=== PATIENT | female | born 1955 ===

== ENCOUNTER 2022-11-04 17:55 | Inpatient (IN) | payer MEDICARE, SELFPAY ==
[2022-11-04] VITALS (34 sets, daily range): BP systolic 86–181; BP diastolic 50–103; PULSE 105–181; RESP 14–33; TEMP 35.3–38.4; O2SAT 92–100; BMI 26.1
--- NOTE | 2022-11-04 18:00 | DI.CT.S_ITS ---
PROCEDURE: CT HEAD/BRAIN WO CON INDICATIONS: altered mental status TECHNIQUE: Noncontrast 4.5 mm thick angled axial sections acquired from the foramen magnum to the vertex, with coronal and sagittal reformats. For radiation dose reduction, the following was used: automated exposure control, adjustment of mA and/or kV according to patient size. COMPARISON: None. FINDINGS: Image quality: Excellent. CSF spaces: Basal cisterns are patent. No extra-axial fluid collections. Ventricles are normal in size and shape. Brain: No midline shift. No intracranial masses or hemorrhage. Baker-white matter interface is normal. Skull and face: Calvarium and visualized facial bones are intact, without suspicious lesions. Sinuses: Visualized sinuses and mastoids are clear. IMPRESSION: No acute finding. Dictated by: Gonzalo Zuleta M.D. on 11/04/2022 at 19:01 Approved by: Gonzalo Zuleta M.D. on 11/04/2022 at 19:02
--- NOTE | 2022-11-04 18:00 | DI.RAD.S_ITS ---
PROCEDURE: XR CHEST 1V INDICATIONS: Evaluate for pneumonia TECHNIQUE: One view of the chest was acquired. COMPARISON: None. FINDINGS: Surgical changes and devices: None. Lungs and pleura: Lungs are clear. No pleural effusions or pneumothorax. Mediastinum: Mediastinal contours appear normal. Heart size is normal. Bones and chest wall: No suspicious bony lesions. Overlying soft tissues appear unremarkable. IMPRESSION: No acute cardiopulmonary process demonstrated radiographically. Dictated by: Gonzalo Zuleta M.D. on 11/04/2022 at 19:07 Approved by: Gonzalo Zuleta M.D. on 11/04/2022 at 19:12
[2022-11-04] MEDS: SODIUM CHLORIDE 0.9% 1,000 ML 999 ML IV (18:05)
[2022-11-04] MEDS: SODIUM CHLORIDE 0.9% 1,000 ML 1000 ML IV (18:15)
[2022-11-04 18:27] LABS: Hematocrit 43.6 % (36-46); Hemoglobin 12.8 g/dL (12.0-16.0); Mean Corpuscular HGB Conc 29.5 % (30-36); Mean Corpuscular Volume 98.3 fL (80-100); Platelet Count 463 X10^3/uL (150-400); Red Blood Cell Count 4.43 X10^6/uL (4.0-5.2); Red Cell Distribution Width 14.5 % (11.6-14.8); White Blood Cell Count 26.7 X10^3/uL (4.5-11.0)
[2022-11-04 18:28] LABS: Prothrombin Time 11.5 SECONDS (10.1-12.7)
[2022-11-04 18:30] LABS: Add Manual Diff / Slide Review YES
[2022-11-04 18:31] LABS: PTT Partial Thromboplastin Tim 31 SECONDS (26-36)
[2022-11-04 18:40] LABS: Lactate (Lactic Acid) 1.8 mmol/L (0.7-2.1)
[2022-11-04 18:41] LABS: Acetaminophen < 10 ug/mL (10-30); Alanine Aminotransferase 17 IU/L (<35); Albumin 4.1 g/dL (3.5-5.0); Albumin Globulin Ratio 1.2 (1.0-2.8); Alkaline Phosphatase 381 U/L (38-126); Aspartate Aminotransferase 17 IU/L (14-36); BUN Creatinine Ratio 21.7 (6-22); Bilirubin Total 0.5 mg/dL (0.2-1.3); Blood Urea Nitrogen 79 mg/dL (7-17); Carbon Dioxide 11 mmol/L (22-32); Chloride 85 mmol/L (98-107); Estimated Glomerular Filt Rate 13 mL/min (>60); Ethanol (ETOH) < 10 mg/dL; Globulin 3.3 g/dL (1.7-4.1); Lipase 185 U/L (23-300); Magnesium 3.3 mg/dL (1.6-2.3); Sodium 124 mmol/L (137-145); Total Protein 7.4 g/dL (6.3-8.2)
[2022-11-04 18:42] LABS: Creatine Kinase 53 U/L (30-135); Phosphorous 7.4 mg/dL (2.8-4.1); Salicylate < 1.0 mg/dL (<20)
[2022-11-04 18:44] LABS: Appearance Urine UA CLEAR; Bilirubin Urine UA NEGATIVE (NEGATIVE); Color Urine UA LT. YELLOW; Glucose Urine UA 3+ g/dL (Negative); Ketones Urine UA 1+ (NEGATIVE); Leukocyte Esterase Urine UA NEGATIVE (NEGATIVE); Nitrite Urine UA NEGATIVE (Negative); Occult Blood Urine UA TRACE-INTACT (Negative); Protein Urine UA 2+ (Negative); Urobilinogen Urine UA 0.2 E.U./dL (0.2)
[2022-11-04 18:48] LABS: pH Urine UA 5.5 (4.5-8.0)
[2022-11-04 18:49] LABS: HEMOLYSIS 24 (0-50)
[2022-11-04 18:49] LABS: PCO2 VBG 30.9 mmHg (45-50); PO2 VBG 38 mmHg (35-45); pH VBG 7.14 (7.33-7.43)
[2022-11-04 18:51] LABS: HCO3 VBG 11 mmol/L (24-28); Oxygen Saturation VBG 58 % (70-75); Total CO2 VBG 11 mmol/L (24-29)
[2022-11-04 18:52] LABS: Fractionated Inspired Oxygen 21
[2022-11-04 18:53] LABS: NT-proBNP (BNP-Adult 18+) 1580 pg/mL (<125); Troponin I 0.042 ng/mL (0.01-0.034)
[2022-11-04 18:57] LABS: Ammonia (NH3) < 9 umol/L (9-30)
[2022-11-04 18:58] LABS: Procalcitonin 1.15 ng/mL (<0.5)
--- NOTE | 2022-11-04 19:00 | ED_ITS ---
HPI - General Adult General Chief complaint: Diabetic Problem Stated complaint: DKA Time Seen by Provider: 11/04/22 17:58 Source: EMS and other (Boyfriend) Mode of arrival: EMS Limitations: altered mental status History of Present Illness HPI narrative: Patient is a 67-year-old female who arrived by EMS. They were called by the patient's boyfriend. He initially was not present at bedside to provide information but did eventually arrived and provided much of the HPI. Patient is unable to provide any information. Patient's boyfriend states that he lives out of the local area. He states that he normally calls the patient every morning. He thinks that the last time that he called her yesterday morning but could have been the day prior to that. He states he tried to call her this morning and she did not answer the phone. He decided to make his way to the local area. Upon arriving here he found the patient lying on the floor her house. He could not arouse her. He contacted EMS. Upon arrival EMS also found the patient obtunded. Her no signs of trauma except for some bruising on her right hip. She was not following commands. Blood sugar was elevated. Was maintaining airway. IVs were started. Patient transported to the emergency department for evaluation. Patient's boyfriend states she does have a history of heart failure. He states she is diabetic but not sure if she is on insulin. We are unsure of how long the patient has been on the floor. Related Data Home Medications Medication Instructions Recorded Confirmed acetaminophen 325 mg tablet 650 mg PO Q6HP PRN #0 tabs 07/15/16 diphenhydramine HCl 25 mg tablet 25 mg PO Q6HP PRN #0 tabs 07/15/16 (Benadryl Allergy) Previous Rx's Medication Instructions Recorded carvedilol 25 mg tablet (Coreg) 25 mg PO BID #60 tabs 07/17/16 furosemide 40 mg tablet 40 mg PO QDAY #30 tabs 07/17/16 lisinopril 10 mg tablet 10 mg PO QDAY #30 tabs 07/17/16 metformin 500 mg tablet 500 mg PO BIDCC #60 tabs 07/17/16 (Glucophage) Allergies Allergy/AdvReac Type Severity Reaction Status Date / Time No Allergy Information Allergy Verified 11/04/22 20:00 Available Review of Systems Review of Systems Narrative: Unable to obtain secondary to patient's presenting condition Patient History Medical History Congestive heart failure Diabetes Hypertension Social History lives independently: Yes Exam Initial Vital Signs Initial Vital Signs: Vital Signs Temperature 95.7 F L 11/04/22 17:55 Pulse Rate 112 H 11/04/22 17:55 Respiratory Rate 25 H 11/04/22 17:55 Blood Pressure 144/99 H 11/04/22 17:55 Pulse Oximetry 99 11/04/22 17:55 Oxygen Delivery Method 11/04/22 17:55 Const General: acute distress, in distress, No combative, ill appearing and lethargic [place] Head: normal to inspection and normocephalic Mouth: moist mucous membranes Eyes General: Yes appearance normal, both eyes and all related structures Pupils: PERRL Chest Chest: No crepitus and No tenderness Resp Effort & Inspection: not labored, no respiratory distress and tachypneic Auscultation: clear to auscultation bilaterally, no rhonchi and no wheezes Cardio Rate: tachycardic Rhythm: regular rhythm GI Inspection: normal to inspection and non-distended Palpation: soft and No firm External Female Exam: normal external appearance Skin Other: Superficial bruising to right hip. Appears to be some bruising to her right knee and the top of the toes of her right foot. Unsure this is new. Neuro Other: Presenting GCS of 11. Patient was making sounds but not necessarily to any que stions that were asked of her. Extrem Other: Pelvis is stable. No gross deformities of her extremities. Psych Appearance: disheveled Procedures Central Line Placement Right IJ: Time Out Performed: Yes Patient Placed on Monitor/Pulse Ox: Yes MD Prep: mask, gown and gloves Central Line Prep: Chlorhexidine scrub Local Anesthetic: lidocaine 1% Amount of anesthesia used (mL): 5 Ultrasound Used for Placement: Yes Central Line Lumen Inserted: triple Post Procedure: good blood return, all ports aspirated, flushed, capped and sterile dressing applied Post Procedure X-Ray: tip of catheter in good position and no pneumothorax seen Patient Tolerated Procedure: Well and No complications Complications: none Scores GCS [place] coma scale eye opening: Spontaneous [place] coma scale verbal response: Sounds [place] coma scale motor response: Localising [place] coma scale total score: 11 Course Orders Ordered: ED Orders 11/04/22 21:01 VBG [Venous Blood Gas] Stat 11/04/22 22:15 BMP [Basic Metabolic Panel] Stat 11/05/22 00:00 BMP [Basic Metabolic Panel] Stat 11/05/22 01:08 XR chest 1V Stat 11/05/22 01:30 BMP [Basic Metabolic Panel] Stat 11/05/22 01:31 VBG [Venous Blood Gas] Stat 11/05/22 04:00 BMP [Basic Metabolic Panel] Stat 11/05/22 05:30 Complete Blood Count AUTO DIFF DAILY Ketones (Beta-Hydroxybutyrate) DAILY 11/05/22 05:40 Basic Metabolic Panel Q4H Hemoglobin A1C% w Est Avg Glu Stat Lactate (Lactic Acid) Stat 11/05/22 09:30 Basic Metabolic Panel Q4H 11/05/22 13:30 Basic Metabolic Panel Q4H 11/05/22 17:30 Basic Metabolic Panel Q4H 11/05/22 21:30 Basic Metabolic Panel Q4H 11/06/22 05:30 Complete Blood Count AUTO DIFF DAILY Ketones (Beta-Hydroxybutyrate) DAILY 11/07/22 05:30 Complete Blood Count AUTO DIFF DAILY Acetaminophen (Acetaminophen 650 Mg Supp) 650 mg MA Q4HR PRN PRN Reason: Fever/Mild Pain (1-3) Dextrose (Dextrose 50 % In Water 25 Gm/50 Ml Syringe) 25 gm IV PRN PRN PRN Reason: Hypoglycemia INSULIN DRIP PREMIX (Myxredlin Drip Premix) 100 unit in 100 mls @ 6 mls/hr IV TITRATE RYLEE; Protocol Last Titration: 11/05/22 01:00 Dose: 1 mls/hr, 1 mls/hr Documented By: JENNIFER Co-signed By: FLORINA Titration: 11/04/22 23:00 Dose: 2.5 mls/hr, 2.5 mls/hr Documented By: JENNIFER Co-signed By: LAURA Titration: 11/04/22 21:15 Dose: 5 mls/hr, 5 mls/hr Documented By: JENNIFER Co-signed By: FLORINA Admin: 11/04/22 19:36 Dose: 10 mls/hr, 10 mls/hr Documented By: ORAL Co-signed By: JENNIFER Ceftriaxone Sodium 2,000 mg/ (Sodium Chloride) 100 mls @ 200 mls/hr IV Q12HR RYLEE Ampicillin Sodium 2,000 mg/ (Sodium Chloride) 100 mls @ 200 mls/hr IV Q4HR RYLEE Last Titration: 11/05/22 04:02 Dose: Infused Lactated Ringer's (Lactated Ringers) 1,000 mls @ 250 mls/hr IV CONT RYLEE Last Admin: 11/05/22 02:20 Dose: 250 mls/hr Documented By: JENNIFER Vancomycin HCl (Vancomycin) 1,000 mg in 200 mls @ 167 mls/hr IV Q48H RYLEE Calcium Gluconate 4.65 meq/ (Sodium Chloride) 60 mls @ 180 mls/hr IV NOW ONE Stop: 11/05/22 05:49 Naloxone HCl (Naloxone 0.4 Mg/Ml Vial) 0.2 mg IV Q2MIN PRN PRN Reason: Opiate Reversal Discontinued Medications Sodium Chloride (Normal Saline 0.9%) 1,000 mls @ 125 mls/hr IV CONT RYLEE Last Infusion: 11/05/22 01:17 Dose: 0 mls/hr Documented By: Infusion: 11/05/22 00:16 Dose: 0 mls/hr Documented By: Admin: 11/04/22 19:18 Dose: 250 mls/hr Documented By: ORAL Ceftriaxone Sodium 1,000 mg/ (Sodium Chloride) 100 mls @ 200 mls/hr IV NOW ONE Stop: 11/04/22 18:09 Last Infusion: 11/04/22 19:59 Dose: 0 mls/hr Documented By: Admin: 11/04/22 19:27 Dose: 200 mls/hr Documented By: ORAL Sodium Chloride (Normal Saline 0.9%) 1,000 mls @ 500 mls/hr IV BOLUS ONE Stop: 11/04/22 20:07 Last Infusion: 11/04/22 19:19 Dose: 0 mls/hr Documented By: Admin: 11/04/22 18:05 Dose: 999 mls/hr Documented By: ORAL Vancomycin HCl (Vancomycin) 1,000 mg in 200 mls @ 200 mls/hr IV NOW ONE Stop: 11/04/22 20:01 Last Infusion: 11/04/22 20:51 Dose: 0 mls/hr Documented By: Admin: 11/04/22 19:38 Dose: 200 mls/hr Documented By: ORAL Sodium Chloride (Normal Saline 0.9%) 1,000 mls @ 1,000 mls/hr IV BOLUS ONE Stop: 11/04/22 20:19 Last Infusion: 11/04/22 19:28 Dose: 0 mls/hr Documented By: Admin: 11/04/22 18:15 Dose: 1,000 mls/hr Documented By: ORAL Levetiracetam 1,000 mg/ Sodium (Chloride) 110 mls @ 440 mls/hr IV NOW ONE Stop: 11/04/22 19:36 Last Infusion: 11/04/22 20:51 Dose: 0 mls/hr Documented By: Admin: 11/04/22 19:44 Dose: 440 mls/hr Documented By: ORAL Ceftriaxone Sodium 1,000 mg/ (Sodium Chloride) 100 mls @ 200 mls/hr IV NOW ONE Stop: 11/04/22 21:50 Last Infusion: 11/04/22 23:00 Dose: 0 mls/hr Documented By: Admin: 11/04/22 22:20 Dose: 200 mls/hr Documented By: JENNIFER Ampicillin Sodium 2,000 mg/ (Sodium Chloride) 100 mls @ 200 mls/hr IV NOW ONE Stop: 11/04/22 21:51 Last Infusion: 11/04/22 23:36 Dose: 0 mls/hr Documented By: Admin: 11/04/22 23:01 Dose: 200 mls/hr Documented By: JENNIFER Acyclovir 710 mg/ Dextrose 250 mls @ 250 mls/hr IV NOW ONE Stop: 11/04/22 21:54 Last Infusion: 11/05/22 01:14 Dose: 0 mls/hr Documented By: Admin: 11/04/22 23:34 Dose: 250 mls/hr Documented By: JENNIFER Acetaminophen (Ofirmev) 1,000 mg in 100 mls @ 400 mls/hr IV NOW ONE Stop: 11/05/22 00:08 Last Infusion: 11/05/22 01:14 Dose: 0 mls/hr Documented By: Admin: 11/05/22 00:24 Dose: 400 mls/hr Documented By: JENNIFER Acyclovir 710 mg/ Dextrose 250 mls @ 250 mls/hr IV Q8H [facility] Lactated Ringer's (Lactated Ringers) 1,000 mls @ 1,000 mls/hr IV BOLUS ONE Stop: 11/05/22 02:29 Last Infusion: 11/05/22 02:00 Dose: 0 mls/hr Documented By: Admin: 11/05/22 01:00 Dose: 1,000 mls/hr Documented By: JENNIFER Lorazepam (Lorazepam 2 Mg/Ml Inj) 2 mg IV NOW ONE Stop: 11/04/22 19:24 Last Admin: 11/04/22 19:25 Dose: 2 mg Documented By: ORAL Lorazepam (Lorazepam 0.5 Mg Tablet) 1 mg PO NOW ONE Stop: 11/04/22 20:10 Last Admin: 11/04/22 21:29 Dose: Not Given Documented By: JENNIFER Metoprolol Tartrate (Metoprolol Tartrate 5 Mg/5 Ml Inj) 5 mg IV NOW ONE Stop: 11/05/22 05:34 Sucralfate (Sucralfate 1 Gm Tablet) 1 gm PO NOW ONE Stop: 11/04/22 20:10 Last Admin: 11/04/22 21:29 Dose: Not Given Documented By: JENNIFER Vancomycin HCl (Vancomycin Per Pharmacy) 1 request MISC NOW ONE Stop: 11/05/22 01:26 Vital Signs Vital signs: Vital Signs - 8 hr 11/04/22 21:50 11/04/22 21:50 11/04/22 22:00 Temperature 100.2 F H Pulse Rate 123 H Respiratory Rate 19 Blood Pressure 133/61 122/64 Pulse Oximetry 99 11/04/22 22:00 11/04/22 22:11 11/04/22 22:11 Temperature 100.4 F H 100.4 F H Pulse Rate 121 H 119 H Respiratory Rate 17 18 Blood Pressure 122/65 Pulse Oximetry 98 98 11/04/22 22:20 11/04/22 22:20 11/04/22 22:30 Temperature 100.6 F H Pulse Rate 119 H Respiratory Rate 18 Blood Pressure 121/58 L 128/65 Pulse Oximetry 98 11/04/22 22:30 11/04/22 22:40 11/04/22 22:40 Temperature 100.8 F H 100.8 F H Pulse Rate 115 H 117 H Respiratory Rate 16 14 Blood Pressure 126/64 Pulse Oximetry 97 97 11/04/22 22:50 11/04/22 22:50 11/04/22 23:00 Temperature 100.8 F H Pulse Rate 118 H Respiratory Rate 17 Blood Pressure 114/64 109/57 L Pulse Oximetry 97 11/04/22 23:00 11/04/22 23:10 11/04/22 23:10 Temperature 100.8 F H 100.9 F H Pulse Rate 119 H 118 H Respiratory Rate 19 19 Blood Pressure 97/52 L Pulse Oximetry 98 97 11/04/22 23:20 11/04/22 23:20 11/04/22 23:30 Temperature 100.9 F H Pulse Rate 118 H Respiratory Rate 20 Blood Pressure 115/65 108/56 L Pulse Oximetry 97 11/04/22 23:30 11/04/22 23:40 11/04/22 23:40 Temperature 101.1 F H 101.1 F H Pulse Rate 118 H 119 H Respiratory Rate 20 19 Blood Pressure 108/56 L Pulse Oximetry 98 98 11/04/22 23:50 11/04/22 23:50 11/05/22 00:50 Temperature 101.1 F H Pulse Rate 120 H Respiratory Rate 21 Blood Pressure 86/50 L 96/53 L Pulse Oximetry 99 11/05/22 00:55 11/05/22 00:55 11/05/22 01:00 Temperature 100.8 F H Pulse Rate 122 H Respiratory Rate 18 Blood Pressure 95/52 L 135/96 H Pulse Oximetry 97 11/05/22 01:00 11/05/22 01:05 11/05/22 01:05 Temperature 100.6 F H 100.4 F H Pulse Rate 123 H 125 H Respiratory Rate 23 22 Blood Pressure 141/101 H Pulse Oximetry 98 97 11/05/22 01:10 11/05/22 01:10 11/05/22 01:15 Temperature 100.4 F H 100.4 F H Pulse Rate 124 H 121 H Respiratory Rate 24 20 Blood Pressure 120/82 Pulse Oximetry 99 98 11/05/22 01:15 11/05/22 01:20 11/05/22 01:20 Temperature 100.2 F H Pulse Rate 118 H Respiratory Rate 20 Blood Pressure 98/57 L 109/58 L Pulse Oximetry 99 11/05/22 01:25 11/05/22 01:25 11/05/22 01:30 Temperature 100.2 F H Pulse Rate 114 H Respiratory Rate 20 Blood Pressure 97/53 L 110/55 L Pulse Oximetry 97 11/05/22 01:30 11/05/22 01:35 11/05/22 01:35 Temperature 100.2 F H 100.0 F H Pulse Rate 116 H 117 H Respiratory Rate 20 21 Blood Pressure 133/61 Pulse Oximetry 99 97 11/05/22 01:40 11/05/22 01:40 11/05/22 01:45 Temperature 99.9 F H 99.9 F H Pulse Rate 115 H 112 H Respiratory Rate 18 18 Blood Pressure 130/60 Pulse Oximetry 98 99 11/05/22 01:45 11/05/22 01:50 11/05/22 01:50 Temperature 99.7 F H Pulse Rate 110 H Respiratory Rate 17 Blood Pressure 124/59 L 118/57 L Pulse Oximetry 98 11/05/22 01:55 11/05/22 01:55 11/05/22 02:00 Temperature 99.7 F H Pulse Rate 111 H Respiratory Rate 17 Blood Pressure 97/52 L 97/53 L Pulse Oximetry 98 11/05/22 02:00 11/05/22 02:05 11/05/22 02:05 Temperature 99.7 F H 99.7 F H Pulse Rate 109 H 110 H Respiratory Rate 16 17 Blood Pressure 92/55 L Pulse Oximetry 96 96 11/05/22 02:10 11/05/22 02:10 11/05/22 02:15 Temperature 99.7 F H 99.7 F H Pulse Rate 110 H 109 H Respiratory Rate 18 18 Blood Pressure 88/54 L Pulse Oximetry 96 95 11/05/22 02:15 11/05/22 02:20 11/05/22 02:20 Temperature 99.7 F H Pulse Rate 109 H Respiratory Rate 19 Blood Pressure 79/49 L 85/51 L Pulse Oximetry 94 11/05/22 02:30 11/05/22 02:30 11/05/22 02:40 Temperature 99.7 F H Pulse Rate 109 H Respiratory Rate 19 Blood Pressure 86/52 L 93/52 L Pulse Oximetry 93 11/05/22 02:40 11/05/22 02:50 11/05/22 02:50 Temperature 99.5 F 99.5 F Pulse Rate 110 H 114 H Respiratory Rate 18 21 Blood Pressure 129/93 H Pulse Oximetry 97 96 11/05/22 03:00 11/05/22 03:01 11/05/22 03:01 Temperature 99.5 F 99.3 F Pulse Rate 113 H 114 H Respiratory Rate 30 H 21 Blood Pressure 141/87 H Pulse Oximetry 97 97 11/05/22 03:10 11/05/22 03:10 11/05/22 03:21 Temperature 99.3 F 99.3 F Pulse Rate 117 H 113 H Respiratory Rate 34 H Blood Pressure 141/80 H Pulse Oximetry 97 98 11/05/22 03:21 11/05/22 03:30 11/05/22 03:30 Temperature 99.3 F Pulse Rate 109 H Respiratory Rate 28 H Blood Pressure 143/67 H 118/68 Pulse Oximetry 96 11/05/22 03:40 11/05/22 03:40 11/05/22 03:50 Temperature 99.3 F 99.3 F Pulse Rate 109 H 107 H Respiratory Rate 20 21 Blood Pressure 110/62 Pulse Oximetry 95 95 11/05/22 03:50 11/05/22 04:00 11/05/22 04:00 Temperature 99.3 F Pulse Rate 109 H Respiratory Rate 32 H Blood Pressure 117/56 L 84/56 L Pulse Oximetry 89 L 11/05/22 04:10 11/05/22 04:10 11/05/22 04:20 Temperature 99.1 F Pulse Rate 109 H Respiratory Rate 34 H Blood Pressure 84/50 L 86/52 L Pulse Oximetry 95 11/05/22 04:20 11/05/22 04:30 11/05/22 04:30 Temperature 99.1 F 99.0 F Pulse Rate 109 H 109 H Respiratory Rate 33 H 35 H Blood Pressure 89/53 L Pulse Oximetry 92 93 11/05/22 04:40 11/05/22 04:40 11/05/22 04:50 Temperature 99.0 F 98.8 F Pulse Rate 106 H 105 H Respiratory Rate 15 21 Blood Pressure 93/53 L Pulse Oximetry 95 96 11/05/22 04:50 11/05/22 05:00 11/05/22 05:00 Temperature 98.8 F Pulse Rate 104 H Respiratory Rate 21 Blood Pressure 108/57 L 106/57 L Pulse Oximetry 94 11/05/22 05:10 11/05/22 05:10 01/21/23 05:20 Temperature 98.8 F 98.8 F Pulse Rate 104 H 106 H Respiratory Rate 26 H 34 H Blood Pressure 101/59 L Pulse Oximetry 93 92 11/05/22 05:20 11/05/22 05:30 11/05/22 05:30 Temperature 98.8 F Pulse Rate 104 H Respiratory Rate 29 H Blood Pressure 106/57 L 110/57 L Pulse Oximetry 92 Medical Decision Making Differential Diagnosis Differential Diagnosis: Sepsis, seizures, DKA, trauma, intoxication, hemorrhage, and others Condition is:: Improved Chronic Condition is having:: Severe exacerbation Condition is at treatment goal?: No Discussed with:: Shoe Cutter: Dr. Archer, air intercept controller supervisor: Dr. Ibrahim, hospitalist: HAILE Jolley Medical Records Medical records reviewed: Yes I reviewed the patient's medical records. Lab Data Lab results reviewed: Yes I reviewed the patient's lab results. Result diagrams: 11/04/22 18:08 11/05/22 04:00 Labs: Lab Results 11/04/22 11/04/22 11/04/22 Range/Units 17:55 18:08 18:08 WBC 26.7 H (4.5-11.0) X10^3/uL RBC 4.43 (4.0-5.2) X10^6/uL Hgb 12.8 (12.0-16.0) g/dL Hct 43.6 (36-46) % MCV 98.3 (80-100) fL MCH 29.0 (26-34) PG MCHC 29.5 L (30-36) % RDW 14.5 (11.6-14.8) % Plt Count 463 H (150-400) X10^3/uL Neut % (Auto) Not Reportable Lymph % (Auto) Not Reportable [place] % (Auto) Not Reportable Eos % (Auto) Not Reportable Baso % (Auto) Not Reportable Lymph # (Auto) Not Reportable [place] # (Auto) Not Reportable Baso # (Auto) Not Reportable Total Counted 100 Seg Neutrophils % 89.0 H (38-70) % Band Neutrophils % 7.0 (3-7) % Lymphocytes % (Manual) 2.0 L (25-45) % Monocytes % (Manual) 2.0 (2-11) % Neutrophils # (Manual) 06738 H (4184-9277) /uL Platelet Estimate Increased on smear RBC Morphology Normal morphology PT (10.1-12.7) SECONDS INR (0.9-1.3) APTT (26-36) SECONDS VBG pH 7.14 L* (7.33-7.43) VBG pCO2 30.9 L (45-50) mmHg VBG pO2 38 (35-45) mmHg VBG HCO3 11 L (24-28) mmol/L VBG Total CO2 11 L (24-29) mmol/L VBG O2 Saturation 58 L (70-75) % VBG Base Excess -18.0 L (0-4) mmol/L FiO2 21 Sodium 124 L (137-145) mmol/L Potassium 6.4 H* (3.4-5.1) mmol/L Chloride 85 L (98-107) mmol/L Carbon Dioxide 11 L (22-32) mmol/L BUN 79 H (7-17) mg/dL Creatinine 3.64 H (0.52-1.04) mg/dL Estimated GFR 13 L (>60) mL/min BUN/Creatinine Ratio 21.7 (6-22) Glucose 1467 H* (80-110) mg/dL Lactate (0.7-2.1) mmol/L Calcium 10.0 (8.4-10.2) mg/dL Phosphorus (2.8-4.1) mg/dL Magnesium 3.3 H (1.6-2.3) mg/dL Total Bilirubin 0.5 (0.2-1.3) mg/dL AST 17 (14-36) IU/L ALT 17 (<35) IU/L Alkaline Phosphatase 381 H (38-126) U/L Ammonia (9-30) umol/L Total Creatine Kinase (30-135) U/L CK-MB (CK-2) CK-MB (CK-2) Rel Index Troponin I (0.01-0.034) ng/mL NT-Pro-B Natriuret Pep (<125) pg/mL Total Protein 7.4 (6.3-8.2) g/dL Albumin 4.1 (3.5-5.0) g/dL Globulin 3.3 (1.7-4.1) g/dL Albumin/Globulin Ratio 1.2 (1.0-2.8) Lipase 185 (23-300) U/L Procalcitonin (<0.5) ng/mL TSH (0.47-4.68) uIU/mL Prolactin (3.0-18.6) ng/mL Urine Color Urine Appearance Urine pH (4.5-8.0) Ur Specific [place] (1.000-1.035) Urine Protein (Negative) Urine Glucose (UA) (Negative) g/dL Urine Ketones (NEGATIVE) Urine Occult Blood (Negative) Urine Nitrate (Negative) Urine Bilirubin (NEGATIVE) Urine Urobilinogen (0.2) E.U./dL Ur Leukocyte Esterase (NEGATIVE) Urine RBC (0-5/HPF) Urine WBC (0-5/HPF) Ur Squamous Epith Cells (0-5/HPF) Urine Bacteria (None) Ur Random Sodium (30-90) mmol/L Urine Creatinine mg/dL Salicylates (<20) mg/dL U Opiates 300ng/mL cut (Negative) Ur Oxycodone Screen (Negative) Urine Methadone Screen (Negative) Acetaminophen < 10 (10-30) ug/mL Ur Barbiturates Screen (Negative) U Tricyclic Antidepress (Negative) Ur Phencyclidine Scrn (Negative) Ur Amphetamines Screen (Negative) U Methamphetamines Scrn (Negative) Ur MDMA Scrn (Ecstasy) (Negative) U Benzodiazepines Scrn (Negative) Urine Cocaine Screen (Negative) U Marijuana (THC) Screen (Negative) Ethyl Alcohol < 10 ( - 10) mg/dL Ketones 7.09 H (<0.27) mmol/L SARS-CoV-2 (PCR) (Negative) Influenza A (RT-PCR) (NEGATIVE) Influenza B (RT-PCR) (NEGATIVE) RSV (PCR) (Negative) 11/04/22 11/04/22 11/04/22 Range/Units 18:08 18:08 18:08 WBC (4.5-11.0) X10^3/uL RBC (4.0-5.2) X10^6/uL Hgb (12.0-16.0) g/dL Hct (36-46) % MCV (80-100) fL MCH (26-34) PG MCHC (30-36) % RDW (11.6-14.8) % Plt Count (150-400) X10^3/uL Neut % (Auto) Lymph % (Auto) [place] % (Auto) Eos % (Auto) Baso % (Auto) Lymph # (Auto) [place] # (Auto) Baso # (Auto) Total Counted Seg Neutrophils % (38-70) % Band Neutrophils % (3-7) % Lymphocytes % (Manual) (25-45) % Monocytes % (Manual) (2-11) % Neutrophils # (Manual) ([id number]) /uL Platelet Estimate RBC Morphology PT 11.5 (10.1-12.7) SECONDS INR 1.0 (0.9-1.3) APTT 31 (26-36) SECONDS VBG pH (7.33-7.43) VBG pCO2 (45-50) mmHg VBG pO2 (35-45) mmHg VBG HCO3 (24-28) mmol/L VBG Total CO2 (24-29) mmol/L VBG O2 Saturation (70-75) % VBG Base Excess (0-4) mmol/L FiO2 Sodium (137-145) mmol/L Potassium (3.4-5.1) mmol/L Chloride (98-107) mmol/L Carbon Dioxide (22-32) mmol/L BUN (7-17) mg/dL Creatinine (0.52-1.04) mg/dL Estimated GFR (>60) mL/min BUN/Creatinine Ratio (6-22) Glucose (80-110) mg/dL Lactate 1.8 (0.7-2.1) mmol/L Calcium (8.4-10.2) mg/dL Phosphorus 7.4 H (2.8-4.1) mg/dL Magnesium (1.6-2.3) mg/dL Total Bilirubin (0.2-1.3) mg/dL AST (14-36) IU/L ALT (<35) IU/L Alkaline Phosphatase (38-126) U/L Ammonia (9-30) umol/L Total Creatine Kinase 53 (30-135) U/L CK-MB (CK-2) TNP CK-MB (CK-2) Rel Index TNP Troponin I 0.042 H (0.01-0.034) ng/mL NT-Pro-B Natriuret Pep 1580 H (<125) pg/mL Total Protein (6.3-8.2) g/dL Albumin (3.5-5.0) g/dL Globulin (1.7-4.1) g/dL Albumin/Globulin Ratio (1.0-2.8) Lipase (23-300) U/L Procalcitonin 1.15 H (<0.5) ng/mL TSH (0.47-4.68) uIU/mL Prolactin 27.0 H (3.0-18.6) ng/mL Urine Color Urine Appearance Urine pH (4.5-8.0) Ur Specific [place] (1.000-1.035) Urine Protein (Negative) Urine Glucose (UA) (Negative) g/dL Urine Ketones (NEGATIVE) Urine Occult Blood (Negative) Urine Nitrate (Negative) Urine Bilirubin (NEGATIVE) Urine Urobilinogen (0.2) E.U./dL Ur Leukocyte Esterase (NEGATIVE) Urine RBC (0-5/HPF) Urine WBC (0-5/HPF) Ur Squamous Epith Cells (0-5/HPF) Urine Bacteria (None) Ur Random Sodium (30-90) mmol/L Urine Creatinine mg/dL Salicylates < 1.0 (<20) mg/dL U Opiates 300ng/mL cut (Negative) Ur Oxycodone Screen (Negative) Urine Methadone Screen (Negative) Acetaminophen (10-30) ug/mL Ur Barbiturates Screen (Negative) U Tricyclic Antidepress (Negative) Ur Phencyclidine Scrn (Negative) Ur Amphetamines Screen (Negative) U Methamphetamines Scrn (Negative) Ur MDMA Scrn (Ecstasy) (Negative) U Benzodiazepines Scrn (Negative) Urine Cocaine Screen (Negative) U Marijuana (THC) Screen (Negative) Ethyl Alcohol ( - 10) mg/dL Ketones (<0.27) mmol/L SARS-CoV-2 (PCR) (Negative) Influenza A (RT-PCR) (NEGATIVE) Influenza B (RT-PCR) (NEGATIVE) RSV (PCR) (Negative) 11/04/22 11/04/22 11/04/22 Range/Units 18:08 18:18 18:18 WBC (4.5-11.0) X10^3/uL RBC (4.0-5.2) X10^6/uL Hgb (12.0-16.0) g/dL Hct (36-46) % MCV (80-100) fL MCH (26-34) PG MCHC (30-36) % RDW (11.6-14.8) % Plt Count (150-400) X10^3/uL Neut % (Auto) Lymph % (Auto) [place] % (Auto) Eos % (Auto) Baso % (Auto) Lymph # (Auto) [place] # (Auto) Baso # (Auto) Total Counted Seg Neutrophils % (38-70) % Band Neutrophils % (3-7) % Lymphocytes % (Manual) (25-45) % Monocytes % (Manual) (2-11) % Neutrophils # (Manual) ([id number]) /uL Platelet Estimate RBC Morphology PT (10.1-12.7) SECONDS INR (0.9-1.3) APTT (26-36) SECONDS VBG pH (7.33-7.43) VBG pCO2 (45-50) mmHg VBG pO2 (35-45) mmHg VBG HCO3 (24-28) mmol/L VBG Total CO2 (24-29) mmol/L VBG O2 Saturation (70-75) % VBG Base Excess (0-4) mmol/L FiO2 Sodium (137-145) mmol/L Potassium (3.4-5.1) mmol/L Chloride (98-107) mmol/L Carbon Dioxide (22-32) mmol/L BUN (7-17) mg/dL Creatinine (0.52-1.04) mg/dL Estimated GFR (>60) mL/min BUN/Creatinine Ratio (6-22) Glucose (80-110) mg/dL Lactate (0.7-2.1) mmol/L Calcium (8.4-10.2) mg/dL Phosphorus (2.8-4.1) mg/dL Magnesium (1.6-2.3) mg/dL Total Bilirubin (0.2-1.3) mg/dL AST (14-36) IU/L ALT (<35) IU/L Alkaline Phosphatase (38-126) U/L Ammonia (9-30) umol/L Total Creatine Kinase (30-135) U/L CK-MB (CK-2) CK-MB (CK-2) Rel Index Troponin I (0.01-0.034) ng/mL NT-Pro-B Natriuret Pep (<125) pg/mL Total Protein (6.3-8.2) g/dL Albumin (3.5-5.0) g/dL Globulin (1.7-4.1) g/dL Albumin/Globulin Ratio (1.0-2.8) Lipase (23-300) U/L Procalcitonin (<0.5) ng/mL TSH 2.52 (0.47-4.68) uIU/mL Prolactin (3.0-18.6) ng/mL Urine Color Lt. yellow Urine Appearance Clear Urine pH 5.5 (4.5-8.0) Ur Specific [place] 1.010 (1.000-1.035) Urine Protein 2+ H (Negative) Urine Glucose (UA) 3+ H (Negative) g/dL Urine Ketones 1+ H (NEGATIVE) Urine Occult Blood Trace-intact (Negative) Urine Nitrate Negative (Negative) Urine Bilirubin Negative (NEGATIVE) Urine Urobilinogen 0.2 (0.2) E.U./dL Ur Leukocyte Esterase Negative (NEGATIVE) Urine RBC None seen (0-5/HPF) Urine WBC None seen (0-5/HPF) Ur Squamous Epith Cells 0-1 /hpf (0-5/HPF) Urine Bacteria None seen (None) Ur Random Sodium (30-90) mmol/L Urine Creatinine mg/dL Salicylates (<20) mg/dL U Opiates 300ng/mL cut Negative (Negative) Ur Oxycodone Screen Negative (Negative) Urine Methadone Screen Negative (Negative) Acetaminophen (10-30) ug/mL Ur Barbiturates Screen Negative (Negative) U Tricyclic Antidepress Negative (Negative) Ur Phencyclidine Scrn Negative (Negative) Ur Amphetamines Screen Negative (Negative) U Methamphetamines Scrn Negative (Negative) Ur MDMA Scrn (Ecstasy) Negative (Negative) U Benzodiazepines Scrn Negative (Negative) Urine Cocaine Screen Negative (Negative) U Marijuana (THC) Screen Negative (Negative) Ethyl Alcohol ( - 10) mg/dL Ketones (<0.27) mmol/L SARS-CoV-2 (PCR) (Negative) Influenza A (RT-PCR) (NEGATIVE) Influenza B (RT-PCR) (NEGATIVE) RSV (PCR) (Negative) 11/04/22 11/04/22 11/04/22 Range/Units 18:18 18:35 18:45 WBC (4.5-11.0) X10^3/uL RBC (4.0-5.2) X10^6/uL Hgb (12.0-16.0) g/dL Hct (36-46) % MCV (80-100) fL MCH (26-34) PG MCHC (30-36) % RDW (11.6-14.8) % Plt Count (150-400) X10^3/uL Neut % (Auto) Lymph % (Auto) [place] % (Auto) Eos % (Auto) Baso % (Auto) Lymph # (Auto) [place] # (Auto) Baso # (Auto) Total Counted Seg Neutrophils % (38-70) % Band Neutrophils % (3-7) % Lymphocytes % (Manual) (25-45) % Monocytes % (Manual) (2-11) % Neutrophils # (Manual) (9703-4649) /uL Platelet Estimate RBC Morphology PT (10.1-12.7) SECONDS INR (0.9-1.3) APTT (26-36) SECONDS VBG pH (7.33-7.43) VBG pCO2 (45-50) mmHg VBG pO2 (35-45) mmHg VBG HCO3 (24-28) mmol/L VBG Total CO2 (24-29) mmol/L VBG O2 Saturation (70-75) % VBG Base Excess (0-4) mmol/L FiO2 Sodium (137-145) mmol/L Potassium (3.4-5.1) mmol/L Chloride (98-107) mmol/L Carbon Dioxide (22-32) mmol/L BUN (7-17) mg/dL Creatinine (0.52-1.04) mg/dL Estimated GFR (>60) mL/min BUN/Creatinine Ratio (6-22) Glucose (80-110) mg/dL Lactate (0.7-2.1) mmol/L Calcium (8.4-10.2) mg/dL Phosphorus (2.8-4.1) mg/dL Magnesium (1.6-2.3) mg/dL Total Bilirubin (0.2-1.3) mg/dL AST (14-36) IU/L ALT (<35) IU/L Alkaline Phosphatase (38-126) U/L Ammonia < 9 L (9-30) umol/L Total Creatine Kinase (30-135) U/L CK-MB (CK-2) CK-MB (CK-2) Rel Index Troponin I (0.01-0.034) ng/mL NT-Pro-B Natriuret Pep (<125) pg/mL Total Protein (6.3-8.2) g/dL Albumin (3.5-5.0) g/dL Globulin (1.7-4.1) g/dL Albumin/Globulin Ratio (1.0-2.8) Lipase (23-300) U/L Procalcitonin (<0.5) ng/mL TSH (0.47-4.68) uIU/mL Prolactin (3.0-18.6) ng/mL Urine Color Urine Appearance Urine pH (4.5-8.0) Ur Specific [place] (1.000-1.035) Urine Protein (Negative) Urine Glucose (UA) (Negative) g/dL Urine Ketones (NEGATIVE) Urine Occult Blood (Negative) Urine Nitrate (Negative) Urine Bilirubin (NEGATIVE) Urine Urobilinogen (0.2) E.U./dL Ur Leukocyte Esterase (NEGATIVE) Urine RBC (0-5/HPF) Urine WBC (0-5/HPF) Ur Squamous Epith Cells (0-5/HPF) Urine Bacteria (None) Ur Random Sodium 12 L (30-90) mmol/L Urine Creatinine 20.0 mg/dL Salicylates (<20) mg/dL U Opiates 300ng/mL cut (Negative) Ur Oxycodone Screen (Negative) Urine Methadone Screen (Negative) Acetaminophen (10-30) ug/mL Ur Barbiturates Screen (Negative) U Tricyclic Antidepress (Negative) Ur Phencyclidine Scrn (Negative) Ur Amphetamines Screen (Negative) U Methamphetamines Scrn (Negative) Ur MDMA Scrn (Ecstasy) (Negative) U Benzodiazepines Scrn (Negative) Urine Cocaine Screen (Negative) U Marijuana (THC) Screen (Negative) Ethyl Alcohol ( - 10) mg/dL Ketones (<0.27) mmol/L SARS-CoV-2 (PCR) Negative (Negative) Influenza A (RT-PCR) Flu a negative (NEGATIVE) Influenza B (RT-PCR) Flu b negative (NEGATIVE) RSV (PCR) Negative (Negative) 11/04/22 11/04/22 11/04/22 Range/Units 20:39 21:01 22:15 WBC (4.5-11.0) X10^3/uL RBC (4.0-5.2) X10^6/uL Hgb (12.0-16.0) g/dL Hct (36-46) % MCV (80-100) fL MCH (26-34) PG MCHC (30-36) % RDW (11.6-14.8) % Plt Count (150-400) X10^3/uL Neut % (Auto) Lymph % (Auto) [place] % (Auto) Eos % (Auto) Baso % (Auto) Lymph # (Auto) [place] # (Auto) Baso # (Auto) Total Counted Seg Neutrophils % (38-70) % Band Neutrophils % (3-7) % Lymphocytes % (Manual) (25-45) % Monocytes % (Manual) (2-11) % Neutrophils # (Manual) (9278-2796) /uL Platelet Estimate RBC Morphology PT (10.1-12.7) SECONDS INR (0.9-1.3) APTT (26-36) SECONDS VBG pH 7.16 L* (7.33-7.43) VBG pCO2 26.4 L (45-50) mmHg VBG pO2 30 L (35-45) mmHg VBG HCO3 9 L (24-28) mmol/L VBG Total CO2 10 L (24-29) mmol/L VBG O2 Saturation 44 L (70-75) % VBG Base Excess -19.0 L (0-4) mmol/L FiO2 21 Sodium 133 L 134 L (137-145) mmol/L Potassium 5.2 H D 4.9 (3.4-5.1) mmol/L Chloride 101 103 (98-107) mmol/L Carbon Dioxide 8 L* 10 L (22-32) mmol/L BUN 71 H 70 H (7-17) mg/dL Creatinine 3.19 H 3.10 H (0.52-1.04) mg/dL Estimated GFR 15 L 16 L (>60) mL/min BUN/Creatinine Ratio 22.3 H 22.6 H (6-22) Glucose 1179 H* 946 H* (80-110) mg/dL Lactate (0.7-2.1) mmol/L Calcium 8.3 L 8.3 L (8.4-10.2) mg/dL Phosphorus (2.8-4.1) mg/dL Magnesium (1.6-2.3) mg/dL Total Bilirubin (0.2-1.3) mg/dL AST (14-36) IU/L ALT (<35) IU/L Alkaline Phosphatase (38-126) U/L Ammonia (9-30) umol/L Total Creatine Kinase (30-135) U/L CK-MB (CK-2) CK-MB (CK-2) Rel Index Troponin I (0.01-0.034) ng/mL NT-Pro-B Natriuret Pep (<125) pg/mL Total Protein (6.3-8.2) g/dL Albumin (3.5-5.0) g/dL Globulin (1.7-4.1) g/dL Albumin/Globulin Ratio (1.0-2.8) Lipase (23-300) U/L Procalcitonin (<0.5) ng/mL TSH (0.47-4.68) uIU/mL Prolactin (3.0-18.6) ng/mL Urine Color Urine Appearance Urine pH (4.5-8.0) Ur Specific [place] (1.000-1.035) Urine Protein (Negative) Urine Glucose (UA) (Negative) g/dL Urine Ketones (NEGATIVE) Urine Occult Blood (Negative) Urine Nitrate (Negative) Urine Bilirubin (NEGATIVE) Urine Urobilinogen (0.2) E.U./dL Ur Leukocyte Esterase (NEGATIVE) Urine RBC (0-5/HPF) Urine WBC (0-5/HPF) Ur Squamous Epith Cells (0-5/HPF) Urine Bacteria (None) Ur Random Sodium (30-90) mmol/L Urine Creatinine mg/dL Salicylates (<20) mg/dL U Opiates 300ng/mL cut (Negative) Ur Oxycodone Screen (Negative) Urine Methadone Screen (Negative) Acetaminophen (10-30) ug/mL Ur Barbiturates Screen (Negative) U Tricyclic Antidepress (Negative) Ur Phencyclidine Scrn (Negative) Ur Amphetamines Screen (Negative) U Methamphetamines Scrn (Negative) Ur MDMA Scrn (Ecstasy) (Negative) U Benzodiazepines Scrn (Negative) Urine Cocaine Screen (Negative) U Marijuana (THC) Screen (Negative) Ethyl Alcohol ( - 10) mg/dL Ketones (<0.27) mmol/L SARS-CoV-2 (PCR) (Negative) Influenza A (RT-PCR) (NEGATIVE) Influenza B (RT-PCR) (NEGATIVE) RSV (PCR) (Negative) 11/05/22 11/05/22 11/05/22 Range/Units 00:00 01:30 01:31 WBC (4.5-11.0) X10^3/uL RBC (4.0-5.2) X10^6/uL Hgb (12.0-16.0) g/dL Hct (36-46) % MCV (80-100) fL MCH (26-34) PG MCHC (30-36) % RDW (11.6-14.8) % Plt Count (150-400) X10^3/uL Neut % (Auto) Lymph % (Auto) [place] % (Auto) Eos % (Auto) Baso % (Auto) Lymph # (Auto) [place] # (Auto) Baso # (Auto) Total Counted Seg Neutrophils % (38-70) % Band Neutrophils % (3-7) % Lymphocytes % (Manual) (25-45) % Monocytes % (Manual) (2-11) % Neutrophils # (Manual) (0877-1370) /uL Platelet Estimate RBC Morphology PT (10.1-12.7) SECONDS INR (0.9-1.3) APTT (26-36) SECONDS VBG pH 7.29 L (7.33-7.43) VBG pCO2 29.2 L (45-50) mmHg VBG pO2 39 (35-45) mmHg VBG HCO3 14 L (24-28) mmol/L VBG Total CO2 15 L (24-29) mmol/L VBG O2 Saturation 69 L (70-75) % VBG Base Excess -12.0 L (0-4) mmol/L FiO2 21 Sodium 135 L 134 L (137-145) mmol/L Potassium 4.8 4.7 (3.4-5.1) mmol/L Chloride 107 107 (98-107) mmol/L Carbon Dioxide 12 L 15 L (22-32) mmol/L BUN 69 H 68 H (7-17) mg/dL Creatinine 2.96 H 2.89 H (0.52-1.04) mg/dL Estimated GFR 17 L 17 L (>60) mL/min BUN/Creatinine Ratio 23.3 H 23.5 H (6-22) Glucose 792 H* 694 H* (80-110) mg/dL Lactate (0.7-2.1) mmol/L Calcium 8.1 L 8.0 L (8.4-10.2) mg/dL Phosphorus (2.8-4.1) mg/dL Magnesium (1.6-2.3) mg/dL Total Bilirubin (0.2-1.3) mg/dL AST (14-36) IU/L ALT (<35) IU/L Alkaline Phosphatase (38-126) U/L Ammonia (9-30) umol/L Total Creatine Kinase (30-135) U/L CK-MB (CK-2) CK-MB (CK-2) Rel Index Troponin I (0.01-0.034) ng/mL NT-Pro-B Natriuret Pep (<125) pg/mL Total Protein (6.3-8.2) g/dL Albumin (3.5-5.0) g/dL Globulin (1.7-4.1) g/dL Albumin/Globulin Ratio (1.0-2.8) Lipase (23-300) U/L Procalcitonin (<0.5) ng/mL TSH (0.47-4.68) uIU/mL Prolactin (3.0-18.6) ng/mL Urine Color Urine Appearance Urine pH (4.5-8.0) Ur Specific [place] (1.000-1.035) Urine Protein (Negative) Urine Glucose (UA) (Negative) g/dL Urine Ketones (NEGATIVE) Urine Occult Blood (Negative) Urine Nitrate (Negative) Urine Bilirubin (NEGATIVE) Urine Urobilinogen (0.2) E.U./dL Ur Leukocyte Esterase (NEGATIVE) Urine RBC (0-5/HPF) Urine WBC (0-5/HPF) Ur Squamous Epith Cells (0-5/HPF) Urine Bacteria (None) Ur Random Sodium (30-90) mmol/L Urine Creatinine mg/dL Salicylates (<20) mg/dL U Opiates 300ng/mL cut (Negative) Ur Oxycodone Screen (Negative) Urine Methadone Screen (Negative) Acetaminophen (10-30) ug/mL Ur Barbiturates Screen (Negative) U Tricyclic Antidepress (Negative) Ur Phencyclidine Scrn (Negative) Ur Amphetamines Screen (Negative) U Methamphetamines Scrn (Negative) Ur MDMA Scrn (Ecstasy) (Negative) U Benzodiazepines Scrn (Negative) Urine Cocaine Screen (Negative) U Marijuana (THC) Screen (Negative) Ethyl Alcohol ( - 10) mg/dL Ketones (<0.27) mmol/L SARS-CoV-2 (PCR) (Negative) Influenza A (RT-PCR) (NEGATIVE) Influenza B (RT-PCR) (NEGATIVE) RSV (PCR) (Negative) 11/05/22 Range/Units 04:00 WBC (4.5-11.0) X10^3/uL RBC (4.0-5.2) X10^6/uL Hgb (12.0-16.0) g/dL Hct (36-46) % MCV (80-100) fL MCH (26-34) PG MCHC (30-36) % RDW (11.6-14.8) % Plt Count (150-400) X10^3/uL Neut % (Auto) Lymph % (Auto) [place] % (Auto) Eos % (Auto) Baso % (Auto) Lymph # (Auto) [place] # (Auto) Baso # (Auto) Total Counted Seg Neutrophils % (38-70) % Band Neutrophils % (3-7) % Lymphocytes % (Manual) (25-45) % Monocytes % (Manual) (2-11) % Neutrophils # (Manual) (4041-3591) /uL Platelet Estimate RBC Morphology PT (10.1-12.7) SECONDS INR (0.9-1.3) APTT (26-36) SECONDS VBG pH (7.33-7.43) VBG pCO2 (45-50) mmHg VBG pO2 (35-45) mmHg VBG HCO3 (24-28) mmol/L VBG Total CO2 (24-29) mmol/L VBG O2 Saturation (70-75) % VBG Base Excess (0-4) mmol/L FiO2 Sodium 136 L (137-145) mmol/L Potassium 4.5 (3.4-5.1) mmol/L Chloride 107 (98-107) mmol/L Carbon Dioxide 16 L (22-32) mmol/L BUN 66 H (7-17) mg/dL Creatinine 2.82 H (0.52-1.04) mg/dL Estimated GFR 18 L (>60) mL/min BUN/Creatinine Ratio 23.4 H (6-22) Glucose 613 H* (80-110) mg/dL Lactate (0.7-2.1) mmol/L Calcium 8.2 L (8.4-10.2) mg/dL Phosphorus (2.8-4.1) mg/dL Magnesium (1.6-2.3) mg/dL Total Bilirubin (0.2-1.3) mg/dL AST (14-36) IU/L ALT (<35) IU/L Alkaline Phosphatase (38-126) U/L Ammonia (9-30) umol/L Total Creatine Kinase (30-135) U/L CK-MB (CK-2) CK-MB (CK-2) Rel Index Troponin I (0.01-0.034) ng/mL NT-Pro-B Natriuret Pep (<125) pg/mL Total Protein (6.3-8.2) g/dL Albumin (3.5-5.0) g/dL Globulin (1.7-4.1) g/dL Albumin/Globulin Ratio (1.0-2.8) Lipase (23-300) U/L Procalcitonin (<0.5) ng/mL TSH (0.47-4.68) uIU/mL Prolactin (3.0-18.6) ng/mL Urine Color Urine Appearance Urine pH (4.5-8.0) Ur Specific [place] (1.000-1.035) Urine Protein (Negative) Urine Glucose (UA) (Negative) g/dL Urine Ketones (NEGATIVE) Urine Occult Blood (Negative) Urine Nitrate (Negative) Urine Bilirubin (NEGATIVE) Urine Urobilinogen (0.2) E.U./dL Ur Leukocyte Esterase (NEGATIVE) Urine RBC (0-5/HPF) Urine WBC (0-5/HPF) Ur Squamous Epith Cells (0-5/HPF) Urine Bacteria (None) Ur Random Sodium (30-90) mmol/L Urine Creatinine mg/dL Salicylates (<20) mg/dL U Opiates 300ng/mL cut (Negative) Ur Oxycodone Screen (Negative) Urine Methadone Screen (Negative) Acetaminophen (10-30) ug/mL Ur Barbiturates Screen (Negative) U Tricyclic Antidepress (Negative) Ur Phencyclidine Scrn (Negative) Ur Amphetamines Screen (Negative) U Methamphetamines Scrn (Negative) Ur MDMA Scrn (Ecstasy) (Negative) U Benzodiazepines Scrn (Negative) Urine Cocaine Screen (Negative) U Marijuana (THC) Screen (Negative) Ethyl Alcohol ( - 10) mg/dL Ketones (<0.27) mmol/L SARS-CoV-2 (PCR) (Negative) Influenza A (RT-PCR) (NEGATIVE) Influenza B (RT-PCR) (NEGATIVE) RSV (PCR) (Negative) Point of Care Testing Glucose POC 500 Point of care testing: Point of Care Testing Glucose POC [address] - cervical spine: Radiologist's Impression: [address] [address] [address] Scan Report Signed Patient: Ailyn Kent MR#: [id number] : 1955 Acct:[id number] Age/Sex: 67 / F Date of Service: 11/04/22 Loc: ED Accession Number: [id number] ?? Procedure: CT cervical spine wo con Ordering Provider: Jagdish Kumari D.O. PROCEDURE:? CT CERVICAL SPINE WO CON ? INDICATIONS:? fall and AMS ? TECHNIQUE:? Noncontrast 3 mm thick sections acquired from the skull base to the T4 level.? Sagittal and coronal reformats were then constructed.? For radiation dose reduction, the following was used:? automated exposure control, adjustment of mA and/or kV according to patient size.? ? COMPARISON:? None. ? FINDINGS:? Image quality:? Evaluation is limited by motion artifact.? ? Bones:? No definite fracture or subluxation.? There is minimal anterolisthesis at C2-C3 and mild anterolisthesis at C3-C4.? Visualized superior ribs demonstrate mildly displaced fractures of the visualized right 5th and 6th ribs posterolaterally, likely acute in the 6th rib and subacute in the 5th rib.? ? Soft tissues:? Prevertebral soft tissues are normal in thickness.? No paravertebral hematomas.? No apical pneumothoraces.? There is a small chest wall hematoma associated with the right posterolateral 6th rib fracture. ? ? IMPRESSION:? ? 1. No definite acute cervical spine fracture or subluxation. ? 2. Fractures of the right 5th and 6th ribs including a likely acute fracture of the 6th rib associated with a small chest wall hematoma. ? ? ? Dictated by: Vu Chew M.D. on 11/04/2022 at 21:17 ? ? Approved by: Vu Chew M.D. on 11/04/2022 at 21:21 Chest x-ray: Attestation: I personally reviewed and interpreted this imaging study as follows: My Impression: No acute pathology Radiologist's Impression: No acute pathology CT scan - head: Attestation: I personally reviewed and interpreted this imaging study as follows: My Impression: No intracranial hemorrhage, no masses Radiologist's Impression: No acute pathology Extremity x-ray #1: Radiologist's Impression: [address] [address] XRay Report Signed Patient: Ailyn Kent MR#: [id number] : 1955 Acct:[id number] Age/Sex: 67 / F Date of Service: 11/04/22 Loc: ED Accession Number: [id number] ?? Procedure: XR hip w pel if done RT 2V Ordering Provider: Jagdish Kumari D.O. PROCEDURE:? XR HIP W PEL IF DONE RT 2V ? INDICATIONS:? Bruising after fall ? TECHNIQUE:? AP pelvis with lateral view of the right hip. ? COMPARISON:? None. ? FINDINGS:? ? Bones:? No fractures or dislocations.? Pelvic ring appears intact.? No suspicious bony lesions.? ? Soft tissues:? There is a Haines catheter present.? The visualized bowel gas pattern is normal.? No suspicious soft tissue calcifications.? ? ? IMPRESSION:? ? 1.? No fracture or dislocation. ? ? ? Dictated by: Vu Cehw M.D. on 11/05/2022 at 1:54 ? ? Approved by: Vu Chew M.D. on 11/05/2022 at 1:55?? Post IJ chest x-ray: Attestation: I personally reviewed and interpreted this imaging study as follows: My Impression: No pneumothorax, IJ and correct position Radiologist's Impression: [address] [place] [address] XRay Report Signed Patient: Ailyn Kent MR#: [id number] : 1955 Acct:[id number] Age/Sex: 67 / F Date of Service: 11/05/22 Loc: ED Accession Number: [id number] ?? Procedure: XR chest 1V Ordering Provider: Jagdish Kumari D.O. PROCEDURE:? XR CHEST 1V ? INDICATIONS:? R IJ placement ? TECHNIQUE:? One view of the chest was acquired.? ? COMPARISON:? [facility], CHEST 1 VIEW, 07/15/2016, 14:46. ? FINDINGS:? ? Surgical changes and devices:? None.? ? Lungs and pleura:? Lungs are clear.? No pleural effusions or pneumothorax.? ? Mediastinum:? Mediastinal contours appear similar to the prior study with tortuosity of the thoracic aorta redemonstrated.? Heart size is normal.? ? Bones and chest wall:? There are bilateral nonacute appearing rib fractures.? Overlying soft tissues appear unremarkable.? ? IMPRESSION:? ? 1. No evidence of pneumothorax. ? 2. Bilateral nonacute rib fractures. ? 3.? No definite acute cardiopulmonary disease.? ? Dictated by: Vu Chew M.D. on 11/05/2022 at 1:55 ? ? Approved by: Vu Chew M.D. on 11/05/2022 at 1:58 ECG Data Attestation: I personally reviewed and interpreted this ECG as follows: Interpretation: Sinus tachycardia Ventricular rate 114 Normal axis Normal QRS Normal QTC Nonspecific ST T wave changes MDM Narrative Medical decision making narrative: History was provided by EMS and the patient's boyfriend who was at bedside. Patient was unable to provide any HPI or review of systems. Upon arrival GCS was 11. Was maintaining her airway. No overt trauma noted except for some bruising over her right hip. Patient was hyperglycemic. IV was started. Labs obtained. Cultures obtained. Radiologic studies obtained. Patient is in DKA with a pH of 7.1 and ketones and a blood glucose of 1467. Anion gap of 28. Hyperkalemic without signs of hyperkalemia on her EKG. Insulin was started. Fluids administered. Antibiotics administered. Head CT and cervical spine CT are unremarkable. Some delay in obtaining the pelvis CT secondary to patient having an episode of hypoxia while lying on the CT table when lying flat. This resolved with sitting the patient up. Eventually the hip x-ray was obtained and there does not appear to be any fractures. No specific source of infection found. Unable to obtain a lumbar puncture secondary to patient not tolerating any positioning for this. I did not feel that intubating the patient in order to obtain a lumbar puncture would be appropriate. I did initially discuss the case with Dr. Archer who is on-call for tele ICU who agreed with our treatment plan. Patient did have some episodes upon arriving that was somewhat concerned about seizures. She definitely had other reasons up she potentially had this shaking like movement. She was hypothermic and obviously in DKA and other metabolic derangements. Despite that she was given some Ativan and Keppra. After these initial events which again I am not 100% sure that these were seizures the patient has had no further seizure-like activity. I once again discussed the case with who was now on-call for tele ICU. We discussed disposition of the patient. He stated that his concern was whether not the patient did have seizure-like activity because we would not be able to obtain potential needed studies here at this facility namely a EEG. The plan was for her to stay in the emergency department overnight to see if her neurologic status improved or if she had any other seizure-like activity. He understood our inability to obtain a lumbar puncture he recommended giving patient antibiotics for treatment of meningitis stating that these could be removed later if needed. Patient's blood sugar continue to improve. Initially the correction was too fast and so her insulin dose was decreased. Her potassium decreased as well. PH improving. Anion gap closing. She did have a fever and was given IV Tylenol. Right IJ was placed for more definitive access. Patient continues to produce urine. Her mental status has steadily improved. She is not making spontaneous purposeful movements. Is not having conversations but is now saying words. One final conversation with Dr. Ibrahim where we went over her improving clinical picture. The decision was made to admit to the facility here. I also discussed the case with HAILE Rashid the [facility] provider. We will admit for further evaluation and treatment. Critical Care Time Critical Care Time Critical Care Time: Yes Total Critical Care Time: 60 Attestation: The high probability of a clinically significant, sudden or life threatening deterioration of the []neurologic, cardiovascular respiratory, endocrine, system(s) required my full and direct attention, intervention and personal management. The aggregate critical care time was [60] minutes. This time is in addition to time spent performing reported procedures but includes the following: [x] Data Review and interpretation [x] Patient assessment and monitoring of vital signs [x] Documentation [x] Medication orders and management Discharge Plan Departure Patient Disposition: Admitted As Inpatient Clinical Impression: DKA (diabetic ketoacidosis), Altered mental status, Hyperkalemia, Acute kidney injury, Fracture of rib Admit Date/Time: 11/05/22 05:31 Admit Provider: Hailey Rashid
--- NOTE | 2022-11-04 19:00 | DI.RAD.S_ITS ---
PROCEDURE: XR HIP W PEL IF DONE RT 2V INDICATIONS: Bruising after fall TECHNIQUE: AP pelvis with lateral view of the right hip. COMPARISON: None. FINDINGS: Bones: No fractures or dislocations. Pelvic ring appears intact. No suspicious bony lesions. Soft tissues: There is a Haines catheter present. The visualized bowel gas pattern is normal. No suspicious soft tissue calcifications. IMPRESSION: 1. No fracture or dislocation. Dictated by: Vu Chew M.D. on 11/05/2022 at 1:54 Approved by: Vu Chew M.D. on 11/05/2022 at 1:55
--- NOTE | 2022-11-04 19:00 | DI.CT.S_ITS ---
PROCEDURE: CT CERVICAL SPINE WO CON INDICATIONS: fall and AMS TECHNIQUE: Noncontrast 3 mm thick sections acquired from the skull base to the T4 level. Sagittal and coronal reformats were then constructed. For radiation dose reduction, the following was used: automated exposure control, adjustment of mA and/or kV according to patient size. COMPARISON: None. FINDINGS: Image quality: Evaluation is limited by motion artifact. Bones: No definite fracture or subluxation. There is minimal anterolisthesis at C2-C3 and mild anterolisthesis at C3-C4. Visualized superior ribs demonstrate mildly displaced fractures of the visualized right 5th and 6th ribs posterolaterally, likely acute in the 6th rib and subacute in the 5th rib. Soft tissues: Prevertebral soft tissues are normal in thickness. No paravertebral hematomas. No apical pneumothoraces. There is a small chest wall hematoma associated with the right posterolateral 6th rib fracture. IMPRESSION: 1. No definite acute cervical spine fracture or subluxation. 2. Fractures of the right 5th and 6th ribs including a likely acute fracture of the 6th rib associated with a small chest wall hematoma. Dictated by: Vu Chew M.D. on 11/04/2022 at 21:17 Approved by: Vu Chew M.D. on 11/04/2022 at 21:21
[2022-11-04 19:01] LABS: UR Morphine/Opiate cutoff 300 Negative (Negative); Ur Creatinine Normal (Normal); Ur Specific Gravity Normal (Normal); Urine Amphetamines Negative (Negative); Urine Barbiturates Negative (Negative); Urine Benzodiazepines Negative (Negative); Urine Cocaine Negative (Negative); Urine MDMA Negative (Negative); Urine Methadone Negative (Negative); Urine Methamphetamines Negative (Negative); Urine Oxycodone Negative (Negative); Urine Phencyclidine Negative (Negative); Urine Tetrahydrocannabinol Negative (Negative); Urine Tricyclic Antidepressant Negative (Negative); Urine pH Normal (Normal)
[2022-11-04 19:02] LABS: Glucose 1467 mg/dL (80-110); Potassium 6.4 mmol/L (3.4-5.1)
--- NOTE | 2022-11-04 19:04 | PC.NURSE ---
1830 mac placed, pt will turn head to voice and squeeze but doesnt follow clear commands. pt did withdraw/localize to pain for iv placement and mac placement. mac placed with 550 cloudy urine, red excoriated perinium and buttocks with thick white discharge, bruise red area nonblanchable to right hip, mottle bruise right thigh, bruise bilat toes. pt found down by boyfriend, unsure downtime, she was baseline last night per boyfriend.
[2022-11-04 19:07] LABS: Bacteria Urine None Seen; RBC Urine None Seen (0-5/HPF); Squamous Epithelial Cell Urine 0-1 /HPF (0-5/HPF); WBC Urine None Seen (0-5/HPF)
[2022-11-04 19:11] LABS: Ketones (Beta-Hydroxybutyrate) 7.09 mmol/L (<0.27)
[2022-11-04 19:14] LABS: Neutrophils Absolute Manual 25632 /uL (3000-5900); Platelet Estimate Increased on smear; RBC Morphology Normal Morphology; Total Cells Counted 100
[2022-11-04 19:17] LABS: Thyroid Stimulating Hormone 2.52 uIU/mL (0.47-4.68)
[2022-11-04] MEDS: SODIUM CHLORIDE 0.9% 1,000 ML 250 ML IV (19:18)
[2022-11-04] MEDS: LORazepam 2 MG/ML INJ IV (19:25)
[2022-11-04] MEDS: cefTRIAXone 1,000 MG in SODIUM CHLORIDE 0.9% 100 ML 200 MG IV ×2 (19:27→22:20)
[2022-11-04 19:28] LABS: Influenza A - CEPHEID Flu A NEGATIVE (NEGATIVE); Influenza B - CEPHEID Flu B NEGATIVE (NEGATIVE); Respiratory Syncytial Virus Negative (Negative)
[2022-11-04] MEDS: INSULIN DRIP PREMIX 100 UNIT/100 ML PLAST..BAG 10 UNIT IV (19:36)
[2022-11-04] MEDS: VANCOMYCIN 1,000 MG/200 ML PIGGYBACK 200 MG IV (19:38)
[2022-11-04] MEDS: levETIRAcetam 1,000 MG in SODIUM CHLORIDE 0.9% 100 ML 440 MG IV (19:44)
--- NOTE | 2022-11-04 19:51 | PM.EICU.INT ---
Teleintensivist Intervention Date/Time Was camera activated?: No Issue(s) Addressed Issue(s): Abnormal labs and Sepsis Other:: called be ED physician to assist with disposition for possible need for HD 58 year old female found down at home appears to have severe sepsis unclear source hypothermia AMS acute renal failure DKA suggested to continue IVF resuscitation, start insulin drip with bolus broad spec abx to cover for possible meningitis/encephalitis suggest to consider LP repeat labs if no improvement in acidosis and no urine output would suggest transfer for likely need for HD Intervention(s) Plan discussed with: Physician/provider Name(s): Dr. Kumari
--- NOTE | 2022-11-04 19:58 | PC.NURSE ---
[facility] TURNED OFF, PT TEMP NOW [address]ORE, [place] ON FROM 1805 TO NOW AT 1954
[2022-11-04 20:01] LABS: COVID-19 CEPHEID 4-PLEX PCR Negative (Negative)
[2022-11-04 21:02] LABS: BUN Creatinine Ratio 22.3 (6-22); Blood Urea Nitrogen 71 mg/dL (7-17); Calcium 8.3 mg/dL (8.4-10.2); Carbon Dioxide 8 mmol/L (22-32); Chloride 101 mmol/L (98-107); Estimated Glomerular Filt Rate 15 mL/min (>60); Potassium 5.2 mmol/L (3.4-5.1); Sodium 133 mmol/L (137-145)
[2022-11-04 21:08] LABS: Sodium Urine Random 12 mmol/L (30-90)
[2022-11-04 21:10] LABS: HEMOLYSIS 28 (0-50)
[2022-11-04 21:13] LABS: Glucose 1179 mg/dL (80-110)
[2022-11-04 21:22] LABS: HCO3 VBG 9 mmol/L (24-28); Oxygen Saturation VBG 44 % (70-75); PCO2 VBG 26.4 mmHg (45-50); PO2 VBG 30 mmHg (35-45); Total CO2 VBG 10 mmol/L (24-29); pH VBG 7.16 (7.33-7.43)
[2022-11-04 21:23] LABS: Fractionated Inspired Oxygen 21
--- NOTE | 2022-11-04 22:01 | PM.EVENT ---
Event Note Event Note (Rapid Response, Code, or fall): Called by Dr. Kumari to help triage patient. Patient is a 58 year old female with history of DM who was found down at home and found to be in DKA w/ severe sepsis and LARRY. Per discussion with Dr. Kumari, patient was resuscitated with fluids and is making ~400 mL UOP. Started on insulin gtt and BS is coming down slowly. Patient noted to have seizure like activity in ER and was given ativan IV. Prolactin level is elevated which may be related to sepsis, LARRY, or possible seizure. Difficult to obtain LP given encephalopathy and worsening hypoxemia when laying flat. Given unclear source of infection, would recommend empiric meningitis coverage. Given concern for seizure requiring ativan push, would recommend transferring to tertiary care for neurology consultation and EEG.
[2022-11-04 22:37] LABS: BUN Creatinine Ratio 22.6 (6-22); Blood Urea Nitrogen 70 mg/dL (7-17); Calcium 8.3 mg/dL (8.4-10.2); Carbon Dioxide 10 mmol/L (22-32); Chloride 103 mmol/L (98-107); Estimated Glomerular Filt Rate 16 mL/min (>60); HEMOLYSIS 16 (0-50); Potassium 4.9 mmol/L (3.4-5.1); Sodium 134 mmol/L (137-145)
[2022-11-04 22:46] LABS: Glucose 946 mg/dL (80-110)
[2022-11-04] MEDS: AMPICILLIN 2,000 MG in SODIUM CHLORIDE 0.9% 100 ML 200 MG IV (23:01)
[2022-11-04] MEDS: WATER IV (23:34)
[2022-11-04] MEDS: DEXTROSE 5% IV (23:34)
[2022-11-04] MEDS: ACYCLOVIR IV (23:34)
[2022-11-05] VITALS (94 sets, daily range): BP systolic 79–215; BP diastolic 49–110; PULSE 76–177; RESP 13–36; TEMP 35.6–38.2; O2SAT 74–100; BMI 25.1
[2022-11-05 00:24] LABS: BUN Creatinine Ratio 23.3 (6-22); Blood Urea Nitrogen 69 mg/dL (7-17); Calcium 8.1 mg/dL (8.4-10.2); Carbon Dioxide 12 mmol/L (22-32); Chloride 107 mmol/L (98-107); Estimated Glomerular Filt Rate 17 mL/min (>60); HEMOLYSIS < 15 (0-50); Potassium 4.8 mmol/L (3.4-5.1); Sodium 135 mmol/L (137-145)
[2022-11-05] MEDS: ACETAMINOPHEN IV 1,000 MG/100 ML VIAL 400 MG IV (00:24)
[2022-11-05 00:33] LABS: Glucose 792 mg/dL (80-110)
[2022-11-05] MEDS: LACTATED RINGERS 1,000 ML 1000 ML IV (01:00)
--- NOTE | 2022-11-05 01:08 | DI.RAD.S_ITS ---
PROCEDURE: XR CHEST 1V INDICATIONS: R IJ placement TECHNIQUE: One view of the chest was acquired. COMPARISON: [facility], , CHEST 1 VIEW, 07/15/2016, 14:46. FINDINGS: Surgical changes and devices: None. Lungs and pleura: Lungs are clear. No pleural effusions or pneumothorax. Mediastinum: Mediastinal contours appear similar to the prior study with tortuosity of the thoracic aorta redemonstrated. Heart size is normal. Bones and chest wall: There are bilateral nonacute appearing rib fractures. Overlying soft tissues appear unremarkable. IMPRESSION: 1. No evidence of pneumothorax. 2. Bilateral nonacute rib fractures. 3. No definite acute cardiopulmonary disease. Dictated by: Vu Chew M.D. on 11/05/2022 at 1:55 Approved by: Vu Chew M.D. on 11/05/2022 at 1:58
[2022-11-05 01:59] LABS: BUN Creatinine Ratio 23.5 (6-22); Blood Urea Nitrogen 68 mg/dL (7-17); Carbon Dioxide 15 mmol/L (22-32); Chloride 107 mmol/L (98-107); Estimated Glomerular Filt Rate 17 mL/min (>60); HEMOLYSIS < 15 (0-50); Potassium 4.7 mmol/L (3.4-5.1); Sodium 134 mmol/L (137-145)
[2022-11-05 02:07] LABS: Glucose 694 mg/dL (80-110)
[2022-11-05 02:14] LABS: PCO2 VBG 29.2 mmHg (45-50); pH VBG 7.29 (7.33-7.43)
[2022-11-05 02:15] LABS: Fractionated Inspired Oxygen 21; HCO3 VBG 14 mmol/L (24-28); Oxygen Saturation VBG 69 % (70-75); PO2 VBG 39 mmHg (35-45); Total CO2 VBG 15 mmol/L (24-29)
[2022-11-05] MEDS: LACTATED RINGERS 1,000 ML 250 ML IV (02:20)
[2022-11-05] MEDS: AMPICILLIN 2,000 MG in SODIUM CHLORIDE 0.9% 100 ML 200 MG IV ×4 (03:22→16:34)
[2022-11-05 04:22] LABS: BUN Creatinine Ratio 23.4 (6-22); Blood Urea Nitrogen 66 mg/dL (7-17); Calcium 8.2 mg/dL (8.4-10.2); Carbon Dioxide 16 mmol/L (22-32); Chloride 107 mmol/L (98-107); Estimated Glomerular Filt Rate 18 mL/min (>60); HEMOLYSIS < 15 (0-50); Potassium 4.5 mmol/L (3.4-5.1); Sodium 136 mmol/L (137-145)
[2022-11-05 04:30] LABS: Glucose 613 mg/dL (80-110)
--- NOTE | 2022-11-05 05:35 | PM.HP.1 ---
History of Present Illness History of Present Illness Chief complaint: DKA Narrative: Ailyn Kent is a 67-year-old female who was brought in by EMS to the ED.? Per the ED provider, they were called by the patient's boyfriend.? He lives in [place] and was not initially present at bedside to provide information but did eventually arrived and provided much of the HPI.? Patient is unable to provide any information.? Patient's boyfriend states that he normally calls the patient every morning.? He thinks that the last time that he called her yesterday morning but could have been the day prior to that.? He states he tried to call her this morning and she did not answer the phone.? He decided to drive up from [place].? Upon arriving here he found the patient lying on the floor her house and unable to arouse her.? He stated he rolled her over, tried to give her rescue breaths and started CPR on her. He contacted EMS and when they arrived, they also found the patient obtunded.? He is unsure of how long she was on the floor. Her no signs of trauma except for some bruising on her right hip.? She was not following commands.? Blood sugar was elevated.? Was maintaining airway.? IVs were started.? Patient transported to the emergency department for evaluation.? Patient's boyfriend states she does have a history of heart failure.? He states she is diabetic but not sure if she is on insulin.? He states she previously went to Dr. [place] and that ?all they cared about was her diabetes but not her heart.? He states that she had been hospitalized here approximately 8 years ago for congestive heart failure and was told that she would had a silent heart attack. He states that she has not been taking her diabetic medications for about 4 years. He also stated for the past couple of years she is been having difficulties consuming meats and would choke them up. He states that she would basically regurgitate her meals and has been loosing weight. States that she has currently been living on a diet of yogurt and he has been buying her ensure for protein source. A decision was made after consultation with [facility] to maintain the patient in the ED the patient was shaking and very altered suspicious for a seizure. She was administered IV Keppra 1000 mg in the ED and the plan was to assess her in the morning or if she developed subsequent seizures that she would be transferred to where there would be neurology services and be able to undergo EEG monitoring. By 0500, patient had not had any seizures and a decision was made to have her admitted to the ICU for continuation of the insulin drip protocol, for continued antibiotic and antiviral IV administration and for further workup. Chest xray and CT indicated a possible chronic fracture of the 5fth rib and an acute fracture and associated chest wall hematoma of the 6th rib. Currently her temperature is 98.8? blood pressure 110/57 heart rate 104 respiratory rate 29 oxygen saturation of 92% on room air she weighs 71.2 kg with a BMI of 26.1. Initially in the ED and she had an elevated white count of 26.7 with a left shift, her platelet counts were 463, her last ABG included a VB Ji pH of 7.29 a VBG pCO2 of 29.2 VBG PO2 of 39 a VBG bicarb of 14. This morning her white count is come down to 17.2 with a left shift and neutrophils of 14,000 sodium is 135 potassium 4.4 chloride 107 bicarb 16 BUN 65 creatinine 2.93 her EGFR is 17 BUN is 22 serum glucose is 567 A1c is pending as well as her albumin and phosphorus. COVID-19 PCR is negative Per the patient's significant other, mother in her 70s of a CVA, father in his mid 70s of Alzheimer's disease. Patient has a younger sibling apparently alive and well. Patient History Medical History Congestive heart failure Diabetes Hypertension Family & Social History Social History: lives independently Yes Tobacco & Substance use: Quit tobacco and alcohol consumption and around the late 1990s Meds Home Medications and Allergies Home Medications Medication Instructions Recorded Confirmed Type acetaminophen 325 mg tablet 650 mg PO Q6HP PRN #0 tabs 07/15/16 History diphenhydramine HCl 25 mg tablet 25 mg PO Q6HP PRN #0 tabs 07/15/16 History (Benadryl Allergy) carvedilol 25 mg tablet (Coreg) 25 mg PO BID #60 tabs 07/17/16 Rx furosemide 40 mg tablet 40 mg PO QDAY #30 tabs 07/17/16 Rx lisinopril 10 mg tablet 10 mg PO QDAY #30 tabs 07/17/16 Rx metformin 500 mg tablet 500 mg PO BIDCC #60 tabs 07/17/16 Rx (Glucophage) Allergies Allergy/AdvReac Type Severity Reaction Status Date / Time No Allergy Information Allergy Verified 11/04/22 20:00 Available Review of Systems Review of Systems ROS: Yes unobtainable due to mental status Exam Vital Signs (past 8 hours): - 11/04/22 21:40 11/04/22 21:40 11/04/22 21:50 Temperature 100.0 F H 100.2 F H Pulse Rate 123 H 123 H Respiratory Rate 17 19 Blood Pressure 149/70 H Pulse Oximetry 98 99 11/04/22 21:50 11/04/22 22:00 11/04/22 22:00 Temperature 100.4 F H Pulse Rate 121 H Respiratory Rate 17 Blood Pressure 133/61 122/64 Pulse Oximetry 98 11/04/22 22:11 11/04/22 22:11 11/04/22 22:20 Temperature 100.4 F H Pulse Rate 119 H Respiratory Rate 18 Blood Pressure 122/65 121/58 L Pulse Oximetry 98 11/04/22 22:20 11/04/22 22:30 11/04/22 22:30 Temperature 100.6 F H 100.8 F H Pulse Rate 119 H 115 H Respiratory Rate 18 16 Blood Pressure 128/65 Pulse Oximetry 98 97 11/04/22 22:40 11/04/22 22:40 11/04/22 22:50 Temperature 100.8 F H 100.8 F H Pulse Rate 117 H 118 H Respiratory Rate 14 17 Blood Pressure 126/64 Pulse Oximetry 97 97 11/04/22 22:50 11/04/22 23:00 11/04/22 23:00 Temperature 100.8 F H Pulse Rate 119 H Respiratory Rate 19 Blood Pressure 114/64 109/57 L Pulse Oximetry 98 11/04/22 23:10 11/04/22 23:10 11/04/22 23:20 Temperature 100.9 F H Pulse Rate 118 H Respiratory Rate 19 Blood Pressure 97/52 L 115/65 Pulse Oximetry 97 11/04/22 23:20 11/04/22 23:30 11/04/22 23:30 Temperature 100.9 F H 101.1 F H Pulse Rate 118 H 118 H Respiratory Rate 20 20 Blood Pressure 108/56 L Pulse Oximetry 97 98 11/04/22 23:40 11/04/22 23:40 11/04/22 23:50 Temperature 101.1 F H 101.1 F H Pulse Rate 119 H 120 H Respiratory Rate 19 21 Blood Pressure 108/56 L Pulse Oximetry 98 99 11/04/22 23:50 11/05/22 00:50 11/05/22 00:55 Temperature 100.8 F H Pulse Rate 122 H Respiratory Rate 18 Blood Pressure 86/50 L 96/53 L Pulse Oximetry 97 11/05/22 00:55 11/05/22 01:00 11/05/22 01:00 Temperature 100.6 F H Pulse Rate 123 H Respiratory Rate 23 Blood Pressure 95/52 L 135/96 H Pulse Oximetry 98 11/05/22 01:05 11/05/22 01:05 11/05/22 01:10 Temperature 100.4 F H 100.4 F H Pulse Rate 125 H 124 H Respiratory Rate 22 24 Blood Pressure 141/101 H Pulse Oximetry 97 99 11/05/22 01:10 11/05/22 01:15 11/05/22 01:15 Temperature 100.4 F H Pulse Rate 121 H Respiratory Rate 20 Blood Pressure 120/82 98/57 L Pulse Oximetry 98 11/05/22 01:20 11/05/22 01:20 11/05/22 01:25 Temperature 100.2 F H 100.2 F H Pulse Rate 118 H 114 H Respiratory Rate 20 20 Blood Pressure 109/58 L Pulse Oximetry 99 97 11/05/22 01:25 11/05/22 01:30 11/05/22 01:30 Temperature 100.2 F H Pulse Rate 116 H Respiratory Rate 20 Blood Pressure 97/53 L 110/55 L Pulse Oximetry 99 11/05/22 01:35 11/05/22 01:35 11/05/22 01:40 Temperature 100.0 F H Pulse Rate 117 H Respiratory Rate 21 Blood Pressure 133/61 130/60 Pulse Oximetry 97 11/05/22 01:40 11/05/22 01:45 11/05/22 01:45 Temperature 99.9 F H 99.9 F H Pulse Rate 115 H 112 H Respiratory Rate 18 18 Blood Pressure 124/59 L Pulse Oximetry 98 99 11/05/22 01:50 11/05/22 01:50 11/05/22 01:55 Temperature 99.7 F H 99.7 F H Pulse Rate 110 H 111 H Respiratory Rate 17 17 Blood Pressure 118/57 L Pulse Oximetry 98 98 11/05/22 01:55 11/05/22 02:00 11/05/22 02:00 Temperature 99.7 F H Pulse Rate 109 H Respiratory Rate 16 Blood Pressure 97/52 L 97/53 L Pulse Oximetry 96 11/05/22 02:05 11/05/22 02:05 11/05/22 02:10 Temperature 99.7 F H 99.7 F H Pulse Rate 110 H 110 H Respiratory Rate 17 18 Blood Pressure 92/55 L Pulse Oximetry 96 96 11/05/22 02:10 11/05/22 02:15 11/05/22 02:15 Temperature 99.7 F H Pulse Rate 109 H Respiratory Rate 18 Blood Pressure 88/54 L 79/49 L Pulse Oximetry 95 11/05/22 02:20 11/05/22 02:20 11/05/22 02:30 Temperature 99.7 F H Pulse Rate 109 H Respiratory Rate 19 Blood Pressure 85/51 L 86/52 L Pulse Oximetry 94 11/05/22 02:30 11/05/22 02:40 11/05/22 02:40 Temperature 99.7 F H 99.5 F Pulse Rate 109 H 110 H Respiratory Rate 19 18 Blood Pressure 93/52 L Pulse Oximetry 93 97 11/05/22 02:50 11/05/22 02:50 11/05/22 03:00 Temperature 99.5 F 99.5 F Pulse Rate 114 H 113 H Respiratory Rate 21 30 H Blood Pressure 129/93 H Pulse Oximetry 96 97 11/05/22 03:01 11/05/22 03:01 11/05/22 03:10 Temperature 99.3 F 99.3 F Pulse Rate 114 H 117 H Respiratory Rate 21 Blood Pressure 141/87 H Pulse Oximetry 97 97 11/05/22 03:10 11/05/22 03:21 11/05/22 03:21 Temperature 99.3 F Pulse Rate 113 H Respiratory Rate 34 H Blood Pressure 141/80 H 143/67 H Pulse Oximetry 98 11/05/22 03:30 11/05/22 03:30 11/05/22 03:40 Temperature 99.3 F 99.3 F Pulse Rate 109 H 109 H Respiratory Rate 28 H 20 Blood Pressure 118/68 Pulse Oximetry 96 95 11/05/22 03:40 11/05/22 03:50 11/05/22 03:50 Temperature 99.3 F Pulse Rate 107 H Respiratory Rate 21 Blood Pressure 110/62 117/56 L Pulse Oximetry 95 11/05/22 04:00 11/05/22 04:00 11/05/22 04:10 Temperature 99.3 F 99.1 F Pulse Rate 109 H 109 H Respiratory Rate 32 H 34 H Blood Pressure 84/56 L Pulse Oximetry 89 L 95 11/05/22 04:10 11/05/22 04:20 11/05/22 04:20 Temperature 99.1 F Pulse Rate 109 H Respiratory Rate 33 H Blood Pressure 84/50 L 86/52 L Pulse Oximetry 92 11/05/22 04:30 11/05/22 04:30 11/05/22 04:40 Temperature 99.0 F Pulse Rate 109 H Respiratory Rate 35 H Blood Pressure 89/53 L 93/53 L Pulse Oximetry 93 11/05/22 04:40 11/05/22 04:50 11/05/22 04:50 Temperature 99.0 F 98.8 F Pulse Rate 106 H 105 H Respiratory Rate 15 21 Blood Pressure 108/57 L Pulse Oximetry 95 96 11/05/22 05:00 11/05/22 05:00 11/05/22 05:10 Temperature 98.8 F 98.8 F Pulse Rate 104 H 104 H Respiratory Rate 21 26 H Blood Pressure 106/57 L Pulse Oximetry 94 93 11/05/22 05:10 11/05/22 05:20 11/05/22 05:20 Temperature 98.8 F Pulse Rate 106 H Respiratory Rate 34 H Blood Pressure 101/59 L 106/57 L Pulse Oximetry 92 11/05/22 05:30 11/05/22 05:30 Temperature 98.8 F Pulse Rate 104 H Respiratory Rate 29 H Blood Pressure 110/57 L Pulse Oximetry 92 Oxygen Delivery Method Room Air Narrative Exam Narrative: Gen: Alert, oriented to self only, overweight 67 y.o. female, arousable, HEENT: normocephalic, atraumatic, conjunctiva clear, sclera non-icteric, oral mucosa pink and moist Neck: supple, full ROM, no JVD, trachea is midline Resp: Lungs CTA, non-labored breathing CV: RRR, no murmur or rubs Abd: soft, non-tender, normoactive BTs Skin: dry, cracked heels with what appears to dried wounds on her heels Neuro: GCS 12. Confused alert and oriented to self only, has either tremor or rigors, but unable to maintain a conversation and in UE restraints Extremities: in upper extremity restraints, moves all 4 extremities, is ambulatory, negative Chato?s sign Psyche: unable to assess Objective Labs Result Diagrams: 11/05/22 05:40 11/05/22 05:40 Labs: Laboratory Results - last 24 hr 11/04/22 11/04/22 11/04/22 17:55 18:08 18:08 WBC 26.7 H RBC 4.43 Hgb 12.8 Hct 43.6 MCV 98.3 MCH 29.0 MCHC 29.5 L RDW 14.5 Plt Count 463 H Neut % (Auto) Not Reportable Lymph % (Auto) Not Reportable [place] % (Auto) Not Reportable Eos % (Auto) Not Reportable Baso % (Auto) Not Reportable Lymph # (Auto) Not Reportable [place] # (Auto) Not Reportable Baso # (Auto) Not Reportable Total Counted 100 Seg Neutrophils % 89.0 H Band Neutrophils % 7.0 Lymphocytes % (Manual) 2.0 L Monocytes % (Manual) 2.0 Neutrophils # (Manual) 09879 H Platelet Estimate Increased on smear RBC Morphology Normal morphology PT INR APTT VBG pH 7.14 L* VBG pCO2 30.9 L VBG pO2 38 VBG HCO3 11 L VBG Total CO2 11 L VBG O2 Saturation 58 L VBG Base Excess -18.0 L FiO2 21 Sodium 124 L Potassium 6.4 H* Chloride 85 L Carbon Dioxide 11 L BUN 79 H Creatinine 3.64 H Estimated GFR 13 L BUN/Creatinine Ratio 21.7 Glucose 1467 H* Lactate Calcium 10.0 Phosphorus Magnesium 3.3 H Total Bilirubin 0.5 AST 17 ALT 17 Alkaline Phosphatase 381 H Ammonia Total Creatine Kinase CK-MB (CK-2) CK-MB (CK-2) Rel Index Troponin I NT-Pro-B Natriuret Pep Total Protein 7.4 Albumin 4.1 Globulin 3.3 Albumin/Globulin Ratio 1.2 Lipase 185 Procalcitonin TSH Prolactin Urine Color Urine Appearance Urine pH Ur Specific [place] Urine Protein Urine Glucose (UA) Urine Ketones Urine Occult Blood Urine Nitrate Urine Bilirubin Urine Urobilinogen Ur Leukocyte Esterase Urine RBC Urine WBC Ur Squamous Epith Cells Urine Bacteria Ur Random Sodium Urine Creatinine Salicylates U Opiates 300ng/mL cut Ur Oxycodone Screen Urine Methadone Screen Acetaminophen < 10 Ur Barbiturates Screen U Tricyclic Antidepress Ur Phencyclidine Scrn Ur Amphetamines Screen U Methamphetamines Scrn Ur MDMA Scrn (Ecstasy) U Benzodiazepines Scrn Urine Cocaine Screen U Marijuana (THC) Screen Ethyl Alcohol < 10 Ketones 7.09 H SARS-CoV-2 (PCR) Influenza A (RT-PCR) Influenza B (RT-PCR) RSV (PCR) 11/04/22 11/04/22 11/04/22 18:08 18:08 18:08 WBC RBC Hgb Hct MCV MCH MCHC RDW Plt Count Neut % (Auto) Lymph % (Auto) [place] % (Auto) Eos % (Auto) Baso % (Auto) Lymph # (Auto) [place] # (Auto) Baso # (Auto) Total Counted Seg Neutrophils % Band Neutrophils % Lymphocytes % (Manual) Monocytes % (Manual) Neutrophils # (Manual) Platelet Estimate RBC Morphology PT 11.5 INR 1.0 APTT 31 VBG pH VBG pCO2 VBG pO2 VBG HCO3 VBG Total CO2 VBG O2 Saturation VBG Base Excess FiO2 Sodium Potassium Chloride Carbon Dioxide BUN Creatinine Estimated GFR BUN/Creatinine Ratio Glucose Lactate 1.8 Calcium Phosphorus 7.4 H Magnesium Total Bilirubin AST ALT Alkaline Phosphatase Ammonia Total Creatine Kinase 53 CK-MB (CK-2) TNP CK-MB (CK-2) Rel Index TNP Troponin I 0.042 H NT-Pro-B Natriuret Pep 1580 H Total Protein Albumin Globulin Albumin/Globulin Ratio Lipase Procalcitonin 1.15 H TSH Prolactin 27.0 H Urine Color Urine Appearance Urine pH Ur Specific [place] Urine Protein Urine Glucose (UA) Urine Ketones Urine Occult Blood Urine Nitrate Urine Bilirubin Urine Urobilinogen Ur Leukocyte Esterase Urine RBC Urine WBC Ur Squamous Epith Cells Urine Bacteria Ur Random Sodium Urine Creatinine Salicylates < 1.0 U Opiates 300ng/mL cut Ur Oxycodone Screen Urine Methadone Screen Acetaminophen Ur Barbiturates Screen U Tricyclic Antidepress Ur Phencyclidine Scrn Ur Amphetamines Screen U Methamphetamines Scrn Ur MDMA Scrn (Ecstasy) U Benzodiazepines Scrn Urine Cocaine Screen U Marijuana (THC) Screen Ethyl Alcohol Ketones SARS-CoV-2 (PCR) Influenza A (RT-PCR) Influenza B (RT-PCR) RSV (PCR) 11/04/22 11/04/22 11/04/22 18:08 18:18 18:18 WBC RBC Hgb Hct MCV MCH MCHC RDW Plt Count Neut % (Auto) Lymph % (Auto) [place] % (Auto) Eos % (Auto) Baso % (Auto) Lymph # (Auto) [place] # (Auto) Baso # (Auto) Total Counted Seg Neutrophils % Band Neutrophils % Lymphocytes % (Manual) Monocytes % (Manual) Neutrophils # (Manual) Platelet Estimate RBC Morphology PT INR APTT VBG pH VBG pCO2 VBG pO2 VBG HCO3 VBG Total CO2 VBG O2 Saturation VBG Base Excess FiO2 Sodium Potassium Chloride Carbon Dioxide BUN Creatinine Estimated GFR BUN/Creatinine Ratio Glucose Lactate Calcium Phosphorus Magnesium Total Bilirubin AST ALT Alkaline Phosphatase Ammonia Total Creatine Kinase CK-MB (CK-2) CK-MB (CK-2) Rel Index Troponin I NT-Pro-B Natriuret Pep Total Protein Albumin Globulin Albumin/Globulin Ratio Lipase Procalcitonin TSH 2.52 Prolactin Urine Color Lt. yellow Urine Appearance Clear Urine pH 5.5 Ur Specific [place] 1.010 Urine Protein 2+ H Urine Glucose (UA) 3+ H Urine Ketones 1+ H Urine Occult Blood Trace-intact Urine Nitrate Negative Urine Bilirubin Negative Urine Urobilinogen 0.2 Ur Leukocyte Esterase Negative Urine RBC None seen Urine WBC None seen Ur Squamous Epith Cells 0-1 /hpf Urine Bacteria None seen Ur Random Sodium Urine Creatinine Salicylates U Opiates 300ng/mL cut Negative Ur Oxycodone Screen Negative Urine Methadone Screen Negative Acetaminophen Ur Barbiturates Screen Negative U Tricyclic Antidepress Negative Ur Phencyclidine Scrn Negative Ur Amphetamines Screen Negative U Methamphetamines Scrn Negative Ur MDMA Scrn (Ecstasy) Negative U Benzodiazepines Scrn Negative Urine Cocaine Screen Negative U Marijuana (THC) Screen Negative Ethyl Alcohol Ketones SARS-CoV-2 (PCR) Influenza A (RT-PCR) Influenza B (RT-PCR) RSV (PCR) 11/04/22 11/04/22 11/04/22 18:18 18:35 18:45 WBC RBC Hgb Hct MCV MCH MCHC RDW Plt Count Neut % (Auto) Lymph % (Auto) [place] % (Auto) Eos % (Auto) Baso % (Auto) Lymph # (Auto) [place] # (Auto) Baso # (Auto) Total Counted Seg Neutrophils % Band Neutrophils % Lymphocytes % (Manual) Monocytes % (Manual) Neutrophils # (Manual) Platelet Estimate RBC Morphology PT INR APTT VBG pH VBG pCO2 VBG pO2 VBG HCO3 VBG Total CO2 VBG O2 Saturation VBG Base Excess FiO2 Sodium Potassium Chloride Carbon Dioxide BUN Creatinine Estimated GFR BUN/Creatinine Ratio Glucose Lactate Calcium Phosphorus Magnesium Total Bilirubin AST ALT Alkaline Phosphatase Ammonia < 9 L Total Creatine Kinase CK-MB (CK-2) CK-MB (CK-2) Rel Index Troponin I NT-Pro-B Natriuret Pep Total Protein Albumin Globulin Albumin/Globulin Ratio Lipase Procalcitonin TSH Prolactin Urine Color Urine Appearance Urine pH Ur Specific [place] Urine Protein Urine Glucose (UA) Urine Ketones Urine Occult Blood Urine Nitrate Urine Bilirubin Urine Urobilinogen Ur Leukocyte Esterase Urine RBC Urine WBC Ur Squamous Epith Cells Urine Bacteria Ur Random Sodium 12 L Urine Creatinine 20.0 Salicylates U Opiates 300ng/mL cut Ur Oxycodone Screen Urine Methadone Screen Acetaminophen Ur Barbiturates Screen U Tricyclic Antidepress Ur Phencyclidine Scrn Ur Amphetamines Screen U Methamphetamines Scrn Ur MDMA Scrn (Ecstasy) U Benzodiazepines Scrn Urine Cocaine Screen U Marijuana (THC) Screen Ethyl Alcohol Ketones SARS-CoV-2 (PCR) Negative Influenza A (RT-PCR) Flu a negative Influenza B (RT-PCR) Flu b negative RSV (PCR) Negative 11/04/22 11/04/22 11/04/22 20:39 21:01 22:15 WBC RBC Hgb Hct MCV MCH MCHC RDW Plt Count Neut % (Auto) Lymph % (Auto) [place] % (Auto) Eos % (Auto) Baso % (Auto) Lymph # (Auto) [place] # (Auto) Baso # (Auto) Total Counted Seg Neutrophils % Band Neutrophils % Lymphocytes % (Manual) Monocytes % (Manual) Neutrophils # (Manual) Platelet Estimate RBC Morphology PT INR APTT VBG pH 7.16 L* VBG pCO2 26.4 L VBG pO2 30 L VBG HCO3 9 L VBG Total CO2 10 L VBG O2 Saturation 44 L VBG Base Excess -19.0 L FiO2 21 Sodium 133 L 134 L Potassium 5.2 H D 4.9 Chloride 101 103 Carbon Dioxide 8 L* 10 L BUN 71 H 70 H Creatinine 3.19 H 3.10 H Estimated GFR 15 L 16 L BUN/Creatinine Ratio 22.3 H 22.6 H Glucose 1179 H* 946 H* Lactate Calcium 8.3 L 8.3 L Phosphorus Magnesium Total Bilirubin AST ALT Alkaline Phosphatase Ammonia Total Creatine Kinase CK-MB (CK-2) CK-MB (CK-2) Rel Index Troponin I NT-Pro-B Natriuret Pep Total Protein Albumin Globulin Albumin/Globulin Ratio Lipase Procalcitonin TSH Prolactin Urine Color Urine Appearance Urine pH Ur Specific [place] Urine Protein Urine Glucose (UA) Urine Ketones Urine Occult Blood Urine Nitrate Urine Bilirubin Urine Urobilinogen Ur Leukocyte Esterase Urine RBC Urine WBC Ur Squamous Epith Cells Urine Bacteria Ur Random Sodium Urine Creatinine Salicylates U Opiates 300ng/mL cut Ur Oxycodone Screen Urine Methadone Screen Acetaminophen Ur Barbiturates Screen U Tricyclic Antidepress Ur Phencyclidine Scrn Ur Amphetamines Screen U Methamphetamines Scrn Ur MDMA Scrn (Ecstasy) U Benzodiazepines Scrn Urine Cocaine Screen U Marijuana (THC) Screen Ethyl Alcohol Ketones SARS-CoV-2 (PCR) Influenza A (RT-PCR) Influenza B (RT-PCR) RSV (PCR) 11/05/22 11/05/22 11/05/22 00:00 01:30 01:31 WBC RBC Hgb Hct MCV MCH MCHC RDW Plt Count Neut % (Auto) Lymph % (Auto) [place] % (Auto) Eos % (Auto) Baso % (Auto) Lymph # (Auto) [place] # (Auto) Baso # (Auto) Total Counted Seg Neutrophils % Band Neutrophils % Lymphocytes % (Manual) Monocytes % (Manual) Neutrophils # (Manual) Platelet Estimate RBC Morphology PT INR APTT VBG pH 7.29 L VBG pCO2 29.2 L VBG pO2 39 VBG HCO3 14 L VBG Total CO2 15 L VBG O2 Saturation 69 L VBG Base Excess -12.0 L FiO2 21 Sodium 135 L 134 L Potassium 4.8 4.7 Chloride 107 107 Carbon Dioxide 12 L 15 L BUN 69 H 68 H Creatinine 2.96 H 2.89 H Estimated GFR 17 L 17 L BUN/Creatinine Ratio 23.3 H 23.5 H Glucose 792 H* 694 H* Lactate Calcium 8.1 L 8.0 L Phosphorus Magnesium Total Bilirubin AST ALT Alkaline Phosphatase Ammonia Total Creatine Kinase CK-MB (CK-2) CK-MB (CK-2) Rel Index Troponin I NT-Pro-B Natriuret Pep Total Protein Albumin Globulin Albumin/Globulin Ratio Lipase Procalcitonin TSH Prolactin Urine Color Urine Appearance Urine pH Ur Specific [place] Urine Protein Urine Glucose (UA) Urine Ketones Urine Occult Blood Urine Nitrate Urine Bilirubin Urine Urobilinogen Ur Leukocyte Esterase Urine RBC Urine WBC Ur Squamous Epith Cells Urine Bacteria Ur Random Sodium Urine Creatinine Salicylates U Opiates 300ng/mL cut Ur Oxycodone Screen Urine Methadone Screen Acetaminophen Ur Barbiturates Screen U Tricyclic Antidepress Ur Phencyclidine Scrn Ur Amphetamines Screen U Methamphetamines Scrn Ur MDMA Scrn (Ecstasy) U Benzodiazepines Scrn Urine Cocaine Screen U Marijuana (THC) Screen Ethyl Alcohol Ketones SARS-CoV-2 (PCR) Influenza A (RT-PCR) Influenza B (RT-PCR) RSV (PCR) 11/05/22 04:00 WBC RBC Hgb Hct MCV MCH MCHC RDW Plt Count Neut % (Auto) Lymph % (Auto) [place] % (Auto) Eos % (Auto) Baso % (Auto) Lymph # (Auto) [place] # (Auto) Baso # (Auto) Total Counted Seg Neutrophils % Band Neutrophils % Lymphocytes % (Manual) Monocytes % (Manual) Neutrophils # (Manual) Platelet Estimate RBC Morphology PT INR APTT VBG pH VBG pCO2 VBG pO2 VBG HCO3 VBG Total CO2 VBG O2 Saturation VBG Base Excess FiO2 Sodium 136 L Potassium 4.5 Chloride 107 Carbon Dioxide 16 L BUN 66 H Creatinine 2.82 H Estimated GFR 18 L BUN/Creatinine Ratio 23.4 H Glucose 613 H* Lactate Calcium 8.2 L Phosphorus Magnesium Total Bilirubin AST ALT Alkaline Phosphatase Ammonia Total Creatine Kinase CK-MB (CK-2) CK-MB (CK-2) Rel Index Troponin I NT-Pro-B Natriuret Pep Total Protein Albumin Globulin Albumin/Globulin Ratio Lipase Procalcitonin TSH Prolactin Urine Color Urine Appearance Urine pH Ur Specific [place] Urine Protein Urine Glucose (UA) Urine Ketones Urine Occult Blood Urine Nitrate Urine Bilirubin Urine Urobilinogen Ur Leukocyte Esterase Urine RBC Urine WBC Ur Squamous Epith Cells Urine Bacteria Ur Random Sodium Urine Creatinine Salicylates U Opiates 300ng/mL cut Ur Oxycodone Screen Urine Methadone Screen Acetaminophen Ur Barbiturates Screen U Tricyclic Antidepress Ur Phencyclidine Scrn Ur Amphetamines Screen U Methamphetamines Scrn Ur MDMA Scrn (Ecstasy) U Benzodiazepines Scrn Urine Cocaine Screen U Marijuana (THC) Screen Ethyl Alcohol Ketones SARS-CoV-2 (PCR) Influenza A (RT-PCR) Influenza B (RT-PCR) RSV (PCR) Assessment & Plan Assessment & Plan narrative: Ailyn Kent is admitted to the ICU for secure DKA and a gap metabolic acidosis, now improving on an an insulin drip. Severe DKA, acute and present on admission, uncontrolled diabetes Initial presenting glucose was 1179, currently 613, pH was 7.14 on admission, now 7.29, anion gap was 24 on presentation to the ED, now is 13 She is on an insulin drip, now at 1 unit/hour A1c is greater than 14 Appears to have taken metformin at one time, but does not appear to have an active prescription at this time Acute kidney failure, present on admission, gradually improving Initial creatinine was 3.19, currently 2.82 and her admission eGFR was 15, now 18 Phosphorus was elevated at 7.4 and calcium low at 8.3 falling to as low as 8.0 She is ordered for IV calcium gluconate to help bind the phosphorus Acute metabolic encephalopathy, present on admission It may be prudent to have patient undergo CT or MRI of the head to rule out a stroke Her S/O reported feeding difficulties, have ordered Swallow evaluation by Speech Therapy when she is more awake Suspected seizure, acute, witnessed in the ED She was administered IV valium and keppra in the ED She is being empirically treated for meningeal signs with IV ampicillin and acyclovir Patient was monitored overnight in the ED in the case she develops seizures and required transfer I have requested to continue to hold her place on [facility]'s waiting list History of heart failure, likely worsened and/or chronic She is ordered for an echo today. Essential hypertension, chronic and uncontrolled Patient was previously written for lisinopril and carvedilol however significant other states that patient has not been taking blood pressure medications for years Other independent historians: Atilio Magana, her significant other Discussion of results, plan of care with independent HCP/other ED provider, [facility] Reviewed outside records: unavailable VTE Prophylaxis: Wells risk score 0 X Enoxaparin 40 mg subQ once daily X Bilateral SCDs Patient is admitted to the inpatient service due to the severity of disease, risks of further disease progression and this stay is expected to exceed 2 midnights. FEN: IV fluids: previously LR at 250 ml/hour, now 0.45 NS at 100 ml/hour , diet: NPO, labs: CBC, C/BMP, liver enzymes, Mag, PT/INR Consultants [facility], Speech Therapy, and Social Work, care and involvement in the patient?s care is appreciated. Dispo: unknown at this time Code status: Full code as discussed with the patient's surrogate and significant other [X] I have utilized all available immediate resources to obtain, update, or review of the patient's current medications VTE Deep Vein Thrombosis/Pulmonary Embolism Present on Admission: No MIPS - Admit I confirm the patient?s Advance Care Plan is present, Code status is documented, Surrogate decision maker is in patient?s record: Yes MIPS - DC The patient has current or prior documentation of left ventricular ejection fraction (LVEF) less than 40%, or moderate or severely depressed left ventricular systolic function.: No COVID-19 COVID-19 status: Negative Result date/Date tested (Pos, Neg/Pending): 11/04/22 Time Spent With Patient Critical Care time: I spent a total of 120 minutes of critical care time on this patient's care today; this time is exclusive of procedural time. Scores G[facility] [place] coma scale eye opening: To sound [place] coma scale verbal response: Confused [place] coma scale motor response: Localising [place] coma scale total score: 12
[2022-11-05 06:01] LABS: Add Manual Diff / Slide Review NO; Basophils Absolute Auto 0 /uL (0-100); Basophils Percent Auto 0.2 % (0-2); Eosinophils Absolute Auto 0 /uL (0-450); Eosinophils Percent Auto 0.1 % (2-4); Hematocrit 27.7 % (36-46); Hemoglobin 9.1 g/dL (12.0-16.0); Lymphocytes Absolute Auto 1700 /uL (1100-4500); Lymphocytes Percent Auto 9.6 % (25-40); Mean Corpuscular HGB Conc 32.9 % (30-36); Mean Corpuscular Volume 88.3 fL (80-100); Monocytes Absolute Auto 1300 /uL (0-900); Monocytes Percent Auto 7.5 % (3-14); Neutrophils Absolute Auto 14200 /uL (1500-7000); Neutrophils Percent Auto 82.6 % (50-75); Platelet Count 277 X10^3/uL (150-400); Red Blood Cell Count 3.14 X10^6/uL (4.0-5.2); Red Cell Distribution Width 13.2 % (11.6-14.8); White Blood Cell Count 17.2 X10^3/uL (4.5-11.0)
[2022-11-05 06:03] LABS: BUN Creatinine Ratio 22.2 (6-22); Blood Urea Nitrogen 65 mg/dL (7-17); Calcium 8.1 mg/dL (8.4-10.2); Carbon Dioxide 16 mmol/L (22-32); Chloride 107 mmol/L (98-107); Estimated Glomerular Filt Rate 17 mL/min (>60); HEMOLYSIS < 15 (0-50); Potassium 4.4 mmol/L (3.4-5.1); Sodium 135 mmol/L (137-145)
[2022-11-05 06:05] LABS: Lactate (Lactic Acid) 1.9 mmol/L (0.7-2.1)
[2022-11-05 06:17] LABS: Glucose 567 mg/dL (80-110)
[2022-11-05 06:30] LABS: Albumin 2.6 g/dL (3.5-5.0)
[2022-11-05] MEDS: METOPROLOL TARTRATE 5 MG/5 ML INJ IV (06:30)
[2022-11-05 06:35] LABS: Ketones (Beta-Hydroxybutyrate) 0.07 mmol/L (<0.27)
[2022-11-05 06:37] LABS: Hemoglobin A1C% w Est Avg Glu > 14.0 % (4.0-6.0)
--- NOTE | 2022-11-05 06:38 | DI.ECHO.S_ITS ---
[facility] +---------+ [facility] +---------+ : : [address] : [place] [place] : : : : [id number] : : : : Phone: [phone]+ Echocardiogram Report + + :Name: PIOTR DOSHI Study Date: 11/05/2022 Height: 65 in : :[facility] ReadingLocation: Weight: 151 lb : : Gender: Female BSA: 1.8 m2 : :: 1955 Age: 67 yrs BP: 144/76 mmHg: :Reason For Study: DKA, HEART FAILURE : :Ordering Physician: Rk JAEGERformed By: Gina Bray : :Referring: KIARA JAEGER : + + Interpretation Summary Normal sinus rhythm. Normal LV size, mild concentric LVH. Normal wall motion and LV systolic function. Ejection fraction 60-65%. Stage I diastolic dysfunction. Mild LA enlargement; otherwise normal chamber sizes. There is mild mitral annular calcification. Otherwise there are no significant valvular abnormalities. Mildly dilated ascending aorta measuring 4.2 cm diameter. Compared to prior study obtained in 2016, cardiomyopathy is no longer present. Procedure: A two-dimensional transthoracic echocardiogram with color flow and Doppler was performed. Comparison is made with the echocardiogram of 07/16/2016. The study quality was technically difficult. Patient scanned in the supine position. The patient was in sinus tachycardia with heart rates between 90-110 bpm during the exam. Left Ventricle: The left ventricle is normal in size. There is mild concentric left ventricular hypertrophy. The ejection fraction is estimated to be 60-65%. The left ventricle is hyperdynamic. Diastolic parameters suggest a relaxation abnormality of the left ventricle, consistent with probable normal filling pressures. Right Ventricle: The right ventricle is normal size. Right ventricular systolic function is mildly reduced. Atria: The left atrium is mildly dilated. Right atrium not well visualized. Mitral Valve: There is mild mitral annular calcification. Aortic Valve: The aortic valve is not well visualized. There is no aortic valve stenosis. No aortic regurgitation is present. Great Vessels: The aortic root is normal size. The ascending aorta is mildly enlarged. The IVC is of normal diameter and collapses greater than 50% with a sniff. This suggests a low right atrial pressure of 3 mm Hg. Pericardium/ Pleura There is no pericardial effusion. There is no pleural effusion. MMode/2D Measurements & Calculations LVIDd: 4.3 cm LVOT diam: 2.2 cm LVIDs: 2.5 cm Ao root diam: 3.8 cm FS: 42.2 % asc Aorta Diam: 4.2 cm IVSd: 1.4 cm LVPWd: 1.2 cm LV cantu. diameter/BSA (cm/m^2): 2.4 LV sys. diameter/BSA (cm/m^2): 1.4 LA A2 area: 22.8 cm2 IVC diam: 1.8 cm LA A4 area: 16.8 cm2 LA length (vol): 5.0 cm LA vol: 64.9 ml LA vol index: 36.9 ml/m2 RVD1 (basal): 3.1 cm RVD2 (mid): 2.2 cm TAPSE: 1.6 cm Doppler Measurements & Calculations Ao V2 max: 181.8 cm/sec LVOT Max Waldo: 118.6 cm/sec Ao V2 mean: 136.6 cm/sec LV V1 max P.6 mmHg Ao max P.2 mmHg LV V1 VTI: 21.9 cm Ao mean P.1 mmHg POLA(I,D): 2.6 cm2 Ao V2 VTI: 31.2 cm POLA(V,D): 2.4 cm2 sev ratio: 0.70 POLA indexed to BSA (cm^2/m^2): 1.5 MV E max waldo: 75.1 cm/sec SV(LVOT): 82.1 ml MV A max waldo: 110.1 cm/sec MV E/A: 0.68 Med Peak E' Waldo: 4.7 cm/sec E/E' med: 15.9 Lat Peak E' Waldo: 6.6 cm/sec E/E' lat: 11.3 E/e' average: 13.6 MV dec time: 0.23 sec Electronically signed by: Cate Wright M.D. on Reading Physician:11/05/2022 02:31 PM
[2022-11-05] MEDS: SODIUM CHLORIDE 0.45% 1,000 ML 100 ML IV (06:45)
--- NOTE | 2022-11-05 06:58 | PC.NURSE ---
0550- Patient arrived from Emergency to room 230. Patient in critical conditon. Confused and pulling at lines and tubes. Significant Other Art at bedside. Soft wrist restraints applied for safety. Insulin gtt infusing per orders. Will monitor closely.
[2022-11-05 07:32] LABS: Glucose 444 mg/dL (80-110)
--- NOTE | 2022-11-05 07:36 | PM.CN.EICU ---
History of Present Illness Consult details IF CAMERA ACTIVATED, patient seen via real-time interactive audiovisual communication: Camera activated Date Patient Seen: 11/05/22 Chief complaint: DKA Reason for consult: DKA and severe sepsis Consent obtained for tele-exchange teller care: Yes Patient Location: ICU Provider location (State): [place] Other participants/roles: Bedside RN and Hailey Rashid APRN Narrative: Patient is a 67 year old female with history of DM who was brought in by her boyfriend after she was found down at home. By report patient's boyfriend last spoke to patient a day prior to admission. He was unable to get in touch with patient and went to check on patient and found patient on the ground. EMS called and brought to the ER. In ER, labs notable for WBC 26.7, glucose 1467, K 6.4, Na 124, BUN 79, Cr 3.64, Co2 11. CTH pending final read. CT neck showed no acute fracture beside R 4/5th rib fractures with chest wall hematoma. CXR showed no dense consolidation. ERP unable to perform LP and patient was started empirically on meningitis rx. She was resuscitated with 4 liters crystalloids and stated on insulin. There was also a concern for seizure like activity which she received keppra and ativan on admission. Recommended transfer to tertiary care for neurology consult and EEG to rule out active seizure. However there was no open bed and patient's encephalopathy was improving slowly with insulin gtt which decision was made to admit patient to ICU for further management. [facility] Medical History Congestive heart failure Diabetes Hypertension Social History lives independently: Yes Current Medications Current Medications Medications: Home Medications acetaminophen 325 mg tablet 650 mg PO Q6HP PRN #0 tabs 07/15/16 [History] diphenhydramine HCl 25 mg tablet (Benadryl Allergy) 25 mg PO Q6HP PRN #0 tabs 07/15/16 [History] carvedilol 25 mg tablet (Coreg) 25 mg PO BID #60 tabs 07/17/16 [Rx] furosemide 40 mg tablet 40 mg PO QDAY #30 tabs 07/17/16 [Rx] lisinopril 10 mg tablet 10 mg PO QDAY #30 tabs 10/02/16 [Rx] metformin 500 mg tablet (Glucophage) 500 mg PO BIDCC #60 tabs 07/17/16 [Rx] Visit Medications (administered) Generic Name Dose Route Start Last Admin Trade Name Freq PRN Reason Stop Dose Admin INSULIN DRIP PREMIX 100 unit in 100 mls @ 6 mls/hr 11/04/22 19:15 11/05/22 01:00 Myxredlin Drip Premix IV 1 mls/hr TITRATE RYLEE 1 mls/hr Titration Protocol Sodium Chloride 1,000 mls @ 100 mls/hr 11/05/22 06:30 11/05/22 06:45 Normal Saline 0.45% IV 100 mls/hr CONT RYLEE Administration Exam Vital Signs (past 8 hours): - 11/04/22 23:40 11/04/22 23:40 11/04/22 23:50 Temperature 101.1 F H 101.1 F H Pulse Rate 119 H 120 H Respiratory Rate 19 21 Blood Pressure 108/56 L Pulse Oximetry 98 99 Oxygen Flow Rate 11/04/22 23:50 11/05/22 00:50 11/05/22 00:55 Temperature 100.8 F H Pulse Rate 122 H Respiratory Rate 18 Blood Pressure 86/50 L 96/53 L Pulse Oximetry 97 Oxygen Flow Rate 11/05/22 00:55 11/05/22 01:00 11/05/22 01:00 Temperature 100.6 F H Pulse Rate 123 H Respiratory Rate 23 Blood Pressure 95/52 L 135/96 H Pulse Oximetry 98 Oxygen Flow Rate 11/05/22 01:05 11/05/22 01:05 11/05/22 01:10 Temperature 100.4 F H 100.4 F H Pulse Rate 125 H 124 H Respiratory Rate 22 24 Blood Pressure 141/101 H Pulse Oximetry 97 99 Oxygen Flow Rate 11/05/22 01:10 11/05/22 01:15 11/05/22 01:15 Temperature 100.4 F H Pulse Rate 121 H Respiratory Rate 20 Blood Pressure 120/82 98/57 L Pulse Oximetry 98 Oxygen Flow Rate 11/05/22 01:20 11/05/22 01:20 11/05/22 01:25 Temperature 100.2 F H 100.2 F H Pulse Rate 118 H 114 H Respiratory Rate 20 20 Blood Pressure 109/58 L Pulse Oximetry 99 97 Oxygen Flow Rate 11/05/22 01:25 11/05/22 01:30 11/05/22 01:30 Temperature 100.2 F H Pulse Rate 116 H Respiratory Rate 20 Blood Pressure 97/53 L 110/55 L Pulse Oximetry 99 Oxygen Flow Rate 11/05/22 01:35 11/05/22 01:35 11/05/22 01:40 Temperature 100.0 F H Pulse Rate 117 H Respiratory Rate 21 Blood Pressure 133/61 130/60 Pulse Oximetry 97 Oxygen Flow Rate 11/05/22 01:40 11/05/22 01:45 11/05/22 01:45 Temperature 99.9 F H 99.9 F H Pulse Rate 115 H 112 H Respiratory Rate 18 18 Blood Pressure 124/59 L Pulse Oximetry 98 99 Oxygen Flow Rate 11/05/22 01:50 11/05/22 01:50 11/05/22 01:55 Temperature 99.7 F H 99.7 F H Pulse Rate 110 H 111 H Respiratory Rate 17 17 Blood Pressure 118/57 L Pulse Oximetry 98 98 Oxygen Flow Rate 11/05/22 01:55 11/05/22 02:00 11/05/22 02:00 Temperature 99.7 F H Pulse Rate 109 H Respiratory Rate 16 Blood Pressure 97/52 L 97/53 L Pulse Oximetry 96 Oxygen Flow Rate 11/05/22 02:05 11/05/22 02:05 11/05/22 02:10 Temperature 99.7 F H 99.7 F H Pulse Rate 110 H 110 H Respiratory Rate 17 18 Blood Pressure 92/55 L Pulse Oximetry 96 96 Oxygen Flow Rate 11/05/22 02:10 11/05/22 02:15 11/05/22 02:15 Temperature 99.7 F H Pulse Rate 109 H Respiratory Rate 18 Blood Pressure 88/54 L 79/49 L Pulse Oximetry 95 Oxygen Flow Rate 11/05/22 02:20 11/05/22 02:20 11/05/22 02:30 Temperature 99.7 F H Pulse Rate 109 H Respiratory Rate 19 Blood Pressure 85/51 L 86/52 L Pulse Oximetry 94 Oxygen Flow Rate 11/05/22 02:30 11/05/22 02:40 11/05/22 02:40 Temperature 99.7 F H 99.5 F Pulse Rate 109 H 110 H Respiratory Rate 19 18 Blood Pressure 93/52 L Pulse Oximetry 93 97 Oxygen Flow Rate 11/05/22 02:50 11/05/22 02:50 11/05/22 03:00 Temperature 99.5 F 99.5 F Pulse Rate 114 H 113 H Respiratory Rate 21 30 H Blood Pressure 129/93 H Pulse Oximetry 96 97 Oxygen Flow Rate 11/05/22 03:01 11/05/22 03:01 11/05/22 03:10 Temperature 99.3 F 99.3 F Pulse Rate 114 H 117 H Respiratory Rate 21 Blood Pressure 141/87 H Pulse Oximetry 97 97 Oxygen Flow Rate 11/05/22 03:10 11/05/22 03:21 11/05/22 03:21 Temperature 99.3 F Pulse Rate 113 H Respiratory Rate 34 H Blood Pressure 141/80 H 143/67 H Pulse Oximetry 98 Oxygen Flow Rate 11/05/22 03:30 11/05/22 03:30 11/05/22 03:40 Temperature 99.3 F 99.3 F Pulse Rate 109 H 109 H Respiratory Rate 28 H 20 Blood Pressure 118/68 Pulse Oximetry 96 95 Oxygen Flow Rate 11/05/22 03:40 11/05/22 03:50 11/05/22 03:50 Temperature 99.3 F Pulse Rate 107 H Respiratory Rate 21 Blood Pressure 110/62 117/56 L Pulse Oximetry 95 Oxygen Flow Rate 11/05/22 04:00 11/05/22 04:00 11/05/22 04:10 Temperature 99.3 F 99.1 F Pulse Rate 109 H 109 H Respiratory Rate 32 H 34 H Blood Pressure 84/56 L Pulse Oximetry 89 L 95 Oxygen Flow Rate 11/05/22 04:10 11/05/22 04:20 11/05/22 04:20 Temperature 99.1 F Pulse Rate 109 H Respiratory Rate 33 H Blood Pressure 84/50 L 86/52 L Pulse Oximetry 92 Oxygen Flow Rate 11/05/22 04:30 11/05/22 04:30 11/05/22 04:40 Temperature 99.0 F Pulse Rate 109 H Respiratory Rate 35 H Blood Pressure 89/53 L 93/53 L Pulse Oximetry 93 Oxygen Flow Rate 11/05/22 04:40 11/05/22 04:50 11/05/22 04:50 Temperature 99.0 F 98.8 F Pulse Rate 106 H 105 H Respiratory Rate 15 21 Blood Pressure 108/57 L Pulse Oximetry 95 96 Oxygen Flow Rate 11/05/22 05:00 11/05/22 05:00 11/05/22 05:10 Temperature 98.8 F 98.8 F Pulse Rate 104 H 104 H Respiratory Rate 21 26 H Blood Pressure 106/57 L Pulse Oximetry 94 93 Oxygen Flow Rate 11/05/22 05:10 11/05/22 05:20 11/05/22 05:20 Temperature 98.8 F Pulse Rate 106 H Respiratory Rate 34 H Blood Pressure 101/59 L 106/57 L Pulse Oximetry 92 Oxygen Flow Rate 11/05/22 05:30 11/05/22 05:30 11/05/22 05:50 Temperature 98.8 F 98.6 F Pulse Rate 104 H 111 H Respiratory Rate 29 H 27 H Blood Pressure 110/57 L 164/80 H Pulse Oximetry 92 98 Oxygen Flow Rate 0 11/05/22 05:40 11/05/22 05:40 11/05/22 06:04 Temperature 98.8 F Pulse Rate 104 H 124 H Respiratory Rate 27 H Blood Pressure 103/58 L Pulse Oximetry 92 Oxygen Flow Rate 11/05/22 06:10 11/05/22 06:10 11/05/22 06:30 Temperature 98.6 F Pulse Rate 111 H Respiratory Rate 28 H Blood Pressure 164/80 H 160/79 H Pulse Oximetry 94 Oxygen Flow Rate 11/05/22 06:30 11/05/22 06:53 11/05/22 06:53 Temperature 98.6 F 98.6 F Pulse Rate 108 H 84 Respiratory Rate 28 H 28 H Blood Pressure 149/84 H Pulse Oximetry 98 95 Oxygen Flow Rate 11/05/22 07:00 11/05/22 07:00 Temperature 98.6 F Pulse Rate 86 Respiratory Rate 20 Blood Pressure 149/81 H Pulse Oximetry 99 Oxygen Flow Rate Oxygen Delivery Method Room Air Oxygen Flow Rate 0 Objective Labs Result Diagrams: 11/05/22 05:40 11/05/22 07:10 Labs: Laboratory Results - last 24 hr 11/04/22 11/04/22 11/04/22 17:55 18:08 18:08 WBC 26.7 H RBC 4.43 Hgb 12.8 Hct 43.6 MCV 98.3 MCH 29.0 MCHC 29.5 L RDW 14.5 Plt Count 463 H Neut % (Auto) Not Reportable Lymph % (Auto) Not Reportable [place] % (Auto) Not Reportable Eos % (Auto) Not Reportable Baso % (Auto) Not Reportable Neut # (Auto) Lymph # (Auto) Not Reportable [place] # (Auto) Not Reportable Eos # (Auto) Baso # (Auto) Not Reportable Total Counted 100 Seg Neutrophils % 89.0 H Band Neutrophils % 7.0 Lymphocytes % (Manual) 2.0 L Monocytes % (Manual) 2.0 Neutrophils # (Manual) 73230 H Platelet Estimate Increased on smear RBC Morphology Normal morphology PT INR APTT VBG pH 7.14 L* VBG pCO2 30.9 L VBG pO2 38 VBG HCO3 11 L VBG Total CO2 11 L VBG O2 Saturation 58 L VBG Base Excess -18.0 L FiO2 21 Sodium 124 L Potassium 6.4 H* Chloride 85 L Carbon Dioxide 11 L BUN 79 H Creatinine 3.64 H Estimated GFR 13 L BUN/Creatinine Ratio 21.7 Glucose 1467 H* Hemoglobin A1c Lactate Calcium 10.0 Phosphorus Magnesium 3.3 H Total Bilirubin 0.5 AST 17 ALT 17 Alkaline Phosphatase 381 H Ammonia Total Creatine Kinase CK-MB (CK-2) CK-MB (CK-2) Rel Index Troponin I NT-Pro-B Natriuret Pep Total Protein 7.4 Albumin 4.1 Globulin 3.3 Albumin/Globulin Ratio 1.2 Lipase 185 Procalcitonin TSH Prolactin Urine Color Urine Appearance Urine pH Ur Specific [place] Urine Protein Urine Glucose (UA) Urine Ketones Urine Occult Blood Urine Nitrate Urine Bilirubin Urine Urobilinogen Ur Leukocyte Esterase Urine RBC Urine WBC Ur Squamous Epith Cells Urine Bacteria Ur Random Sodium Urine Creatinine Salicylates U Opiates 300ng/mL cut Ur Oxycodone Screen Urine Methadone Screen Acetaminophen < 10 Ur Barbiturates Screen U Tricyclic Antidepress Ur Phencyclidine Scrn Ur Amphetamines Screen U Methamphetamines Scrn Ur MDMA Scrn (Ecstasy) U Benzodiazepines Scrn Urine Cocaine Screen U Marijuana (THC) Screen Ethyl Alcohol < 10 Ketones 7.09 H SARS-CoV-2 (PCR) Influenza A (RT-PCR) Influenza B (RT-PCR) RSV (PCR) 11/04/22 11/04/22 11/04/22 18:08 18:08 18:08 WBC RBC Hgb Hct MCV MCH MCHC RDW Plt Count Neut % (Auto) Lymph % (Auto) [place] % (Auto) Eos % (Auto) Baso % (Auto) Neut # (Auto) Lymph # (Auto) [place] # (Auto) Eos # (Auto) Baso # (Auto) Total Counted Seg Neutrophils % Band Neutrophils % Lymphocytes % (Manual) Monocytes % (Manual) Neutrophils # (Manual) Platelet Estimate RBC Morphology PT 11.5 INR 1.0 APTT 31 VBG pH VBG pCO2 VBG pO2 VBG HCO3 VBG Total CO2 VBG O2 Saturation VBG Base Excess FiO2 Sodium Potassium Chloride Carbon Dioxide BUN Creatinine Estimated GFR BUN/Creatinine Ratio Glucose Hemoglobin A1c Lactate 1.8 Calcium Phosphorus 7.4 H Magnesium Total Bilirubin AST ALT Alkaline Phosphatase Ammonia Total Creatine Kinase 53 CK-MB (CK-2) TNP CK-MB (CK-2) Rel Index TNP Troponin I 0.042 H NT-Pro-B Natriuret Pep 1580 H Total Protein Albumin Globulin Albumin/Globulin Ratio Lipase Procalcitonin 1.15 H TSH Prolactin 27.0 H Urine Color Urine Appearance Urine pH Ur Specific [place] Urine Protein Urine Glucose (UA) Urine Ketones Urine Occult Blood Urine Nitrate Urine Bilirubin Urine Urobilinogen Ur Leukocyte Esterase Urine RBC Urine WBC Ur Squamous Epith Cells Urine Bacteria Ur Random Sodium Urine Creatinine Salicylates < 1.0 U Opiates 300ng/mL cut Ur Oxycodone Screen Urine Methadone Screen Acetaminophen Ur Barbiturates Screen U Tricyclic Antidepress Ur Phencyclidine Scrn Ur Amphetamines Screen U Methamphetamines Scrn Ur MDMA Scrn (Ecstasy) U Benzodiazepines Scrn Urine Cocaine Screen U Marijuana (THC) Screen Ethyl Alcohol Ketones SARS-CoV-2 (PCR) Influenza A (RT-PCR) Influenza B (RT-PCR) RSV (PCR) 11/04/22 11/04/22 11/04/22 18:08 18:18 18:18 WBC RBC Hgb Hct MCV MCH MCHC RDW Plt Count Neut % (Auto) Lymph % (Auto) [place] % (Auto) Eos % (Auto) Baso % (Auto) Neut # (Auto) Lymph # (Auto) [place] # (Auto) Eos # (Auto) Baso # (Auto) Total Counted Seg Neutrophils % Band Neutrophils % Lymphocytes % (Manual) Monocytes % (Manual) Neutrophils # (Manual) Platelet Estimate RBC Morphology PT INR APTT VBG pH VBG pCO2 VBG pO2 VBG HCO3 VBG Total CO2 VBG O2 Saturation VBG Base Excess FiO2 Sodium Potassium Chloride Carbon Dioxide BUN Creatinine Estimated GFR BUN/Creatinine Ratio Glucose Hemoglobin A1c Lactate Calcium Phosphorus Magnesium Total Bilirubin AST ALT Alkaline Phosphatase Ammonia Total Creatine Kinase CK-MB (CK-2) CK-MB (CK-2) Rel Index Troponin I NT-Pro-B Natriuret Pep Total Protein Albumin Globulin Albumin/Globulin Ratio Lipase Procalcitonin TSH 2.52 Prolactin Urine Color Lt. yellow Urine Appearance Clear Urine pH 5.5 Ur Specific [place] 1.010 Urine Protein 2+ H Urine Glucose (UA) 3+ H Urine Ketones 1+ H Urine Occult Blood Trace-intact Urine Nitrate Negative Urine Bilirubin Negative Urine Urobilinogen 0.2 Ur Leukocyte Esterase Negative Urine RBC None seen Urine WBC None seen Ur Squamous Epith Cells 0-1 /hpf Urine Bacteria None seen Ur Random Sodium Urine Creatinine Salicylates U Opiates 300ng/mL cut Negative Ur Oxycodone Screen Negative Urine Methadone Screen Negative Acetaminophen Ur Barbiturates Screen Negative U Tricyclic Antidepress Negative Ur Phencyclidine Scrn Negative Ur Amphetamines Screen Negative U Methamphetamines Scrn Negative Ur MDMA Scrn (Ecstasy) Negative U Benzodiazepines Scrn Negative Urine Cocaine Screen Negative U Marijuana (THC) Screen Negative Ethyl Alcohol Ketones SARS-CoV-2 (PCR) Influenza A (RT-PCR) Influenza B (RT-PCR) RSV (PCR) 11/04/22 11/04/22 11/04/22 18:18 18:35 18:45 WBC RBC Hgb Hct MCV MCH MCHC RDW Plt Count Neut % (Auto) Lymph % (Auto) [place] % (Auto) Eos % (Auto) Baso % (Auto) Neut # (Auto) Lymph # (Auto) [place] # (Auto) Eos # (Auto) Baso # (Auto) Total Counted Seg Neutrophils % Band Neutrophils % Lymphocytes % (Manual) Monocytes % (Manual) Neutrophils # (Manual) Platelet Estimate RBC Morphology PT INR APTT VBG pH VBG pCO2 VBG pO2 VBG HCO3 VBG Total CO2 VBG O2 Saturation VBG Base Excess FiO2 Sodium Potassium Chloride Carbon Dioxide BUN Creatinine Estimated GFR BUN/Creatinine Ratio Glucose Hemoglobin A1c Lactate Calcium Phosphorus Magnesium Total Bilirubin AST ALT Alkaline Phosphatase Ammonia < 9 L Total Creatine Kinase CK-MB (CK-2) CK-MB (CK-2) Rel Index Troponin I NT-Pro-B Natriuret Pep Total Protein Albumin Globulin Albumin/Globulin Ratio Lipase Procalcitonin TSH Prolactin Urine Color Urine Appearance Urine pH Ur Specific [place] Urine Protein Urine Glucose (UA) Urine Ketones Urine Occult Blood Urine Nitrate Urine Bilirubin Urine Urobilinogen Ur Leukocyte Esterase Urine RBC Urine WBC Ur Squamous Epith Cells Urine Bacteria Ur Random Sodium 12 L Urine Creatinine 20.0 Salicylates U Opiates 300ng/mL cut Ur Oxycodone Screen Urine Methadone Screen Acetaminophen Ur Barbiturates Screen U Tricyclic Antidepress Ur Phencyclidine Scrn Ur Amphetamines Screen U Methamphetamines Scrn Ur MDMA Scrn (Ecstasy) U Benzodiazepines Scrn Urine Cocaine Screen U Marijuana (THC) Screen Ethyl Alcohol Ketones SARS-CoV-2 (PCR) Negative Influenza A (RT-PCR) Flu a negative Influenza B (RT-PCR) Flu b negative RSV (PCR) Negative 11/04/22 11/04/22 11/04/22 20:39 21:01 22:15 WBC RBC Hgb Hct MCV MCH MCHC RDW Plt Count Neut % (Auto) Lymph % (Auto) [place] % (Auto) Eos % (Auto) Baso % (Auto) Neut # (Auto) Lymph # (Auto) [place] # (Auto) Eos # (Auto) Baso # (Auto) Total Counted Seg Neutrophils % Band Neutrophils % Lymphocytes % (Manual) Monocytes % (Manual) Neutrophils # (Manual) Platelet Estimate RBC Morphology PT INR APTT VBG pH 7.16 L* VBG pCO2 26.4 L VBG pO2 30 L VBG HCO3 9 L VBG Total CO2 10 L VBG O2 Saturation 44 L VBG Base Excess -19.0 L FiO2 21 Sodium 133 L 134 L Potassium 5.2 H D 4.9 Chloride 101 103 Carbon Dioxide 8 L* 10 L BUN 71 H 70 H Creatinine 3.19 H 3.10 H Estimated GFR 15 L 16 L BUN/Creatinine Ratio 22.3 H 22.6 H Glucose 1179 H* 946 H* Hemoglobin A1c Lactate Calcium 8.3 L 8.3 L Phosphorus Magnesium Total Bilirubin AST ALT Alkaline Phosphatase Ammonia Total Creatine Kinase CK-MB (CK-2) CK-MB (CK-2) Rel Index Troponin I NT-Pro-B Natriuret Pep Total Protein Albumin Globulin Albumin/Globulin Ratio Lipase Procalcitonin TSH Prolactin Urine Color Urine Appearance Urine pH Ur Specific [place] Urine Protein Urine Glucose (UA) Urine Ketones Urine Occult Blood Urine Nitrate Urine Bilirubin Urine Urobilinogen Ur Leukocyte Esterase Urine RBC Urine WBC Ur Squamous Epith Cells Urine Bacteria Ur Random Sodium Urine Creatinine Salicylates U Opiates 300ng/mL cut Ur Oxycodone Screen Urine Methadone Screen Acetaminophen Ur Barbiturates Screen U Tricyclic Antidepress Ur Phencyclidine Scrn Ur Amphetamines Screen U Methamphetamines Scrn Ur MDMA Scrn (Ecstasy) U Benzodiazepines Scrn Urine Cocaine Screen U Marijuana (THC) Screen Ethyl Alcohol Ketones SARS-CoV-2 (PCR) Influenza A (RT-PCR) Influenza B (RT-PCR) RSV (PCR) 11/05/22 11/05/22 11/05/22 00:00 01:30 01:31 WBC RBC Hgb Hct MCV MCH MCHC RDW Plt Count Neut % (Auto) Lymph % (Auto) [place] % (Auto) Eos % (Auto) Baso % (Auto) Neut # (Auto) Lymph # (Auto) [place] # (Auto) Eos # (Auto) Baso # (Auto) Total Counted Seg Neutrophils % Band Neutrophils % Lymphocytes % (Manual) Monocytes % (Manual) Neutrophils # (Manual) Platelet Estimate RBC Morphology PT INR APTT VBG pH 7.29 L VBG pCO2 29.2 L VBG pO2 39 VBG HCO3 14 L VBG Total CO2 15 L VBG O2 Saturation 69 L VBG Base Excess -12.0 L FiO2 21 Sodium 135 L 134 L Potassium 4.8 4.7 Chloride 107 107 Carbon Dioxide 12 L 15 L BUN 69 H 68 H Creatinine 2.96 H 2.89 H Estimated GFR 17 L 17 L BUN/Creatinine Ratio 23.3 H 23.5 H Glucose 792 H* 694 H* Hemoglobin A1c Lactate Calcium 8.1 L 8.0 L Phosphorus Magnesium Total Bilirubin AST ALT Alkaline Phosphatase Ammonia Total Creatine Kinase CK-MB (CK-2) CK-MB (CK-2) Rel Index Troponin I NT-Pro-B Natriuret Pep Total Protein Albumin Globulin Albumin/Globulin Ratio Lipase Procalcitonin TSH Prolactin Urine Color Urine Appearance Urine pH Ur Specific [place] Urine Protein Urine Glucose (UA) Urine Ketones Urine Occult Blood Urine Nitrate Urine Bilirubin Urine Urobilinogen Ur Leukocyte Esterase Urine RBC Urine WBC Ur Squamous Epith Cells Urine Bacteria Ur Random Sodium Urine Creatinine Salicylates U Opiates 300ng/mL cut Ur Oxycodone Screen Urine Methadone Screen Acetaminophen Ur Barbiturates Screen U Tricyclic Antidepress Ur Phencyclidine Scrn Ur Amphetamines Screen U Methamphetamines Scrn Ur MDMA Scrn (Ecstasy) U Benzodiazepines Scrn Urine Cocaine Screen U Marijuana (THC) Screen Ethyl Alcohol Ketones SARS-CoV-2 (PCR) Influenza A (RT-PCR) Influenza B (RT-PCR) RSV (PCR) 11/05/22 11/05/22 11/05/22 04:00 05:40 05:40 WBC 17.2 H RBC 3.14 L Hgb 9.1 L Hct 27.7 L MCV 88.3 D MCH 29.0 MCHC 32.9 D RDW 13.2 Plt Count 277 Neut % (Auto) 82.6 H Lymph % (Auto) 9.6 L [place] % (Auto) 7.5 Eos % (Auto) 0.1 L Baso % (Auto) 0.2 Neut # (Auto) 70872 H Lymph # (Auto) 1700 [place] # (Auto) 1300 H Eos # (Auto) 0 Baso # (Auto) 0 Total Counted Seg Neutrophils % Band Neutrophils % Lymphocytes % (Manual) Monocytes % (Manual) Neutrophils # (Manual) Platelet Estimate RBC Morphology PT INR APTT VBG pH VBG pCO2 VBG pO2 VBG HCO3 VBG Total CO2 VBG O2 Saturation VBG Base Excess FiO2 Sodium 136 L Potassium 4.5 Chloride 107 Carbon Dioxide 16 L BUN 66 H Creatinine 2.82 H Estimated GFR 18 L BUN/Creatinine Ratio 23.4 H Glucose 613 H* Hemoglobin A1c > 14.0 H Lactate Calcium 8.2 L Phosphorus Magnesium Total Bilirubin AST ALT Alkaline Phosphatase Ammonia Total Creatine Kinase CK-MB (CK-2) CK-MB (CK-2) Rel Index Troponin I NT-Pro-B Natriuret Pep Total Protein Albumin Globulin Albumin/Globulin Ratio Lipase Procalcitonin TSH Prolactin Urine Color Urine Appearance Urine pH Ur Specific [place] Urine Protein Urine Glucose (UA) Urine Ketones Urine Occult Blood Urine Nitrate Urine Bilirubin Urine Urobilinogen Ur Leukocyte Esterase Urine RBC Urine WBC Ur Squamous Epith Cells Urine Bacteria Ur Random Sodium Urine Creatinine Salicylates U Opiates 300ng/mL cut Ur Oxycodone Screen Urine Methadone Screen Acetaminophen Ur Barbiturates Screen U Tricyclic Antidepress Ur Phencyclidine Scrn Ur Amphetamines Screen U Methamphetamines Scrn Ur MDMA Scrn (Ecstasy) U Benzodiazepines Scrn Urine Cocaine Screen U Marijuana (THC) Screen Ethyl Alcohol Ketones SARS-CoV-2 (PCR) Influenza A (RT-PCR) Influenza B (RT-PCR) RSV (PCR) 11/05/22 11/05/22 11/05/22 05:40 05:40 05:40 WBC RBC Hgb Hct MCV MCH MCHC RDW Plt Count Neut % (Auto) Lymph % (Auto) [place] % (Auto) Eos % (Auto) Baso % (Auto) Neut # (Auto) Lymph # (Auto) [place] # (Auto) Eos # (Auto) Baso # (Auto) Total Counted Seg Neutrophils % Band Neutrophils % Lymphocytes % (Manual) Monocytes % (Manual) Neutrophils # (Manual) Platelet Estimate RBC Morphology PT INR APTT VBG pH VBG pCO2 VBG pO2 VBG HCO3 VBG Total CO2 VBG O2 Saturation VBG Base Excess FiO2 Sodium 135 L Potassium 4.4 Chloride 107 Carbon Dioxide 16 L BUN 65 H Creatinine 2.93 H Estimated GFR 17 L BUN/Creatinine Ratio 22.2 H Glucose 567 H* Hemoglobin A1c Lactate 1.9 Calcium 8.1 L Phosphorus Magnesium Total Bilirubin AST ALT Alkaline Phosphatase Ammonia Total Creatine Kinase CK-MB (CK-2) CK-MB (CK-2) Rel Index Troponin I NT-Pro-B Natriuret Pep Total Protein Albumin Globulin Albumin/Globulin Ratio Lipase Procalcitonin TSH Prolactin Urine Color Urine Appearance Urine pH Ur Specific [place] Urine Protein Urine Glucose (UA) Urine Ketones Urine Occult Blood Urine Nitrate Urine Bilirubin Urine Urobilinogen Ur Leukocyte Esterase Urine RBC Urine WBC Ur Squamous Epith Cells Urine Bacteria Ur Random Sodium Urine Creatinine Salicylates U Opiates 300ng/mL cut Ur Oxycodone Screen Urine Methadone Screen Acetaminophen Ur Barbiturates Screen U Tricyclic Antidepress Ur Phencyclidine Scrn Ur Amphetamines Screen U Methamphetamines Scrn Ur MDMA Scrn (Ecstasy) U Benzodiazepines Scrn Urine Cocaine Screen U Marijuana (THC) Screen Ethyl Alcohol Ketones 0.07 SARS-CoV-2 (PCR) Influenza A (RT-PCR) Influenza B (RT-PCR) RSV (PCR) 11/05/22 11/05/22 05:40 07:10 WBC RBC Hgb Hct MCV MCH MCHC RDW Plt Count Neut % (Auto) Lymph % (Auto) [place] % (Auto) Eos % (Auto) Baso % (Auto) Neut # (Auto) Lymph # (Auto) [place] # (Auto) Eos # (Auto) Baso # (Auto) Total Counted Seg Neutrophils % Band Neutrophils % Lymphocytes % (Manual) Monocytes % (Manual) Neutrophils # (Manual) Platelet Estimate RBC Morphology PT INR APTT VBG pH VBG pCO2 VBG pO2 VBG HCO3 VBG Total CO2 VBG O2 Saturation VBG Base Excess FiO2 Sodium Potassium Chloride Carbon Dioxide BUN Creatinine Estimated GFR BUN/Creatinine Ratio Glucose 444 H D Hemoglobin A1c Lactate Calcium Phosphorus Magnesium Total Bilirubin AST ALT Alkaline Phosphatase Ammonia Total Creatine Kinase CK-MB (CK-2) CK-MB (CK-2) Rel Index Troponin I NT-Pro-B Natriuret Pep Total Protein Albumin 2.6 L Globulin Albumin/Globulin Ratio Lipase Procalcitonin TSH Prolactin Urine Color Urine Appearance Urine pH Ur Specific [place] Urine Protein Urine Glucose (UA) Urine Ketones Urine Occult Blood Urine Nitrate Urine Bilirubin Urine Urobilinogen Ur Leukocyte Esterase Urine RBC Urine WBC Ur Squamous Epith Cells Urine Bacteria Ur Random Sodium Urine Creatinine Salicylates U Opiates 300ng/mL cut Ur Oxycodone Screen Urine Methadone Screen Acetaminophen Ur Barbiturates Screen U Tricyclic Antidepress Ur Phencyclidine Scrn Ur Amphetamines Screen U Methamphetamines Scrn Ur MDMA Scrn (Ecstasy) U Benzodiazepines Scrn Urine Cocaine Screen U Marijuana (THC) Screen Ethyl Alcohol Ketones SARS-CoV-2 (PCR) Influenza A (RT-PCR) Influenza B (RT-PCR) RSV (PCR) Assessment & Plan Assessment & Plan narrative: NEURO: # Acute encephalopathy -- Multifactorial due to sepsis, HHS, and severe metabolic deranagement -- Sepsis and HHS management as below -- Avoid sedatives -- Seek early mobility -- Daily CAM ICU # Concern for seizure -- It is unclear if patient truly had a seziure or not. However she did receive keppra and ativan on admission. -- Will monitor off AED -- On seziure precaution -- If seizure recur then will need to be transfer to tertiary care w/ EEG capability RESP: # Rib fractures -- Possible related to the fall -- Pain control -- Need aggressive pulmonary toilet when encephalopathy improve CVS: # HTN -- REcommend starting latebalol and hydralazine as needed to maintain goal SBP < 160 ID: # Severe sepsis -- Unclear source of infection -- Concern raises for meningitis -- Blood and urine cx sent -- ON vanc/ceftriaxone/ampicillin/acyclovir -- Follow up cx data -- May been LP if encephalopathy fails to improve after metabolic derangement improve : # Acute renal failure -- Secondary to ATN, dehydration, and sepsis -- Cont aggressive IVF resuscitation -- Avoid nephrotoxin agents -- Daily BMP -- Monitor UOP # Metabolic acidosis -- Improving slowly -- Cont crysetalloids and insulin gtt -- Trend BMP every 4 hours ENDO: # DKA/HHS -- Unclear insult. Possible noncompliance given HbA1c > 14 vs sepsis -- Sepsis rx as above -- On insulin gtt -- Cont trending BMP, Mg, and phos every 4 hours -- COnt IVF resuscitation -- Transition to lantus and ISS when BS < 250, AG<12, and Co2 > 17 D/w RN at bedside Time Spent With Patient Critical Care time: I spent a total of 43 minutes of critical care time on this patient's care today; this time is exclusive of procedural time.
[2022-11-05] MEDS: INSULIN DRIP PREMIX 100 UNIT/100 ML PLAST..BAG 10.3 UNIT IV (08:44)
[2022-11-05] MEDS: LACTATED RINGERS 1,000 ML 150 ML IV ×2 (09:04→22:10)
[2022-11-05] MEDS: DEXTROSE 5%-0.45% NS 1,000 ML 102.8 ML IV (10:42)
--- NOTE | 2022-11-05 10:44 | SLP.IPNOTE ---
SQUARE DANCE CALLER consulted with pt's nurse, Lydia, regarding pt status. Pt is still presents with encephalopathy and is currently restrained due to confusion and combative behaviors, and she is unable to follow commands at this time. Pt's nurse indicated that her blood sugar is still unstable and ST agreed to wait to attempt PO trials until Monday. SQUARE DANCE CALLER introduced herself to pt's boyfriend, at bedside, and explained evaluation plan. Will attempt evaluation on Monday if deemed appropriate at that time.
[2022-11-05 11:00] LABS: BUN Creatinine Ratio 21.3 (6-22); Blood Urea Nitrogen 61 mg/dL (7-17); Calcium 8.9 mg/dL (8.4-10.2); Carbon Dioxide 17 mmol/L (22-32); Chloride 113 mmol/L (98-107); Creatine Kinase 42 U/L (30-135); Estimated Glomerular Filt Rate 17 mL/min (>60); Glucose 76 mg/dL (80-110); HEMOLYSIS < 15 (0-50); Potassium 3.4 mmol/L (3.4-5.1); Sodium 142 mmol/L (137-145)
--- NOTE | 2022-11-05 11:00 | CM.DANOTE ---
Initial DCP Assessment Note Pt is a 67 yo female, resident of [place], presents via EMS; EMS called by patient's SO Art after finding the patient down and unresponsive. PMH includes CHF and poorly controlled DM PCP: Formerly Dr Burch, patient has not been to see a provider for years (per SO) Payer: Self Pay - Patient does not have active KIMBERLY and admitting researching active MCR (?) Reviewed chart, introduced self and role to SO Art outside of patient's room. Patient is not A+O at this time and requiring much assist and redirecting from nursing staff Art explains patient lives alone in her late father's house in [place]. Patient has a sister that lives in [place], they are not close. Patient has no children and no other living relatives. Art reports patient has not been to see a doctor since her hospital stay in 2016 (dx w/CHF). Patient has not been compliant with medications or medical follow up. Patient wears depends nightly, sometimes during the day d/t bladder leakage, incontinent of urine not bowel. Art states patient is always constipated Art in the process of moving in with patient, he currently lives and works in [place], and states he will need to look after her closer d/t her medical condition. Plan: DC likely home with SO, close outpatient follow up will be recommended. Insurance benefits TBD Patient likely would benefit from HH RN if she met criteria and had insurance that would cover. CM team will plan to follow closely as medical POC unfolds MICHAEL Mccrary Discharge Planning/Care Management Advanced directive, confirm from FAMILY Start: 11/05/22 08:03 Freq: Q24H Status: Active Protocol: Document 11/05/22 08:03 MS (Rec: 11/05/22 09:44 MS [id number]) Advance Directive, confirm on record Time 09:44 Person contacted Atilio Magana Copy received No CM Discharge Assessment Start: 11/05/22 10:54 Freq: Status: Active Protocol: Document 11/05/22 10:54 TOD (Rec: 11/05/22 11:00 TOD [id number]) Discharge Planning Assessment Assigned Meeting Planner MICHAEL Gonzalez DPOA/Assigned Designee Name KADIE Pichardo Contact Information [phone] Advance Directives? No History Provided By Significant Other,Medical Record Prior Living Arrangements House Comment Patient stayed in her father's home after he - [facility] Household Members none Comment SO Art slowly moving his things into patient's home from his home in [place] Type of transporation used prior to Drives own vehicle admit Independent with ADL's Yes Is patient alert and oriented? Yes Barriers to Discharge No Comment Expect DC home w/ SO upon discharge. According to admitting notes- patient's KIMBERLY is inactive. She may have MCR but this has not been confirmed yet by patient or SO Art Discharge Plan Home Transportation Arrangement SO Referrals Initiated Other Additional Comment Refferals in house that are pending: environmental services director, speech therapy, PT (?) when patient mentally clearer. Admitting and CM team to follow closely re update on insurance coverage Whiteboard Updated in Patient Room with Yes name and ext. # of Meeting Planner Review Status In Process
[2022-11-05] MEDS: cefTRIAXone 2,000 MG in SODIUM CHLORIDE 0.9% 100 ML 200 MG IV ×3 (11:18→23:42)
[2022-11-05] MEDS: POTASSIUM CHLORIDE IN WATER 10 MEQ/100 ML PIGGYBACK 100 MEQ IV ×4 (11:19→14:12)
[2022-11-05] MEDS: DEXTROSE 10 % IN WATER 1,000 ML 68.5 ML IV (12:03)
[2022-11-05] MEDS: HALOPERIDOL 5 MG/ML VIAL 2 MG IV ×2 (13:35→20:47)
--- NOTE | 2022-11-05 14:32 | PC.NURSE ---
Addendum entered by Lydia Head R.N. 11/05/22 17:38: [address] San anion gap is 9.0, he will place new orders for Lantus bridge to turn off insulin gtt Addendum entered by Lydia Head R.N. 11/05/22 15:29: BP 201/[address] San notified new orders placed Original Note: Day shift note: Pt remains agitated, thrashing in bed, pulling at lines and extremely confused. Restraints remain in place for safety, and prevention of dislodging lines. Insulin gtt and fluids infusing as ordered, pt remains frequent blood glucose checks and titration of gtt. Pt had a large incontinent BM, part was mucoid, green stool with a large amount of formed brown stool. Administered haldol as ordered for agitation, was able to give pt a bed bath with linens changed. Pt resting quietly currently, BP 95/54 MAP of 68, HR 105 O2 100% on RA. Bed low and locked, call light within reach, will continue to monitor.
[2022-11-05] MEDS: LABETALOL 20 MG/4 ML SYRINGE 10 MG IV (15:38)
[2022-11-05 17:00] LABS: BUN Creatinine Ratio 21.6 (6-22); Blood Urea Nitrogen 59 mg/dL (7-17); Calcium 8.5 mg/dL (8.4-10.2); Carbon Dioxide 16 mmol/L (22-32); Chloride 115 mmol/L (98-107); Estimated Glomerular Filt Rate 18 mL/min (>60); Glucose 153 mg/dL (80-110); HEMOLYSIS < 15 (0-50); Potassium 3.7 mmol/L (3.4-5.1); Sodium 140 mmol/L (137-145)
[2022-11-05] MEDS: LORazepam 2 MG/ML INJ IV (17:27)
--- NOTE | 2022-11-05 20:18 | PM.ICURNDS ---
- Date Patient Seen: 11/05/22 Time Patient Seen: 20:18 :: This patient was seen via real time interactive two-way audiovisual telecommunication. Note: Plan to transition to lantus 25 units and continue insulin/D10 gtt X 2 hours prior to discontinuation. Patient remains encephalopathic but appears to be improving slowly. Rceived ativan and haldol pushes this afternoon due to agitation and attempting to pull out lines. Cx negative to date. Will continue meningitis rx pending cx data and hospital course. D/w RN at bedside.
[2022-11-05] MEDS: INSULIN GLARGINE 100 UNIT/ML 3ML PEN 25 UNIT SUBCUT (20:21)
[2022-11-05 20:37] LABS: BUN Creatinine Ratio 20.5 (6-22); Blood Urea Nitrogen 56 mg/dL (7-17); Calcium 8.7 mg/dL (8.4-10.2); Carbon Dioxide 15 mmol/L (22-32); Chloride 112 mmol/L (98-107); Estimated Glomerular Filt Rate 18 mL/min (>60); Glucose 145 mg/dL (80-110); HEMOLYSIS < 15 (0-50); Potassium 3.9 mmol/L (3.4-5.1); Sodium 141 mmol/L (137-145)
--- NOTE | 2022-11-05 21:03 | PC.NURSE ---
Addendum entered by Libby Moss R.N. 11/06/22 05:57: 0600- C-diff PCR negative. Will monitor. Addendum entered by Libby Moss R.N. 11/06/22 04:54: 0500- Stool is guiac positive. ASPHALT MIXING MACHINE OPERATOR Rachid notified and C-diff specimen sent to lab. Patient continues to be confused but is more cooperative. Zinc cream applied to tommie/anal area that is very red and painful when cleansed. Will monitor. Addendum entered by Libby Moss R.N. 11/06/22 03:46: 0345- Patient is attempting to communicate more but her words are garbled and nonsensical. Oriented to name only. No distress at this time. Will monitor. Addendum entered by Libby Moss R.N. 11/06/22 00:52: 0050- Patient has had three loose stools. No bleeding noted. [place] area is bright red and painful. Cleansed and patted dry and barrier creamed. Clean brief applied. Art significant other states patient has had several months of frequent urination. Patient has had trouble keeping herself clean. Will monitor. Addendum entered by Libby Moss R.N. 11/06/22 00:36: 0030- Vela from Emergency came up to cut rings from patient hands. Fingers very swollen and rings would not come off. Circulation to hands was compromised. Art significant other aware and approved plan. Rings successfully removed and placed in a container and labeled with patient name. Pt tolerated procedure well. Addendum entered by Libby Moss R.N. 11/05/22 22:20: 2210- Insulin gtt turned off per order. LR restarted at 150cc/hr per order. Next lab draw at midnight. Will monitor closely. Original Note: 2030- discussed with Dr. Clemons plan to start glargine tonight. Medication given per order. Pt is delerious and unable to follow commands. Taking po at this time would be unsafe. Plan to follow BG Q1hr for a few hours to ensure patient does not go hypoglycemic. Soft wrist restraints in place for safety. Patient is having frequent loose stool. [place] area is bright red with abraised areas on both sides of the gluteal cleft. Barrier cream applied.
[2022-11-05 23:55] LABS: BUN Creatinine Ratio 20.3 (6-22); Blood Urea Nitrogen 56 mg/dL (7-17); Calcium 7.9 mg/dL (8.4-10.2); Carbon Dioxide 17 mmol/L (22-32); Chloride 113 mmol/L (98-107); Estimated Glomerular Filt Rate 18 mL/min (>60); Glucose 161 mg/dL (80-110); HEMOLYSIS < 15 (0-50); Potassium 3.4 mmol/L (3.4-5.1); Sodium 140 mmol/L (137-145)
[2022-11-06] VITALS (36 sets, daily range): BP systolic 97–197; BP diastolic 55–113; PULSE 85–190; RESP 13–32; TEMP 35.7–37; O2SAT 88–100
[2022-11-06] MEDS: AMPICILLIN 2,000 MG in SODIUM CHLORIDE 0.9% 100 ML 200 MG IV ×3 (00:26→17:52)
[2022-11-06] MEDS: LACTATED RINGERS 1,000 ML 150 ML IV ×3 (02:46→17:58)
[2022-11-06 04:05] LABS: Add Manual Diff / Slide Review NO; Basophils Absolute Auto 100 /uL (0-100); Basophils Percent Auto 0.6 % (0-2); Eosinophils Absolute Auto 100 /uL (0-450); Eosinophils Percent Auto 0.5 % (2-4); Hematocrit 28.1 % (36-46); Hemoglobin 9.4 g/dL (12.0-16.0); Lymphocytes Absolute Auto 1300 /uL (1100-4500); Lymphocytes Percent Auto 9.6 % (25-40); Mean Corpuscular HGB Conc 33.3 % (30-36); Mean Corpuscular Hemoglobin 29.1 PG (26-34); Mean Corpuscular Volume 87.3 fL (80-100); Monocytes Absolute Auto 600 /uL (0-900); Monocytes Percent Auto 4.6 % (3-14); Neutrophils Absolute Auto 11300 /uL (1500-7000); Neutrophils Percent Auto 84.7 % (50-75); Platelet Count 244 X10^3/uL (150-400); Red Blood Cell Count 3.22 X10^6/uL (4.0-5.2); Red Cell Distribution Width 13.4 % (11.6-14.8); White Blood Cell Count 13.4 X10^3/uL (4.5-11.0)
[2022-11-06 04:16] LABS: BUN Creatinine Ratio 19.4 (6-22); Blood Urea Nitrogen 52 mg/dL (7-17); Calcium 8.3 mg/dL (8.4-10.2); Carbon Dioxide 16 mmol/L (22-32); Chloride 114 mmol/L (98-107); Estimated Glomerular Filt Rate 19 mL/min (>60); Glucose 146 mg/dL (80-110); HEMOLYSIS < 15 (0-50); Potassium 3.4 mmol/L (3.4-5.1); Sodium 140 mmol/L (137-145)
[2022-11-06 04:24] LABS: Ketones (Beta-Hydroxybutyrate) 0.86 mmol/L (<0.27)
[2022-11-06 05:55] LABS: Clostridium Difficile Tox PCR Negative for C. diff (Negative)
[2022-11-06] MEDS: HALOPERIDOL 5 MG/ML VIAL 2 MG IV ×4 (07:00→20:05)
[2022-11-06 09:00] LABS: BUN Creatinine Ratio 18.6 (6-22); Blood Urea Nitrogen 49 mg/dL (7-17); Calcium 8.3 mg/dL (8.4-10.2); Carbon Dioxide 15 mmol/L (22-32); Chloride 116 mmol/L (98-107); Estimated Glomerular Filt Rate 19 mL/min (>60); Glucose 149 mg/dL (80-110); HEMOLYSIS < 15 (0-50); Potassium 3.3 mmol/L (3.4-5.1); Sodium 141 mmol/L (137-145)
--- NOTE | 2022-11-06 09:23 | PM.PN.EICU ---
Subjective Subjective IF CAMERA ACTIVATED, patient seen via real-time interactive audiovisual communication: Camera activated Date Patient Seen: 11/06/22 Consent obtained for tele-patient registration clerk care: Yes Patient Location: ICU Provider location (State): [facility] Other participants/roles: Bedside RN Interval history: Off insulin gtt. BS ~160s. Lantus decrease to 15 units as patient is currently NPO pending SENIOR GIS ANALYST evaluation. Per RN report, patient is having difficulty finding words. No focal deficits noted. Awake and speech is garble. On restraints as patient is attempting to pull out lines. Current Medications Current Medications Medications: Home Medications acetaminophen 325 mg tablet 650 mg PO Q6HP PRN Allergic Symptoms #0 tabs 07/15/16 [History Confirmed 11/05/22] Visit Medications (administered) Generic Name Dose Route Start Last Admin Trade Name Freq PRN Reason Stop Dose Admin Haloperidol 2 mg 11/05/22 13:02 11/06/22 07:00 Haloperidol 5 Mg/Ml Vial IV 2 mg Q2HR PRN Administration Agitation INSULIN DRIP PREMIX 100 unit in 100 mls @ 6 mls/hr 11/04/22 19:15 11/05/22 22:10 Myxredlin Drip Premix IV 0 mls/hr TITRATE RYLEE 0 mls/hr Titration Protocol Ceftriaxone Sodium 2,000 mg/ 100 mls @ 200 mls/hr 11/05/22 11:00 11/06/22 00:27 Sodium Chloride IV Infused Q12HR RYLEE Infusion Sodium Chloride 1,000 mls @ 100 mls/hr 11/05/22 06:30 11/05/22 06:45 Normal Saline 0.45% IV 100 mls/hr CONT RYLEE Administration Ampicillin Sodium 2,000 mg/ 100 mls @ 200 mls/hr 11/05/22 09:00 11/06/22 08:26 Sodium Chloride IV 200 mls/hr Q8H RYLEE Administration Sodium Chloride 1,000 mls @ 150 mls/hr 11/05/22 08:00 11/05/22 09:02 Normal Saline 0.9% IV Not Given CONT RYLEE Lactated Ringer's 1,000 mls @ 150 mls/hr 11/05/22 09:00 11/06/22 02:46 Lactated Ringers IV 150 mls/hr CONT RYLEE Administration Dextrose/Sodium Chloride 1,000 mls @ 102.8 mls/hr 11/05/22 10:30 11/05/22 22:10 Dextrose 5%-0.45% Ns IV 0 mls/hr CONT RYLEE Infusion Dextrose 1,000 mls @ 68.5 mls/hr 11/05/22 11:45 11/05/22 21:20 D10w IV 0 mls/hr CONT RYLEE Infusion Labetalol HCl 10 mg 11/05/22 15:24 11/05/22 15:38 Labetalol 20 Mg/4 Ml Syringe IV 10 mg Q4HR PRN Administration SBP > 170 Protocol Lorazepam 2 mg 11/05/22 17:07 11/05/22 17:27 Lorazepam 2 Mg/Ml Inj IV 2 mg Q4HR PRN Administration Agitation Objective Labs Result Diagrams: 11/06/22 04:00 11/06/22 08:20 Labs: Laboratory Results - last 24 hr 11/05/22 11/05/22 11/05/22 10:44 10:44 16:40 WBC RBC Hgb Hct MCV MCH MCHC RDW Plt Count Neut % (Auto) Lymph % (Auto) [place] % (Auto) Eos % (Auto) Baso % (Auto) Neut # (Auto) Lymph # (Auto) [place] # (Auto) Eos # (Auto) Baso # (Auto) Sodium 142 140 Potassium 3.4 3.7 Chloride 113 H 115 H Carbon Dioxide 17 L 16 L BUN 61 H 59 H Creatinine 2.87 H 2.73 H Estimated GFR 17 L 18 L BUN/Creatinine Ratio 21.3 21.6 Glucose 76 L D 153 H Calcium 8.9 8.5 Total Creatine Kinase 42 Ketones C. difficile Tox (PCR) 11/05/22 11/05/22 11/06/22 20:10 23:41 04:00 WBC 13.4 H RBC 3.22 L Hgb 9.4 L Hct 28.1 L MCV 87.3 MCH 29.1 MCHC 33.3 RDW 13.4 Plt Count 244 Neut % (Auto) 84.7 H Lymph % (Auto) 9.6 L [place] % (Auto) 4.6 Eos % (Auto) 0.5 L Baso % (Auto) 0.6 Neut # (Auto) 23781 H Lymph # (Auto) 1300 [place] # (Auto) 600 Eos # (Auto) 100 Baso # (Auto) 100 Sodium 141 140 Potassium 3.9 3.4 Chloride 112 H 113 H Carbon Dioxide 15 L 17 L BUN 56 H 56 H Creatinine 2.73 H 2.76 H Estimated GFR 18 L 18 L BUN/Creatinine Ratio 20.5 20.3 Glucose 145 H 161 H Calcium 8.7 7.9 L Total Creatine Kinase Ketones C. difficile Tox (PCR) 11/06/22 11/06/22 11/06/22 04:00 04:00 05:00 WBC RBC Hgb Hct MCV MCH MCHC RDW Plt Count Neut % (Auto) Lymph % (Auto) [place] % (Auto) Eos % (Auto) Baso % (Auto) Neut # (Auto) Lymph # (Auto) [place] # (Auto) Eos # (Auto) Baso # (Auto) Sodium 140 Potassium 3.4 Chloride 114 H Carbon Dioxide 16 L BUN 52 H Creatinine 2.68 H Estimated GFR 19 L BUN/Creatinine Ratio 19.4 Glucose 146 H Calcium 8.3 L Total Creatine Kinase Ketones 0.86 H C. difficile Tox (PCR) Negative for c. diff 11/06/22 08:20 WBC RBC Hgb Hct MCV MCH MCHC RDW Plt Count Neut % (Auto) Lymph % (Auto) [place] % (Auto) Eos % (Auto) Baso % (Auto) Neut # (Auto) Lymph # (Auto) [place] # (Auto) Eos # (Auto) Baso # (Auto) Sodium 141 Potassium 3.3 L Chloride 116 H Carbon Dioxide 15 L BUN 49 H Creatinine 2.63 H Estimated GFR 19 L BUN/Creatinine Ratio 18.6 Glucose 149 H Calcium 8.3 L Total Creatine Kinase Ketones C. difficile Tox (PCR) Exam Vital Signs (past 8 hours): - 11/06/22 01:30 11/06/22 01:30 11/06/22 02:00 Temperature 96.8 F L Pulse Rate 85 Respiratory Rate 13 Blood Pressure 105/56 L 146/85 H Pulse Oximetry 94 Oxygen Delivery Method Oxygen Flow Rate 11/06/22 02:00 11/06/22 02:30 11/06/22 02:30 Temperature 96.4 F L 96.3 F L Pulse Rate 92 H 103 H Respiratory Rate 23 23 Blood Pressure 172/105 H Pulse Oximetry 99 100 Oxygen Delivery Method Oxygen Flow Rate 11/06/22 02:31 11/06/22 02:31 11/06/22 03:00 Temperature 96.3 F L 96.4 F L Pulse Rate 101 H 126 H Respiratory Rate 23 30 H Blood Pressure 197/86 H Pulse Oximetry 100 100 Oxygen Delivery Method Oxygen Flow Rate 11/06/22 03:01 11/06/22 03:01 11/06/22 05:00 Temperature 96.4 F L Pulse Rate 133 H Respiratory Rate 17 Blood Pressure 166/86 H Pulse Oximetry 100 Oxygen Delivery Method Nasal Cannula Oxygen Flow Rate 11/06/22 03:30 11/06/22 03:30 11/06/22 04:00 Temperature 97.0 F L Pulse Rate 120 H Respiratory Rate 16 Blood Pressure 149/85 H 144/76 H Pulse Oximetry 99 Oxygen Delivery Method Oxygen Flow Rate 11/06/22 04:00 11/06/22 04:30 11/06/22 05:34 Temperature 97.2 F L 96.8 F L Pulse Rate 95 H 96 H Respiratory Rate 14 32 H Blood Pressure Pulse Oximetry 100 99 100 Oxygen Delivery Method Oxygen Flow Rate 2 11/06/22 05:00 11/06/22 05:00 11/06/22 05:30 Temperature 96.6 F L Pulse Rate 96 H Respiratory Rate 19 Blood Pressure 147/87 H 151/94 H Pulse Oximetry 100 Oxygen Delivery Method Oxygen Flow Rate 11/06/22 05:30 11/06/22 06:00 11/06/22 06:00 Temperature 97.0 F L 97.2 F L Pulse Rate 96 H 99 H Respiratory Rate 22 19 Blood Pressure 134/75 Pulse Oximetry 100 100 Oxygen Delivery Method Oxygen Flow Rate 11/06/22 06:30 11/06/22 06:30 11/06/22 07:00 Temperature 97.2 F L Pulse Rate 96 H Respiratory Rate 25 H Blood Pressure 150/72 H 155/81 H Pulse Oximetry 98 Oxygen Delivery Method Oxygen Flow Rate 11/06/22 07:00 11/06/22 07:30 11/06/22 07:30 Temperature 97.2 F L 97.2 F L Pulse Rate 101 H 138 H Respiratory Rate 25 H 21 Blood Pressure 148/96 H Pulse Oximetry 99 100 Oxygen Delivery Method Oxygen Flow Rate Oxygen Delivery Method Nasal Cannula Oxygen Flow Rate 2 Narrative Exam Narrative: Awake and not following commands Assessment & Plan Assessment & Plan narrative: NEURO: # Acute encephalopathy -- Secondary to toxic metabolic encephalopathy. Other ddx include CVA. -- D/w RN to request radiology for stat CTH read which was completed on 11/04. -- Sepsis rx as below -- DC BZD -- Cont haldol as needed for agitation -- Cont frequent reorientation -- Daily CAM ICU -- May need MRI brain if encephalopathy persist to rule out acute CVA # Concern for seizure -- No further seziure noted -- Monitor off AED -- On seizure precautions RESP: # Rib fractures -- Possible related to the fall -- Pain control -- Need aggressive pulmonary toilet when encephalopathy improve CVS: # HTN -- Goal SBP < 160 -- Labetalol as needed for goal SBP as above ID: # Severe sepsis -- Unclear source of infection -- Concern raises for meningitis -- Cx negative to date -- ON vanc/ceftriaxone/ampicillin/acyclovir -- Follow up cx data -- May been LP if encephalopathy fails to improve after metabolic derangement improve : # Acute renal failure -- Secondary to ATN, dehydration, and sepsis -- On IVF -- Cr improving slowly -- Avoid nephrotoxin agents -- Daily BMP -- Monitor UOP ENDO: # DKA/HHS -- Resolved -- On lantus and ISS -- Accuechk every 6 hours -- Goal BS < 180 D/w bedside RN. Time Spent With Patient Critical Care time: I spent a total of 32 minutes of critical care time on this patient's care today; this time is exclusive of procedural time.
--- NOTE | 2022-11-06 10:08 | P.PN_ITS ---
Subjective Subjective Date Patient Seen: 11/06/22 Interval history: Ailyn Kent is a 67-year-old female who was brought in by EMS to the ED.? Per the ED provider, they were called by the patient's boyfriend.? He lives in [place] and was not initially present at bedside to provide information but did eventually arrived and provided much of the HPI.? Patient is unable to provide any information.? Patient's boyfriend states that he normally calls the patient every morning.? He thinks that the last time that he called her yesterday morning but could have been the day prior to that.? He states he tried to call her this morning and she did not answer the phone.? He decided to drive up from [place].? Upon arriving here he found the patient lying on the floor her house and unable to arouse her.? He stated he rolled her over, tried to give her rescue breaths and started CPR on her. He contacted EMS and when they arrived, they also found the patient obtunded.? He is unsure of how long she was on the floor. Her no signs of trauma except for some bruising on her right hip.? She wa s not following commands.? Blood sugar was elevated.? Was maintaining airway.? IVs were started.? Patient transported to the emergency department for evaluation.? Today the patient is alert and talking. Appreciate the management by tele screen writer. Exam Vital Signs (past 8 hours): - 11/06/22 02:30 11/06/22 02:30 11/06/22 02:31 Temperature 96.3 F L Pulse Rate 103 H Respiratory Rate 23 Blood Pressure 172/105 H 197/86 H Pulse Oximetry 100 Oxygen Delivery Method Oxygen Flow Rate 11/06/22 02:31 11/06/22 03:00 11/06/22 03:01 Temperature 96.3 F L 96.4 F L Pulse Rate 101 H 126 H Respiratory Rate 23 30 H Blood Pressure 166/86 H Pulse Oximetry 100 100 Oxygen Delivery Method Oxygen Flow Rate 11/06/22 03:01 11/06/22 05:00 11/06/22 03:30 Temperature 96.4 F L Pulse Rate 133 H Respiratory Rate 17 Blood Pressure 149/85 H Pulse Oximetry 100 Oxygen Delivery Method Nasal Cannula Oxygen Flow Rate 11/06/22 03:30 11/06/22 04:00 11/06/22 04:00 Temperature 97.0 F L 97.2 F L Pulse Rate 120 H 95 H Respiratory Rate 16 14 Blood Pressure 144/76 H Pulse Oximetry 99 100 Oxygen Delivery Method Oxygen Flow Rate 11/06/22 04:30 11/06/22 05:34 11/06/22 05:00 Temperature 96.8 F L Pulse Rate 96 H Respiratory Rate 32 H Blood Pressure 147/87 H Pulse Oximetry 99 100 Oxygen Delivery Method Oxygen Flow Rate 2 11/06/22 05:00 11/06/22 05:30 11/06/22 05:30 Temperature 96.6 F L 97.0 F L Pulse Rate 96 H 96 H Respiratory Rate 19 22 Blood Pressure 151/94 H Pulse Oximetry 100 100 Oxygen Delivery Method Oxygen Flow Rate 11/06/22 06:00 11/06/22 06:00 11/06/22 06:30 Temperature 97.2 F L Pulse Rate 99 H Respiratory Rate 19 Blood Pressure 134/75 150/72 H Pulse Oximetry 100 Oxygen Delivery Method Oxygen Flow Rate 11/06/22 06:30 11/06/22 07:00 11/06/22 07:00 Temperature 97.2 F L 97.2 F L Pulse Rate 96 H 101 H Respiratory Rate 25 H 25 H Blood Pressure 155/81 H Pulse Oximetry 98 99 Oxygen Delivery Method Oxygen Flow Rate 11/06/22 07:30 11/06/22 07:30 11/06/22 09:00 Temperature 97.2 F L Pulse Rate 138 H Respiratory Rate 21 Blood Pressure 148/96 H Pulse Oximetry 100 Oxygen Delivery Method Nasal Cannula Oxygen Flow Rate Oxygen Delivery Method Nasal Cannula Oxygen Flow Rate 2 Narrative Exam Narrative: Gen: Alert, oriented to self only, female, arousable, often answers appropriately but often has word salad speech. HEENT: normocephalic, atraumatic, conjunctiva clear, sclera non-icteric, oral mucosa pink and moist Neck: supple, full ROM, no JVD, trachea is midline Resp: Lungs CTA, non-labored breathing CV: RRR, no murmur or rubs Abd: soft, non-tender, normoactive BTs Skin: dry, cracked heels with what appears to dried wounds on her heels Neuro: oriented to self only Extremities: in upper extremity restraints, moves all 4 extremities Psyche: unable to assess fully. Intermittent confusion. Objective Labs Result Diagrams: 11/06/22 04:00 11/06/22 08:20 Labs: Laboratory Results - last 24 hr 11/05/22 11/05/22 11/05/22 10:44 10:44 16:40 WBC RBC Hgb Hct MCV MCH MCHC RDW Plt Count Neut % (Auto) Lymph % (Auto) [place] % (Auto) Eos % (Auto) Baso % (Auto) Neut # (Auto) Lymph # (Auto) [place] # (Auto) Eos # (Auto) Baso # (Auto) Sodium 142 140 Potassium 3.4 3.7 Chloride 113 H 115 H Carbon Dioxide 17 L 16 L BUN 61 H 59 H Creatinine 2.87 H 2.73 H Estimated GFR 17 L 18 L BUN/Creatinine Ratio 21.3 21.6 Glucose 76 L D 153 H Calcium 8.9 8.5 Total Creatine Kinase 42 Ketones C. difficile Tox (PCR) 11/05/22 11/05/22 11/06/22 20:10 23:41 04:00 WBC 13.4 H RBC 3.22 L Hgb 9.4 L Hct 28.1 L MCV 87.3 MCH 29.1 MCHC 33.3 RDW 13.4 Plt Count 244 Neut % (Auto) 84.7 H Lymph % (Auto) 9.6 L [place] % (Auto) 4.6 Eos % (Auto) 0.5 L Baso % (Auto) 0.6 Neut # (Auto) 19620 H Lymph # (Auto) 1300 [place] # (Auto) 600 Eos # (Auto) 100 Baso # (Auto) 100 Sodium 141 140 Potassium 3.9 3.4 Chloride 112 H 113 H Carbon Dioxide 15 L 17 L BUN 56 H 56 H Creatinine 2.73 H 2.76 H Estimated GFR 18 L 18 L BUN/Creatinine Ratio 20.5 20.3 Glucose 145 H 161 H Calcium 8.7 7.9 L Total Creatine Kinase Ketones C. difficile Tox (PCR) 11/06/22 11/06/22 11/06/22 04:00 04:00 05:00 WBC RBC Hgb Hct MCV MCH MCHC RDW Plt Count Neut % (Auto) Lymph % (Auto) [place] % (Auto) Eos % (Auto) Baso % (Auto) Neut # (Auto) Lymph # (Auto) [place] # (Auto) Eos # (Auto) Baso # (Auto) Sodium 140 Potassium 3.4 Chloride 114 H Carbon Dioxide 16 L BUN 52 H Creatinine 2.68 H Estimated GFR 19 L BUN/Creatinine Ratio 19.4 Glucose 146 H Calcium 8.3 L Total Creatine Kinase Ketones 0.86 H C. difficile Tox (PCR) Negative for c. diff 11/06/22 08:20 WBC RBC Hgb Hct MCV MCH MCHC RDW Plt Count Neut % (Auto) Lymph % (Auto) [place] % (Auto) Eos % (Auto) Baso % (Auto) Neut # (Auto) Lymph # (Auto) [place] # (Auto) Eos # (Auto) Baso # (Auto) Sodium 141 Potassium 3.3 L Chloride 116 H Carbon Dioxide 15 L BUN 49 H Creatinine 2.63 H Estimated GFR 19 L BUN/Creatinine Ratio 18.6 Glucose 149 H Calcium 8.3 L Total Creatine Kinase Ketones C. difficile Tox (PCR) PFSH Medical History Congestive heart failure Diabetes Hypertension Social History household members: none lives independently: Yes Assessment & Plan Assessment & Plan narrative: 1. Severe DKA, acute and present on admission, uncontrolled diabetes * Initial presenting glucose was 1179, currently 613, pH was 7.14 on admission, now 7.29, anion gap was 24 on presentation to the ED, now is 13 * She is off an insulin drip now * A1c is greater than 14 * Appears to have taken metformin at one time, but does not appear to have an active prescription at this time 2. Acute kidney failure, present on admission, gradually improving * Initial creatinine was 3.19, currently 2.63 and her admission eGFR was 15, now 19. Both creatinine and GFR improved from yesterday. * Phosphorus was elevated at 7.4 and calcium low at 8.3 falling to as low as 8.0 prior. We will follow tomorrow. * She was ordered for IV calcium gluconate to help bind the phosphorus 3. Acute metabolic encephalopathy, present on admission * It may be prudent to have patient undergo CT or MRI of the head to rule out a stroke. CT of the head was done on presentation however it is not been read as of yet. Need to have this read. * Her S/O reported feeding difficulties, there has been an order for Swallow evaluation by Speech Therapy when she is more awake 4. Suspected seizure, acute, witnessed in the ED * She was administered IV valium and keppra in the ED * She is being empirically treated for meningeal signs with IV ampicillin and acyclovir * Patient was monitored overnight in the ED in the case she develops seizures and required transfer * I have requested to continue to hold her place on [facility] waiting list 5. History of heart failure, likely worsened and/or chronic * She is ordered for an echo yesterday. 6. Essential hypertension, chronic and uncontrolled * Patient was previously written for lisinopril and carvedilol however significant other states that patient has not been taking blood pressure medications for years. Currently receiving labetalol as needed however BP is not controlled. We will initiate regular doses of hydralazine. 7. Acute rib fractures noted on CT during initial evaluation. Likely secondary to CPR initiated in the patient's home. CT reads as?fractures of the right 5th and 6th ribs including a likely acute fracture of the 6th rib associated with a small chest wall hematoma. 8. Concern for rhabdomyolysis. Follow CK level in the morning. 9. Concern for infection. Blood cultures and urine cultures negative. Patient remains on antibiotics consisting of ceftriaxone, vancomycin and ampicillin. Continue these. White blood count is decreasing. Follow parameters of white blood count, CRP and procalcitonin. 10. Elevated BNP on presentation with concern for congestive heart failure. Monitor BNP. Echocardiogram shows ejection fraction of 60 65%. DVT prophylaxis. Initiate enoxaparin 40 mg subcu daily. Advance Care Plan is present, Code status is documented, Surrogate decision maker is in patient?s record. COVID swab negative. Time Spent With Patient Critical Care time: I spent a total of [] minutes of critical care time on this patient's care today; this time is exclusive of procedural time.
[2022-11-06] MEDS: INSULIN GLARGINE 100 UNIT/ML 3ML PEN 15 UNIT SUBCUT ×2 (10:44→21:28)
[2022-11-06] MEDS: cefTRIAXone 2,000 MG in SODIUM CHLORIDE 0.9% 100 ML 200 MG IV (11:08)
[2022-11-06] MEDS: ENOXAPARIN 40 MG/0.4 ML SYRINGE SUBCUT (11:09)
[2022-11-06] MEDS: POTASSIUM CHLORIDE IN WATER 10 MEQ/100 ML PIGGYBACK 100 MEQ IV ×4 (11:09→14:39)
[2022-11-06 14:07] LABS: BUN Creatinine Ratio 17.4 (6-22); Blood Urea Nitrogen 45 mg/dL (7-17); Calcium 8.2 mg/dL (8.4-10.2); Carbon Dioxide 15 mmol/L (22-32); Chloride 116 mmol/L (98-107); Estimated Glomerular Filt Rate 19 mL/min (>60); Glucose 155 mg/dL (80-110); HEMOLYSIS < 15 (0-50); Potassium 3.6 mmol/L (3.4-5.1); Sodium 141 mmol/L (137-145)
[2022-11-06 14:57] LABS: Vancomycin Random 8.2 ug/mL (10-40)
[2022-11-06 17:37] LABS: BUN Creatinine Ratio 16.7 (6-22); Blood Urea Nitrogen 43 mg/dL (7-17); Calcium 8.2 mg/dL (8.4-10.2); Carbon Dioxide 15 mmol/L (22-32); Chloride 116 mmol/L (98-107); Estimated Glomerular Filt Rate 20 mL/min (>60); Glucose 164 mg/dL (80-110); HEMOLYSIS < 15 (0-50); Sodium 139 mmol/L (137-145)
[2022-11-06] MEDS: VANCOMYCIN 1,000 MG/200 ML PIGGYBACK 167 MG IV (17:53)
[2022-11-06] MEDS: HYDRALAZINE 20 MG/ML VIAL 10 MG IV (18:35)
--- NOTE | 2022-11-06 18:56 | PC.NURSE ---
Dayshift note Pt remains agitated, thrashing in bed, pulling at lines and extremely confused. Restraints remain in place for safety, and prevention of dislodging lines. Fluids infusing as ordered, Q6 hour blood glucose checks, Pt 2 large incontinent BM, mucoid, green stool. Administered haldol as ordered for agitation, was able to give pt a bed bath with linens changed. Pt resting quietly currently with SO at bedside. Bed low and locked, call light within reach, will continue to monitor.
[2022-11-06 20:28] LABS: BUN Creatinine Ratio 16.7 (6-22); Blood Urea Nitrogen 38 mg/dL (7-17); Calcium 7.2 mg/dL (8.4-10.2); Carbon Dioxide 13 mmol/L (22-32); Chloride 118 mmol/L (98-107); Estimated Glomerular Filt Rate 23 mL/min (>60); Glucose 152 mg/dL (80-110); HEMOLYSIS < 15 (0-50); Potassium 3.4 mmol/L (3.4-5.1); Sodium 142 mmol/L (137-145)
--- NOTE | 2022-11-06 20:56 | PM.ICURNDS ---
- Date Patient Seen: 11/06/22 Time Patient Seen: 20:56 :: This patient was seen via real time interactive two-way audiovisual telecommunication. Note: Patient remains confuse and agitated from time to time. Off ativan X 24 hours. Repeat renal panel showed worsening hyperchloremic NGMA. Switch LR to sodium bicarbonate gtt. Added precedex gtt to seek RASS goal -1 to 0. D/w RN at bedside.
[2022-11-06] MEDS: dexmedeTOMIDine in 0.9 % NaCL 400 MCG/100 ML PLAST..BAG 5.25 MCG IV (21:25)
[2022-11-06] MEDS: SODIUM BICARB 8.4% VIAL 100 MEQ in DEXTROSE 5% WATER 1,000 ML 150 MEQ IV (22:05)
[2022-11-07] VITALS (29 sets, daily range): BP systolic 90–165; BP diastolic 51–90; PULSE 76–117; RESP 13–33; TEMP 36.5–38.4; O2SAT 92–99
[2022-11-07] MEDS: cefTRIAXone 2,000 MG in SODIUM CHLORIDE 0.9% 100 ML 200 MG IV (00:01)
[2022-11-07] MEDS: INSULIN LISPRO 100 UNIT/ML 3ML VIAL SUBCUT ×5 (00:13→21:36)
[2022-11-07] MEDS: AMPICILLIN 2,000 MG in SODIUM CHLORIDE 0.9% 100 ML 200 MG IV ×2 (00:48→09:16)
[2022-11-07 04:08] LABS: Add Manual Diff / Slide Review NO; Basophils Absolute Auto 0 /uL (0-100); Basophils Percent Auto 0.2 % (0-2); Eosinophils Absolute Auto 100 /uL (0-450); Eosinophils Percent Auto 0.6 % (2-4); Hematocrit 24.1 % (36-46); Hemoglobin 8.2 g/dL (12.0-16.0); Lymphocytes Absolute Auto 800 /uL (1100-4500); Lymphocytes Percent Auto 9.2 % (25-40); Mean Corpuscular HGB Conc 33.9 % (30-36); Mean Corpuscular Hemoglobin 29.6 PG (26-34); Mean Corpuscular Volume 87.5 fL (80-100); Monocytes Absolute Auto 400 /uL (0-900); Monocytes Percent Auto 4.6 % (3-14); Neutrophils Absolute Auto 7800 /uL (1500-7000); Neutrophils Percent Auto 85.4 % (50-75); Platelet Count 200 X10^3/uL (150-400); Red Blood Cell Count 2.75 X10^6/uL (4.0-5.2); Red Cell Distribution Width 13.6 % (11.6-14.8); White Blood Cell Count 9.2 X10^3/uL (4.5-11.0)
[2022-11-07 04:20] LABS: Alanine Aminotransferase 13 IU/L (<35); Albumin 2.1 g/dL (3.5-5.0); Albumin Globulin Ratio 0.8 (1.0-2.8); Alkaline Phosphatase 107 U/L (38-126); Aspartate Aminotransferase 12 IU/L (14-36); BUN Creatinine Ratio 16.5 (6-22); Bilirubin Total 0.5 mg/dL (0.2-1.3); Blood Urea Nitrogen 39 mg/dL (7-17); Calcium 7.4 mg/dL (8.4-10.2); Carbon Dioxide 16 mmol/L (22-32); Chloride 112 mmol/L (98-107); Creatine Kinase < 20 U/L (30-135); Estimated Glomerular Filt Rate 22 mL/min (>60); Globulin 2.7 g/dL (1.7-4.1); Glucose 246 mg/dL (80-110); HEMOLYSIS < 15 (0-50); Potassium 3.4 mmol/L (3.4-5.1); Sodium 138 mmol/L (137-145); Total Protein 4.8 g/dL (6.3-8.2)
[2022-11-07 04:21] LABS: Phosphorous 3.6 mg/dL (2.8-4.1)
--- NOTE | 2022-11-07 04:22 | PC.NURSE ---
Spoke with Dr. Ibrahim about behavior and low bicarbonate. Bicarbonate drip started and patient started on precedex drip. Low dose for precedex, 0.3 with patient falling to sleep. Able to wake up and answer questions, but sleeping at present time.
[2022-11-07 04:24] LABS: C-Reactive Protein Quant 7.6 mg/dL (<1.0)
[2022-11-07 04:30] LABS: NT-proBNP (BNP-Adult 18+) 2300 pg/mL (<125)
[2022-11-07 04:37] LABS: Free T3, Triiodothyronine Free 2.93 pg/mL (2.77-5.27); Free T4, Direct Thyroxine 0.88 ng/dL (0.78-2.19)
[2022-11-07 04:39] LABS: Procalcitonin 1.18 ng/mL (<0.5)
[2022-11-07] MEDS: SODIUM BICARB 8.4% VIAL 100 MEQ in DEXTROSE 5% WATER 1,000 ML 150 MEQ IV (04:57)
[2022-11-07] MEDS: ENOXAPARIN 30 MG/0.3 ML SYRINGE SUBCUT (09:19)
[2022-11-07] MEDS: INSULIN GLARGINE 100 UNIT/ML 3ML PEN 15 UNIT SUBCUT (09:22)
--- NOTE | 2022-11-07 09:45 | DI.US.S_ITS ---
PROCEDURE: US RENAL COMPLETE INDICATIONS: LARRY TECHNIQUE: Real-time scanning was performed of the kidneys and bladder, with image documentation. COMPARISON: None. FINDINGS: Kidneys: Kidneys are normal in size. Right kidney measures 11.2 cm long; left kidney measures 11.9 cm long. Right renal cortical thickness is 1.7 cm; left renal cortical thickness is 1.6 cm. Cortical echotexture is diffusely relatively hyperechoic. There is slight prominence of the renal sinus fat bilaterally. There is a nonobstructing 5 mm stone in the left midpole, and two partially exophytic cysts arising from the anterior inferior left renal cortex measuring up to 1.6 and 2.7 cm respectively. No hydronephrosis in either kidney. No suspicious solid mass. Bladder: The urinary bladder is decompressed with a Haines catheter in place. Bladder was unable to be evaluated. Miscellaneous: No free pelvic fluid. IMPRESSION: 1. Normal size kidneys but with diffusely hyperechoic parenchymal echotexture. This indicates chronic medical renal disease. Correlate with GFR trend. 2. No evidence of obstructive uropathy. 3. Nonobstructing 5 mm left midpole stone. Dictated by: Arelis Chaidez M.D. on 11/07/2022 at 9:56 Approved by: Arelis Chaidez M.D. on 11/07/2022 at 10:00
--- NOTE | 2022-11-07 09:48 | P.TELICUPN_ITS ---
Subjective Subjective IF CAMERA ACTIVATED, patient seen via real-time interactive audiovisual communication: Camera activated Consent obtained for tele-openstack developer care: Yes Patient Location: ICU Provider location (State): [place] Other participants/roles: RN, Pharmacy Subjective Interval history: Per RN, patient on Precedex overnight but was stopped this morning. Patient is reportedly confused but conversant, not agitated. Current Medications Current Medications Medications: Home Medications acetaminophen 325 mg tablet 650 mg PO Q6HP PRN Allergic Symptoms #0 tabs 07/15/16 [History Confirmed 11/05/22] Visit Medications (administered) Generic Name Dose Route Start Last Admin Trade Name Freq PRN Reason Stop Dose Admin Enoxaparin Sodium 30 mg 11/07/22 09:00 11/07/22 09:19 Enoxaparin 30 Mg/0.3 Ml Syringe SUBCUT 30 mg DAILY RYLEE Administration Haloperidol 2 mg 11/05/22 13:02 11/06/22 20:05 Haloperidol 5 Mg/Ml Vial IV 2 mg Q2HR PRN Administration Agitation Hydralazine HCl 10 mg 11/06/22 17:00 11/07/22 09:12 Hydralazine 20 Mg/Ml Vial IV Not Given Q8H RYLEE Ceftriaxone Sodium 2,000 mg/ 100 mls @ 200 mls/hr 11/05/22 11:00 11/07/22 00:43 Sodium Chloride IV Infused Q12HR RYLEE Infusion Vancomycin HCl 1,000 mg in 200 mls @ 167 mls/hr 11/06/22 16:00 11/06/22 19:05 Vancomycin IV Infused Q48H RYLEE Infusion Ampicillin Sodium 2,000 mg/ 100 mls @ 200 mls/hr 11/05/22 09:00 11/07/22 09:16 Sodium Chloride IV 200 mls/hr Q8H RYLEE Administration Sodium Chloride 1,000 mls @ 150 mls/hr 11/05/22 08:00 11/05/22 09:02 Normal Saline 0.9% IV Not Given CONT RYLEE Dextrose 1,000 mls @ 68.5 mls/hr 11/05/22 11:45 11/05/22 21:20 D10w IV 0 mls/hr CONT RYLEE Infusion dexmedeTOMIDine in 0.9 % NaCL 400 mcg in 100 mls @ 3.5 mls/hr 11/06/22 21:00 11/07/22 09:20 Precedex IV 0 mcg/kg/hr TITRATE RYLEE 0 mls/hr Titration Protocol 0.2 MCG/KG/HR Sodium Bicarbonate 100 meq/ 1,100 mls @ 150 mls/hr 11/06/22 21:00 11/07/22 04:57 Dextrose IV 150 mls/hr CONT RYLEE Administration Insulin Glargine 15 unit 11/06/22 10:30 11/07/22 09:22 Insulin Glargine 100 Unit/Ml 3ml Pen SUBCUT 15 unit BID RYLEE Administration Insulin Human Lispro 0 unit 11/06/22 12:00 11/07/22 05:46 Insulin Lispro 100 Unit/Ml 3ml Vial SUBCUT 5 unit Q6H RYLEE Administration Protocol Labetalol HCl 10 mg 11/05/22 15:24 11/05/22 15:38 Labetalol 20 Mg/4 Ml Syringe IV 10 mg Q4HR PRN Administration SBP > 170 Protocol Objective Labs Result Diagrams: 11/07/22 03:50 11/07/22 03:50 Labs: Laboratory Results - last 24 hr 11/06/22 11/06/22 11/06/22 13:48 13:48 17:15 WBC RBC Hgb Hct MCV MCH MCHC RDW Plt Count Neut % (Auto) Lymph % (Auto) [place] % (Auto) Eos % (Auto) Baso % (Auto) Neut # (Auto) Lymph # (Auto) [place] # (Auto) Eos # (Auto) Baso # (Auto) Sodium 141 139 Potassium 3.6 4.0 Chloride 116 H 116 H Carbon Dioxide 15 L 15 L BUN 45 H 43 H Creatinine 2.59 H 2.58 H Estimated GFR 19 L 20 L BUN/Creatinine Ratio 17.4 16.7 Glucose 155 H 164 H Calcium 8.2 L 8.2 L Phosphorus Total Bilirubin AST ALT Alkaline Phosphatase Total Creatine Kinase C-Reactive Protein NT-Pro-B Natriuret Pep Total Protein Albumin Globulin Albumin/Globulin Ratio Procalcitonin Free T4 Free T3 Random Vancomycin 8.2 L 11/06/22 11/07/22 11/07/22 20:10 03:50 03:50 WBC 9.2 RBC 2.75 L Hgb 8.2 L Hct 24.1 L MCV 87.5 MCH 29.6 MCHC 33.9 RDW 13.6 Plt Count 200 Neut % (Auto) 85.4 H Lymph % (Auto) 9.2 L [place] % (Auto) 4.6 Eos % (Auto) 0.6 L Baso % (Auto) 0.2 Neut # (Auto) 7800 H Lymph # (Auto) 800 L [place] # (Auto) 400 Eos # (Auto) 100 Baso # (Auto) 0 Sodium 142 138 Potassium 3.4 3.4 Chloride 118 H 112 H Carbon Dioxide 13 L 16 L BUN 38 H 39 H Creatinine 2.27 H 2.37 H Estimated GFR 23 L 22 L BUN/Creatinine Ratio 16.7 16.5 Glucose 152 H 246 H Calcium 7.2 L 7.4 L Phosphorus Total Bilirubin 0.5 AST 12 L ALT 13 Alkaline Phosphatase 107 D Total Creatine Kinase < 20 L C-Reactive Protein NT-Pro-B Natriuret Pep Total Protein 4.8 L Albumin 2.1 L Globulin 2.7 Albumin/Globulin Ratio 0.8 L Procalcitonin Free T4 Free T3 Random Vancomycin 11/07/22 11/07/22 11/07/22 03:50 03:50 03:50 WBC RBC Hgb Hct MCV MCH MCHC RDW Plt Count Neut % (Auto) Lymph % (Auto) [place] % (Auto) Eos % (Auto) Baso % (Auto) Neut # (Auto) Lymph # (Auto) [place] # (Auto) Eos # (Auto) Baso # (Auto) Sodium Potassium Chloride Carbon Dioxide BUN Creatinine Estimated GFR BUN/Creatinine Ratio Glucose Calcium Phosphorus Total Bilirubin AST ALT Alkaline Phosphatase Total Creatine Kinase C-Reactive Protein 7.6 H NT-Pro-B Natriuret Pep 2300 H Total Protein Albumin Globulin Albumin/Globulin Ratio Procalcitonin 1.18 H Free T4 0.88 Free T3 2.93 Random Vancomycin 11/07/22 03:50 WBC RBC Hgb Hct MCV MCH MCHC RDW Plt Count Neut % (Auto) Lymph % (Auto) [place] % (Auto) Eos % (Auto) Baso % (Auto) Neut # (Auto) Lymph # (Auto) [place] # (Auto) Eos # (Auto) Baso # (Auto) Sodium Potassium Chloride Carbon Dioxide BUN Creatinine Estimated GFR BUN/Creatinine Ratio Glucose Calcium Phosphorus 3.6 D Total Bilirubin AST ALT Alkaline Phosphatase Total Creatine Kinase C-Reactive Protein NT-Pro-B Natriuret Pep Total Protein Albumin Globulin Albumin/Globulin Ratio Procalcitonin Free T4 Free T3 Random Vancomycin Exam Vital Signs (past 8 hours): - 11/07/22 02:00 11/07/22 02:00 11/07/22 02:30 Temperature 97.9 F Pulse Rate 82 Respiratory Rate 30 H Blood Pressure 93/57 L 148/73 H Pulse Oximetry 97 11/07/22 02:30 11/07/22 03:00 11/07/22 03:00 Temperature 97.9 F 98.1 F Pulse Rate 92 H 85 Respiratory Rate 14 13 Blood Pressure 135/68 Pulse Oximetry 97 96 11/07/22 03:30 11/07/22 03:30 11/07/22 04:00 Temperature 98.1 F Pulse Rate 80 Respiratory Rate 13 Blood Pressure 105/59 L 93/52 L Pulse Oximetry 97 11/07/22 04:00 11/07/22 04:30 11/07/22 04:30 Temperature 97.9 F 97.7 F Pulse Rate 81 76 Respiratory Rate 14 13 Blood Pressure 91/51 L Pulse Oximetry 95 95 11/07/22 05:00 11/07/22 05:00 11/07/22 05:30 Temperature 97.7 F Pulse Rate 95 H Respiratory Rate 16 Blood Pressure 136/74 147/90 H Pulse Oximetry 99 11/07/22 05:30 11/07/22 06:00 11/07/22 06:00 Temperature Pulse Rate 105 H 102 H Respiratory Rate 29 H 24 Blood Pressure 155/77 H Pulse Oximetry 99 98 Oxygen Delivery Method Room Air Oxygen Flow Rate 0 Narrative Exam Narrative: I did not perform a Tele-Exam of patient. Per RN, patient is awake and alert. Not agitated, answers questions but disoriented. Assessment & Plan Assessment & Plan narrative: NEURO: # Acute encephalopathy - improving but unclear if at baseline -- f/u CT Head read -- obtain collateral from partner. If not at baseline, would recommend MRI brain for CVA eval (especially given history of falls). -- If continued c/f meningitis/encephalitis, would obtain LP otherwise would DC abx -- Avoid sedatives/hypnotics. -- Stop Precedex -- Daily CAM ICU, frequent reorientation # Concern for seizure -- Seizure precautions RESP: # Rib fractures -- Pain control -- Pulmonary toilet CVS: # HTN -- Hydral ongoing GI -- Swallow eval pending, start renal/diabetic diet Heme # Anemia, Acute. No e/o bleeding on exam per RN. Normocytic -- Monitor daily CBC. Transfuse for Hgb <7. -- Consider anemia panel by bedside team ID: # No e/o infection. Blood/Urine Cx Negative/NGTD -- Would DC meningitic antibiotic coverage unless partner notes that patient persistently not at baseline today. -- If fevers/persistent AMS, would LP and restart antibiotics : # Acute renal failure, suspected initially due to ATN/dehydration, but Cr appears to be plateauing -- Renal US -- Once tolerating PO, start Bicitra and hold bicarb drip -- Avoid nephrotoxins. Monitor UOP, Daily BMP ENDO: # DKA/HHS, Resolved -- On lantus and ISS -- Accucheck every 6 hours -- Goal BS < 180 Would DC mac DC CVC, establish PIV x 2 PT ordered. OOB with assist to chair ordered D/w bedside RN. Time Spent With Patient Critical Care time: I spent a total of [] minutes of critical care time on this patient's care today; this time is exclusive of procedural time.
[2022-11-07] MEDS: POTASSIUM CHLORIDE IN WATER 10 MEQ/100 ML PIGGYBACK 100 MEQ IV ×4 (11:00→15:01)
--- NOTE | 2022-11-07 11:38 | ST.IPCSEOM ---
Visit Care Team Role Provider Type Junior Mathis MD Primary Care Provider Physician Specialty: Internal Medicine Address: [address] [place] [address], [address] Email: [email or web address] Avendano MD Other Providers Physician Specialty: Medical Address: Phone: Fax: Email: Marci Barrientos MD Other Providers Physician Specialty: Medical Address: Phone: Fax: Email: Gonzalez Archre MD Other Providers Physician Specialty: Medical Address: [address] [place] [address], [address] Phone: Fax: Email: Nell Tobias MD Other Providers Physician Specialty: Internal Medicine Address: Phone: Fax: Email: Jagdish Bowers MD Other Providers Physician Specialty: Medical Address: Phone: Fax: Email: Traci Monterroso MD Other Providers Physician Specialty: Anesthesiology Address: Phone: Fax: Email: Gerry Rosario MD Other Providers Physician Specialty: Internal Medicine Address: [address] [place] [address], [address] Phone: Fax: Email: @[employer] Mason Reyna MD Other Providers Physician Specialty: Internal Medicine Address: Phone: Fax: Email: Maverick Stephens MD Other Providers Physician Specialty: Medical Address: Phone: Fax: Email: Mckinley Malone MD Other Providers Physician Specialty: Internal Medicine Address: [facility] [place], [address] Phone: Fax: Email: Ramez Diaz MD Other Providers Physician Specialty: Medical Address: [address] [place] [address], [address] Phone: Fax: Email: Patricia Ibrahim MD Other Providers Physician Specialty: Medical Address: Phone: Fax: Email: Malou Cotter Other Providers Physician Specialty: Medical Address: Phone: Fax: Email: Kya Ashley MD Other Providers Physician Specialty: Anesthesiology Address: Phone: Fax: Email: Jagdish Kumari DO Emergency Provider Physician Referring Provider Specialty: Emergency Medicine Address: [address] [place] [address], [address] Email: [email or web address] Admit Provider Physician Attending Provider Specialty: Internal Medicine Address: [address] [place] [address], [address] Email: [email or web address] Diagnoses Type 2 diabetes mellitus with ketoacidosis without coma (11/05/22) Past Medical History (Last Reviewed 11/05/22 @ 06:36 by MIRIAN Chew) Congestive heart failure (Medical) Diabetes (Medical) Hypertension (Medical) Speech-Language Pathology Swallow Evaluation [employer] Clinical Swallow Evaluation Start: 11/07/22 10:59 Freq: Status: Active Protocol: Document 11/07/22 10:59 JACQUELINE (Rec: 11/07/22 11:37 ZS [id number]) Clinical Swallow Evaluation Session Time Visit Start Time 09:50 Visit Stop Time 10:05 Total Visit Minutes 15 Visit Information Visit Number Initial Evaluation Setting Assessment Location Acute Care Visit Type Note Type Initial evaluation Next Note Type Next Note Type Treatment Note Patient Information Identification Type Name History Per H&P: Ailyn Kent is a 67-year-old female who was brought in by EMS to the ED.? Per the ED provider, they were called by the patient's boyfriend.? He lives in [place] and was not initially present at bedside to provide information but did eventually arrived and provided much of the HPI.? Patient is unable to provide any information.? Patient's boyfriend states that he normally calls the patient every morning.? He thinks that the last time that he called her yesterday morning but could have been the day prior to that.? He states he tried to call her this morning and she did not answer the phone.? He decided to drive up from [place].? Upon arriving here he found the patient lying on the floor her house and unable to arouse her.? He stated he rolled her over, tried to give her rescue breaths and started CPR on her. He contacted EMS and when they arrived, they also found the patient obtunded.? He is unsure of how long she was on the floor. Her no signs of trauma except for some bruising on her right hip.? She was not following commands .? Blood sugar was elevated.? Was maintaining airway.? IVs were started.? Patient transported to the emergency department for evaluation.? Patient's boyfriend states she does have a history of heart failure.? He states she is diabetic but not sure if she is on insulin.? He states she previously went to Dr. Houston and that ?all they cared about was her diabetes but not her heart.? He states that she had been hospitalized here approximately 8 years ago for congestive heart failure and was told that she would had a silent heart attack. He states that she has not been taking her diabetic medications for about 4 years. He also stated for the past couple of years she is been having difficulties consuming meats and would choke them up. He states that she would basically regurgitate her meals and has been loosing weight. States that she has currently been living on a diet of yogurt and he has been buying her ensure for protein source. A decision was made after consultation with [facility] to maintain the patient in the ED the patient was shaking and very altered suspicious for a seizure. She was administered IV Keppra 1000 mg in the ED and the plan was to assess her in the morning or if she developed subsequent seizures that she would be transferred to where there would be neurology services and be able to undergo EEG monitoring. By 0500, patient had not had any seizures and a decision was made to have her admitted to the ICU for continuation of the insulin drip protocol, for continued antibiotic and antiviral IV administration and for further workup. Chest xray and CT indicated a possible chronic fracture of the 5fth rib and an acute fracture and associated chest wall hematoma of the 6th rib. Subjective Observations Pt was reclined in bed when [employer]ER arrived. She visually tracked [employer] SAL[employer] TRAINER from door to bedside and offered verbal greeting. Pt was oriented to self and place and agreed to participate in swallow assessment. Pt was repositioned to upright position for PO trials. Reported by Patient Current Diet Nothing by mouth Baseline Feeding Method Needs some assistance Objective Assessment Mental Status Alert,Responsive,Cooperative Oral Integrity Sores/Lesions,Xerostomia/Dry mouth Dentition Missing teeth,Decay Lip Function Mild impairment Observation of Lips at Rest Symmetrical Pucker Reduced range of motion, Reduced strength Lip Retraction Reduced range of motion Alternating Pucker/Lip Retraction Reduced range of motion Tongue Function Mild impairment Observations of Tongue at Rest Within normal limits Tongue Protrusion Within normal limits Tongue Lateralization Within normal limits Jaw Function Within normal limits Observations of Jaw at Rest Within normal limits Jaw Opening Within normal limits Jaw Closing Within normal limits Hard/Soft Palate Function Within normal limits Observations of Hard/Soft Palate Within normal limits Comment Structures were symmetrical at rest and in motion. Limited ROM noted in tongue elevation and depression as well as smile and pucker movements. Slowed tongue movement for tongue lateralization, but ROM was appropriate. Jaw strength and ROM was WNL. Dentition present, though missing several upper teeth and decay noted on several teeth. Additionally, significant dryness noted with peeling skin on tongue and sores/ lesions noted on soft palate. Pt reported her whole mouth feels dry, but did not indicate soreness or discomfort from lesions or dryness. Speech was clear and 100% intelligible. Food and Liquid Trials Position During Assessment Upright (90 degrees),In bed Liquids Trialed Thin Solids Trialed Puree Administration Type Tea spoon,Cup single sip,Straw ,Needs some assistance Oral Impairment Within normal limits Oral Phase Comments Completed PO trials with thin water in straw cup and applesauce via spoon. Pt took very small bites off the edge of the spoon when eating applesauce. She drank multiple gulps of water through straw cup. No anterior loss of bolus noted during tongue hold. No oral residue observed following swallow. Pt reported no difficulty or discomfort with oral intake. She refused dysphagia mechanical textures at this time. Pharyngeal Impairment Within normal limits Pharyngeal Phase Comments No overt signs or symptoms of aspiration observed or reported by pt. Cannot rule out silent aspiration with clinical swallow evaluation. Fatigue/Endurance Endurance WNL Comment Endurance appeared WNL, though limited PO trials were completed. Results The pt presents with swallowing WNL on textures trialed. She refused dysphagia mechanical textures at this time, though NSG reported she was asking for a curly murcia yesterday. Additionally, pt presents with oral weakness and sores/lesions in her mouth that may impact swallow safety with increased difficulty of solid textures. Will continue to assess and advance diet as indicated. Recommend speech therapy for continued assessment and monitoring of swallow safety. Recommend monitoring with possible cognitive assessment as pt continues to demonstrate improvement in cognitive skills. Findings Swallowing Function Within normal limits Severity of Swallow Impairment Within normal limits Contributing Factors to Swallow Reduced alertness or attention Impairment ,Reduced oral strength/ coordination/sensation, Mastication inefficiency Prognosis Fair Based on Cognitive status,Age, Comorbidities,Duration of symptoms/severity Impact on Safety and Functioning Risk for aspiration Recommendations Instrumental Assessment No Swallowing Treatment Yes Recommended Solids Puree Recommended Liquids Thin Safety Precautions/Swallowing Feed only when alert,Reduce Recommendations distractions,Remain upright ( 90 degrees) during all oral intake,Upright position at least 30 minutes after meals, Small bites and sips when eating,Slow rate; swallow between bites Medication Recommendations Crushed in Carrier Discharge Recommendations halfway facility Education Patient/Caregiver Education Described results of evaluation,Patient expressed understanding of evaluation, Patient expressed agreement with goals & treatment plans, Patient expressed understanding of safety precautions,Patient expressed understanding of feeding recommendations,Patient requires further education/ training Goals Long-term Goals The pt will safely tolerate least restrictive diet to meet her nutrition and hydration needs.
--- NOTE | 2022-11-07 12:33 | PT.IIE ---
Current Diagnoses Type 2 diabetes mellitus with ketoacidosis without coma (11/05/22) Medical History (Last Reviewed 11/05/22 @ 06:36 by MIRIAN Chew) Congestive heart failure Diabetes Hypertension Physical Therapy Inpatient Evaluation/Re-Eval M1 PT/OT-IP Prior Functional Status Start: 11/07/22 10:23 Freq: NEEDED Status: Active Protocol: Document 11/07/22 12:33 AW (Rec: 11/07/22 13:12 AW [id number]) Medical Review Prior Functional Status Medical History Reviewed Yes Communication WNL. Pt is able to make her needs known but with some confusion. Mobility and Gait Pt states she uses a FWW at home. She describes herself as housebound. She states she falls regularly. She states she has trouble and needs assist out of a low chair. Activities of Daily Living and IADL's Pt states she needs help with dressing. She tends to sponge off and does not use the shower. She uses disposable briefs. She does not drive. Social History Household Members none Living Arrangements House Number of Floors (Floors) Two Floors Number of Stairs To Enter/Railing? Pt states there is a basement but does not need to access it . She thinks she has 2 BRITTNEY and does not remember if there is a railing. Home Environment Standard Height Toilet,Tub/ Shower Home Equipment Front Wheel Walker,Raised Toilet Seat Without Armrests Additional Social History Comment Pt states she lives with her significant other, Art. Chart notes indicate he currently lives and works in [place] but that he is in the process of moving in with the pt. M2 PT-IP Current Condition Start: 11/07/22 10:23 Freq: NEEDED Status: Active Protocol: Document 11/07/22 12:33 AW (Rec: 11/07/22 13:12 AW [id number]) Physical Therapy Current Condition Current Condition Evaluation Date 11/07/22 Treatment Diagnosis DKA, impaired mobility and gait Onset Date 11/04/22 M3 PT-IP Subjective Start: 11/07/22 10:23 Freq: NEEDED Status: Active Protocol: Document 11/07/22 12:33 AW (Rec: 11/07/22 13:12 AW [id number]) Subjective Physical Therapy Visit Type Type Initial Evaluation Visit Start Time 11:57 Visit Stop Time 12:33 Total Visit Minutes 36 Physical Therapy Visit Comments Patient Comments Pt is willing to participate with PT Patient Goals Pt hopes to return home with her SO's support Therapy Pain Assessment Pain When Pain Assessed During Mobility Pain Present Pain Present Denied Pain M4 PT-IP Mobility and Gait Start: 11/07/22 10:23 Freq: NEEDED Status: Active Protocol: Document 11/07/22 12:33 AW (Rec: 11/07/22 13:12 AW [id number]) PT-Bed Mobility Assessment Supine to Sit Supine to Sit Minimal Assistance,Moderate Assistance,1 Person Assistance ,Head of Bed Elevated,Bedrails Sit to Supine Sit to Supine Minimal Assistance,1 Person Assistance PT-Transfer Assessment Sit to and From Stand Sit to and from Stand Minimal Assistance,Moderate Assistance,1 Person Assistance ,Use of Upper Extremities Equipment Transfer Assistive Device Gait Belt,Front Wheeled Walker Orthotic/Prosthetic Devices or Brace: No Transfers Transfer Destination Bed,Chair Transfer Technique Stand Step Pivot Transfer Ability Level of Assist Minimal Assistance,1 Person Assistance,Use of Upper Extremities Comments Mobility Comments Pt was lying in bed as PT arrived. Pre-mobility, BP was 156/72 HR 111 Spo2 99% on room air. Pt was somewhat confused but able to engage in conversation and follow simple commands. She began to move her legs toward the left side of the bed but used her arms to move RLE initially. Pt stated her RLE is chronically weaker but does not know why. PT provided min A to move her leg and mod A to right her trunk for pt to complete supine to sit. She needed min A for seated balance initially but once positioned EOB was able to maintain upright position with UE support. Min A to stand. Pt used FWW to steady herself and stood 4 minutes to wait for RN to provide pericare. She transferred to the chair min A with FWW. VS were stable. After brief seated rest, pt needed mod A and cues to stand (due to lower chair surface). She walked to the sink and back to the bed with FWW CGA. She sat EOB and returned to supine with min A to elevate her legs. Pt was able to bridge her hips to move toward the center of the bed. Pt was left with call light in reach and RN in room. Gait Assessment Gait Gait Assistance Required: Minimum Assistance,1 Person Assist Distance (Feet) 15 Assistive Devices Assistive Device Gait Belt,Front Wheeled Walker Orthotic/Prosthetic Devices or Brace: No Gait Deviations General Gait Pattern Decreased Stride Length, Decreased Feet Clearance, Flexed Trunk Factors Limiting Gait Function Factors Limiting Gait Function Decreased Activity Tolerance, Decreased Sensation,Decreased Strength,Poor Balance,Poor Safety Awareness Comments Gait Comments Pt walks very slowly with minimal elevation of her feet. She needs direction for proximity to walker frame. Stair Climbing Assessment Comments Stair Climbing Comments Not assessed. PT-Balance Assessment Sitting Balance and Reactions Static Sitting Balance Ability Good Dynamic Sitting Balance Ability Fair Standing Balance and Reactions Static Standing Balance Ability Fair Dynamic Standing Balance Ability Fair Device Used FWW Comments Other Balance Tests/Deviations/Treatment Pt stood on LLE with FWW : support for RN to slip on briefs. She was also able on RLE but for less time. M5 PT-IP Objective Assessments Start: 11/07/22 10:23 Freq: NEEDED Status: Active Protocol: Document 11/07/22 12:33 AW (Rec: 11/07/22 13:12 AW [id number]) Orientation Orientation/Cognition Level of Alertness Alert Orientation Name,Month,Year,Place, Situation Language Function Ability No Deficits Noted Safety Awareness Understands Safety Issues Memory Description Short Term Impaired Comments Pt not oriented to day of week . She had vague memories of yesterday but missed lim details. Gross Range of Motion Lower Extremity ROM Assessment Within Functional Limits Strength Lower Extremity Strength Assessment Bilaterally Impaired Hip R 4-/5; L 4/5 Knee B 4+/5 ext; B 4-/5 flex Ankle R 3+/5 DF; L 4/5 DF Sensation Assessment Sensation Gross Sensation Right LE Impaired,Left LE Impaired Light Touch Impaired Proprioception (Position) Impaired Comments Sensation Comments Dull light touch bilateral feet Muscle Tone Muscle Tone WNL Yes M6 PT-IP Treatment Start: 11/07/22 10:23 Freq: NEEDED Status: Active Protocol: Document 11/07/22 12:33 AW (Rec: 11/07/22 13:12 AW [id number]) Physical Therapy Treatment Education Education Provided Safety M7 PT-IP Assessment and Plan Start: 11/07/22 10:23 Freq: NEEDED Status: Active Protocol: Document 11/07/22 12:33 AW (Rec: 11/07/22 13:12 AW [id number]) PT Summary Assessment and Plan Potential Rehabilitation Potential Good Status of Condition at Evaluation Evolving Summary Impairments Strength,Balance,Sensation, Cognition,Bed Mobility, Transfers,Gait,Activity Tolerance Assessment Summary Ailyn is a 67 yo woman admitted with severe DKA and metabolic encephalopathy. She was found down in her home and geovany in to ED. PLOF: Pt states she was modified independent using FWW for household mobility. She described herself as homebound . She has a partner who may or may not live with her. Her SO may provide assist with ADL's . CLOF: Pt requiring min to mod assist x 1 with bed mobility, transfers, and short distance gait with FWW. She presents with decreased dynamic balance and decreased RLE strength which she states is consistent with her baseline. Depending on the level of assist available at home, she may be safe to discharge home with home health. If she will not have 24/7 assist, SNF rehab would be recommended. Goals Bed Mobility Goal Standby Assistance Transfer Goal Standby Assistance,Front Wheeled Walker Gait Goal Standby Assistance,Front Wheel Walker Gait Distance 100 Other Goals - up/down 2 steps without rail CGA Days to Meet Goals 8 Frequency of Treatment Frequency Of Treatment Once a Day Treatment Plan Physical Therapy Treatment Plan Bed Mobility Training,Transfer Training,Gait Training, Therapeutic Exercise,Balance Retraining,Discharge Planning, Hot or Cold Pack,Neuromuscular Re-ed Other Recommendations and Next Treatment progress gait distance Focus Precautions Other Precautions falls Recommendations To Nursing Amount of Assist Needed 1 Person Assist Discharge Recommendations PT Discharge Recommendations Home with 24/7 Assist Available,Home Health,Home vs SNF Transportation Needs at Discharge Private Vehicle,Wheelchair/ Cabulance
--- NOTE | 2022-11-07 12:47 | DIET.CONS2 ---
Dietary Inpatient Consultation Note Admission Date: 11/05/2022 05:31 RD consulted for elevated A1c >14 and admission BG 1100. Per report from SO, pt has not been compliant to medications for DM x4y. Pt not appropriate for DM ed at this time, will follow closely for readiness to learn and following diet order/advancement. Diet: 11/07/22 Lunch Dysphagia Diet Diet Modifications: diabetic/renal diet Liquid consistency: Normal/Thin Food texture: Dysphagia Pureed Nutrition Percent Meal Consumed 0% 11/07/22 09:08 Percent Meal Consumed 0% 11/06/22 12:00 Electronically Signed by: Violet Hancock 11/07/22 12:47 Clinical Dietitian [address] [address]
[2022-11-07 12:58] LABS: BUN Creatinine Ratio 14.9 (6-22); Blood Urea Nitrogen 36 mg/dL (7-17); Calcium 8.1 mg/dL (8.4-10.2); Carbon Dioxide 19 mmol/L (22-32); Chloride 107 mmol/L (98-107); Estimated Glomerular Filt Rate 21 mL/min (>60); Glucose 317 mg/dL (80-110); HEMOLYSIS < 15 (0-50); Potassium 3.9 mmol/L (3.4-5.1); Sodium 138 mmol/L (137-145)
[2022-11-07 13:13] LABS: Add Manual Diff / Slide Review NO; Basophils Absolute Auto 100 /uL (0-100); Basophils Percent Auto 0.6 % (0-2); Eosinophils Absolute Auto 100 /uL (0-450); Eosinophils Percent Auto 0.7 % (2-4); Hematocrit 30.2 % (36-46); Hemoglobin 10.2 g/dL (12.0-16.0); Lymphocytes Absolute Auto 900 /uL (1100-4500); Lymphocytes Percent Auto 6.7 % (25-40); Mean Corpuscular HGB Conc 33.9 % (30-36); Mean Corpuscular Hemoglobin 29.3 PG (26-34); Mean Corpuscular Volume 86.5 fL (80-100); Monocytes Absolute Auto 600 /uL (0-900); Monocytes Percent Auto 4.2 % (3-14); Neutrophils Absolute Auto 12300 /uL (1500-7000); Neutrophils Percent Auto 87.8 % (50-75); Platelet Count 283 X10^3/uL (150-400); Red Blood Cell Count 3.49 X10^6/uL (4.0-5.2); Red Cell Distribution Width 13.6 % (11.6-14.8)
--- NOTE | 2022-11-07 14:54 | P.PN_ITS ---
Subjective Subjective Date Patient Seen: 11/07/22 Interval history: Patient feels much better. No agitation. Significant other confirms that the patient is at her baseline. No new complaints. Exam Vital Signs (past 8 hours): - 11/07/22 07:00 11/07/22 07:00 11/07/22 07:30 Temperature 98.1 F Pulse Rate 91 H Respiratory Rate 19 Blood Pressure 108/55 L 100/58 L Pulse Oximetry 95 Oxygen Delivery Method 11/07/22 07:30 11/07/22 08:00 11/07/22 08:00 Temperature 98.1 F 98.2 F Pulse Rate 84 92 H Respiratory Rate 15 15 Blood Pressure 135/65 Pulse Oximetry 95 92 Oxygen Delivery Method 11/07/22 08:30 11/07/22 08:30 11/07/22 09:00 Temperature 98.2 F Pulse Rate 85 Respiratory Rate 22 Blood Pressure 99/57 L 98/57 L Pulse Oximetry 95 Oxygen Delivery Method 11/07/22 09:00 11/07/22 09:31 11/07/22 09:31 Temperature 98.2 F 98.2 F Pulse Rate 81 87 Respiratory Rate 30 H 15 Blood Pressure 126/66 Pulse Oximetry 95 99 Oxygen Delivery Method 11/07/22 10:00 11/07/22 10:00 11/07/22 10:30 Temperature 98.2 F Pulse Rate 107 H Respiratory Rate 17 Blood Pressure 160/89 H 142/76 H Pulse Oximetry 98 Oxygen Delivery Method 11/07/22 10:30 11/07/22 11:00 11/07/22 11:00 Temperature 98.4 F 98.6 F Pulse Rate 101 H 104 H Respiratory Rate 17 15 Blood Pressure 158/77 H Pulse Oximetry 98 98 Oxygen Delivery Method 11/07/22 11:30 11/07/22 11:30 11/07/22 12:00 Temperature 98.8 F 99.1 F Pulse Rate 111 H 110 H Respiratory Rate 25 H 29 H Blood Pressure 165/81 H Pulse Oximetry 99 99 Oxygen Delivery Method 11/07/22 12:01 11/07/22 12:01 11/07/22 09:00 Temperature 99.1 F Pulse Rate 113 H Respiratory Rate 33 H Blood Pressure 156/72 H Pulse Oximetry 99 Oxygen Delivery Method Room Air Oxygen Delivery Method Room Air Oxygen Flow Rate 0 Narrative Exam Narrative: Gen: Alert, oriented to self and place,?at baseline per significant other HEENT: normocephalic, atraumatic, conjunctiva clear, sclera non-icteric, oral mucosa pink and moist Neck: supple, full ROM, no JVD, trachea is midline Resp: Lungs CTA, non-labored breathing CV: RRR, no murmur or rubs Abd: soft, non-tender, normoactive BTs Skin: dry, cracked heels with what appears to dried wounds on her heels Neuro:? oriented to self only Extremities: in upper extremity restraints, moves all 4 extremities Psyche: No acute depression or acute mood changes Objective Labs Result Diagrams: 11/07/22 12:53 11/07/22 12:35 Labs: Laboratory Results - last 24 hr 11/06/22 11/06/22 11/06/22 13:48 17:15 20:10 WBC RBC Hgb Hct MCV MCH MCHC RDW Plt Count Neut % (Auto) Lymph % (Auto) Erath % (Auto) Eos % (Auto) Baso % (Auto) Neut # (Auto) Lymph # (Auto) Erath # (Auto) Eos # (Auto) Baso # (Auto) Sodium 139 142 Potassium 4.0 3.4 Chloride 116 H 118 H Carbon Dioxide 15 L 13 L BUN 43 H 38 H Creatinine 2.58 H 2.27 H Estimated GFR 20 L 23 L BUN/Creatinine Ratio 16.7 16.7 Glucose 164 H 152 H Calcium 8.2 L 7.2 L Phosphorus Total Bilirubin AST ALT Alkaline Phosphatase Total Creatine Kinase C-Reactive Protein NT-Pro-B Natriuret Pep Total Protein Albumin Globulin Albumin/Globulin Ratio Procalcitonin Free T4 Free T3 Random Vancomycin 8.2 L 11/07/22 11/07/22 11/07/22 03:50 03:50 03:50 WBC 9.2 RBC 2.75 L Hgb 8.2 L Hct 24.1 L MCV 87.5 MCH 29.6 MCHC 33.9 RDW 13.6 Plt Count 200 Neut % (Auto) 85.4 H Lymph % (Auto) 9.2 L Erath % (Auto) 4.6 Eos % (Auto) 0.6 L Baso % (Auto) 0.2 Neut # (Auto) 7800 H Lymph # (Auto) 800 L Erath # (Auto) 400 Eos # (Auto) 100 Baso # (Auto) 0 Sodium 138 Potassium 3.4 Chloride 112 H Carbon Dioxide 16 L BUN 39 H Creatinine 2.37 H Estimated GFR 22 L BUN/Creatinine Ratio 16.5 Glucose 246 H Calcium 7.4 L Phosphorus Total Bilirubin 0.5 AST 12 L ALT 13 Alkaline Phosphatase 107 D Total Creatine Kinase < 20 L C-Reactive Protein NT-Pro-B Natriuret Pep Total Protein 4.8 L Albumin 2.1 L Globulin 2.7 Albumin/Globulin Ratio 0.8 L Procalcitonin Free T4 0.88 Free T3 2.93 Random Vancomycin 11/07/22 11/07/22 11/07/22 03:50 03:50 03:50 WBC RBC Hgb Hct MCV MCH MCHC RDW Plt Count Neut % (Auto) Lymph % (Auto) Erath % (Auto) Eos % (Auto) Baso % (Auto) Neut # (Auto) Lymph # (Auto) Erath # (Auto) Eos # (Auto) Baso # (Auto) Sodium Potassium Chloride Carbon Dioxide BUN Creatinine Estimated GFR BUN/Creatinine Ratio Glucose Calcium Phosphorus 3.6 D Total Bilirubin AST ALT Alkaline Phosphatase Total Creatine Kinase C-Reactive Protein 7.6 H NT-Pro-B Natriuret Pep 2300 H Total Protein Albumin Globulin Albumin/Globulin Ratio Procalcitonin 1.18 H Free T4 Free T3 Random Vancomycin 11/07/22 11/07/22 12:35 12:53 WBC 14.0 H D RBC 3.49 L Hgb 10.2 L Hct 30.2 L MCV 86.5 MCH 29.3 MCHC 33.9 RDW 13.6 Plt Count 283 Neut % (Auto) 87.8 H Lymph % (Auto) 6.7 L Erath % (Auto) 4.2 Eos % (Auto) 0.7 L Baso % (Auto) 0.6 Neut # (Auto) 30678 H Lymph # (Auto) 900 L Erath # (Auto) 600 Eos # (Auto) 100 Baso # (Auto) 100 Sodium 138 Potassium 3.9 Chloride 107 Carbon Dioxide 19 L BUN 36 H Creatinine 2.41 H Estimated GFR 21 L BUN/Creatinine Ratio 14.9 Glucose 317 H Calcium 8.1 L Phosphorus Total Bilirubin AST ALT Alkaline Phosphatase Total Creatine Kinase C-Reactive Protein NT-Pro-B Natriuret Pep Total Protein Albumin Globulin Albumin/Globulin Ratio Procalcitonin Free T4 Free T3 Random Vancomycin [facility] Medical History Congestive heart failure Diabetes Hypertension Social History household members: none lives independently: Yes Assessment & Plan Assessment & Plan narrative: 1. Severe DKA, acute and present on admission, uncontrolled diabetes * Initial presenting glucose was 1179, currently 613, pH was 7.14 on admission, now 7.29, anion gap was 24 on presentation to the ED * She is off an insulin drip now * A1c was greater than 14 * Appears to have taken metformin at one time, but does not appear to have an active prescription at this time * Continue sliding scale insulin follow. 2. Acute kidney failure, present on admission, gradually improving * Initial creatinine was 3.19, currently 2.63 and her admission eGFR was 15, now 19.? Both creatinine and GFR improved from yesterday. Today creatinine is 2.41 and GFR is 21, continues to improve. * Phosphorus was elevated at 7.4 and calcium low at 8.3 falling to as low as 8.0 prior.? We will follow tomorrow. * She was ordered for IV calcium gluconate to help bind the phosphorus * Continue to monitor calcium and follow renal function. 3. Acute metabolic encephalopathy, present on admission * It may be prudent to have patient undergo CT or MRI of the head to rule out a stroke.? CT of the head was done on presentation however it is not been read as of yet.? Need to have this read. Discussed with radiologist and they will get this read. Patient is at baseline in regards to neuro function and cognition per significant other. * Her S/O reported feeding difficulties, there has been an order for Swallow evaluation by Speech Therapy when she is more awake. Currently able to tolerate oral intake. 4. Suspected seizure, acute, witnessed in the ED * She was administered IV valium and keppra in the ED * She is being empirically treated for meningeal signs with IV ampicillin and acyclovir. Antibiotics/antiviral treatment will be stopped due to patient neurologically being at baseline. 5. History of heart failure, likely worsened and/or chronic * She is ordered for an echo. Echo shows a 60-65% ejection fraction. * BNP has been elevated since presentation, need to follow. 6. Essential hypertension, chronic and uncontrolled * Patient was previously written for lisinopril and carvedilol however significant other states that patient has not been taking blood pressure medic ations for years.? Currently receiving labetalol as needed however BP is not controlled.?Initiated regular doses of hydralazine. This dose will be increased. Hypertension control has improved for need to continue to follow. 7. Acute rib fractures noted on CT during initial evaluation.? Likely secondary to CPR initiated in the patient's home.? CT reads as?fractures of the right 5th and 6th ribs including a likely acute fracture of the 6th rib associated with a small chest wall hematoma. 8. Concern for rhabdomyolysis.? Follow CK level. CK level has been consistently normal.. 9. Concern for infection.? Blood cultures and urine cultures negative.? White blood count is 14.0 today. CRP is 7.6 and procalcitonin is 1.18. Follow parameters of white blood count, CRP and procalcitonin tomorrow.. 10. Elevated BNP on presentation with concern for congestive heart failure.? Monitor BNP, today it has increased to 2300.? Echocardiogram shows ejection fraction of 60-65%. DVT prophylaxis.? Initiate enoxaparin 40 mg subcu daily. Advance Care Plan is present, Code status is documented, Surrogate decision maker is in patient?s record. COVID swab negative. Time Spent With Patient Critical Care time: I spent a total of [] minutes of critical care time on this patient's care today; this time is exclusive of procedural time.
[2022-11-07] MEDS: CITRIC ACID/SODIUM CITRATE 15 ML SOLUTION 30 ML PO (17:33)
[2022-11-07 17:47] LABS: Add Manual Diff / Slide Review NO; Basophils Absolute Auto 0 /uL (0-100); Basophils Percent Auto 0.3 % (0-2); Eosinophils Absolute Auto 100 /uL (0-450); Eosinophils Percent Auto 0.6 % (2-4); Hematocrit 28.9 % (36-46); Hemoglobin 9.7 g/dL (12.0-16.0); Lymphocytes Absolute Auto 1100 /uL (1100-4500); Lymphocytes Percent Auto 8.3 % (25-40); Mean Corpuscular HGB Conc 33.5 % (30-36); Mean Corpuscular Hemoglobin 29.3 PG (26-34); Mean Corpuscular Volume 87.4 fL (80-100); Monocytes Absolute Auto 600 /uL (0-900); Monocytes Percent Auto 4.6 % (3-14); Neutrophils Absolute Auto 11800 /uL (1500-7000); Neutrophils Percent Auto 86.2 % (50-75); Platelet Count 258 X10^3/uL (150-400); Red Cell Distribution Width 13.4 % (11.6-14.8); White Blood Cell Count 13.7 X10^3/uL (4.5-11.0)
[2022-11-07 17:52] LABS: BUN Creatinine Ratio 14.6 (6-22); Blood Urea Nitrogen 37 mg/dL (7-17); Calcium 7.9 mg/dL (8.4-10.2); Carbon Dioxide 21 mmol/L (22-32); Chloride 107 mmol/L (98-107); Estimated Glomerular Filt Rate 20 mL/min (>60); Glucose 334 mg/dL (80-110); HEMOLYSIS < 15 (0-50); Sodium 137 mmol/L (137-145)
[2022-11-07] MEDS: INSULIN GLARGINE 100 UNIT/ML 3ML PEN 20 UNIT SUBCUT (21:36)
[2022-11-07] MEDS: ACETAMINOPHEN 325 MG TABLET 650 MG PO (21:39)
[2022-11-08 04:00] VITALS: BP 144/83; PULSE 88; RESP 20; TEMP 37.1; O2SAT 98
[2022-11-08 05:01] LABS: Add Manual Diff / Slide Review NO; Basophils Absolute Auto 0 /uL (0-100); Basophils Percent Auto 0.5 % (0-2); Eosinophils Absolute Auto 100 /uL (0-450); Hematocrit 27.1 % (36-46); Hemoglobin 9.1 g/dL (12.0-16.0); Lymphocytes Absolute Auto 1200 /uL (1100-4500); Lymphocytes Percent Auto 12.3 % (25-40); Mean Corpuscular HGB Conc 33.4 % (30-36); Mean Corpuscular Hemoglobin 29.4 PG (26-34); Mean Corpuscular Volume 87.9 fL (80-100); Monocytes Absolute Auto 600 /uL (0-900); Monocytes Percent Auto 5.9 % (3-14); Neutrophils Absolute Auto 8100 /uL (1500-7000); Neutrophils Percent Auto 80.3 % (50-75); Platelet Count 232 X10^3/uL (150-400); Red Blood Cell Count 3.08 X10^6/uL (4.0-5.2); Red Cell Distribution Width 13.5 % (11.6-14.8); White Blood Cell Count 10.1 X10^3/uL (4.5-11.0)
[2022-11-08 05:09] LABS: Alanine Aminotransferase 15 IU/L (<35); Albumin 2.5 g/dL (3.5-5.0); Albumin Globulin Ratio 0.8 (1.0-2.8); Alkaline Phosphatase 136 U/L (38-126); Aspartate Aminotransferase 13 IU/L (14-36); Bilirubin Total 0.5 mg/dL (0.2-1.3); Blood Urea Nitrogen 34 mg/dL (7-17); Calcium 7.9 mg/dL (8.4-10.2); Carbon Dioxide 23 mmol/L (22-32); Chloride 110 mmol/L (98-107); Estimated Glomerular Filt Rate 19 mL/min (>60); Glucose 120 mg/dL (80-110); HEMOLYSIS < 15 (0-50); Potassium 3.5 mmol/L (3.4-5.1); Sodium 141 mmol/L (137-145); Total Protein 5.5 g/dL (6.3-8.2)
[2022-11-08 05:16] LABS: NT-proBNP (BNP-Adult 18+) 2820 pg/mL (<125)
[2022-11-08 05:22] LABS: C-Reactive Protein Quant 11.8 mg/dL (<1.0)
[2022-11-08 05:23] LABS: Procalcitonin 0.75 ng/mL (<0.5)
--- NOTE | 2022-11-08 06:04 | PC.NURSE ---
Patient sleeping off and on. mentation appropriate at present time. Patient reminded of diabetic diet and watching how much sugar she eats and drink. Providing water for patient instead of juice.
[2022-11-08 08:24] VITALS: BP 158/92; PULSE 90; RESP 18; TEMP 36.9; O2SAT 97
[2022-11-08] MEDS: CITRIC ACID/SODIUM CITRATE 15 ML SOLUTION 30 ML PO (09:04)
[2022-11-08] MEDS: INSULIN GLARGINE 100 UNIT/ML 3ML PEN 15 UNIT SUBCUT (09:04)
[2022-11-08] MEDS: ENOXAPARIN 30 MG/0.3 ML SYRINGE SUBCUT (09:17)
[2022-11-08] MEDS: AMLODIPINE 5 MG TABLET PO (09:45)
--- NOTE | 2022-11-08 10:31 | ST.IPSLE ---
Visit Care Team Role Provider Type Junior Mathis MD Primary Care Provider Physician Specialty: Internal Medicine Address: [address] [place] [address], [address] Email: [email or web address] Brady Avendano MD Other Providers Physician Specialty: Medical Address: Phone: Fax: Email: Marci Barrientos MD Other Providers Physician Specialty: Medical Address: Phone: Fax: Email: Gonzalez Archer MD Other Providers Physician Specialty: Medical Address: [address] [place] [address], [address] Phone: Fax: Email: Nell Tobias MD Other Providers Physician Specialty: Internal Medicine Address: Phone: Fax: Email: Jagdish Bowers MD Other Providers Physician Specialty: Medical Address: Phone: Fax: Email: Traci Monterroso MD Other Providers Physician Specialty: Anesthesiology Address: Phone: Fax: Email: Gerry Rosario MD Other Providers Physician Specialty: Internal Medicine Address: [address] [place] [address], [address] Phone: Fax: Email: @[employer] Mason Reyna MD Other Providers Physician Specialty: Internal Medicine Address: Phone: Fax: Email: Maverick Stephens MD Other Providers Physician Specialty: Medical Address: Phone: Fax: Email: Mckinley Malone MD Other Providers Physician Specialty: Internal Medicine Address: [facility] [place], [address] Phone: Fax: Email: Ramez Diaz MD Other Providers Physician Specialty: Medical Address: [address] [place] [address], [address] Phone: Fax: Email: Patricia Ibrahim MD Other Providers Physician Specialty: Medical Address: Phone: Fax: Email: Malou Cotter Other Providers Physician Specialty: Medical Address: Phone: Fax: Email: Kya Ashley MD Other Providers Physician Specialty: Anesthesiology Address: Phone: Fax: Email: Jagdish Kumari DO Emergency Provider Physician Referring Provider Specialty: Emergency Medicine Address: [address] [place] [address], [address] Email: [email or web address] [email or web address] Admit Provider Physician Attending Provider Specialty: Internal Medicine Address: [address] [place] [address], [address] Email: [email or web address] Current Diagnoses Type 2 diabetes mellitus with ketoacidosis without coma (11/05/22) Past Medical History (Last Reviewed 11/05/22 @ 06:36 by MIRIAN Chew) Congestive heart failure (Medical) Diabetes (Medical) Hypertension (Medical) Speech-Language Pathology Speech/Language Eval LEGAL REFEREE Adult Cognitive Linguistic Eval Start: 11/08/22 10:21 Freq: Status: Active Protocol: Document 11/08/22 10:22 JACQUELINE (Rec: 11/08/22 10:31 JACQUELINE [id number]) Adult Cognitive Linguistic Evaluation Session Time Visit Start Time 09:30 Visit Stop Time 10:00 Total Visit Minutes 30 Setting Assessment Location Acute Care Visit Type Note Type Re-evaluation Next Note Type Next Note Type Treatment Note Patient Information Identification Type Name Patient History Per H&P: Ailyn Kent is a 67-year-old female who was brought in by EMS to the ED.? Per the ED provider, they were called by the patient's boyfriend.? He lives in [place] and was not initially present at bedside to provide information but did eventually arrived and provided much of the HPI.? Patient is unable to provide any information.? Patient's boyfriend states that he normally calls the patient every morning.? He thinks that the last time that he called her yesterday morning but could have been the day prior to that.? He states he tried to call her this morning and she did not answer the phone.? He decided to drive up from [place].? Upon arriving here he found the patient lying on the floor her house and unable to arouse her.? He stated he rolled her over, tried to give her rescue breaths and started CPR on her. He contacted EMS and when they arrived, they also found the patient obtunded.? He is unsure of how long she was on the floor. Her no signs of trauma except for some bruising on her right hip.? She was not following commands .? Blood sugar was elevated.? Was maintaining airway.? IVs were started.? Patient transported to the emergency department for evaluation.? Patient's boyfriend states she does have a history of heart failure.? He states she is diabetic but not sure if she is on insulin.? He states she previously went to Dr. [place] and that ?all they cared about was her diabetes but not her heart.? He states that she had been hospitalized here approximately 8 years ago for congestive heart failure and was told that she would had a silent heart attack. He states that she has not been taking her diabetic medications for about 4 years. He also stated for the past couple of years she is been having difficulties consuming meats and would choke them up. He states that she would basically regurgitate her meals and has been loosing weight. States that she has currently been living on a diet of yogurt and he has been buying her ensure for protein source. A decision was made after consultation with [facility] to maintain the patient in the ED the patient was shaking and very altered suspicious for a seizure. She was administered IV Keppra 1000 mg in the ED and the plan was to assess her in the morning or if she developed subsequent seizures that she would be transferred to where there would be neurology services and be able to undergo EEG monitoring. By 0500, patient had not had any seizures and a decision was made to have her admitted to the ICU for continuation of the insulin drip protocol, for continued antibiotic and antiviral IV administration and for further workup. Chest xray and CT indicated a possible chronic fracture of the 5fth rib and an acute fracture and associated chest wall hematoma of the 6th rib. Language(s) Spoken in the Home [place] [employer] Vision Status Impaired Subjective Patient Report Pt was reclined in bed with boyfriend at bedside when LEGAL REFEREE arrived. She reported no difficulty eating or drinking with morning meal and boyfriend stated pt is back to baseline. Mental Status Alert,Responsive,Cooperative Formal Assessment Standardized Test/Screener Type [facility] Mental Status ([facility]) Administration Complete Results Results of the [facility] place pt' s score at 12/30, which falls in the dementia range. Pt exhibited difficulty with mental math and recall of items, which she stated have historically been challenging for her. She named 13 animals and repeated zebra, cat, dog, and pig, only noting that one was possibly a previously named animal. Clock drawing exhibited errors in number placement/orientation as well as duplicated numbers and difficulty with clock hand placement. Orientation of numbers may be related to impaired vision, but duplicated numbers and missing numbers would not be related to vision. She answered 2/4 questions from short story correctly, and identified when she did not know the correct answer. Pt has been living with elevated blood pressure and blood sugar levels, which may have impacted cognition over time. Current cognitive skills are likely motor vehicle representative of pt's baseline ability. NSG will have property supervisor provide education regarding diabetes to pt and boyfriend. Prognosis Prognosis Fair Based on Cognitive status,Comorbidities ,Duration of symptoms/severity Plan of Care Speech-Language Treatment Yes Patient/Caregiver Education Described results of evaluation,Patient expressed understanding of evaluation, Patient expressed agreement with goals and treatment plans ,Family/caregivers expressed understanding of evaluation, Family/caregivers expressed agreement with goals and treatment plan,Patient expressed understanding of safety precautions,Patient expressed understanding of feeding recommendations,Family /caregivers expressed understanding of safety precautions,Family/caregivers expressed understanding of feeding recommendations, Patient requires further education/training,Family/ caregivers require further education/training Short Term Goals 1. Continue monitoring and advancing diet as indicated. Dividing Machine Operator Goals Pt will safely tolerate least restrictive diet to meet her nutrition and hydration needs. Discharge Recommendations jail care facility,Home with Home Health
--- NOTE | 2022-11-08 11:04 | PT.IPTN ---
Current Diagnoses Type 2 diabetes mellitus with ketoacidosis without coma (11/05/22) Physical Therapy Treatment Note M2 PT-IP Current Condition Start: 11/07/22 10:23 Freq: NEEDED Status: Active Protocol: Document 11/07/22 12:33 AW (Rec: 11/07/22 13:12 AW [id number]) Physical Therapy Current Condition Current Condition Evaluation Date 11/07/22 Treatment Diagnosis DKA, impaired mobility and gait Onset Date 11/04/22 M3 PT-IP Subjective Start: 11/07/22 10:23 Freq: NEEDED Status: Active Protocol: Document 11/08/22 10:29 LJ (Rec: 11/08/22 11:04 LJ [id number]) Subjective Physical Therapy Visit Type Type Treatment Note Visit Start Time 10:03 Visit Stop Time 10:26 Total Visit Minutes 23 Physical Therapy Visit Comments Patient Comments Pt is willing to participate with PT Patient Goals Pt hopes to return home with her SO's support Therapy Pain Assessment Pain When Pain Assessed During Mobility Pain Present Pain Present Denied Pain M4 PT-IP Mobility and Gait Start: 11/07/22 10:23 Freq: NEEDED Status: Active Protocol: Document 11/08/22 10:29 LJ (Rec: 11/08/22 11:04 LJ [id number]) PT-Bed Mobility Assessment Supine to Sit Supine to Sit Minimal Assistance,1 Person Assistance,Head of Bed Elevated PT-Transfer Assessment Sit to and From Stand Sit to and from Stand Contact Guard Assistance, Minimal Assistance,1 Person Assistance,Use of Upper Extremities Equipment Transfer Assistive Device Gait Belt,Front Wheeled Walker Orthotic/Prosthetic Devices or Brace: No Transfers Transfer Destination Chair,Toilet Transfer Technique ambulated Transfer Ability Level of Assist Contact Guard Assistance, Minimal Assistance,1 Person Assistance,Use of Upper Extremities Comments Mobility Comments Pt in bed upon arrival. Willing to participate in PT. Pt able to independently move LEs off side of bed. With HOB elevated ~20 degrees pt completed SL to sitting MinAx1 and cues to push into matress . Pt scooted to side of bed without assist. Gait belt placed on pt. She refused to don socks. Pt stood from side of bed using FWW to elida on and lift buttocks off bed. Pt then stood while gait belt was tightened. Pt ambulated in hallway and back to room ~100' . Pt had soiled bed pad so was instructed to walk to the bathroom to be cleaned up and don a new brief. Pt sat using FWW to lower herself down onto the toilet. Nursing completed pericare which took several minutes during which pt stood without fatiguing. After pt was cleaned up she ambulated in room another 30'. She then sat in chair without lowering herself down and had to stand again to reposition her bottom properly. Pt asked if she wanted to recline and she declined. Pt was given all needs within reach. SO in room with pt. Gait Assessment Gait Gait Assistance Required: Contact Guard Assist,1 Person Assist Distance (Feet) 130 Assistive Devices Assistive Device Gait Belt,Front Wheeled Walker Orthotic/Prosthetic Devices or Brace: No Gait Deviations General Gait Pattern Decreased Stride Length, Decreased Feet Clearance, Flexed Trunk Factors Limiting Gait Function Factors Limiting Gait Function Decreased Activity Tolerance, Decreased Sensation,Decreased Strength,Poor Balance,Poor Safety Awareness Comments Gait Comments Pt walks very slowly with minimal elevation of her feet. She needs direction for proximity to FWW. Bumped into foot of bed once while turning around. Pt will occasionally wobble posteriorly but not lose balance. Stair Climbing Assessment Comments Stair Climbing Comments Not assessed. PT-Balance Assessment Sitting Balance and Reactions Static Sitting Balance Ability Good Dynamic Sitting Balance Ability Fair Standing Balance and Reactions Static Standing Balance Ability Fair Dynamic Standing Balance Ability Fair Device Used FWW M5 PT-IP Objective Assessments Start: 11/07/22 10:23 Freq: NEEDED Status: Active Protocol: Document 11/07/22 12:33 AW (Rec: 11/07/22 13:12 AW [id number]) Orientation Orientation/Cognition Level of Alertness Alert Orientation Name,Month,Year,Place, Situation Language Function Ability No Deficits Noted Safety Awareness Understands Safety Issues Memory Description Short Term Impaired Comments Pt not oriented to day of week . She had vague memories of yesterday but missed lim details. Gross Range of Motion Lower Extremity ROM Assessment Within Functional Limits Strength Lower Extremity Strength Assessment Bilaterally Impaired Hip R 4-/5; L 4/5 Knee B 4+/5 ext; B 4-/5 flex Ankle R 3+/5 DF; L 4/5 DF Sensation Assessment Sensation Gross Sensation Right LE Impaired,Left LE Impaired Light Touch Impaired Proprioception (Position) Impaired Comments Sensation Comments Dull light touch bilateral feet Muscle Tone Muscle Tone WNL Yes M6 PT-IP Treatment Start: 11/07/22 10:23 Freq: NEEDED Status: Active Protocol: Document 11/08/22 10:29 GORGE (Rec: 11/08/22 11:04 GORGE [id number]) Physical Therapy Treatment Exercises Exercises Ankle Pumps,Heel Slides Education Education Provided Safety M7 PT-IP Assessment and Plan Start: 11/07/22 10:23 Freq: NEEDED Status: Active Protocol: Document 11/08/22 10:29 GORGE (Rec: 11/08/22 11:04 [id number]) PT Summary Assessment and Plan Potential Rehabilitation Potential Good Status of Condition at Evaluation Evolving Summary Impairments Strength,Balance,Sensation, Cognition,Bed Mobility, Transfers,Gait,Activity Tolerance Progress Towards Goals Progressing Toward Goals Assessment Summary Pt requiring lower level of assist with mobility and gait however, slow to process directions and maintains a flat affect. Pt was unaware she had soiled her brief and stated she didn't need to use the bathroom initially but complied after showing her the soiled pad. Pt unwilling to complete her own pericare. When asked if she could do it herself she did not respond. At this point in her recovery pt will need 24/7 assist with ADLs. If SO unable to provide assist, pt will need SNF to promote independence with ADLs and new instructions with medications. Goals Bed Mobility Goal Standby Assistance Transfer Goal Standby Assistance,Front Wheeled Walker Gait Goal Standby Assistance,Front Wheel Walker Gait Distance 100 Other Goals - up/down 2 steps without rail CGA Days to Meet Goals 8 Frequency of Treatment Frequency Of Treatment Once a Day Treatment Plan Physical Therapy Treatment Plan Bed Mobility Training,Transfer Training,Gait Training, Therapeutic Exercise,Balance Retraining,Discharge Planning, Hot or Cold Pack,Neuromuscular Re-ed Other Recommendations and Next Treatment progress gait and complete Focus stair training Precautions Other Precautions falls Recommendations To Nursing Amount of Assist Needed 1 Person Assist Discharge Recommendations PT Discharge Recommendations Home with 24/7 Assist Available,Home Health,Home vs SNF Transportation Needs at Discharge Private Vehicle,Wheelchair/ Cabulance
[2022-11-08] MEDS: NYSTATIN CREAM 30 GM 1 APPLIC TOP (11:33)
[2022-11-08] MEDS: INSULIN LISPRO 100 UNIT/ML 3ML VIAL SUBCUT (12:13)
--- NOTE | 2022-11-08 12:13 | P.DS_ITS ---
History of Present Illness History of Present Illness Chief complaint: DKA Narrative: 67-year-old female who arrived by EMS.? They were called by the patient's boyfriend.? He initially was not present at bedside to provide information but did eventually arrived and provided much of the HPI.? Patient is unable to provide any information.? Patient's boyfriend states that he lives out of the local area.? He states that he normally calls the patient every morning.? He thinks that the last time that he called her yesterday morning but could have been the day prior to that.? He states he tried to call her this morning and she did not answer the phone.? He decided to make his way to the local area.? Upon arriving here he found the patient lying on the floor her house.? He could not arouse her.? He contacted EMS.? Upon arrival EMS also found the patient obtunded.? Her no signs of trauma except for some bruising on her right hip.? She was not following commands.? Blood sugar was elevated.? Was maintaining a irway.? IVs were started.? Patient transported to the emergency department for evaluation.? Patient's boyfriend states she does have a history of heart failure.? He states she is diabetic but not sure if she is on insulin.? We are unsure of how long the patient has been on the floor. Discharge Providers Provider Date of admission: 11/05/22 05:31 Discharge Date: 11/08/22 Primary care physician: Junior Mathis MD Consults: 11/05/22 06:40 Consult to Blank Driller Routine Comment: access to primary care, formerly saw Dr. Burch 11/05/22 06:48 Consult to Speech Therapy Evaluate & Treat Comment: swallow eval when patient is more alert Physician Instructions: Evaluate and treat 11/05/22 07:07 Consult to Tele-mapping specialist Routine Comment: Consulting Provider: [facility] [employer]intensiv[employer] Reason for consultation: Sanitary Engineering Teacher services Has provider been notified: Yes 11/05/22 08:02 Consult to Dietitian, Adult Routine Comment: Reason For Exam: weight loss, poor eating habits, diabetic educatio Consult to Speech Therapy Evaluate & Treat Comment: Physician Instructions: Evaluate and treat 11/07/22 09:46 Consult to Physical Therapy Evaluate & Treat Comment: Physician Instructions: Evaluate and Treat Discharge provider: Junior Mathis MD Summary Hospital Course Discharge Diagnosis: 1. Severe DKA 2. Uncontrolled diabetes 3. Acute tubular necrosis 4. Acute metabolic encephalopathy 5. Witnessed seizure 6. Hypertension 7. Rib fractures, right 5th and 6th ribs 8. CKD 9. Anemia of acute illness +/- CKD ECHO:Normal sinus rhythm. ? Normal LV size, mild concentric LVH. Normal wall motion and LV systolic function. Ejection fraction 60-65%. Stage I diastolic dysfunction. ? Mild LA enlargement; otherwise normal chamber sizes. ? There is mild mitral annular calcification. Otherwise there are no significant valvular abnormalities. ? Mildly dilated ascending aorta measuring 4.2 cm diameter. Compared to prior study obtained in 2016, cardiomyopathy is no longer present. Renal ultrasound:1. Normal size kidneys but with diffusely hyperechoic parenchymal echotexture.? This indicates chronic medical renal disease.? Correlate with GFR trend. ? 2.? No evidence of obstructive uropathy. ? 3. Nonobstructing 5 mm left midpole stone.? Hospital Course: Patient was admitted to ICU. Initially there was concern of sepsis and possibly meningitis/encephalitis and she was on IV antibiotics empirically. Her cultures all came back negative and antibiotics were discontinued as she clinically improved. She was severely acidotic and treated for DKA with insulin drip and fluids. Her A1c is above 14. Also noted to be in acute renal failure with incomplete recovery of renal function (on admit Cr 3.64, was 2.61 on discharge, last known Cr was 0.9 in 2016). She has echogenic kidneys on ultrasound indicating CKD. Her obtundation and mental status gradually cleared up with treating DKA. Also had witnessed seizure in ED likely secondary to metabolic derangement. She has history of heart failure in the past but on current echo has normal EF and clinically no sign of ongoing heart failure. Patient is being discharged newly on insulin and will need close monitoring of glucose and insulin adjustments as indicated. Also should have close renal monitoring and possibly will need outpatient Nephrology consultation. She was started on amlodipine and carvedilol for blood pressure control. She has rib fractures from CPR performed at home but has not needed anything other than Tylenol for pain management. Patient was evaluated by PT and OT prior to discharge. Also speech therapy saw patient for dysphagia and recommended pureed with thin liquids. Patient will benefit from SNF rehab. Status at Discharge Cognitive/behavioral status at discharge: at baseline, oriented Overall status at discharge: patient is not back to baseline Time Spent with Patient Time spent: Greater than 30 minutes Exam Vital Signs (past 8 hours): - 11/08/22 08:24 Temperature 98.5 F Pulse Rate 90 Respiratory Rate 18 Blood Pressure 158/92 H Pulse Oximetry 97 Oxygen Flow Rate 0 Oxygen Delivery Method Room Air Oxygen Flow Rate 0 Narrative Exam Narrative: General: Alert, NAD Lungs: Clear Heart: Regular rhythm Abdomen: Soft Extremities: No edema Neurological: Flat to diminished affect, speech normal, generalized weakness Objective Labs 11/08/22 04:45 11/08/22 04:45 Labs: Laboratory Results - last 24 hr 11/07/22 11/07/22 11/07/22 12:35 12:53 17:22 WBC 14.0 H D RBC 3.49 L Hgb 10.2 L Hct 30.2 L MCV 86.5 MCH 29.3 MCHC 33.9 RDW 13.6 Plt Count 283 Neut % (Auto) 87.8 H Lymph % (Auto) 6.7 L Josephine % (Auto) 4.2 Eos % (Auto) 0.7 L Baso % (Auto) 0.6 Neut # (Auto) 32901 H Lymph # (Auto) 900 L Josephine # (Auto) 600 Eos # (Auto) 100 Baso # (Auto) 100 Sodium 138 137 Potassium 3.9 4.0 Chloride 107 107 Carbon Dioxide 19 L 21 L BUN 36 H 37 H Creatinine 2.41 H 2.54 H Estimated GFR 21 L 20 L BUN/Creatinine Ratio 14.9 14.6 Glucose 317 H 334 H Calcium 8.1 L 7.9 L Total Bilirubin AST ALT Alkaline Phosphatase C-Reactive Protein NT-Pro-B Natriuret Pep Total Protein Albumin Globulin Albumin/Globulin Ratio Procalcitonin 11/07/22 11/08/22 11/08/22 17:22 04:45 04:45 WBC 13.7 H 10.1 RBC 3.30 L 3.08 L Hgb 9.7 L 9.1 L Hct 28.9 L 27.1 L MCV 87.4 87.9 MCH 29.3 29.4 MCHC 33.5 33.4 RDW 13.4 13.5 Plt Count 258 232 Neut % (Auto) 86.2 H 80.3 H Lymph % (Auto) 8.3 L 12.3 L Josephine % (Auto) 4.6 5.9 Eos % (Auto) 0.6 L 1.0 L Baso % (Auto) 0.3 0.5 Neut # (Auto) 21885 H 8100 H Lymph # (Auto) 1100 1200 Josephine # (Auto) 600 600 Eos # (Auto) 100 100 Baso # (Auto) 0 0 Sodium 141 Potassium 3.5 Chloride 110 H Carbon Dioxide 23 BUN 34 H Creatinine 2.61 H Estimated GFR 19 L BUN/Creatinine Ratio 13.0 Glucose 120 H D Calcium 7.9 L Total Bilirubin 0.5 AST 13 L ALT 15 Alkaline Phosphatase 136 H C-Reactive Protein 11.8 H NT-Pro-B Natriuret Pep 2820 H Total Protein 5.5 L Albumin 2.5 L Globulin 3.0 Albumin/Globulin Ratio 0.8 L Procalcitonin 0.75 H PFSH Medical History Congestive heart failure Diabetes Hypertension Social History household members: none lives independently: Yes Discharge Plan Discharge Plan Patient Disposition: SNF Transfer to: [facility] Consult as needed: Dental, Hearing, Mental health, Podiatry and Vision Provider Discharge Comment: pt adm with DKA, renal failure, encephalopathy, witnessed seizure, will need insulin teaching, outpatient nephrology f/u, establish with PCP check CBC, BMP, Phos in 1 week Discharge orders & Medications Prescriptions: New amlodipine [Norvasc] 5 mg Tablet 5 mg PO DAILY Qty: 30 0RF insulin glargine [Lantus Solostar U-100 Insulin] 100 unit/mL (3 mL) Insulin Pen 25 unit SUBCUT BEDTIME Qty: 15 0RF insulin lispro [Humalog U-100 Insulin] 100 unit/mL Solution See Rx Instructions .ROUTE .COMPLEX Qty: 15 0RF Rx Instructions: 150-200 2U, 201-250 3U, 251-300 4U, 301-350 5U, > 350 U carvedilol 6.25 mg tablet 6.25 mg PO BID Qty: 60 0RF Rx Instructions: must administer with a meal/food Continued acetaminophen 325 MG tablet 650 mg PO Q6HP PRN (Reason: Allergic Symptoms) Qty: 0 Follow up/Referrals: Junior Mathis MD [Primary Care Provider] - Discharge Health Status Multidrug resistant organism: No MDRO Precautions: [place] Diet/Activity/Treatments Diet: Regular Liquid consistency: Normal/Thin Food texture: Blenderized or pureed [facility] Rehab type: Physical therapy, Occupational therapy and Speech therapy Visit Report/Discharge Packet Stand Alone Forms: Patient Portal/API Discharge Data Primary Care Provider: Junior Mathis
[2022-11-08 12:53] LABS: COVID19 -Nasal RAPID Negative (Negative)
--- NOTE | 2022-11-08 13:52 | CM.DPC ---
CM Discharge Plan 11/08/2022 CM was alerted that patient is medically stable. MD advocating for SNF placement if possible, and pt is reportedly agreeable. Concerns are that pt has Diabetes diagnosis, in need of insulin teaching. Partner, Atilio, is planning to move to live with the patient, but has not done so yet. CM met with pt at bedside with partner present. Pt confirms she is agreeable to SNF placement. SNF Choice discussed with IPAD and pt identified [facility] as her 1st choice, with second choice being [facility]. CM spoke with Pat at [facility]. after review of patient clinicals, Pat accepts patient for admission. Planned pick-up at 14:00. Signed medlist, d/c summary, updated COVID, and PASRR faxed to facility. Number for RN report and above information provided to RN. CM met with pt and SO to answer any questions. Pt in agreement with plan as above and partner is supportive. partner will go home and pack some clothing for patient as she does not have clothing here. Plan: Patient to be discharged to [facility]. Facility to provide transportation at 14:00 MICHAEL Morales, HYDROGRAPHIC ENGINEER
--- NOTE | 2022-11-09 09:39 | DIET.CONS ---
Dietary Consultation Note Admission Date: 11/05/2022 05:31 Assessment: 63y F admitted after being found down at home with hyperglycemia (1150) and A1c >14. RD met with patient at bedside, pt amenable to DM education. Observed pt while eating. Pt did not see film on juice, pepper packet in food, empty butter container. Pt possibly suffers with sight issues. Pts has reliable transportation (significant other), tablet with internet. Pt is open to virtual diabetes education visits. Diet recall: B: 1 c tea with sweet n low. No food. L: Stouffers D: [place] Used to eat yogurt, does not drink soda. Ht: 165.1 cm Wt: 70.8 kg BMI: 25.1 Last BM: 11/08/22 (11/08/22 08:24) MNA: 11 Bull Score: 18 Nutrition Diagnosis: 1. Inability to manage self care r/t limited access and compliance to self management aeb hx of condition non-compliance - discontinued insulin use, high glucose, DKA, renal failure, no PCP. 2. Altered nutrition lab values A1c r/t nutrition related knowledge deficit aeb A1c >14, admit BG > 1000, DKA. Interventions: Educated pt on blood sugar and insulin - specifically how it affects our bodies. Discussed carb counting. Explained what a carb is and what happens to it in our bodies. Recommended limiting 2-3 carbs choices at meals, 1-2 for snacks, and only 1/2 c juice per day. Recommended future diabetes education here at the hospital and Eloina Danielson as a PCP. Pt was open to virtual visits. EER: 30-45g CHO at meals, 15-30 CHO at snacks. Electronically Signed by: Violet Hancock 11/09/22 09:39 Clinical Dietitian [address] [id number]
== END 2022-11-08 14:05 | DRG 637 ==
LOC: ED 19:07 → ICU 11-05 05:37
PROVIDERS: Internal Medicine Pulmonary Disease; Neuromusculoskeletal Medicine, Sports Medicine; Admitting Provider Nurse Practitioner Family; Emergency Provider Emergency Medicine; PCP Internal Medicine; Referring Provider Emergency Medicine; Visit Provider Nurse Practitioner Family
DX: E11.10 Type 2 diabetes mellitus with ketoacidosis without coma (principal); G93.41 Metabolic encephalopathy; N17.0 Acute kidney failure with tubular necrosis; M96.89 Other intraoperative and postprocedural complications and disorders of the musculoskeletal system; R56.9 Unspecified convulsions; I12.9 Hypertensive chronic kidney disease with stage 1 through stage 4 chronic kidney disease, or unspecified chronic kidney disease; E11.22 Type 2 diabetes mellitus with diabetic chronic kidney disease; N18.9 Chronic kidney disease, unspecified; D63.1 Anemia in chronic kidney disease; R13.10 Dysphagia, unspecified; Y84.8 Other medical procedures as the cause of abnormal reaction of the patient, or of later complication, without mention of misadventure at the time of the procedure; Z87.891 Personal history of nicotine dependence; Z20.822 Contact with and (suspected) exposure to COVID-19
CPT/HCPCS: 0241U; 36415; 36592; 70450; 71045; 72125; 73502; 76770; 80048; 80053; 80202; 80305; 80320; 80329; 81001; 82009; 82040; 82140; 82550; 82570; 82805; 82947; 82962; 83036; 83605; 83690; 83735; 83880; 84100; 84145; 84146; 84300; 84439; 84443; 84481; 84484; 85007; 85025; 85610; 85730; 86140; 87040; 87086; 87493; 87635; 92507; 92610; 93005; 93306; 96365; 96366; 96367; 96368; 96375; 97116; 97162; 97530; 99232; 99285; 99291; 99292; C9803; G0480; J0131; J0290; J0360; J0696; J1630; J1650; J1815; J1953; J2060; J7050

== ENCOUNTER 2023-06-17 10:34 | Inpatient (IN) | payer MEDICARE, MEDICAID, SELFPAY ==
[2022-11-05 05:37] VITALS: BMI 25.1
[2023-06-17] VITALS (87 sets, daily range): BP systolic 122–233; BP diastolic 75–140; PULSE 75–153; RESP 12–53; TEMP 36.5–36.8; O2SAT 71–100; BMI 24.7
--- NOTE | 2023-06-17 10:48 | DI.RAD.S_ITS ---
PROCEDURE: XR CHEST 1V INDICATIONS: chest pain TECHNIQUE: One view of the chest was acquired. COMPARISON: [facility], CR, XR CHEST 1V, 11/04/2022, 18:39. [facility], CR, XR CHEST 1V, 11/05/2022, 1:05. FINDINGS: Surgical changes and devices: None. Lungs and pleura: Lungs are clear. No pleural effusions or pneumothorax. Mediastinum: The cardiac contours are mildly enlarged. The aorta demonstrates calcification and tortuosity. Bones and chest wall: No suspicious bony lesions. Age-appropriate bony degenerative changes are seen. Several bilateral rib fractures are seen. S-shaped scoliotic curvature is seen. Overlying soft tissues appear unremarkable. IMPRESSION: Mild cardiomegaly. Clear lungs. Additional findings: Several remote bilateral rib fractures Dictated by: Shlomo Mortensen M.D. on 06/17/2023 at 10:23 Approved by: Shlomo Mortensen M.D. on 06/17/2023 at 10:24
[2023-06-17] MEDS: AMLODIPINE 5 MG TABLET 10 MG PO (10:58)
[2023-06-17] MEDS: carvediloL 3.125 MG TABLET 6.25 MG PO ×2 (10:58→21:24)
--- NOTE | 2023-06-17 11:01 | DI.CT.S_ITS ---
PROCEDURE: CT HEAD/BRAIN WO CON INDICATIONS: dizziness, HTN emergency TECHNIQUE: Noncontrast 4.5 mm thick angled axial sections acquired from the foramen magnum to the vertex, with coronal and sagittal reformats. For radiation dose reduction, the following was used: automated exposure control, adjustment of mA and/or kV according to patient size. COMPARISON: [facility], CR, XR CHEST 1V, 06/17/2023, 11:05. [facility], CT, CT HEAD/BRAIN WO CON, 11/04/2022, 18:45. FINDINGS: Image quality: Excellent. CSF spaces: Basal cisterns are patent. No extra-axial fluid collections. The ventricles are symmetric in size and shape. Brain: No intracranial bleeds or masses. There is cerebral volume loss for age, with resultant ventricular and sulcal prominence. There are periventricular and deep white matter chronic small vessel ischemic changes. There is intracranial internal carotid artery atherosclerosis. Skull and face: Calvarium and visualized facial bones appear intact, without suspicious lesions. Incidental note is made of hyperostosis frontalis. This is not considered to be pathologic in a woman of this age. Sinuses: At least moderate mucosal thickening can be seen involving the right maxillary sinus. Mild mucosal thickening can be seen elsewhere within the paranasal sinuses. No abnormal fluid is seen within the mastoid air cells. IMPRESSION: No acute intracranial hemorrhage is seen. No acute intracranial process is seen. Focal right maxillary sinus disease noted. Dictated by: Shlomo Mortensen M.D. on 06/17/2023 at 10:43 Approved by: Shlomo Mortensen M.D. on 06/17/2023 at 10:45
[2023-06-17 11:15] LABS: Add Manual Diff / Slide Review NO; Basophils Absolute Auto 0 /uL (0-100); Basophils Percent Auto 0.4 % (0-2); Eosinophils Absolute Auto 100 /uL (0-450); Eosinophils Percent Auto 0.7 % (2-4); Hematocrit 33.2 % (36-46); Hemoglobin 11.1 g/dL (12.0-16.0); Lymphocytes Absolute Auto 800 /uL (1100-4500); Lymphocytes Percent Auto 9.8 % (25-40); Mean Corpuscular HGB Conc 33.6 % (30-36); Mean Corpuscular Hemoglobin 30.4 PG (26-34); Mean Corpuscular Volume 90.5 fL (80-100); Monocytes Absolute Auto 300 /uL (0-900); Monocytes Percent Auto 4.3 % (3-14); Neutrophils Absolute Auto 6600 /uL (1500-7000); Neutrophils Percent Auto 84.8 % (50-75); Platelet Count 268 X10^3/uL (150-400); Red Blood Cell Count 3.67 X10^6/uL (4.0-5.2); Red Cell Distribution Width 14.7 % (11.6-14.8); White Blood Cell Count 7.7 X10^3/uL (4.5-11.0)
[2023-06-17] MEDS: ONDANSETRON 4 MG/2 ML INJ IV (11:16)
--- NOTE | 2023-06-17 11:16 | PC.NURSE ---
Patient left department with clinical pharmacy technician in wheelchair.
[2023-06-17 11:19] LABS: Fractionated Inspired Oxygen 21; HCO3 VBG 20 mmol/L (24-28); Oxygen Saturation VBG 41 % (70-75); PO2 VBG 26 mmHg (35-45); Total CO2 VBG 21 mmol/L (24-29); pH VBG 7.29 (7.33-7.43)
[2023-06-17 11:29] LABS: Prothrombin Time 11.6 SECONDS (10.1-12.7)
[2023-06-17 11:30] LABS: Hemoglobin A1C% w Est Avg Glu 5.4 % (4.0-6.0); Lactate (Lactic Acid) 0.7 mmol/L (0.7-2.1)
[2023-06-17 11:32] LABS: PTT Partial Thromboplastin Tim 44 SECONDS (26-36)
[2023-06-17 11:44] LABS: Ketones (Beta-Hydroxybutyrate) 0.57 mmol/L (<0.27)
[2023-06-17 11:46] LABS: Alanine Aminotransferase 17 IU/L (<35); Albumin 4.6 g/dL (3.5-5.0); Albumin Globulin Ratio 1.4 (1.0-2.8); Alkaline Phosphatase 64 U/L (38-126); Aspartate Aminotransferase 23 IU/L (14-36); BUN Creatinine Ratio 29.3 (6-22); Bilirubin Total 0.4 mg/dL (0.2-1.3); Blood Urea Nitrogen 100 mg/dL (7-17); Calcium 10.5 mg/dL (8.4-10.2); Carbon Dioxide 19 mmol/L (22-32); Chloride 110 mmol/L (98-107); Creatine Kinase 24 U/L (30-135); Estimated Glomerular Filt Rate 14 mL/min (>60); Globulin 3.4 g/dL (1.7-4.1); Glucose 233 mg/dL (80-110); HEMOLYSIS < 15 (0-50); Lipase 228 U/L (23-300); Potassium 4.5 mmol/L (3.4-5.1); Sodium 144 mmol/L (137-145); Troponin I < 0.012 ng/mL (0.01-0.034)
[2023-06-17 11:47] LABS: COVID19 -Nasal RAPID Negative (Negative)
[2023-06-17 11:51] LABS: Salicylate < 1.0 mg/dL (<20)
--- NOTE | 2023-06-17 12:02 | ED_ITS ---
HPI - Dizziness General Chief Complaint: Dizziness Stated Complaint: thinks she is low on glucose levels/ 267 Time Seen by Provider: 06/17/23 10:40 Source: patient Mode of arrival: Ambulatory History of Present Illness HPI Narrative: 68-year-old female former smoker with history of hypertension and diabetes presents with her in the chief complaint of feeling a bit off, lightheaded and dizzy this morning. She states she got up at about 330 and did not feel great, she thought maybe her blood sugar was running a bit low and was unable to use her glucometer to check. She states that she sat on the edge of the bed for at least an hour to and then up laying back down for few hours and comes to see us with these nonspecific complaints. She denies any headache or blurred vision. She denies any chest pain or shortness of breath. She has no abdominal pain but has had least 1 episode of nausea and vomiting. She denies any dietary change or change in her medication regimen. Related Data Home Medications Medication Instructions Recorded Confirmed acetaminophen 325 mg tablet 650 mg PO Q6HP PRN Allergic 07/15/16 11/05/22 Symptoms #0 tabs Previous Rx's Medication Instructions Recorded amlodipine 5 mg tablet (Norvasc) 5 mg PO DAILY #30 tabs 11/08/22 carvedilol 6.25 mg tablet 6.25 mg PO BID #60 tabs 11/08/22 insulin glargine 100 unit/mL (3 25 unit (0.25 mL) SUBCUT BEDTIME 11/08/22 mL) subcutaneous pen (Lantus #15 mL Solostar U-100 Insulin) insulin lispro 100 unit/mL See Rx Instructions .Route 11/08/22 subcutaneous solution (Humalog .COMPLEX #15 mL U-100 Insulin) Allergies Allergy/AdvReac Type Severity Reaction Status Date / Time No Allergy Information Allergy Verified 06/17/23 10:45 Available Review of Systems Review of Systems Narrative: GENERAL: See HPI HEENT: Denies sinus pain, ear pain, sore throat, difficulty swallowing, dizziness. RESPIRATORY: Denies dyspnea, cough, wheezing, hemoptysis, sputum. CARDIOVASCULAR: Denies chest pain, palpitations, orthopnea, edema, GASTROINTESTINAL: See HPI : Denies dysuria, frequency, incontinence, hematuria, urinary retention. MUSCULOSKELETAL: denies weakness, joint pain, or bony pain SKIN: Denies rash, skin lesions, or other NEUROLOGIC: See HPI PSYCHIATRIC: No concerning psychosocial issues. 12 point review of systems is negative except for those stated above Patient History Medical History Congestive heart failure Diabetes Hypertension Social History household members: none lives independently: Yes Smoking Status: Former smoker Smoking Status: Former smoker alcohol intake frequency: 0-2 drinks per day Substance Use Type: does not use Exam Narrative Exam Narrative: GENERAL: [68] year old patient appears stated age. Well-developed patient, in mild distress. HEAD: Atraumatic. Normocephalic. EYES: Pupils equal round and reactive. Extraocular motions intact. No scleral icterus. No injection or drainage. ENT: Nose without bleeding, purulent drainage. Throat without erythema, tonsillar hypertrophy or exudate. Airway patent. NECK: Trachea midline. Non tender CARDIOVASCULAR: Regular rate and rhythm without murmurs, gallops, or rubs. RESPIRATORY: Clear to auscultation. Breath sounds equal bilaterally. No wheezes, rales, or rhonchi. GASTROINTESTINAL: Abdomen soft, non-tender, nondistended. EXTREMITIES: No edema or joint tenderness. BACK: Nontender without deformity or crepitance. No flank tenderness. NEURO: AOx3. SKIN: No rash or erythema of visible areas Initial Vital Signs Initial Vital Signs: Vital Signs Temperature 97.7 F 06/17/23 10:37 Pulse Rate 100 H 06/17/23 10:37 Respiratory Rate 18 06/17/23 10:37 Blood Pressure 215/113 H 06/17/23 10:37 Pulse Oximetry 98 06/17/23 10:37 Oxygen Delivery Method Room Air 06/17/23 10:37 Course Orders Ordered: ED Orders 06/17/23 10:45 COVID19 -Nasal RAPID Stat 06/17/23 10:48 XR chest 1V Stat 06/17/23 11:00 Complete Blood Count AUTO DIFF Stat Comprehensive Metabolic Panel Stat Hemoglobin A1C% w Est Avg Glu Stat Ketones (Beta-Hydroxybutyrate) Stat Lactate (Lactic Acid) Stat Lipase Stat Magnesium Stat Osmolality, Serum Stat PTT Partial Thromboplastin Jonah Stat Prothrombin Time INR Stat Salicylate Stat Troponin & CK Cardiac Panel Stat 06/17/23 11:01 CT head/brain wo con Stat 06/17/23 11:11 Venous Blood Gas Stat 06/17/23 11:37 Blood Culture Stat 06/17/23 12:06 CT kidney ureter bladder (KUB) Stat 06/17/23 12:21 Creatinine Urine Random Stat Sodium Urine Random Stat Urine Drug Screen, Rapid Stat Urine Microscopic Stat 06/17/23 13:30 BMP [Basic Metabolic Panel] Stat 06/18/23 05:00 Complete Blood Count AUTO DIFF DAILY Comprehensive Metabolic Panel DAILY Magnesium DAILY TSH w/ Reflex to FT4 Routine 06/19/23 05:00 Complete Blood Count AUTO DIFF DAILY Comprehensive Metabolic Panel DAILY Magnesium DAILY 06/20/23 05:00 Complete Blood Count AUTO DIFF DAILY Comprehensive Metabolic Panel DAILY Magnesium DAILY Acetaminophen (Acetaminophen 325 Mg Tablet) 650 mg PO Q6H PRN PRN Reason: Fever/Mild Pain (1-3) Enoxaparin Sodium (Enoxaparin 30 Mg/0.3 Ml Syringe) 30 mg SUBCUT DAILY RYLEE Nicardipine HCl 25 mg/ Sodium (Chloride) 250 mls @ 50 mls/hr IV TITRATE RYLEE; Protocol Last Titration: 06/17/23 15:42 Dose: 6 mg/hr, 60 mls/hr Documented By: Admin: 06/17/23 14:02 Dose: 5 mg/hr, 50 mls/hr Documented By: BENSON Naloxone HCl (Naloxone 0.4 Mg/Ml Vial) 0.2 mg IV Q2MIN PRN PRN Reason: Opiate Reversal Discontinued Medications Amlodipine Besylate (Amlodipine 5 Mg Tablet) 10 mg PO NOW ONE Stop: 06/17/23 10:54 Last Admin: 06/17/23 10:58 Dose: 10 mg Documented By: BENSON Carvedilol (Carvedilol 3.125 Mg Tablet) 6.25 mg PO NOW ONE Stop: 06/17/23 10:54 Last Admin: 06/17/23 10:58 Dose: 6.25 mg Documented By: BENSON Sodium Chloride (Normal Saline 0.9%) 1,000 mls @ 1,000 mls/hr IV BOLUS ONE Stop: 06/17/23 13:04 Last Infusion: 06/17/23 13:55 Dose: 0 mls/hr Documented By: Admin: 06/17/23 12:46 Dose: 1,000 mls/hr Documented By: OPAL Nicardipine HCl 25 mg/ Sodium (Chloride) 250 mls @ 50 mls/hr IV TITRATE RYLEE; Protocol Last Titration: 06/17/23 13:53 Dose: 0 mg/hr, 0 mls/hr Documented By: Admin: 06/17/23 13:31 Dose: 5 mg/hr, 50 mls/hr Documented By: OPAL Insulin Human Regular (Insulin Regular 100 Unit/Ml 3 Ml Vial) 5 unit SUBCUT NOW ONE Stop: 06/17/23 15:13 Last Admin: 06/17/23 15:54 Dose: 5 unit Documented By: OPAL Co-signed By: ORAL Ondansetron HCl (Ondansetron 4 Mg/2 Ml Inj) 4 mg IV NOW ONE Stop: 06/17/23 11:12 Last Admin: 06/17/23 11:16 Dose: 4 mg Documented By: OPAL Vital Signs Vital signs: Vital Signs - 8 hr 06/17/23 10:37 06/17/23 10:58 06/17/23 10:48 Temperature 97.7 F Pulse Rate 100 H 102 H 99 H Respiratory Rate 18 Blood Pressure 215/113 H 230/113 H Pulse Oximetry 98 96 Oxygen Delivery Method Room Air 06/17/23 10:49 06/17/23 10:49 06/17/23 11:00 Temperature Pulse Rate 95 H Respiratory Rate Blood Pressure 233/123 H 220/118 H Pulse Oximetry 98 Oxygen Delivery Method 06/17/23 11:00 06/17/23 11:22 06/17/23 11:30 Temperature Pulse Rate 92 H 91 H 88 Respiratory Rate 25 H 24 Blood Pressure Pulse Oximetry 97 97 96 Oxygen Delivery Method Room Air 06/17/23 11:45 06/17/23 12:00 06/17/23 12:09 Temperature Pulse Rate 86 75 Respiratory Rate 22 13 Blood Pressure 192/110 H Pulse Oximetry 97 98 Oxygen Delivery Method Room Air 06/17/23 12:09 06/17/23 12:16 06/17/23 12:17 Temperature Pulse Rate 89 101 H Respiratory Rate 16 25 H Blood Pressure 220/122 H Pulse Oximetry 98 99 Oxygen Delivery Method 06/17/23 12:17 06/17/23 12:45 06/17/23 13:00 Temperature Pulse Rate 95 H 102 H 87 Respiratory Rate 16 30 H 22 Blood Pressure Pulse Oximetry 98 96 99 Oxygen Delivery Method 06/17/23 13:14 06/17/23 13:14 06/17/23 13:15 Temperature Pulse Rate 90 Respiratory Rate 29 H Blood Pressure 197/113 H 196/140 H Pulse Oximetry 97 Oxygen Delivery Method 06/17/23 13:15 06/17/23 13:30 06/17/23 13:32 Temperature Pulse Rate 87 86 Respiratory Rate 25 H Blood Pressure 223/108 H Pulse Oximetry 98 96 Oxygen Delivery Method 06/17/23 13:32 06/17/23 13:35 06/17/23 13:35 Temperature Pulse Rate 121 H 100 H Respiratory Rate 21 17 Blood Pressure 200/101 H Pulse Oximetry 98 98 Oxygen Delivery Method 06/17/23 13:40 06/17/23 13:40 06/17/23 13:45 Temperature Pulse Rate 90 97 H Respiratory Rate 29 H 16 Blood Pressure 191/93 H Pulse Oximetry 98 97 Oxygen Delivery Method Room Air 06/17/23 13:46 06/17/23 13:46 06/17/23 13:50 Temperature Pulse Rate 102 H Respiratory Rate 31 H Blood Pressure 181/87 H 177/86 H Pulse Oximetry 97 Oxygen Delivery Method 06/17/23 13:50 06/17/23 13:55 06/17/23 13:55 Temperature Pulse Rate 95 H 97 H Respiratory Rate 22 22 Blood Pressure 169/85 H Pulse Oximetry 91 96 Oxygen Delivery Method 06/17/23 14:00 06/17/23 14:00 06/17/23 14:05 Temperature Pulse Rate 99 H Respiratory Rate 27 H Blood Pressure 176/99 H 132/84 Pulse Oximetry 94 Oxygen Delivery Method 06/17/23 14:05 06/17/23 14:10 06/17/23 14:10 Temperature Pulse Rate 113 H 105 H Respiratory Rate 34 H 24 Blood Pressure 147/94 H Pulse Oximetry Oxygen Delivery Method 06/17/23 14:15 06/17/23 14:20 06/17/23 14:20 Temperature Pulse Rate 117 H 112 H Respiratory Rate 32 H 34 H Blood Pressure 180/84 H Pulse Oximetry 97 Oxygen Delivery Method 06/17/23 14:25 06/17/23 14:25 06/17/23 14:30 Temperature Pulse Rate 107 H Respiratory Rate Blood Pressure 188/88 H 169/81 H Pulse Oximetry 91 Oxygen Delivery Method 06/17/23 14:30 06/17/23 14:35 06/17/23 14:35 Temperature Pulse Rate 103 H 102 H Respiratory Rate 23 Blood Pressure 156/84 H Pulse Oximetry 93 94 Oxygen Delivery Method 06/17/23 14:40 06/17/23 14:40 06/17/23 14:45 Temperature Pulse Rate 97 H Respiratory Rate 21 Blood Pressure 167/84 H 164/90 H Pulse Oximetry 94 Oxygen Delivery Method 06/17/23 14:45 06/17/23 14:50 06/17/23 14:50 Temperature Pulse Rate 99 H 96 H Respiratory Rate 36 H 37 H Blood Pressure 156/88 H Pulse Oximetry Oxygen Delivery Method 06/17/23 14:55 06/17/23 14:55 06/17/23 15:00 Temperature Pulse Rate 93 H Respiratory Rate Blood Pressure 159/98 H 166/103 H Pulse Oximetry 99 Oxygen Delivery Method 06/17/23 15:00 06/17/23 15:05 06/17/23 15:05 Temperature Pulse Rate 96 H 91 H Respiratory Rate 25 H Blood Pressure 163/95 H Pulse Oximetry 99 98 Oxygen Delivery Method 06/17/23 15:10 06/17/23 15:10 06/17/23 15:15 Temperature Pulse Rate 97 H Respiratory Rate 27 H Blood Pressure 162/93 H 187/83 H Pulse Oximetry 98 Oxygen Delivery Method 06/17/23 15:15 06/17/23 15:20 06/17/23 15:20 Temperature Pulse Rate 93 H 95 H Respiratory Rate 21 34 H Blood Pressure 165/93 H Pulse Oximetry 94 94 Oxygen Delivery Method 06/17/23 15:25 06/17/23 15:25 06/17/23 15:30 Temperature Pulse Rate 92 H Respiratory Rate 27 H Blood Pressure 155/85 H 158/86 H Pulse Oximetry 93 Oxygen Delivery Method 06/17/23 15:30 06/17/23 15:35 06/17/23 15:35 Temperature Pulse Rate 92 H 96 H Respiratory Rate 25 H Blood Pressure 156/84 H Pulse Oximetry 95 Oxygen Delivery Method 06/17/23 15:40 06/17/23 15:40 06/17/23 15:45 Temperature Pulse Rate 90 Respiratory Rate 32 H Blood Pressure 158/91 H 156/91 H Pulse Oximetry 94 Oxygen Delivery Method 06/17/23 15:45 06/17/23 15:50 06/17/23 15:50 Temperature Pulse Rate 94 H 90 Respiratory Rate 28 H 22 Blood Pressure 166/85 H Pulse Oximetry 97 97 Oxygen Delivery Method MDM - Dizziness Lab Data 06/17/23 11:00 06/17/23 13:30 Labs: Lab Results 06/17/23 06/17/23 06/17/23 Range/Units 10:45 11:00 11:00 WBC 7.7 (4.5-11.0) X10^3/uL RBC 3.67 L (4.0-5.2) X10^6/uL Hgb 11.1 L (12.0-16.0) g/dL Hct 33.2 L (36-46) % MCV 90.5 (80-100) fL MCH 30.4 (26-34) PG MCHC 33.6 (30-36) % RDW 14.7 (11.6-14.8) % Plt Count 268 (150-400) X10^3/uL Neut % (Auto) 84.8 H (50-75) % Lymph % (Auto) 9.8 L (25-40) % Andrews % (Auto) 4.3 (3-14) % Eos % (Auto) 0.7 L (2-4) % Baso % (Auto) 0.4 (0-2) % Neut # (Auto) 6600 (3883-5797) /uL Lymph # (Auto) 800 L (9549-7199) /uL Andrews # (Auto) 300 (0-900) /uL Eos # (Auto) 100 (0-450) /uL Baso # (Auto) 0 (0-100) /uL PT 11.6 (10.1-12.7) SECONDS INR 1.0 (0.9-1.3) APTT 44 H (26-36) SECONDS VBG pH (7.33-7.43) VBG pCO2 (45-50) mmHg VBG pO2 (35-45) mmHg VBG HCO3 (24-28) mmol/L VBG Total CO2 (24-29) mmol/L VBG O2 Saturation (70-75) % VBG Base Excess (0-4) mmol/L FiO2 Sodium (137-145) mmol/L Potassium (3.4-5.1) mmol/L Chloride (98-107) mmol/L Carbon Dioxide (22-32) mmol/L BUN (7-17) mg/dL Creatinine (0.52-1.04) mg/dL Estimated GFR (>60) mL/min BUN/Creatinine Ratio (6-22) Glucose (80-110) mg/dL Hemoglobin A1c (4.0-6.0) % Lactate (0.7-2.1) mmol/L Calcium (8.4-10.2) mg/dL Magnesium (1.6-2.3) mg/dL Total Bilirubin (0.2-1.3) mg/dL AST (14-36) IU/L ALT (<35) IU/L Alkaline Phosphatase (38-126) U/L Total Creatine Kinase (30-135) U/L Troponin I (0.01-0.034) ng/mL Total Protein (6.3-8.2) g/dL Albumin (3.5-5.0) g/dL Globulin (1.7-4.1) g/dL Albumin/Globulin Ratio (1.0-2.8) Lipase (23-300) U/L Urine RBC (0-5/HPF) Urine WBC (0-5/HPF) Ur Squamous Epith Cells (0-5/HPF) Urine Bacteria (None) Ur Culture Indicated? Ur Random Sodium (30-90) mmol/L Urine Creatinine mg/dL Salicylates (<20) mg/dL U Opiates 300ng/mL cut (Negative) Ur Oxycodone Screen (Negative) Urine Methadone Screen (Negative) Ur Barbiturates Screen (Negative) U Tricyclic Antidepress (Negative) Ur Phencyclidine Scrn (Negative) Ur Amphetamines Screen (Negative) U Methamphetamines Scrn (Negative) Ur MDMA Scrn (Ecstasy) (Negative) U Benzodiazepines Scrn (Negative) Urine Cocaine Screen (Negative) U Marijuana (THC) Screen (Negative) Ketones (<0.27) mmol/L SARS-CoV-2 (PCR) Negative (Negative) 06/17/23 06/17/23 06/17/23 Range/Units 11:00 11:00 11:00 WBC (4.5-11.0) X10^3/uL RBC (4.0-5.2) X10^6/uL Hgb (12.0-16.0) g/dL Hct (36-46) % MCV (80-100) fL MCH (26-34) PG MCHC (30-36) % RDW (11.6-14.8) % Plt Count (150-400) X10^3/uL Neut % (Auto) (50-75) % Lymph % (Auto) (25-40) % Andrews % (Auto) (3-14) % Eos % (Auto) (2-4) % Baso % (Auto) (0-2) % Neut # (Auto) (8050-3971) /uL Lymph # (Auto) (4263-4775) /uL Andrews # (Auto) (0-900) /uL Eos # (Auto) (0-450) /uL Baso # (Auto) (0-100) /uL PT (10.1-12.7) SECONDS INR (0.9-1.3) APTT (26-36) SECONDS VBG pH (7.33-7.43) VBG pCO2 (45-50) mmHg VBG pO2 (35-45) mmHg VBG HCO3 (24-28) mmol/L VBG Total CO2 (24-29) mmol/L VBG O2 Saturation (70-75) % VBG Base Excess (0-4) mmol/L FiO2 Sodium 144 (137-145) mmol/L Potassium 4.5 (3.4-5.1) mmol/L Chloride 110 H (98-107) mmol/L Carbon Dioxide 19 L (22-32) mmol/L BUN 100 H (7-17) mg/dL Creatinine 3.41 H (0.52-1.04) mg/dL Estimated GFR 14 L (>60) mL/min BUN/Creatinine Ratio 29.3 H (6-22) Glucose 233 H (80-110) mg/dL Hemoglobin A1c 5.4 (4.0-6.0) % Lactate 0.7 (0.7-2.1) mmol/L Calcium 10.5 H (8.4-10.2) mg/dL Magnesium 3.0 H (1.6-2.3) mg/dL Total Bilirubin 0.4 (0.2-1.3) mg/dL AST 23 (14-36) IU/L ALT 17 (<35) IU/L Alkaline Phosphatase 64 (38-126) U/L Total Creatine Kinase 24 L (30-135) U/L Troponin I < 0.012 (0.01-0.034) ng/mL Total Protein 8.0 (6.3-8.2) g/dL Albumin 4.6 (3.5-5.0) g/dL Globulin 3.4 (1.7-4.1) g/dL Albumin/Globulin Ratio 1.4 (1.0-2.8) Lipase 228 (23-300) U/L Urine RBC (0-5/HPF) Urine WBC (0-5/HPF) Ur Squamous Epith Cells (0-5/HPF) Urine Bacteria (None) Ur Culture Indicated? Ur Random Sodium (30-90) mmol/L Urine Creatinine mg/dL Salicylates (<20) mg/dL U Opiates 300ng/mL cut (Negative) Ur Oxycodone Screen (Negative) Urine Methadone Screen (Negative) Ur Barbiturates Screen (Negative) U Tricyclic Antidepress (Negative) Ur Phencyclidine Scrn (Negative) Ur Amphetamines Screen (Negative) U Methamphetamines Scrn (Negative) Ur MDMA Scrn (Ecstasy) (Negative) U Benzodiazepines Scrn (Negative) Urine Cocaine Screen (Negative) U Marijuana (THC) Screen (Negative) Ketones (<0.27) mmol/L SARS-CoV-2 (PCR) (Negative) 06/17/23 06/17/23 06/17/23 Range/Units 11:00 11:11 12:21 WBC (4.5-11.0) X10^3/uL RBC (4.0-5.2) X10^6/uL Hgb (12.0-16.0) g/dL Hct (36-46) % MCV (80-100) fL MCH (26-34) PG MCHC (30-36) % RDW (11.6-14.8) % Plt Count (150-400) X10^3/uL Neut % (Auto) (50-75) % Lymph % (Auto) (25-40) % Andrews % (Auto) (3-14) % Eos % (Auto) (2-4) % Baso % (Auto) (0-2) % Neut # (Auto) (3156-2410) /uL Lymph # (Auto) (8909-2091) /uL Andrews # (Auto) (0-900) /uL Eos # (Auto) (0-450) /uL Baso # (Auto) (0-100) /uL PT (10.1-12.7) SECONDS INR (0.9-1.3) APTT (26-36) SECONDS VBG pH 7.29 L (7.33-7.43) VBG pCO2 42.0 L (45-50) mmHg VBG pO2 26 L (35-45) mmHg VBG HCO3 20 L (24-28) mmol/L VBG Total CO2 21 L (24-29) mmol/L VBG O2 Saturation 41 L (70-75) % VBG Base Excess -6.0 L (0-4) mmol/L FiO2 21 Sodium (137-145) mmol/L Potassium (3.4-5.1) mmol/L Chloride (98-107) mmol/L Carbon Dioxide (22-32) mmol/L BUN (7-17) mg/dL Creatinine (0.52-1.04) mg/dL Estimated GFR (>60) mL/min BUN/Creatinine Ratio (6-22) Glucose (80-110) mg/dL Hemoglobin A1c (4.0-6.0) % Lactate (0.7-2.1) mmol/L Calcium (8.4-10.2) mg/dL Magnesium (1.6-2.3) mg/dL Total Bilirubin (0.2-1.3) mg/dL AST (14-36) IU/L ALT (<35) IU/L Alkaline Phosphatase (38-126) U/L Total Creatine Kinase (30-135) U/L Troponin I (0.01-0.034) ng/mL Total Protein (6.3-8.2) g/dL Albumin (3.5-5.0) g/dL Globulin (1.7-4.1) g/dL Albumin/Globulin Ratio (1.0-2.8) Lipase (23-300) U/L Urine RBC (0-5/HPF) Urine WBC (0-5/HPF) Ur Squamous Epith Cells (0-5/HPF) Urine Bacteria (None) Ur Culture Indicated? Ur Random Sodium 66 (30-90) mmol/L Urine Creatinine 31.8 mg/dL Salicylates < 1.0 (<20) mg/dL U Opiates 300ng/mL cut (Negative) Ur Oxycodone Screen (Negative) Urine Methadone Screen (Negative) Ur Barbiturates Screen (Negative) U Tricyclic Antidepress (Negative) Ur Phencyclidine Scrn (Negative) Ur Amphetamines Screen (Negative) U Methamphetamines Scrn (Negative) Ur MDMA Scrn (Ecstasy) (Negative) U Benzodiazepines Scrn (Negative) Urine Cocaine Screen (Negative) U Marijuana (THC) Screen (Negative) Ketones 0.57 H (<0.27) mmol/L SARS-CoV-2 (PCR) (Negative) 06/17/23 06/17/23 06/17/23 Range/Units 12:21 12:21 13:30 WBC (4.5-11.0) X10^3/uL RBC (4.0-5.2) X10^6/uL Hgb (12.0-16.0) g/dL Hct (36-46) % MCV (80-100) fL MCH (26-34) PG MCHC (30-36) % RDW (11.6-14.8) % Plt Count (150-400) X10^3/uL Neut % (Auto) (50-75) % Lymph % (Auto) (25-40) % Andrews % (Auto) (3-14) % Eos % (Auto) (2-4) % Baso % (Auto) (0-2) % Neut # (Auto) (5711-1433) /uL Lymph # (Auto) (7153-8736) /uL Andrews # (Auto) (0-900) /uL Eos # (Auto) (0-450) /uL Baso # (Auto) (0-100) /uL PT (10.1-12.7) SECONDS INR (0.9-1.3) APTT (26-36) SECONDS VBG pH (7.33-7.43) VBG pCO2 (45-50) mmHg VBG pO2 (35-45) mmHg VBG HCO3 (24-28) mmol/L VBG Total CO2 (24-29) mmol/L VBG O2 Saturation (70-75) % VBG Base Excess (0-4) mmol/L FiO2 Sodium 145 (137-145) mmol/L Potassium 4.2 (3.4-5.1) mmol/L Chloride 113 H (98-107) mmol/L Carbon Dioxide 20 L (22-32) mmol/L BUN 109 H* (7-17) mg/dL Creatinine 3.12 H (0.52-1.04) mg/dL Estimated GFR 15 L (>60) mL/min BUN/Creatinine Ratio 34.9 H (6-22) Glucose 199 H (80-110) mg/dL Hemoglobin A1c (4.0-6.0) % Lactate (0.7-2.1) mmol/L Calcium 10.3 H (8.4-10.2) mg/dL Magnesium (1.6-2.3) mg/dL Total Bilirubin (0.2-1.3) mg/dL AST (14-36) IU/L ALT (<35) IU/L Alkaline Phosphatase (38-126) U/L Total Creatine Kinase (30-135) U/L Troponin I (0.01-0.034) ng/mL Total Protein (6.3-8.2) g/dL Albumin (3.5-5.0) g/dL Globulin (1.7-4.1) g/dL Albumin/Globulin Ratio (1.0-2.8) Lipase (23-300) U/L Urine RBC 0-1/hpf (0-5/HPF) Urine WBC 0-1/hpf (0-5/HPF) Ur Squamous Epith Cells 0-1 /hpf (0-5/HPF) Urine Bacteria Few (2-10) H (None) Ur Culture Indicated? Cult not indicated Ur Random Sodium (30-90) mmol/L Urine Creatinine mg/dL Salicylates (<20) mg/dL U Opiates 300ng/mL cut Negative (Negative) Ur Oxycodone Screen Negative (Negative) Urine Methadone Screen Negative (Negative) Ur Barbiturates Screen Negative (Negative) U Tricyclic Antidepress Negative (Negative) Ur Phencyclidine Scrn Negative (Negative) Ur Amphetamines Screen Negative (Negative) U Methamphetamines Scrn Negative (Negative) Ur MDMA Scrn (Ecstasy) Negative (Negative) U Benzodiazepines Scrn Negative (Negative) Urine Cocaine Screen Negative (Negative) U Marijuana (THC) Screen Negative (Negative) Ketones (<0.27) mmol/L SARS-CoV-2 (PCR) (Negative) Point of Care Testing Glucose POC 186 Urine Dip Bedside Urine Glucose 500 mg/dl Bedside Urine Bilirubin - Negative Bedside Urine Ketone - Negative Urine Specific Heber 1.015 Bedside Urine Occult Blood +/- Bedside Urine pH 6.0 Bedside Urine Protein +++ 300 Bedside Urine Urobilinogen - Negative Bedside Urine Nitrite - Negative Bedside Urine Leukocytes - Negative Esterase MDM Narrative Medical decision making narrative: 68-year-old female has been feeling a bit off, only specific complaint is of some lightheadedness since this morning. No focal findings, blood sugar not significantly abnormal, no change in her medications. Prior to her arrival she had not yet taken her antihypertensives including amlodipine 5 mg and carvedilol 6.25 those were administered relatively soon after her arrival given initial blood pressures in the 220s, these have had little to no impact, thankfully head CT is unremarkable. Patient lightheadedness and relative encephalopathic picture unclear at this point but hypertensive emergency certainly highly considered, acute kidney injury noted, fluids administered, imaging to rule out postobstructive uropathy. FeNa 4.9% suggesting a possible obstructive cause Patient placed on nicardipine drip given lack of response to oral medications, this makes a noted improvement and pressures are now in the 150s. After L of fluid her anion gap has closed, creatinine improved, blood sugar still slightly elevated. After discussion with hospitalist we have administered insulin 5 units subQ, patient will require hospitalization for ongoing evaluation and stabilization of her condition Discharge Plan Departure Patient Disposition: Admitted As Inpatient Clinical Impression: Acute kidney injury, HTN (hypertension) Admit Date/Time: 06/17/23 15:52 Admit Provider: Doroteo San
--- NOTE | 2023-06-17 12:06 | DI.CT.S_ITS ---
PROCEDURE: CT KIDNEY URETER BLADDER (KUB) INDICATIONS: acute kidney injury, obstructive uropathy? TECHNIQUE: Axial sections were acquired from the lung bases to the pubic symphysis. Coronal and sagittal reformats were performed. For radiation dose reduction, the following was used: automated exposure control, adjustment of mA and/or kV according to patient size. COMPARISON: [facility], CT, CT HEAD/BRAIN WO CON, 06/17/2023, 11:25. [facility], CR, XR CHEST 1V, 06/17/2023, 11:05. [facility], US, US RENAL COMPLETE, 11/07/2022, 10:03. FINDINGS: Image quality: This examination is limited by involuntary motion artifact. Lung bases: Unremarkable. Heart: No significant findings. URINARY: Right Kidney: No right-sided bruises can be seen. There is calcifications can be seen the right kidney, which most in keeping atherosclerotic calcification Right Ureter: No hydroureter. Left Kidney: No left-sided hydronephrosis. Numerous calcifications can be seen the left kidney, which tract along with the arteries. Left Ureter: No hydroureter. Bladder: Normal wall thickness. No stones. ABDOMEN: Liver: Unremarkable. Gallbladder: Unremarkable. Biliary ducts: Unremarkable. Pancreas: Unremarkable. Spleen: Unremarkable. Adrenal Glands: Unremarkable. Stomach and Bowel: Stomach, small bowel loops, and colon are unremarkable. Colonic diverticulosis is seen, without findings of active diverticulitis. A normal appendix is noted. Peritoneum: No abnormal intraperitoneal fluid. No free air. Ventral Wall: No hernia. Abdominal Nodes: No enlarged retroperitoneal or mesenteric lymph nodes. Vessels: Aorta and inferior vena cava are normal in size. PELVIS: Pelvic Organs: A fibroid uterus is seen. No adnexal masses are seen on either side. Pelvic Nodes: Unremarkable. Miscellaneous: No inguinal hernias are seen. Bones: Remote bilateral rib fractures seen. S-shaped scoliotic curvature is seen. Age-appropriate bony degenerative changes are seen. There is a remote mild T11 anterior wedge deformity. IMPRESSION: No hydronephrosis is seen on either side. Numerous calcifications can be seen involving each kidney, which have the appearance of arterial vascular calcifications (not kidney stones). Additional findings: Remote bilateral rib fractures Remote mild T11 anterior wedge deformity Fibroid uterus Diverticulosis, without active diverticulitis Dictated by: Shlomo Mortensen M.D. on 06/17/2023 at 12:20 Approved by: Shlomo Mortensen M.D. on 06/17/2023 at 12:24
--- NOTE | 2023-06-17 12:30 | PC.NURSE ---
Patient left department with air analysis technician in wheelchair.
[2023-06-17] MEDS: SODIUM CHLORIDE 0.9% 1,000 ML 1000 ML IV (12:46)
[2023-06-17 12:51] LABS: Creatinine Urine Random 31.8 mg/dL; Sodium Urine Random 66 mmol/L (30-90)
[2023-06-17 12:57] LABS: Bacteria Urine Few (2-10); Culture Indicated Urine Cult Not Indicated; RBC Urine 0-1/HPF (0-5/HPF); Squamous Epithelial Cell Urine 0-1 /HPF (0-5/HPF); UR Morphine/Opiate cutoff 300 Negative (Negative); Ur Creatinine Normal (Normal); Ur Specific Gravity Normal (Normal); Urine Amphetamines Negative (Negative); Urine Barbiturates Negative (Negative); Urine Benzodiazepines Negative (Negative); Urine Cocaine Negative (Negative); Urine MDMA Negative (Negative); Urine Methadone Negative (Negative); Urine Methamphetamines Negative (Negative); Urine Oxycodone Negative (Negative); Urine Phencyclidine Negative (Negative); Urine Tetrahydrocannabinol Negative (Negative); Urine Tricyclic Antidepressant Negative (Negative); Urine pH Normal (Normal); WBC Urine 0-1/HPF (0-5/HPF)
[2023-06-17] MEDS: NICARDIPINE 25 MG in SODIUM CHLORIDE 0.9% 240 ML 50 MG IV ×2 (13:31→14:02)
--- NOTE | 2023-06-17 13:56 | PC.NURSE ---
Nicardipine completed on DEC only by my error. Unable to undo documentation. Pharmacy / IT unable to assist. New order placed. No interruption of nicardipine gtt.
[2023-06-17 15:25] LABS: BUN Creatinine Ratio 34.9 (6-22); Calcium 10.3 mg/dL (8.4-10.2); Carbon Dioxide 20 mmol/L (22-32); Chloride 113 mmol/L (98-107); Estimated Glomerular Filt Rate 15 mL/min (>60); Glucose 199 mg/dL (80-110); HEMOLYSIS < 15 (0-50); Potassium 4.2 mmol/L (3.4-5.1); Sodium 145 mmol/L (137-145)
[2023-06-17 15:27] LABS: Blood Urea Nitrogen 109 mg/dL (7-17)
[2023-06-17] MEDS: INSULIN REGULAR 100 UNIT/ML 3 ML VIAL SUBCUT (15:54)
--- NOTE | 2023-06-17 16:57 | PC.NURSE ---
Addendum entered by Mary Ann An R.N. 06/17/23 19:12: RN attempted to complete Medication reconciliation. Pt unable to remember all medications and doses of medicines that she takes at home. Addendum entered by Mary Ann An R.N. 06/17/23 18:41: BP 122/82, next bag scanned of nicardipine but not given due to BP below parameters. Provider says to restart if SPB >180 Addendum entered by Mary Ann An R.N. 06/17/23 17:05: Spoke with provider to clarify BP goal for nicardipine, provider said titrate to SBP 180. Adjusted nicardipine gtt accordingly. Original Note: BP 173/90; HR 90 at admission.
--- NOTE | 2023-06-17 17:43 | P.HP_ITS ---
History of Present Illness History of Present Illness Date Patient Seen: 06/17/23 Time Patient Seen: 17:43 Chief complaint: thinks she is low on glucose levels/ 267 Narrative: This is a 68 year old female with PMH of CKD, DM 2 poorly controlled, and HTN with prior admission for DKA who presented to the ER with nausea, confusion and vision changes starting this morning. Last known normal was yesterday evening. She ate a normal meal yesterday evening, but starting around 3:30 AM she started developing nbnb emesis with persistent nausea. It may be worsened with movement but she is not able to tell. She has chronic sinusitis and does take decongestants but the last was multiple days ago. She also had worsened blurry vision and perhaps some weakness of her R hand. She denies fever, chills, chest pain, shortness of breath, palpitations, LE edema or orthopnea. In the emergency room patient was markedly hypertensive with SBP around 220 initially. She vomited after being given her home antihypertensives. Labs showed wbc of 7.7, chronic anemia Hg 11.1 (improved from prior), Abg showed pH of 7.29, PCO2 of 42, with HCO3 of 20. Bmp with CO2 of 19, creatinine of 3.4 and AG of >15 improved to 3.12 with fluids and resolved anion gap. She was also given 5U of regular insulin. Mg was 3.0. CHest xray was unremarkable, head CT showed no acute pathologies. CT abdomen showed no evidence of urinary obstruction. She was treated as a hypertensive emergency in the ER, with improvement in symptoms with cardene infusion. She was admitted for further management to the ICU. Spouse reports improvement in her confusion noted this morning. [facility] Medical History Congestive heart failure Diabetes Hypertension Social History household members: significant other lives independently: Yes Smoking Status: Former smoker Meds Home Medications and Allergies Home Medications Medication Instructions Recorded Confirmed Type amlodipine 5 mg tablet (Norvasc) 5 mg PO DAILY #30 tabs 11/08/22 Rx carvedilol 6.25 mg tablet 6.25 mg PO BID #60 tabs 11/08/22 Rx insulin glargine 100 unit/mL (3 25 unit (0.25 mL) SUBCUT BEDTIME 01/24/23 Rx mL) subcutaneous pen (Lantus #15 mL Solostar U-100 Insulin) insulin lispro 100 unit/mL See Rx Instructions .Route 11/08/22 Rx subcutaneous solution (Humalog .COMPLEX #15 mL U-100 Insulin) Allergies Allergy/AdvReac Type Severity Reaction Status Date / Time No Allergy Information Allergy Verified 06/17/23 10:45 Available Review of Systems Review of Systems Narrative: All other systems reviewed with the patient and are negative unless otherwise stated. Exam Vital Signs (past 8 hours): - 06/17/23 10:37 06/17/23 10:58 06/17/23 10:48 Temperature 97.7 F Pulse Rate 100 H 102 H 99 H Respiratory Rate 18 Blood Pressure 215/113 H 230/113 H Pulse Oximetry 98 96 Oxygen Delivery Method Room Air 06/17/23 10:49 06/17/23 10:49 06/17/23 11:00 Temperature Pulse Rate 95 H Respiratory Rate Blood Pressure 233/123 H 220/118 H Pulse Oximetry 98 Oxygen Delivery Method 06/17/23 11:00 06/17/23 11:22 06/17/23 11:30 Temperature Pulse Rate 92 H 91 H 88 Respiratory Rate 25 H 24 Blood Pressure Pulse Oximetry 97 97 96 Oxygen Delivery Method Room Air 06/17/23 11:45 06/17/23 12:00 06/17/23 12:09 Temperature Pulse Rate 86 75 Respiratory Rate 22 13 Blood Pressure 192/110 H Pulse Oximetry 97 98 Oxygen Delivery Method Room Air 06/17/23 12:09 06/17/23 12:16 06/17/23 12:17 Temperature Pulse Rate 89 101 H Respiratory Rate 16 25 H Blood Pressure 220/122 H Pulse Oximetry 98 99 Oxygen Delivery Method 06/17/23 12:17 06/17/23 12:45 06/17/23 13:00 Temperature Pulse Rate 95 H 102 H 87 Respiratory Rate 16 30 H 22 Blood Pressure Pulse Oximetry 98 96 99 Oxygen Delivery Method 06/17/23 13:14 06/17/23 13:14 06/17/23 13:15 Temperature Pulse Rate 90 Respiratory Rate 29 H Blood Pressure 197/113 H 196/140 H Pulse Oximetry 97 Oxygen Delivery Method 06/17/23 13:15 06/17/23 13:30 06/17/23 13:32 Temperature Pulse Rate 87 86 Respiratory Rate 25 H Blood Pressure 223/108 H Pulse Oximetry 98 96 Oxygen Delivery Method 06/17/23 13:32 06/17/23 13:35 06/17/23 13:35 Temperature Pulse Rate 121 H 100 H Respiratory Rate 21 17 Blood Pressure 200/101 H Pulse Oximetry 98 98 Oxygen Delivery Method 06/17/23 13:40 06/17/23 13:40 06/17/23 13:45 Temperature Pulse Rate 90 97 H Respiratory Rate 29 H 16 Blood Pressure 191/93 H Pulse Oximetry 98 97 Oxygen Delivery Method Room Air 06/17/23 13:46 06/17/23 13:46 06/17/23 13:50 Temperature Pulse Rate 102 H Respiratory Rate 31 H Blood Pressure 181/87 H 177/86 H Pulse Oximetry 97 Oxygen Delivery Method 06/17/23 13:50 06/17/23 13:55 06/17/23 13:55 Temperature Pulse Rate 95 H 97 H Respiratory Rate 22 22 Blood Pressure 169/85 H Pulse Oximetry 91 96 Oxygen Delivery Method 06/17/23 14:00 06/17/23 14:00 06/17/23 14:05 Temperature Pulse Rate 99 H Respiratory Rate 27 H Blood Pressure 176/99 H 132/84 Pulse Oximetry 94 Oxygen Delivery Method 06/17/23 14:05 06/17/23 14:10 06/17/23 14:10 Temperature Pulse Rate 113 H 105 H Respiratory Rate 34 H 24 Blood Pressure 147/94 H Pulse Oximetry Oxygen Delivery Method 06/17/23 14:15 06/17/23 14:20 06/17/23 14:20 Temperature Pulse Rate 117 H 112 H Respiratory Rate 32 H 34 H Blood Pressure 180/84 H Pulse Oximetry 97 Oxygen Delivery Method 06/17/23 14:25 06/17/23 14:25 06/17/23 14:30 Temperature Pulse Rate 107 H Respiratory Rate Blood Pressure 188/88 H 169/81 H Pulse Oximetry 91 Oxygen Delivery Method 06/17/23 14:30 06/17/23 14:35 06/17/23 14:35 Temperature Pulse Rate 103 H 102 H Respiratory Rate 23 Blood Pressure 156/84 H Pulse Oximetry 93 94 Oxygen Delivery Method 06/17/23 14:40 06/17/23 14:40 06/17/23 14:45 Temperature Pulse Rate 97 H Respiratory Rate 21 Blood Pressure 167/84 H 164/90 H Pulse Oximetry 94 Oxygen Delivery Method 06/17/23 14:45 06/17/23 14:50 06/17/23 14:50 Temperature Pulse Rate 99 H 96 H Respiratory Rate 36 H 37 H Blood Pressure 156/88 H Pulse Oximetry Oxygen Delivery Method 06/17/23 14:55 06/17/23 14:55 06/17/23 15:00 Temperature Pulse Rate 93 H Respiratory Rate Blood Pressure 159/98 H 166/103 H Pulse Oximetry 99 Oxygen Delivery Method 06/17/23 15:00 06/17/23 15:05 06/17/23 15:05 Temperature Pulse Rate 96 H 91 H Respiratory Rate 25 H Blood Pressure 163/95 H Pulse Oximetry 99 98 Oxygen Delivery Method 06/17/23 15:10 06/17/23 15:10 06/17/23 15:15 Temperature Pulse Rate 97 H Respiratory Rate 27 H Blood Pressure 162/93 H 187/83 H Pulse Oximetry 98 Oxygen Delivery Method 06/17/23 15:15 06/17/23 15:20 06/17/23 15:20 Temperature Pulse Rate 93 H 95 H Respiratory Rate 21 34 H Blood Pressure 165/93 H Pulse Oximetry 94 94 Oxygen Delivery Method 06/17/23 15:25 06/17/23 15:25 06/17/23 15:30 Temperature Pulse Rate 92 H Respiratory Rate 27 H Blood Pressure 155/85 H 158/86 H Pulse Oximetry 93 Oxygen Delivery Method 06/17/23 15:30 06/17/23 15:35 06/17/23 15:35 Temperature Pulse Rate 92 H 96 H Respiratory Rate 25 H Blood Pressure 156/84 H Pulse Oximetry 95 Oxygen Delivery Method 06/17/23 15:40 06/17/23 15:40 06/17/23 15:45 Temperature Pulse Rate 90 Respiratory Rate 32 H Blood Pressure 158/91 H 156/91 H Pulse Oximetry 94 Oxygen Delivery Method 06/17/23 15:45 06/17/23 15:50 06/17/23 15:50 Temperature Pulse Rate 94 H 90 Respiratory Rate 28 H 22 Blood Pressure 166/85 H Pulse Oximetry 97 97 Oxygen Delivery Method 06/17/23 15:55 06/17/23 15:55 06/17/23 16:00 Temperature Pulse Rate 97 H Respiratory Rate 37 H Blood Pressure 164/89 H 149/76 H Pulse Oximetry 96 Oxygen Delivery Method 06/17/23 16:00 06/17/23 16:05 06/17/23 16:05 Temperature Pulse Rate 96 H 93 H Respiratory Rate 36 H 28 H Blood Pressure 158/79 H Pulse Oximetry 96 95 Oxygen Delivery Method 06/17/23 16:10 06/17/23 16:10 06/17/23 16:15 Temperature Pulse Rate 94 H Respiratory Rate 19 Blood Pressure 165/88 H 179/87 H Pulse Oximetry 94 Oxygen Delivery Method 06/17/23 16:15 06/17/23 16:31 06/17/23 15:55 Temperature 97.8 F Pulse Rate 93 H 97 H Respiratory Rate 16 19 Blood Pressure 173/90 H Pulse Oximetry 98 97 Oxygen Delivery Method Room Air Oxygen Delivery Method Room Air Narrative Exam Narrative: General:? Patient is well developed and well nourished, in no distress at this time. HEENT:? Normocephalic, atraumatic, extraocular muscles intact, oral pharynx is clear and mucous membranes are moist. Neck: supple and symmetric, trachea is midline, no cervical adenopathy. Negative for JVD Chest:? Normal AP diameter and contour without kyphoscoliosis, no tachypnea, equal chest rise bilaterally. Lungs:? CTA b/l no wheezing rhonchi or rales. Cardio:?RRR no m/r/g. Abdomen: S NT ND. No CVA tenderness. Musculoskeletal:? Muscle strength and tone are equal within normal limits, no deformity. Extremities: No edema or joint effusions. No cyanosis or clubbing. Skin:? Pale,? Warm to touch,dry and intact without rashes, ulcerations or p etechiae.? Neuro:? Alert and orientated x3,? sensation to touch intact in all extremities, no gross deficits noted of cranial nerves. NIH 0 as noted below. Psych:? Patient has a well-kept appearance, appropriate affect, mental status attitude thought context and judgment are appropriate for age. Objective Labs 06/17/23 11:00 06/17/23 13:30 Labs: Laboratory Results - last 24 hr 06/17/23 06/17/23 06/17/23 10:45 11:00 11:00 WBC 7.7 RBC 3.67 L Hgb 11.1 L Hct 33.2 L MCV 90.5 MCH 30.4 MCHC 33.6 RDW 14.7 Plt Count 268 Neut % (Auto) 84.8 H Lymph % (Auto) 9.8 L [place] % (Auto) 4.3 Eos % (Auto) 0.7 L Baso % (Auto) 0.4 Neut # (Auto) 6600 Lymph # (Auto) 800 L [place] # (Auto) 300 Eos # (Auto) 100 Baso # (Auto) 0 PT 11.6 INR 1.0 APTT 44 H VBG pH VBG pCO2 VBG pO2 VBG HCO3 VBG Total CO2 VBG O2 Saturation VBG Base Excess FiO2 Sodium Potassium Chloride Carbon Dioxide BUN Creatinine Estimated GFR BUN/Creatinine Ratio Glucose Hemoglobin A1c Lactate Calcium Magnesium Total Bilirubin AST ALT Alkaline Phosphatase Total Creatine Kinase Troponin I Total Protein Albumin Globulin Albumin/Globulin Ratio Lipase Urine RBC Urine WBC Ur Squamous Epith Cells Urine Bacteria Ur Culture Indicated? Ur Random Sodium Urine Creatinine Salicylates U Opiates 300ng/mL cut Ur Oxycodone Screen Urine Methadone Screen Ur Barbiturates Screen U Tricyclic Antidepress Ur Phencyclidine Scrn Ur Amphetamines Screen U Methamphetamines Scrn Ur MDMA Scrn (Ecstasy) U Benzodiazepines Scrn Urine Cocaine Screen U Marijuana (THC) Screen Ketones SARS-CoV-2 (PCR) Negative 06/17/23 06/17/23 06/17/23 11:00 11:00 11:00 WBC RBC Hgb Hct MCV MCH MCHC RDW Plt Count Neut % (Auto) Lymph % (Auto) [place] % (Auto) Eos % (Auto) Baso % (Auto) Neut # (Auto) Lymph # (Auto) [place] # (Auto) Eos # (Auto) Baso # (Auto) PT INR APTT VBG pH VBG pCO2 VBG pO2 VBG HCO3 VBG Total CO2 VBG O2 Saturation VBG Base Excess FiO2 Sodium 144 Potassium 4.5 Chloride 110 H Carbon Dioxide 19 L BUN 100 H Creatinine 3.41 H Estimated GFR 14 L BUN/Creatinine Ratio 29.3 H Glucose 233 H Hemoglobin A1c 5.4 Lactate 0.7 Calcium 10.5 H Magnesium 3.0 H Total Bilirubin 0.4 AST 23 ALT 17 Alkaline Phosphatase 64 Total Creatine Kinase 24 L Troponin I < 0.012 Total Protein 8.0 Albumin 4.6 Globulin 3.4 Albumin/Globulin Ratio 1.4 Lipase 228 Urine RBC Urine WBC Ur Squamous Epith Cells Urine Bacteria Ur Culture Indicated? Ur Random Sodium Urine Creatinine Salicylates U Opiates 300ng/mL cut Ur Oxycodone Screen Urine Methadone Screen Ur Barbiturates Screen U Tricyclic Antidepress Ur Phencyclidine Scrn Ur Amphetamines Screen U Methamphetamines Scrn Ur MDMA Scrn (Ecstasy) U Benzodiazepines Scrn Urine Cocaine Screen U Marijuana (THC) Screen Ketones SARS-CoV-2 (PCR) 06/17/23 06/17/23 06/17/23 11:00 11:11 12:21 WBC RBC Hgb Hct MCV MCH MCHC RDW Plt Count Neut % (Auto) Lymph % (Auto) [place] % (Auto) Eos % (Auto) Baso % (Auto) Neut # (Auto) Lymph # (Auto) [place] # (Auto) Eos # (Auto) Baso # (Auto) PT INR APTT VBG pH 7.29 L VBG pCO2 42.0 L VBG pO2 26 L VBG HCO3 20 L VBG Total CO2 21 L VBG O2 Saturation 41 L VBG Base Excess -6.0 L FiO2 21 Sodium Potassium Chloride Carbon Dioxide BUN Creatinine Estimated GFR BUN/Creatinine Ratio Glucose Hemoglobin A1c Lactate Calcium Magnesium Total Bilirubin AST ALT Alkaline Phosphatase Total Creatine Kinase Troponin I Total Protein Albumin Globulin Albumin/Globulin Ratio Lipase Urine RBC Urine WBC Ur Squamous Epith Cells Urine Bacteria Ur Culture Indicated? Ur Random Sodium 66 Urine Creatinine 31.8 Salicylates < 1.0 U Opiates 300ng/mL cut Ur Oxycodone Screen Urine Methadone Screen Ur Barbiturates Screen U Tricyclic Antidepress Ur Phencyclidine Scrn Ur Amphetamines Screen U Methamphetamines Scrn Ur MDMA Scrn (Ecstasy) U Benzodiazepines Scrn Urine Cocaine Screen U Marijuana (THC) Screen Ketones 0.57 H SARS-CoV-2 (PCR) 06/17/23 06/17/23 06/17/23 12:21 12:21 13:30 WBC RBC Hgb Hct MCV MCH MCHC RDW Plt Count Neut % (Auto) Lymph % (Auto) [place] % (Auto) Eos % (Auto) Baso % (Auto) Neut # (Auto) Lymph # (Auto) [place] # (Auto) Eos # (Auto) Baso # (Auto) PT INR APTT VBG pH VBG pCO2 VBG pO2 VBG HCO3 VBG Total CO2 VBG O2 Saturation VBG Base Excess FiO2 Sodium 145 Potassium 4.2 Chloride 113 H Carbon Dioxide 20 L BUN 109 H* Creatinine 3.12 H Estimated GFR 15 L BUN/Creatinine Ratio 34.9 H Glucose 199 H Hemoglobin A1c Lactate Calcium 10.3 H Magnesium Total Bilirubin AST ALT Alkaline Phosphatase Total Creatine Kinase Troponin I Total Protein Albumin Globulin Albumin/Globulin Ratio Lipase Urine RBC 0-1/hpf Urine WBC 0-1/hpf Ur Squamous Epith Cells 0-1 /hpf Urine Bacteria Few (2-10) H Ur Culture Indicated? Cult not indicated Ur Random Sodium Urine Creatinine Salicylates U Opiates 300ng/mL cut Negative Ur Oxycodone Screen Negative Urine Methadone Screen Negative Ur Barbiturates Screen Negative U Tricyclic Antidepress Negative Ur Phencyclidine Scrn Negative Ur Amphetamines Screen Negative U Methamphetamines Scrn Negative Ur MDMA Scrn (Ecstasy) Negative U Benzodiazepines Scrn Negative Urine Cocaine Screen Negative U Marijuana (THC) Screen Negative Ketones SARS-CoV-2 (PCR) Assessment & Plan Assessment & Plan narrative: 1. Acute metabolic encephalopathy, with possible hypertensive emergency or CVA - check EKG, none performed thus far. Troponin negative and no chest pain. ACS highly unlikely. - no obvious infectious etiologies - LARRY likely due to volume depletion due to emesis, though cause may be from hypertensive emergency or possible CVA given presentation - CT head negative in ER, check MRI stroke protocol to rule out CVA. For now give asa 324 mg x1 and treat with asa 81 mg daily and atorvastatin 40 pending MRI. - continue nicardipine infusion overnight with goal SBP of around 180 given presentation with SBP of around 220. Restart home medications in the morning. She has some improvement in symptoms with BP improvement. - okay for diet. - symptom control with zofran - consider PT/OT 2. HTN, acute on chronic - management as noted above, cardene infusion overnight. transition to oral tomorrow with resumption of home medications amlodipine and carvedilol. Will likely need medication adjustment and titration up prior to discharge. 3. type 2 diabetes with chronic insulin use, with mild DKA as discussed below. - with decreased oral intake and LARRY, reduce lantus to 10 U nightly, continue with sliding scale insulin only, diabetic diet. 4. LARRY on CKD (? stage IV) - secondary to volume loss, continue light IV fluids overnight. No obstruction on CT abdomen/pelvis. Unclear baseline creatinine, possibly around 2. 5. Anion gap acidosis, resolved - possible mild DKA, resolved with fluids and insulin. Also possible acidosis in setting of renal disease. Code: Full, surrogate patient declines to select a surrogate decision maker despite counseling at this time. Additional history was obtained via discussion with ER provider. I have utilized all available immediate resources to obtain, update, or review the patient's current medications. I spent 55 minutes providing critical care management this patient. This excludes time spent in performing separately billed procedures. Dispo: ICU while on nicardipine infusion, inpatient status. Her stay is expected to exceed two midnights. DVT: Lovenox, renal dosing. Scores NIHSS Level of Conciousness: Alert, keenly responsive Ask month/age: Answers both questions correctly. Open/close eyes, close hand: Performs both tasks correctly Best gaze horizontal: Normal Visual mancilla: No visual loss Facial palsy: Normal symetrical movement Left arm drift: No drift for full 10 sec Right arm drift: No drift for full 10 sec Left leg drift: No drift for full 5 sec Right leg drift: No drift for full 5 sec Limb ataxia: Absent Sensory on face/arms/legs: Normal, no sensory loss Best language: No aphasia, normal Dysarthria: Normal Extinction or inattention: No abnormality Total NIH Stroke scale score: 0 Quality VTE Deep Vein Thrombosis/Pulmonary Embolism Present on Admission: No MIPS - Admit The patient?s Advance Care plan is not present because I confirmed today that the patient does not wish or was not able to name a surrogate decision maker or provide an Advance Care Plan.: Yes
--- NOTE | 2023-06-17 17:46 | DI.MRI.S_ITS ---
PROCEDURE: MR STROKE Pre- and post-contrast brain MRI, non-contrast brain MR angiogram, pre- and postcontrast neck MR angiogram INDICATIONS: possible CVA with vision change, encephalopathy TECHNIQUE: Brain: Noncontrast axial T1 spin echo, axial T2 fast spin echo, sagittal and axial FLAIR, coronal T2 fast spin echo, axial gradient echo, axial diffusion and ADC through the brain. After the administration of contrast, axial 3D VIBE of the cranial vasculature and brain. Brain MRA: Non-contrast 3-D time of flight MR angiogram, with multiple fqaopda-bhwpsltye-fsjjiztyik (MIP) reformats performed. Neck MRA: Axial and sagittal TruFISP through the neck. Coronal dynamic MR angiogram during administration of contrast in the arterial and venous phases, with 3-dimenstional ymrnefh-hzitmlmaw-jpjpkrfusi (MIP) reformats constructed from subtraction images. COMPARISON: [facility], CT, CT HEAD/BRAIN WO CON, 11/04/2022, 18:45. [facility], CT, CT HEAD/BRAIN WO CON, 06/17/2023, 11:25. FINDINGS: Image quality: This examination is limited by involuntary motion artifact. Images are repeated, with some improvement. BRAIN: CSF spaces: Ventricles are normal in size and shape. Basal cisterns are patent. No extra-axial fluid collections. Brain: No intracranial bleeds or mass effects. Baker-white matter interface is normal. Diffusion weighted images show no acute ischemic insults. Brainstem appears normal. Normal intravascular flow voids are present. No abnormal intracranial enhancement. Note is made of age-appropriate brain parenchymal volume loss and chronic small vessel ischemic changes. Skull and face: Calvarial marrow signal is normal. Orbits appear normal. Incidental note is made of hyperostosis frontalis. This is not considered to be pathologic in a woman of this age. Sinuses: Focal right maxillary sinus disease is again seen. BRAIN MR ANGIOGRAM: Anterior circulation: Intracranial internal carotid arteries are normal in size and enhancement. The flow within the paired anterior cerebral arteries is normal and symmetric. The flow within the middle cerebral arteries is normal and symmetric. The anterior communicating artery is not well seen. No stenoses, occlusions, or aneurysms. Posterior circulation: The visualized portions of the vertebral arteries demonstrate normal caliber, and join to form a normal appearing basilar artery. The flow within the posterior cerebral arteries is normal and symmetric. No stenoses, occlusions, or aneurysms. NECK MR ANGIOGRAM: Carotids: Great vessels demonstrate a conventional anatomy as they arise from the aortic arch. The origins of the common carotid arteries appear patent. The calibers and courses of both common carotid arteries are normal. The bifurcation regions straight atherosclerotic irregularity. At least 50% narrowing can be seen involving the right proximal internal carotid artery. No definite stenosis at the origin of the left internal carotid artery can be seen. A kink point within the left internal carotid artery, there is approximately 80% narrowing seen. Posterior circulation: The vertebral arteries are poorly evaluated. There is approximately 50% narrowing involving the origin of the left vertebral artery. Both extracranial vertebral arteries demonstrate tortuosity and irregularity. Miscellaneous: Subclavian arteries appear patent. Pre-contrast images through the neck show no soft tissue abnormalities. IMPRESSION: This study is highly limited by motion artifact. BRAIN MRI: No findings of acute or subacute infarction can be seen. No masses or abnormal enhancement can be seen. BRAIN MR ANGIOGRAM: No significant intracranial arterial abnormality is seen. NECK MR ANGIOGRAM: Approximately 50% narrowing seen involving the origin of the right vertebral artery. Approximately 80% narrowing seen involving the left proximal internal carotid artery. - If clinically appropriate, please consider follow-up carotid ultrasound versus CT angiogram for further evaluation/confirmation. Approximately 50% narrowing seen involving the origin of the left vertebral artery. Both extracranial vertebral arteries demonstrate tortuosity and generalized irregularity. Dictated by: Shlomo Mortensen M.D. on 06/18/2023 at 13:27 Approved by: Shlomo Mortensen M.D. on 06/18/2023 at 13:32
[2023-06-17 18:16] LABS: MRSA (Nasal) PCR DETECTED (Not Detect)
[2023-06-17] MEDS: SODIUM CHLORIDE 0.9% 1,000 ML 50 ML IV (21:20)
[2023-06-17] MEDS: ASPIRIN 81 MG CHEW TAB 324 MG PO (21:22)
[2023-06-17] MEDS: ATORVASTATIN 20 MG TABLET 40 MG PO (21:31)
[2023-06-17] MEDS: INSULIN GLARGINE 100 UNIT/ML 3ML PEN 10 UNIT SUBCUT (21:35)
[2023-06-17] MEDS: diphenhydrAMINE 25 MG TABLET PO (21:40)
[2023-06-18] VITALS (71 sets, daily range): BP systolic 143–201; BP diastolic 73–122; PULSE 64–125; RESP 11–51; TEMP 36.2–36.9; O2SAT 84–100
[2023-06-18] MEDS: NICARDIPINE 25 MG in SODIUM CHLORIDE 0.9% 240 ML 50 MG IV (00:20)
[2023-06-18] MEDS: PROMETHAZINE 25 MG TABLET PO (04:49)
[2023-06-18] MEDS: ACETAMINOPHEN 325 MG TABLET 650 MG PO (05:30)
[2023-06-18 05:31] LABS: Add Manual Diff / Slide Review NO; Basophils Absolute Auto 0 /uL (0-100); Basophils Percent Auto 0.4 % (0-2); Eosinophils Absolute Auto 100 /uL (0-450); Hematocrit 31.1 % (36-46); Hemoglobin 10.6 g/dL (12.0-16.0); Lymphocytes Absolute Auto 900 /uL (1100-4500); Lymphocytes Percent Auto 15.6 % (25-40); Mean Corpuscular HGB Conc 34.2 % (30-36); Mean Corpuscular Hemoglobin 30.9 PG (26-34); Mean Corpuscular Volume 90.6 fL (80-100); Monocytes Absolute Auto 400 /uL (0-900); Monocytes Percent Auto 6.4 % (3-14); Neutrophils Absolute Auto 4600 /uL (1500-7000); Neutrophils Percent Auto 75.6 % (50-75); Platelet Count 233 X10^3/uL (150-400); Red Blood Cell Count 3.44 X10^6/uL (4.0-5.2); Red Cell Distribution Width 14.6 % (11.6-14.8); White Blood Cell Count 6.1 X10^3/uL (4.5-11.0)
[2023-06-18 05:37] LABS: Alanine Aminotransferase 15 IU/L (<35); Albumin 4.2 g/dL (3.5-5.0); Albumin Globulin Ratio 1.4 (1.0-2.8); Alkaline Phosphatase 56 U/L (38-126); Aspartate Aminotransferase 14 IU/L (14-36); BUN Creatinine Ratio 31.2 (6-22); Bilirubin Total 0.3 mg/dL (0.2-1.3); Blood Urea Nitrogen 91 mg/dL (7-17); Calcium 10.6 mg/dL (8.4-10.2); Carbon Dioxide 20 mmol/L (22-32); Chloride 110 mmol/L (98-107); Estimated Glomerular Filt Rate 17 mL/min (>60); Globulin 3.1 g/dL (1.7-4.1); Glucose 165 mg/dL (80-110); HEMOLYSIS < 15 (0-50); Magnesium 2.7 mg/dL (1.6-2.3); Sodium 142 mmol/L (137-145); Total Protein 7.3 g/dL (6.3-8.2)
[2023-06-18] MEDS: INSULIN LISPRO 100 UNIT/ML 3ML VIAL SUBCUT ×2 (08:19→12:05)
[2023-06-18] MEDS: ASPIRIN EC 81 MG TABLET PO (08:21)
[2023-06-18] MEDS: AMLODIPINE 5 MG TABLET PO (08:22)
[2023-06-18] MEDS: carvediloL 3.125 MG TABLET 12.5 MG PO (08:27)
[2023-06-18] MEDS: LORazepam 2 MG/ML INJ 1 MG IV (12:52)
--- NOTE | 2023-06-18 13:02 | PC.NURSE ---
Pt wheeled to MRI by [employer] at 1300
--- NOTE | 2023-06-18 14:11 | CM.DANOTE ---
DCP Assesment: Patient admitted for hypertensive urgency. patient is a 68 year old female who lives with her SO Art in [place]. CM met with patient at the bedside and explained role. Patient stated understanding and was A&O x3 however was slow with recounting details and had a tendency to wonder in her thoughts. Patients SO will be providing transport home and does all the driving at baseline. Patient is independent with all grooming, walking and feeding ADLs however patients SO does all the cleaning, grocery shopping and cooking for the patient. patient is a Full code and does not want to appoint a medical decision maker at this time. Insurance : 1st MCR 2nd Medicaid DC plan: home with significant other patient does not want HH or to go to SNF. Patient is ambulatory in her room and is planning on going home when medically stable CM has no identified DC planning needs at this time CM team will continue to follow to support any DC planning needs that may arise prior to DC. Mary Long RNchromium plater Discharge Planning/Care Management CM Discharge Assessment Start: 06/18/23 13:42 Freq: Status: Active Protocol: Document 06/18/23 13:42 (Rec: 06/18/23 14:09 [id number]) Discharge Planning Assessment Assigned Hand Blocker Mary Long RN case Manger Advance Directives? No Advance Directives on File No History Provided By Significant Other,Medical Record Has Patient been admitted in last 30 No days? Prior Living Arrangements House Household Members significant other Comment patients boy friend Art Chino [phone] Independent with ADL's Yes: able to do basic ADLS Is patient alert and oriented? Yes Needs Assistance With Meal Prep,Home Chores / Shopping Comment patients significant other Art does all the driving and hand roller and shopping Caregiver for Another No DME Already Rented / Owned FWW / Walker,Cane Barriers to Discharge No Comment Expect DC home w/ SO upon discharge. According to admitting notes- patient's KIMBERLY is inactive. She may have MCR but this has not been confirmed yet by patient or SO Art Discharge Plan Home Transportation Arrangement Significant other Art will be providing transportation home Referrals Initiated None needed,Other Whiteboard Updated in Patient Room with Yes name and ext. # of Hand Blocker Review Status In Process Next Review Type Continued Stay Review
--- NOTE | 2023-06-18 15:43 | PC.NURSE ---
Discharge: Pt A&Ox3, unsure of specific day of week. IV discontinued, telemetry removed. Education provided to pt and significant other Art at discharge regarding medication adjustments, worsening symptoms, s/s of stroke, and diet. Pt and significant other verbalize understanding of education. Pt wheeled via wheelchair by PCT to private vehicle with significant other at 1520.
[2023-06-19 15:20] LABS: Osmolality, Serum 342 mOsmol/kg (280-301)
--- NOTE | 2023-06-19 18:09 | PM.DS.1 ---
History of Present Illness History of Present Illness Date Patient Seen: 06/17/23 Time Patient Seen: 17:43 Chief complaint: thinks she is low on glucose levels/ 267 Narrative: Per admitting provider: This is a 68 year old female with PMH of CKD, DM 2 poorly controlled, and HTN with prior admission for DKA who presented to the ER with nausea, confusion and vision changes starting this morning. Last known normal was yesterday evening. She ate a normal meal yesterday evening, but starting around 3:30 AM she started developing nbnb emesis with persistent nausea. It may be worsened with movement but she is not able to tell. She has chronic sinusitis and does take decongestants but the last was multiple days ago. She also had worsened blurry vision and perhaps some weakness of her R hand. She denies fever, chills, chest pain, shortness of breath, palpitations, LE edema or orthopnea. In the emergency room patient was markedly hypertensive with SBP around 220 initially. She vomited after being given her home antihypertensives. Labs showed wbc of 7.7, chronic anemia Hg 11.1 (improved from prior), Abg showed pH of 7.29, PCO2 of 42, with HCO3 of 20. Bmp with CO2 of 19, creatinine of 3.4 and AG of >15 improved to 3.12 with fluids and resolved anion gap. She was also given 5U of regular insulin. Mg was 3.0. CHest xray was unremarkable, head CT showed no acute pathologies. CT abdomen showed no evidence of urinary obstruction. She was treated as a hypertensive emergency in the ER, with improvement in symptoms with cardene infusion. She was admitted for further management to the ICU. Spouse reports improvement in her confusion noted this morning. Discharge Providers Provider Date of admission: 06/17/23 15:52 Discharge Date: 06/18/23 Primary care physician: Junior Mathis MD Discharge provider: Carlos Dejesus MD Summary Hospital Course Discharge Diagnosis: 1. Hypertensive encephalopathy 2. Hypertension 3. Type 2 DM on insulin 4. LARRY on CKD 5. Carotid stenosis Hospital Course: Ms. Kent was admitted with hypertension and confusion. Her blood pressure was in the 200s systolic. She claimed she had not missed any of her blood pressure medications. Her blood pressure improved on nicardapine drip. She had head imaging with CT and MRI which showed no acute abnormality. Her blood pressure medications were increased to provide improved control. She had LARRY with initial creatinine of 3.41, but improved to 2.92 on discharge with baseline appearing to be approximately 2.6. She was encouraged to follow up with her PCP within one week. Exam Vital Signs (past 8 hours): Oxygen Delivery Method Room Air Narrative Exam Narrative: General:? Patient is well developed and well nourished, in no distress at this time. Lungs:? CTA b/l no wheezing rhonchi or rales. Cardio:?RRR no m/r/g. Abdomen: S NT ND. No CVA tenderness. Objective Labs 06/18/23 04:20 06/18/23 04:20 Labs: Laboratory Results - last 24 hr 06/17/23 11:00 Serum Osmolality 342 H [facility] Medical History Congestive heart failure Diabetes Hypertension Social History household members: significant other lives independently: Yes Smoking Status: Former smoker Discharge Plan Discharge Plan Patient Disposition: Home Provider Discharge Comment: Ms. Kent came in to the hospital with high blood pressure and confusion. This improved with increasing her blood pressure medication dose. She was able to be discharged and should take this higher dose of medicine. She should follow up with her PCP this week. Discharge orders & Medications Prescriptions: New amlodipine [Norvasc] 5 mg Tablet 10 mg PO DAILY Qty: 30 0RF carvedilol 3.125 mg Tablet 12.5 mg PO BID Qty: 60 0RF Continued acetaminophen 500 mg bottle 500 mg PO BID insulin lispro [Humalog U-100 Insulin] 100 unit/mL solution 6 unit SUBCUT 3XD Rx Instructions: 6 units per meal insulin glargine [Lantus Solostar U-100 Insulin] 100 unit/mL (3 mL) insulin pen 10 unit SUBCUT BEDTIME aspirin 81 mg Tablet 81 mg PO DAILY Discontinued amlodipine [Norvasc] 5 mg Tablet 5 mg PO DAILY Qty: 30 0RF Rx Instructions: pt unsure of dose carvedilol 6.25 mg tablet 6.25 mg PO BID Qty: 60 0RF Rx Instructions: must administer with a meal/food Follow up/Referrals: Junior Mathis MD [Primary Care Provider] - Diet/Activity/Treatments Diet: Regular Visit Report/Discharge Packet Instructions: DI for High Blood Pressure Stand Alone Forms: Patient Portal/API, Stroke Signs & Symptoms Discharge Data Primary Care Provider: Junior Mathis Discharges patient from system. Discharge Date/Time: 06/18/23 15:20 Quality VTE Deep Vein Thrombosis/Pulmonary Embolism Present on Admission: No
== END 2023-06-18 15:20 | disposition home or self-care (01) | DRG 78 ==
LOC: ED 10:56 → AC 15:53 → ICU 16:03
PROVIDERS: Admitting Provider Internal Medicine; Emergency Provider Emergency Medicine; PCP Internal Medicine; Referring Provider Emergency Medicine; Visit Provider Internal Medicine
DX: I67.4 Hypertensive encephalopathy (principal); N17.9 Acute kidney failure, unspecified; N18.4 Chronic kidney disease, stage 4 (severe); I16.0 Hypertensive urgency; E11.22 Type 2 diabetes mellitus with diabetic chronic kidney disease; I12.9 Hypertensive chronic kidney disease with stage 1 through stage 4 chronic kidney disease, or unspecified chronic kidney disease; I65.29 Occlusion and stenosis of unspecified carotid artery; Z79.4 Long term (current) use of insulin; Z87.891 Personal history of nicotine dependence
CPT/HCPCS: 36415; 70450; 70548; 70553; 71045; 74176; 80048; 80053; 80305; 80329; 81003; 81015; 82009; 82550; 82570; 82805; 82962; 83036; 83605; 83690; 83735; 83930; 84300; 84443; 84484; 85025; 85610; 85730; 87040; 87635; 87797; 93005; 96365; 96372; 96375; 99285; C9803; A9579; G0480; J1815; J2060; J2405

== ENCOUNTER 2024-01-26 11:52 | Emergency (ER) | payer MEDICARE, MEDICAID, SELFPAY ==
[2023-06-17 15:55] VITALS: BMI 24.7
[2024-01-26] VITALS (16 sets, daily range): BP systolic 132–183; BP diastolic 86–110; PULSE 71–90; RESP 18–38; TEMP 36.8; O2SAT 87–98; BMI 25.6
[2024-01-26 12:30] LABS: Add Manual Diff / Slide Review NO; Basophils Absolute Auto 0 /uL (0-100); Basophils Percent Auto 0.6 % (0-2); Eosinophils Absolute Auto 100 /uL (0-450); Eosinophils Percent Auto 1.9 % (2-4); Hematocrit 31.6 % (36-46); Hemoglobin 10.7 g/dL (12.0-16.0); Lymphocytes Absolute Auto 900 /uL (1100-4500); Lymphocytes Percent Auto 16.1 % (25-40); Mean Corpuscular HGB Conc 33.8 % (30-36); Mean Corpuscular Hemoglobin 30.3 PG (26-34); Mean Corpuscular Volume 89.6 fL (80-100); Monocytes Absolute Auto 400 /uL (0-900); Monocytes Percent Auto 7.7 % (3-14); Neutrophils Absolute Auto 4200 /uL (1500-7000); Neutrophils Percent Auto 73.7 % (50-75); Platelet Count 273 X10^3/uL (150-400); Red Blood Cell Count 3.53 X10^6/uL (4.0-5.2); Red Cell Distribution Width 14.8 % (11.6-14.8); White Blood Cell Count 5.8 X10^3/uL (4.5-11.0)
[2024-01-26] MEDS: ONDANSETRON 4 MG/2 ML INJ IV ×2 (12:32→13:46)
--- NOTE | 2024-01-26 12:36 | ED.ABDPAIN ---
HPI - Abdominal Pain General Chief Complaint: Abdominal Pain Stated Complaint: L side pain, vomiting Time Seen by Provider: 01/26/24 12:10 Source: patient Mode of arrival: Ambulatory History of Present Illness HPI narrative: Patient is a 68-year-old female history of chronic kidney disease type 2 diabetes on insulin hypertension presenting today with nausea and left-sided pain. She denies any sort of injury. However she reports that there is a left upper quadrant and rib pain. It is difficult to pinpoint but it does hurt every time she moves. It is worse when she has to lay down or sit up. No rash. No significant chest pain or shortness of breath. She reports that she does not leave a sedentary lifestyle and listens to a lot of books but occasionally rides a bike. She denies any sort of leg swelling or pain. No fever or chills. She takes Tylenol regularly for pain. Related Data Home Medications Medication Instructions Recorded Confirmed acetaminophen 500 mg PO BID pain 06/17/23 06/17/23 aspirin 81 mg tablet 81 mg PO DAILY 06/17/23 06/17/23 insulin glargine 100 unit/mL (3 10 unit SUBCUT BEDTIME 06/17/23 06/17/23 mL) subcutaneous pen (Lantus Solostar U-100 Insulin) insulin lispro 100 unit/mL 6 unit SUBCUT 3XD 06/17/23 06/17/23 subcutaneous solution (Humalog U-100 Insulin) Previous Rx's Medication Instructions Recorded amlodipine 5 mg tablet (Norvasc) 10 mg (2 x 5 mg) PO DAILY #30 tabs 06/18/23 carvedilol 3.125 mg tablet 12.5 mg (4 x 3.125 mg) PO BID #60 06/18/23 tabs ondansetron 4 mg disintegrating 4 mg PO Q8H PRN nausea and 01/26/24 tablet vomiting #10 tabs oxycodone 5 mg tablet 5 mg PO Q6H PRN pain #10 tabs 01/26/24 sodium bicarbonate 650 mg tablet 650 mg PO TID #60 tabs 01/26/24 Allergies Allergy/AdvReac Type Severity Reaction Status Date / Time erythromycin base AdvReac Verified 01/26/24 11:57 Patient History Medical History Diabetes Hypertension Congestive heart failure Social History household members: significant other lives independently: Yes Smoking Status: Former smoker Smoking Status: Former smoker alcohol intake frequency: 0-2 drinks per day Substance Use Type: does not use Exam Initial Vital Signs Initial Vital Signs: Vital Signs Temperature 98.3 F 01/26/24 11:57 Pulse Rate 89 01/26/24 11:57 Respiratory Rate 18 01/26/24 11:57 Blood Pressure 172/91 H 01/26/24 11:57 Pulse Oximetry 98 01/26/24 11:57 Oxygen Delivery Method Room Air 01/26/24 11:57 GENERAL: Alert very well-appearing 68-year-old female HEENT: Head atraumatic,EOMI, pupils reactive, face symmetric, moist mucous membranes CARDIOVASCULAR: Regular rate and rhythm without murmurs, rubs or gallops. RESPIRATORY: Breath sounds equal bilaterally, no wheezes rales or rhonchi. ABDOMEN: Soft, minimal left upper quadrant pain no guarding no rebound no splenomegaly appreciated no : No CVA tenderness EXTREMITIES: Normal range of motion, no clubbing or edema. Neurovascularly intact NEUROLOGICAL: Alert and oriented x4.Normal gait and speech. SKIN: Warm, dry, no laceration, no petechiae, no rashes or lesions. Course Orders Ordered: ED Orders 01/26/24 12:13 EKG-12 Lead Stat 01/26/24 12:21 Complete Blood Count AUTO DIFF Stat Comprehensive Metabolic Panel Stat Lipase Stat 01/26/24 12:22 D Dimer Stat ETOH [Ethanol (ETOH)] Stat Ketones (Beta-Hydroxybutyrate) Stat Troponin & CK Cardiac Panel Stat 01/26/24 13:15 Venous Blood Gas Stat 01/26/24 14:16 CT abdomen pelvis wo con Stat 01/26/24 15:20 BMP [Basic Metabolic Panel] Stat 01/26/24 16:07 Urinalysis and Microscopic Stat 01/26/24 16:13 Venous Blood Gas Stat Discontinued Medications Sodium Chloride (Normal Saline 0.9%) 1,000 mls @ 1,000 mls/hr IV BOLUS ONE Stop: 01/26/24 13:55 Last Admin: 01/26/24 14:05 Dose: Not Given Documented By: DKB INSULIN DRIP PREMIX (Myxredlin Drip Premix) 100 unit in 100 mls @ 6.35 mls/hr IV TITRATE RYLEE; Protocol Last Titration: 01/26/24 14:09 Dose: Infused Documented By: LATISHA Co-signed By: OPAL Admin: 01/26/24 13:56 Dose: 0.1 unit/kg/hr, 6.4 mls/hr Documented By: LATISHA Co-signed By: OPAL Dextrose/Sodium Chloride (Dextrose 5%-0.9% Ns) 1,000 mls @ 125 mls/hr IV CONT RYLEE Last Admin: 01/26/24 13:46 Dose: Not Given Documented By: ORAL Potassium Chloride/Dextrose/Sod Cl (Dextrose 5%-0.45%Ns W/Kcl 20meq) 1,000 mls @ 100 mls/hr IV CONT RYLEE Last Infusion: 01/26/24 14:09 Dose: Infused Documented By: Admin: 01/26/24 13:50 Dose: 100 mls/hr Documented By: LATISHA Sodium Chloride (Normal Saline 0.9%) 1,000 mls @ 1,000 mls/hr IV BOLUS ONE Stop: 01/26/24 15:03 Last Infusion: 01/26/24 15:38 Dose: Infused Documented By: Admin: 01/26/24 14:11 Dose: 1,000 mls/hr Documented By: LATISHA Ondansetron HCl (Ondansetron 4 Mg Odt) 4 mg PO NOW PRN PRN Reason: Nausea And Vomiting Ondansetron HCl (Ondansetron 4 Mg/2 Ml Inj) 4 mg IV NOW PRN PRN Reason: Nausea And Vomiting Last Admin: 01/26/24 12:32 Dose: 4 mg Documented By: JENNIFER Ondansetron HCl (Ondansetron 4 Mg/2 Ml Inj) 4 mg IV NOW ONE Stop: 01/26/24 13:28 Last Admin: 01/26/24 13:46 Dose: 4 mg Documented By: LATISHA Vital Signs Vital signs: Vital Signs - 8 hr 01/26/24 11:57 01/26/24 12:46 01/26/24 13:00 Temperature 98.3 F Pulse Rate 89 76 71 Respiratory Rate 18 Blood Pressure 172/91 H Pulse Oximetry 98 97 97 Oxygen Delivery Method Room Air 01/26/24 13:00 01/26/24 13:26 01/26/24 13:26 Temperature Pulse Rate 88 Respiratory Rate Blood Pressure 163/93 H 178/92 H Pulse Oximetry 95 Oxygen Delivery Method 01/26/24 13:30 01/26/24 13:30 01/26/24 14:00 Temperature Pulse Rate 81 76 Respiratory Rate 21 Blood Pressure 169/94 H Pulse Oximetry 96 96 Oxygen Delivery Method 01/26/24 14:30 01/26/24 14:30 01/26/24 14:57 Temperature Pulse Rate 80 80 Respiratory Rate 28 H Blood Pressure 134/87 Pulse Oximetry 92 97 Oxygen Delivery Method 01/26/24 14:57 01/26/24 15:00 01/26/24 15:00 Temperature Pulse Rate 79 Respiratory Rate 27 H Blood Pressure 179/98 H 173/86 H Pulse Oximetry 97 Oxygen Delivery Method 01/26/24 15:30 01/26/24 15:30 01/26/24 16:06 Temperature Pulse Rate 81 89 Respiratory Rate 27 H Blood Pressure 171/110 H Pulse Oximetry 97 87 L Oxygen Delivery Method 01/26/24 16:07 01/26/24 16:07 01/26/24 16:30 Temperature Pulse Rate 90 80 Respiratory Rate 29 H Blood Pressure 162/90 H Pulse Oximetry 95 97 Oxygen Delivery Method 01/26/24 16:30 01/26/24 17:00 01/26/24 17:00 Temperature Pulse Rate 85 Respiratory Rate 23 Blood Pressure 132/95 H 145/99 H Pulse Oximetry 97 Oxygen Delivery Method 01/26/24 17:30 01/26/24 17:43 01/26/24 17:43 Temperature Pulse Rate 86 85 Respiratory Rate 38 H 19 Blood Pressure 183/90 H Pulse Oximetry 97 97 Oxygen Delivery Method MDM - Abdominal Pain Lab Data 01/26/24 12:21 01/26/24 15:20 Labs: Lab Results 01/26/24 01/26/24 01/26/24 Range/Units 12:21 12:22 13:15 WBC 5.8 (4.5-11.0) X10^3/uL RBC 3.53 L (4.0-5.2) X10^6/uL Hgb 10.7 L (12.0-16.0) g/dL Hct 31.6 L (36-46) % MCV 89.6 (80-100) fL MCH 30.3 (26-34) PG MCHC 33.8 (30-36) % RDW 14.8 (11.6-14.8) % Plt Count 273 (150-400) X10^3/uL Neut % (Auto) 73.7 (50-75) % Lymph % (Auto) 16.1 L (25-40) % Jessamine % (Auto) 7.7 (3-14) % Eos % (Auto) 1.9 L (2-4) % Baso % (Auto) 0.6 (0-2) % Neut # (Auto) 4200 (2608-3549) /uL Lymph # (Auto) 900 L (4854-2286) /uL Jessamine # (Auto) 400 (0-900) /uL Eos # (Auto) 100 (0-450) /uL Baso # (Auto) 0 (0-100) /uL D-Dimer 359 (<500) ng/ml VBG pH 7.27 L (7.33-7.43) VBG pCO2 46.0 (45-50) mmHg VBG pO2 16 L (35-45) mmHg VBG HCO3 21 L (24-28) mmol/L VBG Total CO2 22 L (24-29) mmol/L VBG O2 Saturation 18 L (70-75) % VBG Base Excess -6.0 L (0-4) mmol/L FiO2 21 Sodium 142 (137-145) mmol/L Potassium 4.4 (3.4-5.1) mmol/L Chloride 110 H (98-107) mmol/L Carbon Dioxide 16 L (22-32) mmol/L BUN 103 H (7-17) mg/dL Creatinine 4.66 H (0.52-1.04) mg/dL Estimated GFR 10 L (>60) mL/min BUN/Creatinine Ratio 22.1 H (6-22) Glucose 86 (80-110) mg/dL Calcium 10.7 H (8.4-10.2) mg/dL Total Bilirubin 0.4 (0.2-1.3) mg/dL AST 12 L (14-36) IU/L ALT 14 (<35) IU/L Alkaline Phosphatase 61 (38-126) U/L Total Creatine Kinase 39 (30-135) U/L Troponin I < 0.012 (0.01-0.034) ng/mL Total Protein 7.7 (6.3-8.2) g/dL Albumin 4.5 (3.5-5.0) g/dL Globulin 3.2 (1.7-4.1) g/dL Albumin/Globulin Ratio 1.4 (1.0-2.8) Lipase 105 (23-300) U/L Urine Color Urine Appearance Urine pH (4.5-8.0) Ur Specific [place] (1.000-1.035) Urine Protein (Negative) Urine Glucose (UA) (Negative) g/dL Urine Ketones (NEGATIVE) Urine Occult Blood (Negative) Urine Nitrate (Negative) Urine Bilirubin (NEGATIVE) Urine Urobilinogen (0.2) E.U./dL Ur Leukocyte Esterase (NEGATIVE) Urine RBC (0-5/HPF) Urine WBC (0-5/HPF) Ur Squamous Epith Cells (0-5/HPF) Urine Bacteria (None) Ur Culture Indicated? Vol Urine Centrifuged Ethyl Alcohol < 10 ( - 10) mg/dL Ketones 0.18 (<0.27) mmol/L 01/26/24 01/26/24 01/26/24 Range/Units 15:20 16:07 16:13 WBC (4.5-11.0) X10^3/uL RBC (4.0-5.2) X10^6/uL Hgb (12.0-16.0) g/dL Hct (36-46) % MCV (80-100) fL MCH (26-34) PG MCHC (30-36) % RDW (11.6-14.8) % Plt Count (150-400) X10^3/uL Neut % (Auto) (50-75) % Lymph % (Auto) (25-40) % Jess[place] % (Auto) (3-14) % Eos % (Auto) (2-4) % Baso % (Auto) (0-2) % Neut # (Auto) (2432-3442) /uL Lymph # (Auto) (2451-0819) /uL Jessamine # (Auto) (0-900) /uL Eos # (Auto) (0-450) /uL Baso # (Auto) (0-100) /uL D-Dimer (<500) ng/ml VBG pH 7.22 L (7.33-7.43) VBG pCO2 40.3 L (45-50) mmHg VBG pO2 30 L (35-45) mmHg VBG HCO3 17 L (24-28) mmol/L VBG Total CO2 18 L (24-29) mmol/L VBG O2 Saturation 46 L (70-75) % VBG Base Excess -11.0 L (0-4) mmol/L FiO2 21 Sodium 142 (137-145) mmol/L Potassium 4.4 (3.4-5.1) mmol/L Chloride 114 H (98-107) mmol/L Carbon Dioxide 16 L (22-32) mmol/L BUN 101 H (7-17) mg/dL Creatinine 4.19 H (0.52-1.04) mg/dL Estimated GFR 11 L (>60) mL/min BUN/Creatinine Ratio 24.1 H (6-22) Glucose 74 L (80-110) mg/dL Calcium 10.1 (8.4-10.2) mg/dL Total Bilirubin (0.2-1.3) mg/dL AST (14-36) IU/L ALT (<35) IU/L Alkaline Phosphatase (38-126) U/L Total Creatine Kinase (30-135) U/L Troponin I (0.01-0.034) ng/mL Total Protein (6.3-8.2) g/dL Albumin (3.5-5.0) g/dL Globulin (1.7-4.1) g/dL Albumin/Globulin Ratio (1.0-2.8) Lipase (23-300) U/L Urine Color Yellow Urine Appearance Clear Urine pH 5.5 (4.5-8.0) Ur Specific [place] 1.020 (1.000-1.035) Urine Protein 2+ H (Negative) Urine Glucose (UA) Negative (Negative) g/dL Urine Ketones Negative (NEGATIVE) Urine Occult Blood Trace-intact (Negative) Urine Nitrate Negative (Negative) Urine Bilirubin Negative (NEGATIVE) Urine Urobilinogen 0.2 (0.2) E.U./dL Ur Leukocyte Esterase Negative (NEGATIVE) Urine RBC 0-1/hpf (0-5/HPF) Urine WBC None seen (0-5/HPF) Ur Squamous Epith Cells None seen (0-5/HPF) Urine Bacteria None seen (None) Ur Culture Indicated? Cult not indicated Vol Urine Centrifuged 10ml (spun) Ethyl Alcohol ( - 10) mg/dL Ketones (<0.27) mmol/L Point of care testing: Point of Care Testing Glucose POC 74 Urine Dip Bedside Urine Glucose Negative Bedside Urine Bilirubin - Negative Bedside Urine Ketone - Negative Urine Specific [place] 1.015 Bedside Urine Occult Blood - Negative Bedside Urine pH 5.5 Bedside Urine Protein ++ 100 Bedside Urine Urobilinogen - Negative Bedside Urine Nitrite - Negative Bedside Urine Leukocytes - Negative Esterase Imaging Data CT scan - abdomen/pelvis: Radiologist's Impression: PROCEDURE: CT ABDOMEN PELVIS WO CON INDICATIONS: left upper quad pain and miguel TECHNIQUE: Axial sections were acquired from the lung bases to the pubic symphysis. Coronal and sagittal reformats were performed. For radiation dose reduction, the following was used: automated exposure control, adjustment of mA and/or kV according to patient size. COMPARISON: [facility], CT, CT KIDNEY URETER BLADDER (KUB), 06/17/2023, 12:28. FINDINGS: Image quality: Diagnostic. Lower Chest: Cardiomegaly, as before. No acute infiltrates. URINARY: Right Kidney: Extensive vascular calcifications. No stones seen. No hydronephrosis. Right Ureter: No hydroureter. Left Kidney: Extensive vascular calcifications. No stones seen. No hydronephrosis. Left Ureter: No hydroureter. Bladder: Normal wall thickness. No stones. ABDOMEN: Liver: No contour-deforming solid mass. Gallbladder: Markedly distended bladder. No bladder wall thickening. Biliary ducts: No biliary dilation. Pancreas: No ductal dilation. Spleen: Size is within normal limits. Adrenal Glands: No adrenal nodules. Stomach and Bowel: Normal colonic caliber, without significant wall thickening. Scattered diverticulosis without evidence of diverticulitis. Peritoneum: No abnormal intraperitoneal fluid. No free air. Ventral Wall: No hernia. Abdominal Nodes: No enlarged retroperitoneal or mesenteric lymph nodes. Vessels: Aorta and inferior vena cava are normal in size. PELVIS: Pelvic Organs: Incidental note made of 4 cm uterine fibroid.. Pelvic Nodes: Unremarkable. Miscellaneous: No inguinal hernias are seen. Bones: Lumbar degenerative change. No lytic or blastic bony lesions. No compression fractures. IMPRESSION: 1. No renal stone or hydronephrosis or hydroureter. 2. Markedly distended bladder, possibly representing a fasting state. 3. Mild diverticulosis. 4. 4 cm uterine fibroid incidentally noted. Dictated by: Irvin Fuentes M.D. on 01/26/2024 at 15:30 ECG Data Attestation: I personally reviewed and interpreted this ECG as follows: Interpretation: Sinus rhythm rate 81 MA interval 176 QRS 84 QTC 473 mild artifact noted no ST changes low voltage MDM Narrative Medical decision making narrative: MDM CC: Left upper quadrant Complicating co-morbidities: Chronic kidney disease diabetes hypertension Corroborating data: [ ] Data collected from: Chart and Medical records reviewed: Yes Differential considered: Acute on chronic did not kidney disease, DKA, costochondritis, PE, acute coronary syndrome Exam documented above, pertinent findings include: Pain in left upper quadrant reproducible to touch, no rash Lab Test results independently reviewed as above. Pertinent findings: WBC 5.8 hemoglobin 10.7, sodium 142, potassium 4.4, chloride 110, bicarb 16, BUN 103, creatinine 4.6 previously 2.92 in June 2023, glucose 86, anion gap 16, bilirubin 0.4, AST 12, ALT 14, troponin negative, venous pH 7.2, D-dimer 359 Repeat creatinine 4.1 after IV fluids bicarb 16 Independently reviewed EKG as above: No acute ischemic changes Imaging studies independently reviewed: CT abdomen pelvis no renal stone or hydronephrosis his markedly distended bladder Consultations: Dr. San in ED, likely chronic kidney disease does need follow-up. Unlikely cause of her chief complaint today. Recommends outpatient sodium bicarb 3 times a day with follow-up outpatient blood work. Need for admission. Treatments: IV fluids Re-evaluations: Patient continues not to be in pain overall appears well Discussion: Patient presenting today with left upper quadrant pain. It actually reproducible. I think unlikely to be acute coronary syndrome she had a negative troponin she has not really short of breath D-dimer is negative. I do think that patient likely has a costochondritis musculoskeletal issue causing her left upper quadrant pain. CT does not show any splenomegaly or fracture Initially thought patient might be in DKA, with worsening bicarb and anion gap and pH of 7.2 however glucose is only 86. Dr. San and was consulted unlikely to be DKA recommend IV fluid bolus with repeat labs. Creatinine did actually improve with fluids. He came down and evaluated patient in the ED. thought that worsening creatinine needs to be addressed but can be rechecked and addressed as an outpatient. She is here with left upper quadrant pain which is reproducible. Discharge Plan Departure Patient Disposition: Home Clinical Impression: Acute kidney injury, Acute costochondritis Instructions: Costochondritis, Chronic Kidney Disease Activity Restrictions/Additional Instructions: *You have been diagnosed with costochondritis and chronic kidney disease *What to do: At this time your pain that you are feeling on the left side is likely inflammatory musculoskeletal. Recommend ice and heat. *Continue to take medications as directed No NSAIDs, such as Motrin, Aleve, naproxen, ibuprofen Sodium bicarb 650 mg t.i.d. Tylenol 1000 mg every 6 hours *Follow up with your primary care provider in 2-3 days or call [phone] *Return to ER if you should have increasing pain confusion weakness or any new, worsening or concerning symptoms CONTROLLED SUBSTANCE DISCHARGE (Narcotoic/benzodiazepine/Flexeril/Phenergan) 1. You have been prescribed narcotic medications, it does have acetaminophen/Tylenol/paracetamol in it, DO NOT TAKE MORE THAN 4,00mg in 24 hours of Tylenol. TRAMADOL DOES NOT CONTAIN TYLENOL 2. Please understand that we cannot provide further refills of narcotics, benzodiazepines or controlled substances through the ED and her pain management will need to be through your provider. 3. While on these medications you cannot drive or operate heavy machinery. 4. You cannot sign legal documents or perform any duties such as this. 5. As long as you're taking opiate pain medications he should also be taking a stool softener such as Colace, Dulcolax, MiraLAX or prune juice, to help avoid constipation. Prescriptions: New sodium bicarbonate 650 mg tablet 650 mg PO TID Qty: 60 0RF oxycodone 5 mg tablet 5 mg PO Q6H PRN (Reason: pain) Qty: 10 0RF ondansetron 4 mg tablet,disintegrating 4 mg PO Q8H PRN (Reason: nausea and vomiting) Qty: 10 0RF No Action acetaminophen 500 mg bottle 500 mg PO BID insulin lispro [Humalog U-100 Insulin] 100 unit/mL solution 6 unit SUBCUT 3XD Rx Instructions: 6 units per meal insulin glargine [Lantus Solostar U-100 Insulin] 100 unit/mL (3 mL) insulin pen 10 unit SUBCUT BEDTIME aspirin 81 mg Tablet 81 mg PO DAILY amlodipine [Norvasc] 5 mg Tablet 10 mg PO DAILY Qty: 30 0RF carvedilol 3.125 mg Tablet 12.5 mg PO BID Qty: 60 0RF Referrals: Junior Mathis MD [Primary Care Provider] - Stand Alone Forms: Patient Portal/API
[2024-01-26 12:44] LABS: Alanine Aminotransferase 14 IU/L (<35); Albumin 4.5 g/dL (3.5-5.0); Albumin Globulin Ratio 1.4 (1.0-2.8); Alkaline Phosphatase 61 U/L (38-126); Aspartate Aminotransferase 12 IU/L (14-36); BUN Creatinine Ratio 22.1 (6-22); Bilirubin Total 0.4 mg/dL (0.2-1.3); Blood Urea Nitrogen 103 mg/dL (7-17); Calcium 10.7 mg/dL (8.4-10.2); Carbon Dioxide 16 mmol/L (22-32); Chloride 110 mmol/L (98-107); Estimated Glomerular Filt Rate 10 mL/min (>60); Globulin 3.2 g/dL (1.7-4.1); Glucose 86 mg/dL (80-110); HEMOLYSIS < 15 (0-50); Lipase 105 U/L (23-300); Potassium 4.4 mmol/L (3.4-5.1); Sodium 142 mmol/L (137-145); Total Protein 7.7 g/dL (6.3-8.2)
[2024-01-26] MEDS: DEXTROSE 5%-0.45NS W/KCL 20MEQ 1,000 ML 100 MEQ IV (13:50)
[2024-01-26 13:55] LABS: D Dimer 359 ng/ml (<500)
[2024-01-26] MEDS: INSULIN DRIP PREMIX 100 UNIT/100 ML PLAST..BAG 6.4 UNIT IV (13:56)
[2024-01-26 13:58] LABS: Creatine Kinase 39 U/L (30-135); Ethanol (ETOH) < 10 mg/dL
[2024-01-26 14:05] LABS: pH VBG 7.27 (7.33-7.43)
[2024-01-26 14:06] LABS: Fractionated Inspired Oxygen 21; HCO3 VBG 21 mmol/L (24-28); Oxygen Saturation VBG 18 % (70-75); PO2 VBG 16 mmHg (35-45); Total CO2 VBG 22 mmol/L (24-29)
[2024-01-26 14:10] LABS: Troponin I < 0.012 ng/mL (0.01-0.034)
[2024-01-26] MEDS: SODIUM CHLORIDE 0.9% 1,000 ML 1000 ML IV (14:11)
--- NOTE | 2024-01-26 14:16 | DI.CT.S_ITS ---
PROCEDURE: CT ABDOMEN PELVIS WO CON INDICATIONS: left upper quad pain and miguel TECHNIQUE: Axial sections were acquired from the lung bases to the pubic symphysis. Coronal and sagittal reformats were performed. For radiation dose reduction, the following was used: automated exposure control, adjustment of mA and/or kV according to patient size. COMPARISON: [facility], CT, CT KIDNEY URETER BLADDER (KUB), 06/17/2023, 12:28. FINDINGS: Image quality: Diagnostic. Lower Chest: Cardiomegaly, as before. No acute infiltrates. URINARY: Right Kidney: Extensive vascular calcifications. No stones seen. No hydronephrosis. Right Ureter: No hydroureter. Left Kidney: Extensive vascular calcifications. No stones seen. No hydronephrosis. Left Ureter: No hydroureter. Bladder: Normal wall thickness. No stones. ABDOMEN: Liver: No contour-deforming solid mass. Gallbladder: Markedly distended bladder. No bladder wall thickening. Biliary ducts: No biliary dilation. Pancreas: No ductal dilation. Spleen: Size is within normal limits. Adrenal Glands: No adrenal nodules. Stomach and Bowel: Normal colonic caliber, without significant wall thickening. Scattered diverticulosis without evidence of diverticulitis. Peritoneum: No abnormal intraperitoneal fluid. No free air. Ventral Wall: No hernia. Abdominal Nodes: No enlarged retroperitoneal or mesenteric lymph nodes. Vessels: Aorta and inferior vena cava are normal in size. PELVIS: Pelvic Organs: Incidental note made of 4 cm uterine fibroid.. Pelvic Nodes: Unremarkable. Miscellaneous: No inguinal hernias are seen. Bones: Lumbar degenerative change. No lytic or blastic bony lesions. No compression fractures. IMPRESSION: 1. No renal stone or hydronephrosis or hydroureter. 2. Markedly distended bladder, possibly representing a fasting state. 3. Mild diverticulosis. 4. 4 cm uterine fibroid incidentally noted. Dictated by: Irvin Fuentes M.D. on 01/26/2024 at 15:30 Approved by: Irvin Fuentes M.D. on 01/26/2024 at 15:45
[2024-01-26 14:48] LABS: Ketones (Beta-Hydroxybutyrate) 0.18 mmol/L (<0.27)
[2024-01-26 15:50] LABS: BUN Creatinine Ratio 24.1 (6-22); Blood Urea Nitrogen 101 mg/dL (7-17); Calcium 10.1 mg/dL (8.4-10.2); Carbon Dioxide 16 mmol/L (22-32); Chloride 114 mmol/L (98-107); Estimated Glomerular Filt Rate 11 mL/min (>60); Glucose 74 mg/dL (80-110); HEMOLYSIS < 15 (0-50); Potassium 4.4 mmol/L (3.4-5.1); Sodium 142 mmol/L (137-145)
[2024-01-26 16:46] LABS: Appearance Urine UA CLEAR; Bilirubin Urine UA NEGATIVE (NEGATIVE); Color Urine UA YELLOW; Glucose Urine UA NEGATIVE (Negative); Ketones Urine UA NEGATIVE (NEGATIVE); Leukocyte Esterase Urine UA NEGATIVE (NEGATIVE); Nitrite Urine UA NEGATIVE (Negative); Occult Blood Urine UA TRACE-INTACT (Negative); Protein Urine UA 2+ (Negative); Urobilinogen Urine UA 0.2 E.U./dL (0.2)
[2024-01-26 16:47] LABS: pH Urine UA 5.5 (4.5-8.0)
[2024-01-26 17:02] LABS: Bacteria Urine None Seen; Culture Indicated Urine Cult Not Indicated; RBC Urine 0-1/HPF (0-5/HPF); Squamous Epithelial Cell Urine None Seen (0-5/HPF); Urine Volume 10mL (spun); WBC Urine None Seen (0-5/HPF)
--- NOTE | 2024-01-26 17:24 | P.CONS_ITS ---
History of Present Illness Consult details Date Patient Seen: 01/26/24 Time Patient Seen: 17:00 Chief complaint: L side pain, vomiting Reason for consult: LARRY Requesting provider: Gunjan Foster Narrative: This is a 68 year old female with PMH of CKD, DM 2 poorly controlled, and HTN with prior admission for DKA who presented to the ER with nausea, vomiting x1 today, and LUQ pain. Pain was previously constant, sharp. It has improved, but worsened with movement, especially when moving forward. It is more on the side, just below her left rib cage. She denies chest pain or pressure. She did have a single episode of emesis this morning which prompted her to come to the emergency room. She reports only taking tylenol, no NSAID medications. She reports good blood sugar control at home, takes her insulin as directed. She states her morning sugars have been higher than meal times, does not feel like the Lantus does anything at all. Initial labs showed a creatinine of 4.4 (baseline presumed to be around 2.3), she was given IV fluids, insulin administration. Patient does not take any SGLT- 2 inhibitors or oral diabetes medications. Her glucose was in the 90s. I recommended stopping her insulin infusion but continuing IV fluids as this more likely represented a renal acidosis from CKD. UA was negative, no signs or symptoms of respiratory infection. Repeat creatinine improved to 4.14. The patient felt markedly improved. I discussed the risks and benefits of admission for continued renal monitoring, or discharge home. Patient elected for discharge home from the emergency room. Meds Home Medications and Allergies Home Medications Medication Instructions Recorded Confirmed Type acetaminophen 500 mg PO BID pain 06/17/23 06/17/23 History aspirin 81 mg tablet 81 mg PO DAILY 06/17/23 06/17/23 History insulin glargine 100 unit/mL (3 10 unit SUBCUT BEDTIME 06/17/23 06/17/23 History mL) subcutaneous pen (Lantus Solostar U-100 Insulin) insulin lispro 100 unit/mL 6 unit SUBCUT 3XD 06/17/23 06/17/23 History subcutaneous solution (Humalog U-100 Insulin) amlodipine 5 mg tablet (Norvasc) 10 mg (2 x 5 mg) PO DAILY #30 tabs 06/18/23 Rx carvedilol 3.125 mg tablet 12.5 mg (4 x 3.125 mg) PO BID #60 06/18/23 Rx tabs ondansetron 4 mg disintegrating 4 mg PO Q8H PRN nausea and 01/26/24 Rx tablet vomiting #10 tabs oxycodone 5 mg tablet 5 mg PO Q6H PRN pain #10 tabs 01/26/24 Rx sodium bicarbonate 650 mg tablet 650 mg PO TID #60 tabs 01/26/24 Rx Allergies Allergy/AdvReac Type Severity Reaction Status Date / Time erythromycin base AdvReac Verified 01/26/24 11:57 Review of Systems Review of Systems Narrative: All other systems reviewed with the patient and are negative unless otherwise stated. Exam Vital Signs (past 8 hours): - 01/26/24 11:57 01/26/24 12:46 01/26/24 13:00 Temperature 98.3 F Pulse Rate 89 76 71 Respiratory Rate 18 Blood Pressure 172/91 H Pulse Oximetry 98 97 97 Oxygen Delivery Method Room Air 01/26/24 13:00 01/26/24 13:26 01/26/24 13:26 Temperature Pulse Rate 88 Respiratory Rate Blood Pressure 163/93 H 178/92 H Pulse Oximetry 95 Oxygen Delivery Method 01/26/24 13:30 01/26/24 13:30 01/26/24 14:00 Temperature Pulse Rate 81 76 Respiratory Rate 21 Blood Pressure 169/94 H Pulse Oximetry 96 96 Oxygen Delivery Method 01/26/24 14:30 01/26/24 14:30 Temperature Pulse Rate 80 Respiratory Rate Blood Pressure 134/87 Pulse Oximetry 92 Oxygen Delivery Method Oxygen Delivery Method Room Air Narrative Exam Narrative: General:? Patient is well developed and well nourished, in no distress at this time. Lungs:? CTA b/l no wheezing rhonchi or rales. Cardio:?RRR no m/r/g. Abdomen: S NT ND. Left rib / LUQ point tenderness. Musculoskeletal:? Muscle strength and tone are equal within normal limits, no deformity. Extremities: No edema or joint effusions. Skin:? Pale,? Warm to touch,dry and intact without rashes, ulcerations or petechiae.? Neuro:? Alert and orientated x3,? sensation to touch intact in all extremities, no gross deficits noted of cranial nerves. Psych:? Patient has a well-kept appearance, appropriate affect, mental status attitude thought context and judgment are appropriate for age. Objective Labs 01/26/24 12:21 01/26/24 15:20 Labs: Laboratory Results - last 24 hr 01/26/24 01/26/24 01/26/24 12:21 12:22 13:15 WBC 5.8 RBC 3.53 L Hgb 10.7 L Hct 31.6 L MCV 89.6 MCH 30.3 MCHC 33.8 RDW 14.8 Plt Count 273 Neut % (Auto) 73.7 Lymph % (Auto) 16.1 L [place] % (Auto) 7.7 Eos % (Auto) 1.9 L Baso % (Auto) 0.6 Neut # (Auto) 4200 Lymph # (Auto) 900 L [place] # (Auto) 400 Eos # (Auto) 100 Baso # (Auto) 0 D-Dimer 359 VBG pH 7.27 L VBG pCO2 46.0 VBG pO2 16 L VBG HCO3 21 L VBG Total CO2 22 L VBG O2 Saturation 18 L VBG Base Excess -6.0 L FiO2 21 Sodium 142 Potassium 4.4 Chloride 110 H Carbon Dioxide 16 L BUN 103 H Creatinine 4.66 H Estimated GFR 10 L BUN/Creatinine Ratio 22.1 H Glucose 86 Calcium 10.7 H Total Bilirubin 0.4 AST 12 L ALT 14 Alkaline Phosphatase 61 Total Creatine Kinase 39 Troponin I < 0.012 Total Protein 7.7 Albumin 4.5 Globulin 3.2 Albumin/Globulin Ratio 1.4 Lipase 105 Urine Color Urine Appearance Urine pH Ur Specific [place] Urine Protein Urine Glucose (UA) Urine Ketones Urine Occult Blood Urine Nitrate Urine Bilirubin Urine Urobilinogen Ur Leukocyte Esterase Urine RBC Urine WBC Ur Squamous Epith Cells Urine Bacteria Ur Culture Indicated? Vol Urine Centrifuged Ethyl Alcohol < 10 Ketones 0.18 01/26/24 01/26/24 15:20 16:07 WBC RBC Hgb Hct MCV MCH MCHC RDW Plt Count Neut % (Auto) Lymph % (Auto) [place] % (Auto) Eos % (Auto) Baso % (Auto) Neut # (Auto) Lymph # (Auto) [place] # (Auto) Eos # (Auto) Baso # (Auto) D-Dimer VBG pH VBG pCO2 VBG pO2 VBG HCO3 VBG Total CO2 VBG O2 Saturation VBG Base Excess FiO2 Sodium 142 Potassium 4.4 Chloride 114 H Carbon Dioxide 16 L BUN 101 H Creatinine 4.19 H Estimated GFR 11 L BUN/Creatinine Ratio 24.1 H Glucose 74 L Calcium 10.1 Total Bilirubin AST ALT Alkaline Phosphatase Total Creatine Kinase Troponin I Total Protein Albumin Globulin Albumin/Globulin Ratio Lipase Urine Color Yellow Urine Appearance Clear Urine pH 5.5 Ur Specific [place] 1.020 Urine Protein 2+ H Urine Glucose (UA) Negative Urine Ketones Negative Urine Occult Blood Trace-intact Urine Nitrate Negative Urine Bilirubin Negative Urine Urobilinogen 0.2 Ur Leukocyte Esterase Negative Urine RBC 0-1/hpf Urine WBC None seen Ur Squamous Epith Cells None seen Urine Bacteria None seen Ur Culture Indicated? Cult not indicated Vol Urine Centrifuged 10ml (spun) Ethyl Alcohol Ketones PFSH Medical History Diabetes Hypertension Congestive heart failure Social History household members: significant other lives independently: Yes Tobacco & Substance Use Smoking Status: Former smoker Assessment & Plan Assessment & Plan narrative: 1. LARRY on CKD - suspect LARRY due to hypovolemia / vomiting. This has resolved and creatinine has improved. There is no significant electrolyte abnormalities. Imaging is without obstruction. Her acidosis does not appear to be significantly worse than her prior admission here. - recommend 650 mg TID sodium bicarb for renal protection / acidosis on discharge. - recommend repeat labs in a few days to make sure continued improvement with PCP, repeat bicarb evaluation, and advised patient rehydration at home. - discussed risks and benefits of continued observation in the hospital or discharge home, patient elected for discharge home. - highly recommend outpatient nephrology referral. 2. IDDM - unlikely DKA - no recommendations for changes at this time to home insulin therapy. - some concern for possible DKA, however with patient not on chronic oral medications this is highly unlikely with euglycemia on presentation. - acidosis more likely from chronic renal failure, slightly worse with volume loss 3. HTN - continue to control BP as an outpatient, no changes recommended at this time to home therapy. Additional history obtained from the ER provider, friend (Art) I have utilized all available immediate resources to obtain, update, or review the patient's current medications. Code: full, surrogate/contact is friend Atilio
[2024-01-26 17:38] LABS: Fractionated Inspired Oxygen 21; HCO3 VBG 17 mmol/L (24-28); Oxygen Saturation VBG 46 % (70-75); PCO2 VBG 40.3 mmHg (45-50); PO2 VBG 30 mmHg (35-45); Total CO2 VBG 18 mmol/L (24-29); pH VBG 7.22 (7.33-7.43)
== END 2024-01-26 18:00 | disposition home or self-care (01) ==
PROVIDERS: Emergency Provider Emergency Medicine; PCP Internal Medicine
DX: N17.9 Acute kidney failure, unspecified (principal); M94.0 Chondrocostal junction syndrome [Tietze]
CPT/HCPCS: 36415; 74176; 80048; 80053; 80320; 81001; 81003; 82009; 82550; 82805; 82962; 83690; 84484; 85025; 85379; 93005; 93010; 96361; 96374; 96375; 96376; 99284; J2405

== ENCOUNTER 2024-05-14 10:00 | Emergency (ER) | payer MEDICARE, MEDICAID, SELFPAY ==
[2023-06-17 15:55] VITALS: BMI 24.7
[2024-05-14] VITALS (29 sets, daily range): BP systolic 116–162; BP diastolic 62–83; PULSE 75–102; RESP 11–30; TEMP 36.8–38; O2SAT 85–97; BMI 29.0
--- NOTE | 2024-05-14 10:15 | DI.US.S_ITS ---
PROCEDURE: US PERIPH VENOUS LOW EXTREM RT INDICATIONS: swelling/pain RLE TECHNIQUE: Real-time imaging, as well as color and pulse Doppler interrogation, were performed of the lower extremity deep veins from the inguinal ligament to the popliteal fossa, with documentation of the visualized calf veins. COMPARISON: None. FINDINGS: The common femoral, femoral, popliteal, and the visualized calf veins are normally compressible, and free of intraluminal thrombus. Color and pulse Doppler demonstrate normal phasic intraluminal flow. There is normal augmentation response to distal compression maneuver. IMPRESSION: No findings of lower extremity deep venous thrombosis. Dictated by: Marcellus Oropeza M.D. on 05/14/2024 at 11:28 Approved by: Marcellus Oropeza M.D. on 05/14/2024 at 11:29
--- NOTE | 2024-05-14 10:16 | DI.CT.S_ITS ---
PROCEDURE: CT HEAD/BRAIN WO CON INDICATIONS: swelling/pain RLE TECHNIQUE: Noncontrast 4.5 mm thick angled axial sections acquired from the foramen magnum to the vertex, with coronal and sagittal reformats. For radiation dose reduction, the following was used: automated exposure control, adjustment of mA and/or kV according to patient size. COMPARISON: CT, CT HEAD/BRAIN WO CON, 06/17/2023, 11:25. FINDINGS: Image quality: Diagnostic. CSF spaces: Basal cisterns are patent. No extra-axial fluid collections. The ventricles are symmetric in size and shape. Brain: No intracranial bleeds or masses. There is cerebral volume loss for age, with resultant ventricular and sulcal prominence. There are periventricular and deep white matter chronic small vessel ischemic changes. There is intracranial internal carotid artery atherosclerosis. Skull and face: Calvarium and visualized facial bones appear intact, without suspicious lesions. Sinuses: Moderate left ethmoid and mild right maxillary sinus mucosal thickening. Mastoids are clear. IMPRESSION: No acute intracranial pathology. Dictated by: Anjel Qureshi M.D. on 05/14/2024 at 13:35 Approved by: Anjel Qureshi M.D. on 05/14/2024 at 13:37
--- NOTE | 2024-05-14 10:16 | DI.RAD.S_ITS ---
PROCEDURE: XR CHEST 1V INDICATIONS: swelling/pain RLE TECHNIQUE: One view of the chest was acquired. COMPARISON: None. FINDINGS: Surgical changes and devices: None. Lungs and pleura: Patchy consolidation in the right lower lung zone. Mediastinum: Mediastinal contours appear normal. Heart size is likely enlarged. Bones and chest wall: No suspicious bony lesions. Overlying soft tissues appear unremarkable. IMPRESSION: Patchy consolidation in the right lower lung zone, concerning for pneumonia. Recommend follow-up in 1-2 months with chest x-ray to ensure resolution. Dictated by: Marcellus Oropeza M.D. on 05/14/2024 at 11:23 Approved by: Marcellus Oropeza M.D. on 05/14/2024 at 11:25
--- NOTE | 2024-05-14 10:16 | EKG_ITS ---
[facility] [address] [place] [id number] Test Date: 2024-05-14 Pat Name: Ailyn Kent Department: Room: Gender: Female [employer] Systems Administrator: SHAHID : [id number] Requested By: Order Number: [id number] Reading MD: Junior Ponce Measurements Intervals [place] Rate: 99 P: 44 HI: 190 QRS: 11 QRSD: 82 T: 63 QT: 368 QTc: 472 Interpretive Statements Normal sinus rhythm Low voltage QRS Nonspecific ST abnormality Electronically Signed On 05-14-2024 12:36:49 PDT by Junior Ponce
--- NOTE | 2024-05-14 10:18 | ED.EXTPRO ---
HPI - Extremity Problem <Lesvia AquinoDO - Last Filed: 05/16/24 08:14> General Chief complaint: Extremity Problem,Nontraumatic Stated complaint: R leg pain Time Seen by Provider: 05/14/24 10:15 Source: patient, EMS, RN notes reviewed and old records reviewed Mode of arrival: EMS Limitations: no limitations History of Present Illness HPI Narrative: 69-year-old female chronic kidney disease reported stage 5 but not on dialysis, insulin-dependent diabetic, hypertension, dyslipidemia who presents via EMS with complaint of right lower extremity pain, swelling and twitching. Patient states pain has been in her right leg for the past week she states she saw someone was told she has a Sunshine cyst and was started on muscle relaxer to help her with sleep. She does not recall the name. She notes she is picked that up around Monday. She has not sure but she started getting twitchy in the past 2 days. Patient denies fevers but states she is felt warm. She denies headache, states she has vision issues secondary to cataracts. Denies any chest pain or shortness of breath. No nausea or vomiting. States she thought she was going to have diarrhea this morning but was actually constipated did not have a bowel movement. She denies any new incontinence or urinary changes. She states she does feel twitchy. She describes pain from her knee down to her ankle in her right lower extremity. She states it has been swollen. She is unsure if it has been red or hot. Patient patient states she does follow with [facility] [place]. Related Data Home Medications Medication Instructions Recorded Confirmed acetaminophen 500 mg PO BID pain 06/17/23 06/17/23 aspirin 81 mg tablet 81 mg PO DAILY 06/17/23 06/17/23 insulin glargine 100 unit/mL (3 10 unit SUBCUT BEDTIME 06/17/23 06/17/23 mL) subcutaneous pen (Lantus Solostar U-100 Insulin) insulin lispro 100 unit/mL 6 unit SUBCUT 3XD 06/17/23 06/17/23 subcutaneous solution (Humalog U-100 Insulin) Previous Rx's Medication Instructions Recorded amlodipine 5 mg tablet (Norvasc) 10 mg (2 x 5 mg) PO DAILY #30 tabs 06/18/23 carvedilol 3.125 mg tablet 12.5 mg (4 x 3.125 mg) PO BID #60 06/18/23 tabs ondansetron 4 mg disintegrating 4 mg PO Q8H PRN nausea and 01/26/24 tablet vomiting #10 tabs oxycodone 5 mg tablet 5 mg PO Q6H PRN pain #10 tabs 01/26/24 sodium bicarbonate 650 mg tablet 650 mg PO TID #60 tabs 01/26/24 Allergies Allergy/AdvReac Type Severity Reaction Status Date / Time erythromycin base AdvReac Verified 01/26/24 11:57 Review of Systems <Lesvia Aquino DO - Last Filed: 05/16/24 08:14> Review of Systems ROS Unobtainable: All systems reviewed & are unremarkable except as noted in HPI and below Patient History <Lesvia Aquino DO - Last Filed: 05/16/24 08:14> Medical History Diabetes Hypertension Congestive heart failure Social History household members: significant other lives independently: Yes Smoking Status: Former smoker Smoking Status: Former smoker alcohol intake frequency: 0-2 drinks per day Substance Use Type: does not use Exam <DO José Antonio Jose Last Filed: 05/16/24 08:14> Narrative Exam Narrative: GEN: Female, alert and oriented, patient appears to be in mild distress. HEENT: Atraumatic, pupils are equal round reactive to light, extraocular movements are intact, no nystagmus, nares are clear, TMs are clear with no fluid, there is no conjunctival pallor. Throat is clear without any exudates, erythema, tonsillar enlargement or uvular deviation, no facial droop. HEART: Regular rate and rhythm without murmur, clicks, rubs. No carotid bruits, pulses are equal in upper and lower extremities LUNGS:Lungs clear to auscultation, no wheezes, rales, crackles, chest moves symmetrically ABD:bowel sounds normal, soft, non-tender, no guarding, rebound, rigidity, no masses noted, no hepatosplenomegaly :No CVA tenderness MSCL: Patient's right lower extremity is nontender but is clearly more swollen right comparison to left, possible some faint erythema of the right lower extremity comparison to the left, patient has some scabbed areas but no significant redness or swelling or drainage from any of them, patient swelling extends from the foot all the way up to the knee. No warmth in comparison [id number]. No muscle atrophy, muscles strength 5/5 upper and lower extremities, full range of motion. NEURO:CN 2-12 intact, sensation normal, reflexes 2/4 upper and lower extremities, patient does not appear to have little bit of imbalance early twitch or tremor, DTRs are normal. Patient does not have any clonus, no nystagmus on exam. She is able to answer questions appropriately. Initial Vital Signs Initial Vital Signs: Vital Signs Pulse Rate 102 H 05/14/24 10:05 Blood Pressure 132/83 05/14/24 10:05 Pulse Oximetry 89 L 05/14/24 10:05 Oxygen Delivery Method Nasal Cannula 05/14/24 10:05 Oxygen Flow Rate 2 05/14/24 10:05 <Lesvia Joe MD - Last Filed: 05/14/24 22:21> Initial Vital Signs Initial Vital Signs: Vital Signs Pulse Rate 102 H 05/14/24 10:05 Blood Pressure 132/83 05/14/24 10:05 Pulse Oximetry 89 L 05/14/24 10:05 Oxygen Delivery Method Nasal Cannula 05/14/24 10:05 Oxygen Flow Rate 2 05/14/24 10:05 Course <Lesvia Aquino DO - Last Filed: 05/16/24 08:14> Orders Ordered: Discontinued Medications Sodium Chloride (Normal Saline 0.9%) 1,000 mls @ 150 mls/hr IV CONT RYLEE Last Infusion: 05/14/24 18:24 Dose: Infused Documented By: Infusion: 05/14/24 13:14 Dose: 150 mls/hr Documented By: Infusion: 05/14/24 12:59 Dose: 0 mls/hr Documented By: Admin: 05/14/24 11:03 Dose: 150 mls/hr Documented By: SPF Acetaminophen (Ofirmev) 1,000 mg in 100 mls @ 400 mls/hr IV NOW ONE Stop: 05/14/24 10:36 Last Infusion: 05/14/24 11:30 Dose: Infused Documented By: Admin: 05/14/24 11:03 Dose: 400 mls/hr Documented By: SPF Piperacillin Sod/Tazobactam (Sod 4.5 gm/ Sodium Chloride) 100 mls @ 200 mls/hr IV NOW ONE Stop: 05/14/24 11:45 Last Infusion: 05/14/24 13:00 Dose: Infused Documented By: Admin: 05/14/24 12:09 Dose: 200 mls/hr Documented By: NATAN Vital Signs Vital signs: Vital Signs - 8 hr 05/14/24 14:30 05/14/24 14:30 05/14/24 15:00 Temperature 99.1 F 99.0 F Pulse Rate 79 75 Respiratory Rate 12 Blood Pressure 119/65 Pulse Oximetry 95 94 Oxygen Delivery Method Oxygen Flow Rate 05/14/24 15:00 05/14/24 15:30 05/14/24 15:30 Temperature 98.8 F Pulse Rate 77 Respiratory Rate 12 Blood Pressure 116/63 128/70 Pulse Oximetry 91 Oxygen Delivery Method Oxygen Flow Rate 05/14/24 16:00 05/14/24 16:00 05/14/24 16:30 Temperature 98.8 F 98.8 F Pulse Rate 78 79 Respiratory Rate 17 Blood Pressure 130/67 Pulse Oximetry 95 95 Oxygen Delivery Method Oxygen Flow Rate 05/14/24 16:31 05/14/24 16:31 05/14/24 17:00 Temperature 98.8 F Pulse Rate 84 Respiratory Rate Blood Pressure 136/64 126/67 Pulse Oximetry 95 Oxygen Delivery Method Oxygen Flow Rate 05/14/24 17:00 05/14/24 17:30 05/14/24 17:30 Temperature 98.8 F 99.0 F Pulse Rate 93 H 92 H Respiratory Rate 21 26 H Blood Pressure 138/67 Pulse Oximetry Oxygen Delivery Method Oxygen Flow Rate 05/14/24 18:00 05/14/24 18:00 05/14/24 18:30 Temperature 98.8 F 98.4 F Pulse Rate 81 84 Respiratory Rate 19 20 Blood Pressure 136/66 Pulse Oximetry 93 Oxygen Delivery Method Nasal Cannula Oxygen Flow Rate 05/14/24 18:30 05/14/24 19:00 05/14/24 19:00 Temperature 98.4 F Pulse Rate 82 Respiratory Rate 20 Blood Pressure 141/75 H 136/68 Pulse Oximetry 97 Oxygen Delivery Method Nasal Cannula Oxygen Flow Rate 2 05/14/24 19:30 05/14/24 19:30 05/14/24 20:00 Temperature 98.2 F 98.2 F Pulse Rate 79 81 Respiratory Rate 19 20 Blood Pressure 133/62 Pulse Oximetry 96 85 L Oxygen Delivery Method Oxygen Flow Rate 05/14/24 20:00 05/14/24 20:30 05/14/24 20:30 Temperature 98.2 F 98.2 F Pulse Rate 75 Respiratory Rate 13 20 Blood Pressure 143/74 H 142/69 H Pulse Oximetry 96 93 Oxygen Delivery Method Nasal Cannula Oxygen Flow Rate 2 05/14/24 21:00 05/14/24 21:00 Temperature 98.2 F Pulse Rate 76 Respiratory Rate 16 Blood Pressure 148/73 H Pulse Oximetry 94 Oxygen Delivery Method Oxygen Flow Rate <Lesvia Joe MD - Last Filed: 05/14/24 22:21> Orders Ordered: Discontinued Medications Sodium Chloride (Normal Saline 0.9%) 1,000 mls @ 150 mls/hr IV CONT RYLEE Last Infusion: 05/14/24 18:24 Dose: Infused Documented By: Infusion: 05/14/24 13:14 Dose: 150 mls/hr Documented By: Infusion: 05/14/24 12:59 Dose: 0 mls/hr Documented By: Admin: 05/14/24 11:03 Dose: 150 mls/hr Documented By: SPF Acetaminophen (Ofirmev) 1,000 mg in 100 mls @ 400 mls/hr IV NOW ONE Stop: 05/14/24 10:36 Last Infusion: 05/14/24 11:30 Dose: Infused Documented By: Admin: 05/14/24 11:03 Dose: 400 mls/hr Documented By: SPF Piperacillin Sod/Tazobactam (Sod 4.5 gm/ Sodium Chloride) 100 mls @ 200 mls/hr IV NOW ONE Stop: 05/14/24 11:45 Last Infusion: 05/14/24 13:00 Dose: Infused Documented By: Admin: 05/14/24 12:09 Dose: 200 mls/hr Documented By: NATAN Vital Signs Vital signs: Vital Signs - 8 hr 05/14/24 14:30 05/14/24 14:30 05/14/24 15:00 Temperature 99.1 F 99.0 F Pulse Rate 79 75 Respiratory Rate 12 Blood Pressure 119/65 Pulse Oximetry 95 94 Oxygen Delivery Method Oxygen Flow Rate 05/14/24 15:00 05/14/24 15:30 05/14/24 15:30 Temperature 98.8 F Pulse Rate 77 Respiratory Rate 12 Blood Pressure 116/63 128/70 Pulse Oximetry 91 Oxygen Delivery Method Oxygen Flow Rate 05/14/24 16:00 05/14/24 16:00 05/14/24 16:30 Temperature 98.8 F 98.8 F Pulse Rate 78 79 Respiratory Rate 17 Blood Pressure 130/67 Pulse Oximetry 95 95 Oxygen Delivery Method Oxygen Flow Rate 05/14/24 16:31 05/14/24 16:31 05/14/24 17:00 Temperature 98.8 F Pulse Rate 84 Respiratory Rate Blood Pressure 136/64 126/67 Pulse Oximetry 95 Oxygen Delivery Method Oxygen Flow Rate 05/14/24 17:00 05/14/24 17:30 05/14/24 17:30 Temperature 98.8 F 99.0 F Pulse Rate 93 H 92 H Respiratory Rate 21 26 H Blood Pressure 138/67 Pulse Oximetry Oxygen Delivery Method Oxygen Flow Rate 05/14/24 18:00 05/14/24 18:00 05/14/24 18:30 Temperature 98.8 F 98.4 F Pulse Rate 81 84 Respiratory Rate 19 20 Blood Pressure 136/66 Pulse Oximetry 93 Oxygen Delivery Method Nasal Cannula Oxygen Flow Rate 2 05/14/24 18:30 05/14/24 19:00 05/14/24 19:00 Temperature 98.4 F Pulse Rate 82 Respiratory Rate 20 Blood Pressure 141/75 H 136/68 Pulse Oximetry 97 Oxygen Delivery Method Nasal Cannula Oxygen Flow Rate 2 05/14/24 19:30 05/14/24 19:30 05/14/24 20:00 Temperature 98.2 F 98.2 F Pulse Rate 79 81 Respiratory Rate 19 20 Blood Pressure 133/62 Pulse Oximetry 96 85 L Oxygen Delivery Method Oxygen Flow Rate 05/14/24 20:00 05/14/24 20:30 05/14/24 20:30 Temperature 98.2 F 98.2 F Pulse Rate 75 Respiratory Rate 13 20 Blood Pressure 143/74 H 142/69 H Pulse Oximetry 96 93 Oxygen Delivery Method Nasal Cannula Oxygen Flow Rate 2 05/14/24 21:00 05/14/24 21:00 Temperature 98.2 F Pulse Rate 76 Respiratory Rate 16 Blood Pressure 148/73 H Pulse Oximetry 94 Oxygen Delivery Method Oxygen Flow Rate MDM - Extremity (Nontraumatic) <Lesvia Aquino, DO - Last Filed: 05/16/24 08:14> Lab Data 05/14/24 09:50 05/14/24 09:50 Labs: Lab Results 05/14/24 05/14/24 05/14/24 Range/Units 09:50 10:47 11:10 WBC 9.6 (4.5-11.0) X10^3/uL RBC 3.16 L (4.0-5.2) X10^6/uL Hgb 9.6 L (12.0-16.0) g/dL Hct 28.1 L (36-46) % MCV 88.8 (80-100) fL MCH 30.2 (26-34) PG MCHC 34.0 (30-36) % RDW 13.3 (11.6-14.8) % Plt Count 290 (150-400) X10^3/uL Neut % (Auto) 83.8 H (50-75) % Lymph % (Auto) 7.5 L (25-40) % Burke % (Auto) 7.3 (3-14) % Eos % (Auto) 1.1 L (2-4) % Baso % (Auto) 0.3 (0-2) % Neut # (Auto) 8000 H (6621-2412) /uL Lymph # (Auto) 700 L (6274-7766) /uL Burke # (Auto) 700 (0-900) /uL Eos # (Auto) 100 (0-450) /uL Baso # (Auto) 0 (0-100) /uL PT 11.7 (9.4-12.5) SECONDS INR 1.0 (0.9-1.3) APTT 45 H (25.1-36.5) SECONDS D-Dimer 778 H (<500) ng/ml ABG Sample Site ABG pH (7.35-7.45) ABG pCO2 (35-45) mmHg ABG pO2 (80-100) mmHg ABG HCO3 (23-27) mmol/L ABG Total CO2 (23-27) mmol/L ABG O2 Saturation (95-100) % ABG Base Excess (-2-3) mmol/L O2 Delivery Device FiO2 Sodium 137 (137-145) mmol/L Potassium 4.8 (3.4-5.1) mmol/L Chloride 98 (98-107) mmol/L Carbon Dioxide 24 (22-32) mmol/L BUN 141 H* (7-17) mg/dL Creatinine 6.50 H (0.52-1.04) mg/dL Estimated GFR 6 L (>60) mL/min BUN/Creatinine Ratio 21.7 (6-22) Glucose 201 H (80-110) mg/dL Lactate 0.9 (0.7-2.1) mmol/L Calcium 9.6 (8.4-10.2) mg/dL Total Bilirubin 0.5 (0.2-1.3) mg/dL AST 14 (14-36) IU/L ALT 11 (<35) IU/L Alkaline Phosphatase 92 (38-126) U/L Ammonia < 9 L (9-30) umol/L Total Creatine Kinase 96 (30-135) U/L Troponin I 0.016 (0.01-0.034) ng/mL NT-Pro-B Natriuret Pep 4500 H (<125) pg/mL Total Protein 7.0 (6.3-8.2) g/dL Albumin 4.1 (3.5-5.0) g/dL Globulin 2.9 (1.7-4.1) g/dL Albumin/Globulin Ratio 1.4 (1.0-2.8) Procalcitonin 0.665 H (<0.5) ng/mL TSH 3.93 (0.47-4.68) uIU/mL Prolactin 100.0 H (3.0-18.6) ng/mL Urine Color Urine Appearance Urine pH (4.5-8.0) Ur Specific Henderson (1.000-1.035) Urine Protein (Negative) Urine Glucose (UA) (Negative) g/dL Urine Ketones (NEGATIVE) Urine Occult Blood (Negative) Urine Nitrate (Negative) Urine Bilirubin (NEGATIVE) Urine Urobilinogen (0.2) E.U./dL Ur Leukocyte Esterase (NEGATIVE) Urine RBC (0-5/HPF) Urine WBC (0-5/HPF) Ur Squamous Epith Cells (0-5/HPF) Urine Bacteria (None) Urine Mucus (Negative) Ur Culture Indicated? Vol Urine Centrifuged Salicylates < 1.0 (<20) mg/dL U Opiates 300ng/mL cut (Negative) Ur Oxycodone Screen (Negative) Urine Methadone Screen (Negative) Acetaminophen < 10 (10-30) ug/mL Ur Barbiturates Screen (Negative) U Tricyclic Antidepress (Negative) Ur Phencyclidine Scrn (Negative) Ur Amphetamines Screen (Negative) U Methamphetamines Scrn (Negative) Ur MDMA Scrn (Ecstasy) (Negative) U Benzodiazepines Scrn (Negative) Urine Cocaine Screen (Negative) U Marijuana (THC) Screen (Negative) Urine Specific Henderson (Normal) Ethyl Alcohol < 10 ( - 10) mg/dL Ur Creatinine (Normal) Chlamy pneumoniae PCR Not detected (Not Detect) Adenovirus (PCR) Not detected (Not Detect) B.parapertussis DNA PCR Not detected (Not Detecte) Coronavirus OC43 (PCR) Not detected (Not Detect) Coronavirus HKU1 (PCR) Not detected (Not Detect) Coronavirus 229E (PCR) Not detected (Not Detect) SARS-CoV-2 (PCR) Not detected (Not Detecte) Coronavirus NL63 (PCR) Not detected (Not Detect) Human Metapneumovir PCR Not detected (Not Detect) Influenza Type A (PCR) Not detected (Not Detect) Influenza Type B (PCR) Not detected (Not Detect) M. pneumoniae (PCR) Not detected (Not Detect) Parainfluenza 1 (PCR) Not detected (Not Detect) Parainfluenza 2 (PCR) Not detected (Not Detect) Parainfluenza 3 (PCR) Not detected (Not Detect) Parainfluenza 4 (PCR) Not detected (Not Detect) RSV (PCR) Not detected (Not Detect) Entero/Rhino (PCR) Not detected (Not Detect) 05/14/24 05/14/24 05/14/24 Range/Units 12:13 12:30 12:30 WBC (4.5-11.0) X10^3/uL RBC (4.0-5.2) X10^6/uL Hgb (12.0-16.0) g/dL Hct (36-46) % MCV (80-100) fL MCH (26-34) PG MCHC (30-36) % RDW (11.6-14.8) % Plt Count (150-400) X10^3/uL Neut % (Auto) (50-75) % Lymph % (Auto) (25-40) % Burke % (Auto) (3-14) % Eos % (Auto) (2-4) % Baso % (Auto) (0-2) % Neut # (Auto) (1132-1443) /uL Lymph # (Auto) (0227-4494) /uL Burke # (Auto) (0-900) /uL Eos # (Auto) (0-450) /uL Baso # (Auto) (0-100) /uL PT (9.4-12.5) SECONDS INR (0.9-1.3) APTT (25.1-36.5) SECONDS D-Dimer (<500) ng/ml ABG Sample Site Right radial ABG pH 7.36 (7.35-7.45) ABG pCO2 47.3 H (35-45) mmHg ABG pO2 93 (80-100) mmHg ABG HCO3 27 (23-27) mmol/L ABG Total CO2 27 (23-27) mmol/L ABG O2 Saturation 97 (95-100) % ABG Base Excess 0.7 (-2-3) mmol/L O2 Delivery Device Nc FiO2 28 Sodium (137-145) mmol/L Potassium (3.4-5.1) mmol/L Chloride (98-107) mmol/L Carbon Dioxide (22-32) mmol/L BUN (7-17) mg/dL Creatinine (0.52-1.04) mg/dL Estimated GFR (>60) mL/min BUN/Creatinine Ratio (6-22) Glucose (80-110) mg/dL Lactate (0.7-2.1) mmol/L Calcium (8.4-10.2) mg/dL Total Bilirubin (0.2-1.3) mg/dL AST (14-36) IU/L ALT (<35) IU/L Alkaline Phosphatase (38-126) U/L Ammonia (9-30) umol/L Total Creatine Kinase (30-135) U/L Troponin I (0.01-0.034) ng/mL NT-Pro-B Natriuret Pep (<125) pg/mL Total Protein (6.3-8.2) g/dL Albumin (3.5-5.0) g/dL Globulin (1.7-4.1) g/dL Albumin/Globulin Ratio (1.0-2.8) Procalcitonin (<0.5) ng/mL TSH (0.47-4.68) uIU/mL Prolactin (3.0-18.6) ng/mL Urine Color Yellow Urine Appearance Clear Urine pH 6.5 Normal (4.5-8.0) Ur Specific Henderson 1.010 (1.000-1.035) Urine Protein 2+ H (Negative) Urine Glucose (UA) 1+ H (Negative) g/dL Urine Ketones Negative (NEGATIVE) Urine Occult Blood 1+ H (Negative) Urine Nitrate Negative (Negative) Urine Bilirubin Negative (NEGATIVE) Urine Urobilinogen 0.2 (0.2) E.U./dL Ur Leukocyte Esterase Negative (NEGATIVE) Urine RBC None seen (0-5/HPF) Urine WBC None seen (0-5/HPF) Ur Squamous Epith Cells 1-5 /hpf (0-5/HPF) Urine Bacteria Occasional (0-1) (None) Urine Mucus 1+ H (Negative) Ur Culture Indicated? Cult not indicated Vol Urine Centrifuged 10ml (spun) Salicylates (<20) mg/dL U Opiates 300ng/mL cut Negative (Negative) Ur Oxycodone Screen Positive H (Negative) Urine Methadone Screen Negative (Negative) Acetaminophen (10-30) ug/mL Ur Barbiturates Screen Negative (Negative) U Tricyclic Antidepress Negative (Negative) Ur Phencyclidine Scrn Negative (Negative) Ur Amphetamines Screen Negative (Negative) U Methamphetamines Scrn Negative (Negative) Ur MDMA Scrn (Ecstasy) Negative (Negative) U Benzodiazepines Scrn Negative (Negative) Urine Cocaine Screen Negative (Negative) U Marijuana (THC) Screen Negative (Negative) Urine Specific Henderson Normal (Normal) Ethyl Alcohol ( - 10) mg/dL Ur Creatinine Normal (Normal) Chlamy pneumoniae PCR (Not Detect) Adenovirus (PCR) (Not Detect) B.parapertussis DNA PCR (Not Detecte) Coronavirus OC43 (PCR) (Not Detect) Coronavirus HKU1 (PCR) (Not Detect) Coronavirus 229E (PCR) (Not Detect) SARS-CoV-2 (PCR) (Not Detecte) Coronavirus NL63 (PCR) (Not Detect) Human Metapneumovir PCR (Not Detect) Influenza Type A (PCR) (Not Detect) Influenza Type B (PCR) (Not Detect) M. pneumoniae (PCR) (Not Detect) Parainfluenza 1 (PCR) (Not Detect) Parainfluenza 2 (PCR) (Not Detect) Parainfluenza 3 (PCR) (Not Detect) Parainfluenza 4 (PCR) (Not Detect) RSV (PCR) (Not Detect) Entero/Rhino (PCR) (Not Detect) Point of Care Testing Glucose POC 180 ECG Data Attestation EKG: I personally reviewed and interpreted this ECG as follows: Prior ECG tracings: available for review Interpretation: Patient's 1st EKG has a motion artifact from movement, repeat EKG shows junctional versus sinus rhythm there does appear to be P wave with most leads. Rate of 99 OH 190 QRS 82 QTC [address] elevation or depression. Nonspecific change. MDM Narrative Medical decision making narrative: Labs show CBC with a white count of 9.6 hemoglobin is 9.6 as well fairly consistent with baseline ranging from 10-9 platelets are 290, Dimer 778 when age adjusted, still positive with a cutoff of 710. Because patient's renal function she has not currently on dialysis hold off on PE scan. Hypoxia could likely be secondary to her pneumonia so held off on full anticoagulation. CMP shows normal electrolytes with sodium and potassium chloride and CO2 of 24 BUN is 141 with a creatinine of 6.5 patient's baseline has been in the 4 range has a January 2024 patient does have known CKD. Lactate 0.9 electrolytes are otherwise appropriate troponins negative at 0.0 1 6, BNP is 4500, protocol is positive at 0.665 patient's prolactin in his 100 but not sure if this is renally cleared, TSH 3.93 Ammonia less than 9 Tylenol, salicylate and ETOH are negative Respiratory panel is negative. UA shows 1+ mucus, 1+ blood protein is 2+ with a glucose of 1+ no other infectious changes. ABGs appropriate with a pH of 7.36 pCO2 of 47, PO2 of 93 with a bicarb of 27 on [address] shows no acute change Chest x-ray patient consolidation right lower lung zone. DVT ultrasound is negative. Haines catheter placed for strict I's and O's. Patient had gentle fluids, catheter placed for strict I's and O's, patient received Zosyn for antibiotics. Continues to be on 2 L nasal cannula. Patient felt to require transfer for Nephrology and potential for acute renal failure on chronic possibly needing dialysis. She does not have any significant electrolyte changes at this time. She is hypoxic requiring antibiotics. Unclear of the etiology for patient's twitching although she noted a new muscle relaxer recently and does have uremia. Spoke with Dr. Cristina, nephrology at [facility] recommends fluids but would stop after a L of NS. If concern for uremia which he states would be more clinical diagnosis or fluid overload would recommend transfer. Notes with her GFR of 6 despite making urine she maybe getting near the point that she is going to require dialysis either way. States she is connected to nephrology in [place] was seen recently at [facility] for the swelling in her leg and evaluation for DVT at that time which was also negative. Agreeable to transfer felt necessary. Spoke with Dr. Siddiqui accepted at [facility] telemetry bed at this time. Agree with the currently, patient has not been having increasing O2 requirements has not been hypotensive or tachycardic. Patient signed out to Dr. Joe while awaiting bed assignment and transfer. Patient received a L fluids held she was given a renal diet. Held her hydroxyzine and oxycodone which she requested cyst might be affecting her mentation. She did receive a sodium bicarb p.o. with her meal. <Lesvia Joe MD - Last Filed: 05/14/24 22:21> Lab Data Labs: Lab Results 05/14/24 05/14/24 05/14/24 Range/Units 09:50 10:47 11:10 WBC 9.6 (4.5-11.0) X10^3/uL RBC 3.16 L (4.0-5.2) X10^6/uL Hgb 9.6 L (12.0-16.0) g/dL Hct 28.1 L (36-46) % MCV 88.8 (80-100) fL MCH 30.2 (26-34) PG MCHC 34.0 (30-36) % RDW 13.3 (11.6-14.8) % Plt Count 290 (150-400) X10^3/uL Neut % (Auto) 83.8 H (50-75) % Lymph % (Auto) 7.5 L (25-40) % Burke % (Auto) 7.3 (3-14) % Eos % (Auto) 1.1 L (2-4) % Baso % (Auto) 0.3 (0-2) % Neut # (Auto) 8000 H (2475-8502) /uL Lymph # (Auto) 700 L (3114-6648) /uL Burke # (Auto) 700 (0-900) /uL Eos # (Auto) 100 (0-450) /uL Baso # (Auto) 0 (0-100) /uL PT 11.7 (9.4-12.5) SECONDS INR 1.0 (0.9-1.3) APTT 45 H (25.1-36.5) SECONDS D-Dimer 778 H (<500) ng/ml ABG Sample Site ABG pH (7.35-7.45) ABG pCO2 (35-45) mmHg ABG pO2 (80-100) mmHg ABG HCO3 (23-27) mmol/L ABG Total CO2 (23-27) mmol/L ABG O2 Saturation (95-100) % ABG Base Excess (-2-3) mmol/L O2 Delivery Device FiO2 Sodium 137 (137-145) mmol/L Potassium 4.8 (3.4-5.1) mmol/L Chloride 98 (98-107) mmol/L Carbon Dioxide 24 (22-32) mmol/L BUN 141 H* (7-17) mg/dL Creatinine 6.50 H (0.52-1.04) mg/dL Estimated GFR 6 L (>60) mL/min BUN/Creatinine Ratio 21.7 (6-22) Glucose 201 H (80-110) mg/dL Lactate 0.9 (0.7-2.1) mmol/L Calcium 9.6 (8.4-10.2) mg/dL Total Bilirubin 0.5 (0.2-1.3) mg/dL AST 14 (14-36) IU/L ALT 11 (<35) IU/L Alkaline Phosphatase 92 (38-126) U/L Ammonia < 9 L (9-30) umol/L Total Creatine Kinase 96 (30-135) U/L Troponin I 0.016 (0.01-0.034) ng/mL NT-Pro-B Natriuret Pep 4500 H (<125) pg/mL Total Protein 7.0 (6.3-8.2) g/dL Albumin 4.1 (3.5-5.0) g/dL Globulin 2.9 (1.7-4.1) g/dL Albumin/Globulin Ratio 1.4 (1.0-2.8) Procalcitonin 0.665 H (<0.5) ng/mL TSH 3.93 (0.47-4.68) uIU/mL Prolactin 100.0 H (3.0-18.6) ng/mL Urine Color Urine Appearance Urine pH (4.5-8.0) Ur Specific Henderson (1.000-1.035) Urine Protein (Negative) Urine Glucose (UA) (Negative) g/dL Urine Ketones (NEGATIVE) Urine Occult Blood (Negative) Urine Nitrate (Negative) Urine Bilirubin (NEGATIVE) Urine Urobilinogen (0.2) E.U./dL Ur Leukocyte Esterase (NEGATIVE) Urine RBC (0-5/HPF) Urine WBC (0-5/HPF) Ur Squamous Epith Cells (0-5/HPF) Urine Bacteria (None) Urine Mucus (Negative) Ur Culture Indicated? Vol Urine Centrifuged Salicylates < 1.0 (<20) mg/dL U Opiates 300ng/mL cut (Negative) Ur Oxycodone Screen (Negative) Urine Methadone Screen (Negative) Acetaminophen < 10 (10-30) ug/mL Ur Barbiturates Screen (Negative) U Tricyclic Antidepress (Negative) Ur Phencyclidine Scrn (Negative) Ur Amphetamines Screen (Negative) U Methamphetamines Scrn (Negative) Ur MDMA Scrn (Ecstasy) (Negative) U Benzodiazepines Scrn (Negative) Urine Cocaine Screen (Negative) U Marijuana (THC) Screen (Negative) Urine Specific Henderson (Normal) Ethyl Alcohol < 10 ( - 10) mg/dL Ur Creatinine (Normal) Chlamy pneumoniae PCR Not detected (Not Detect) Adenovirus (PCR) Not detected (Not Detect) B.parapertussis DNA PCR Not detected (Not Detecte) Coronavirus OC43 (PCR) Not detected (Not Detect) Coronavirus HKU1 (PCR) Not detected (Not Detect) Coronavirus 229E (PCR) Not detected (Not Detect) SARS-CoV-2 (PCR) Not detected (Not Detecte) Coronavirus NL63 (PCR) Not detected (Not Detect) Human Metapneumovir PCR Not detected (Not Detect) Influenza Type A (PCR) Not detected (Not Detect) Influenza Type B (PCR) Not detected (Not Detect) M. pneumoniae (PCR) Not detected (Not Detect) Parainfluenza 1 (PCR) Not detected (Not Detect) Parainfluenza 2 (PCR) Not detected (Not Detect) Parainfluenza 3 (PCR) Not detected (Not Detect) Parainfluenza 4 (PCR) Not detected (Not Detect) RSV (PCR) Not detected (Not Detect) Entero/Rhino (PCR) Not detected (Not Detect) 05/14/24 05/14/24 05/14/24 Range/Units 12:13 12:30 12:30 WBC (4.5-11.0) X10^3/uL RBC (4.0-5.2) X10^6/uL Hgb (12.0-16.0) g/dL Hct (36-46) % MCV (80-100) fL MCH (26-34) PG MCHC (30-36) % RDW (11.6-14.8) % Plt Count (150-400) X10^3/uL Neut % (Auto) (50-75) % Lymph % (Auto) (25-40) % Burke % (Auto) (3-14) % Eos % (Auto) (2-4) % Baso % (Auto) (0-2) % Neut # (Auto) (3537-6135) /uL Lymph # (Auto) (3536-2704) /uL Burke # (Auto) (0-900) /uL Eos # (Auto) (0-450) /uL Baso # (Auto) (0-100) /uL PT (9.4-12.5) SECONDS INR (0.9-1.3) APTT (25.1-36.5) SECONDS D-Dimer (<500) ng/ml ABG Sample Site Right radial ABG pH 7.36 (7.35-7.45) ABG pCO2 47.3 H (35-45) mmHg ABG pO2 93 (80-100) mmHg ABG HCO3 27 (23-27) mmol/L ABG Total CO2 27 (23-27) mmol/L ABG O2 Saturation 97 (95-100) % ABG Base Excess 0.7 (-2-3) mmol/L O2 Delivery Device Nc FiO2 28 Sodium (137-145) mmol/L Potassium (3.4-5.1) mmol/L Chloride (98-107) mmol/L Carbon Dioxide (22-32) mmol/L BUN (7-17) mg/dL Creatinine (0.52-1.04) mg/dL Estimated GFR (>60) mL/min BUN/Creatinine Ratio (6-22) Glucose (80-110) mg/dL Lactate (0.7-2.1) mmol/L Calcium (8.4-10.2) mg/dL Total Bilirubin (0.2-1.3) mg/dL AST (14-36) IU/L ALT (<35) IU/L Alkaline Phosphatase (38-126) U/L Ammonia (9-30) umol/L Total Creatine Kinase (30-135) U/L Troponin I (0.01-0.034) ng/mL NT-Pro-B Natriuret Pep (<125) pg/mL Total Protein (6.3-8.2) g/dL Albumin (3.5-5.0) g/dL Globulin (1.7-4.1) g/dL Albumin/Globulin Ratio (1.0-2.8) Procalcitonin (<0.5) ng/mL TSH (0.47-4.68) uIU/mL Prolactin (3.0-18.6) ng/mL Urine Color Yellow Urine Appearance Clear Urine pH 6.5 Normal (4.5-8.0) Ur Specific Henderson 1.010 (1.000-1.035) Urine Protein 2+ H (Negative) Urine Glucose (UA) 1+ H (Negative) g/dL Urine Ketones Negative (NEGATIVE) Urine Occult Blood 1+ H (Negative) Urine Nitrate Negative (Negative) Urine Bilirubin Negative (NEGATIVE) Urine Urobilinogen 0.2 (0.2) E.U./dL Ur Leukocyte Esterase Negative (NEGATIVE) Urine RBC None seen (0-5/HPF) Urine WBC None seen (0-5/HPF) Ur Squamous Epith Cells 1-5 /hpf (0-5/HPF) Urine Bacteria Occasional (0-1) (None) Urine Mucus 1+ H (Negative) Ur Culture Indicated? Cult not indicated Vol Urine Centrifuged 10ml (spun) Salicylates (<20) mg/dL U Opiates 300ng/mL cut Negative (Negative) Ur Oxycodone Screen Positive H (Negative) Urine Methadone Screen Negative (Negative) Acetaminophen (10-30) ug/mL Ur Barbiturates Screen Negative (Negative) U Tricyclic Antidepress Negative (Negative) Ur Phencyclidine Scrn Negative (Negative) Ur Amphetamines Screen Negative (Negative) U Methamphetamines Scrn Negative (Negative) Ur MDMA Scrn (Ecstasy) Negative (Negative) U Benzodiazepines Scrn Negative (Negative) Urine Cocaine Screen Negative (Negative) U Marijuana (THC) Screen Negative (Negative) Urine Specific Henderson Normal (Normal) Ethyl Alcohol ( - 10) mg/dL Ur Creatinine Normal (Normal) Chlamy pneumoniae PCR (Not Detect) Adenovirus (PCR) (Not Detect) B.parapertussis DNA PCR (Not Detecte) Coronavirus OC43 (PCR) (Not Detect) Coronavirus HKU1 (PCR) (Not Detect) Coronavirus 229E (PCR) (Not Detect) SARS-CoV-2 (PCR) (Not Detecte) Coronavirus NL63 (PCR) (Not Detect) Human Metapneumovir PCR (Not Detect) Influenza Type A (PCR) (Not Detect) Influenza Type B (PCR) (Not Detect) M. pneumoniae (PCR) (Not Detect) Parainfluenza 1 (PCR) (Not Detect) Parainfluenza 2 (PCR) (Not Detect) Parainfluenza 3 (PCR) (Not Detect) Parainfluenza 4 (PCR) (Not Detect) RSV (PCR) (Not Detect) Entero/Rhino (PCR) (Not Detect) Point of Care Testing Glucose POC 180 MDM Narrative Medical decision making narrative: Labs show CBC with a white count of 9.6 hemoglobin is 9.6 as well fairly consistent with baseline ranging from 10-9 platelets are 290, Dimer 778 when age adjusted, still positive with a cutoff of 710. Because patient's renal function she has not currently on dialysis hold off on PE scan. Hypoxia could likely be secondary to her pneumonia so held off on full anticoagulation. CMP shows normal electrolytes with sodium and potassium chloride and CO2 of 24 BUN is 141 with a creatinine of 6.5 patient's baseline has been in the 4 range has a January 2024 patient does have known CKD. Lactate 0.9 electrolytes are otherwise appropriate troponins negative at 0.0 1 6, BNP is 4500, protocol is positive at 0.665 patient's prolactin in his 100 but not sure if this is renally cleared, TSH 3.93 Ammonia less than 9 Tylenol, salicylate and ETOH are negative Respiratory panel is negative. UA shows 1+ mucus, 1+ blood protein is 2+ with a glucose of 1+ no other infectious changes. ABGs appropriate with a pH of 7.36 pCO2 of 47, PO2 of 93 with a bicarb of 27 on [address] shows no acute change Chest x-ray patient consolidation right lower lung zone. DVT ultrasound is negative. Haines catheter placed for strict I's and O's. Patient had gentle fluids, catheter placed for strict I's and O's, patient received Zosyn for antibiotics. Continues to be on 2 L nasal cannula. Patient felt to require transfer for Nephrology and potential for acute renal failure on chronic possibly needing dialysis. She does not have any significant electrolyte changes at this time. She is hypoxic requiring antibiotics. Unclear of the etiology for patient's twitching although she noted a new muscle relaxer recently and does have uremia. Spoke with Dr. Cristina, nephrology at [facility] recommends fluids but would stop after a L of NS. If concern for uremia which he states would be more clinical diagnosis or fluid overload would recommend transfer. Notes with her GFR of 6 despite making urine she maybe getting near the point that she is going to require dialysis either way. States she is connected to nephrology in [place] was seen recently at [facility] for the swelling in her leg and evaluation for DVT at that time which was also negative. Agreeable to transfer felt necessary. Spoke with Dr. Siddiqui accepted at [facility] telemetry bed at this time. Agree with the currently, patient has not been having increasing O2 requirements has not been hypotensive or tachycardic. Patient signed out to Dr. Joe while awaiting bed assignment and transfer. Patient received a L fluids held she was given a renal diet. Held her hydroxyzine and oxycodone which she requested cyst might be affecting her mentation. She did receive a sodium bicarb p.o. with her meal. Dr. Joe -patient monitored by myself while pending transfer to [facility]. Patient picked up by [facility] ambulance service and transferred in stable condition. Critical Care Time <Lesvia Aquino, DO - Last Filed: 05/16/24 08:14> Critical Care Time Critical Care Time: Yes Total Critical Care Time: 40 Attestation: The high probability of a clinically significant, sudden or life threatening deterioration of the [systems] system(s) required my full and direct attention, intervention and personal management. The aggregate critical care time was [--] minutes. This time is in addition to time spent performing reported procedures but includes the following: [x] Data Review and interpretation [x] Patient assessment and monitoring of vital signs [x] Documentation [x] Medication orders and management Discharge Plan Departure Patient Disposition: [facility] Clinical Impression: Pneumonia, Acute on chronic kidney failure, Acute hypoxemic respiratory failure Prescriptions: No Action sodium bicarbonate 650 mg tablet 650 mg PO TID Qty: 60 0RF oxycodone 5 mg tablet 5 mg PO Q6H PRN (Reason: pain) Qty: 10 0RF ondansetron 4 mg tablet,disintegrating 4 mg PO Q8H PRN (Reason: nausea and vomiting) Qty: 10 0RF acetaminophen 500 mg bottle 500 mg PO BID insulin lispro [Humalog U-100 Insulin] 100 unit/mL solution 6 unit SUBCUT 3XD Rx Instructions: 6 units per meal insulin glargine [Lantus Solostar U-100 Insulin] 100 unit/mL (3 mL) insulin pen 10 unit SUBCUT BEDTIME aspirin 81 mg Tablet 81 mg PO DAILY amlodipine [Norvasc] 5 mg Tablet 10 mg PO DAILY Qty: 30 0RF carvedilol 3.125 mg Tablet 12.5 mg PO BID Qty: 60 0RF Referrals: Junior Mathis MD [Primary Care Provider] -
[2024-05-14 10:28] LABS: Add Manual Diff / Slide Review NO; Basophils Absolute Auto 0 /uL (0-100); Basophils Percent Auto 0.3 % (0-2); Eosinophils Absolute Auto 100 /uL (0-450); Eosinophils Percent Auto 1.1 % (2-4); Hematocrit 28.1 % (36-46); Hemoglobin 9.6 g/dL (12.0-16.0); Lymphocytes Absolute Auto 700 /uL (1100-4500); Lymphocytes Percent Auto 7.5 % (25-40); Mean Corpuscular Hemoglobin 30.2 PG (26-34); Mean Corpuscular Volume 88.8 fL (80-100); Monocytes Absolute Auto 700 /uL (0-900); Monocytes Percent Auto 7.3 % (3-14); Neutrophils Absolute Auto 8000 /uL (1500-7000); Neutrophils Percent Auto 83.8 % (50-75); Platelet Count 290 X10^3/uL (150-400); Prothrombin Time 11.7 SECONDS (9.4-12.5); Red Blood Cell Count 3.16 X10^6/uL (4.0-5.2); Red Cell Distribution Width 13.3 % (11.6-14.8); White Blood Cell Count 9.6 X10^3/uL (4.5-11.0)
[2024-05-14 10:30] LABS: PTT Partial Thromboplastin Tim 45 SECONDS (25.1-36.5)
[2024-05-14 10:34] LABS: Acetaminophen < 10 ug/mL (10-30); Alanine Aminotransferase 11 IU/L (<35); Albumin 4.1 g/dL (3.5-5.0); Albumin Globulin Ratio 1.4 (1.0-2.8); Alkaline Phosphatase 92 U/L (38-126); Aspartate Aminotransferase 14 IU/L (14-36); Bilirubin Total 0.5 mg/dL (0.2-1.3); Calcium 9.6 mg/dL (8.4-10.2); Carbon Dioxide 24 mmol/L (22-32); Chloride 98 mmol/L (98-107); Creatine Kinase 96 U/L (30-135); Estimated Glomerular Filt Rate 6 mL/min (>60); Ethanol (ETOH) < 10 mg/dL; Globulin 2.9 g/dL (1.7-4.1); Glucose 201 mg/dL (80-110); HEMOLYSIS < 15 (0-50); Lactate (Lactic Acid) 0.9 mmol/L (0.7-2.1); Potassium 4.8 mmol/L (3.4-5.1); Salicylate < 1.0 mg/dL (<20); Sodium 137 mmol/L (137-145)
[2024-05-14 10:45] LABS: D Dimer 778 ng/ml (<500); Troponin I 0.016 ng/mL (0.01-0.034)
[2024-05-14 10:50] LABS: BUN Creatinine Ratio 21.7 (6-22)
[2024-05-14 10:51] LABS: Blood Urea Nitrogen 141 mg/dL (7-17); Procalcitonin 0.665 ng/mL (<0.5)
[2024-05-14 11:00] LABS: NT-proBNP (BNP-Adult 18+) 4500 pg/mL (<125)
[2024-05-14] MEDS: ACETAMINOPHEN IV 1,000 MG/100 ML VIAL 400 MG IV (11:03)
[2024-05-14] MEDS: SODIUM CHLORIDE 0.9% 1,000 ML 150 ML IV (11:03)
[2024-05-14 11:15] LABS: Ammonia (NH3) < 9 umol/L (9-30)
[2024-05-14 11:55] LABS: Thyroid Stimulating Hormone 3.93 uIU/mL (0.47-4.68)
[2024-05-14] MEDS: PIPERACILLIN/TAZO 4.5 GM in SODIUM CHLORIDE 0.9% 100 ML IV (12:09)
[2024-05-14 12:23] LABS: Adenovirus Not Detected (Not Detect); B. parapertussis Not Detected (Not Detecte); Bordetella pertussis Not Detected (Not Detect); Chlamydophila pneumoniae Not Detected (Not Detect); Coronavirus 229E Not Detected (Not Detect); Coronavirus HKU1 Not Detected (Not Detect); Coronavirus NL 63 Not Detected (Not Detect); Coronavirus OC43 Not Detected (Not Detect); Human Metapneumovirus Not Detected (Not Detect); Human Rhinovirus/Enterovirus Not Detected (Not Detect); Influenza A Not Detected (Not Detect); Influenza B Not Detected (Not Detect); Mycoplasma pneumoniae Not Detected (Not Detect); Parainfluenza Virus 1 Not Detected (Not Detect); Parainfluenza Virus 2 Not Detected (Not Detect); Parainfluenza Virus 3 Not Detected (Not Detect); Parainfluenza Virus 4 Not Detected (Not Detect); Respiratory Syncytial Virus Not Detected (Not Detect); SARS- CoV-2 Not Detected (Not Detecte)
[2024-05-14 12:24] LABS: Base Excess ABG 0.7 mmol/L (-2-3); HCO3 ABG 27 mmol/L (23-27); PCO2 ABG 47.3 mmHg (35-45); PO2 ABG 93 mmHg (80-100); pH ABG 7.36 (7.35-7.45)
[2024-05-14 12:25] LABS: Allen Test for ABG Passed? Yes, Passed; Delivery System NC; Fractionated Inspired Oxygen 28; Oxygen Saturation ABG 97 % (95-100); TCO2 ABG 27 mmol/L (23-27)
[2024-05-14 12:26] LABS: Blood Gas Collection Site Right Radial
[2024-05-14 12:59] LABS: Appearance Urine UA CLEAR; Bilirubin Urine UA NEGATIVE (NEGATIVE); Color Urine UA YELLOW; Glucose Urine UA 1+ g/dL (Negative); Ketones Urine UA NEGATIVE (NEGATIVE); Leukocyte Esterase Urine UA NEGATIVE (NEGATIVE); Nitrite Urine UA NEGATIVE (Negative); Occult Blood Urine UA 1+ (Negative); Protein Urine UA 2+ (Negative); Urobilinogen Urine UA 0.2 E.U./dL (0.2)
[2024-05-14 13:03] LABS: UR Morphine/Opiate cutoff 300 Negative (Negative); Ur Creatinine Normal (Normal); Ur Specific Gravity Normal (Normal); Urine Amphetamines Negative (Negative); Urine Cocaine Negative (Negative); Urine Tetrahydrocannabinol Negative (Negative); Urine pH Normal (Normal)
[2024-05-14 13:04] LABS: Urine Barbiturates Negative (Negative); Urine Benzodiazepines Negative (Negative); Urine MDMA Negative (Negative); Urine Methadone Negative (Negative); Urine Methamphetamines Negative (Negative); Urine Oxycodone Positive (Negative); Urine Phencyclidine Negative (Negative); Urine Tricyclic Antidepressant Negative (Negative)
[2024-05-14 13:08] LABS: pH Urine UA 6.5 (4.5-8.0)
[2024-05-14 13:17] LABS: Bacteria Urine Occasional (0-1); Mucus Urine 1+ (Negative); RBC Urine None Seen (0-5/HPF); Squamous Epithelial Cell Urine 1-5 /HPF (0-5/HPF); Urine Volume 10mL (spun); WBC Urine None Seen (0-5/HPF)
[2024-05-14 13:18] LABS: Culture Indicated Urine Cult Not Indicated
--- NOTE | 2024-05-14 14:10 | PC.NURSE ---
Addendum entered by Ami Osullivan CNA 05/14/24 17:34: Checked bed status at @ 1735 Addendum entered by Ami Osullivan CNA 05/14/24 16:39: Accepted at @1630 - waiting for bed status. accepting provider is Addendum entered by Ami Osullivan CNA 05/14/24 16:31: [facility] - Transfer requested @ 1630, no beds available. Addendum entered by Ami Osullivan CNA 05/14/24 16:27: Over [facility] - face sheet,images,transfer report faxed at 1620. Transfer request put in with Clarice @ 1625 Addendum entered by Ami Osullivan CNA 05/14/24 15:44: [facility] Pgd nephro Dr. Godwin @ [phone] @ [address] [place] [address]. Addendum entered by Ami Osullivan CNA 05/14/24 14:22: [facility] - spoke with samson @ 1120. Face sheet, Images, and transfer report sent. Wait listed Original Note: [employer] NOTE: transfer for patient started at 1325. [facility] and spoke with Chapo @1325 - Face sheet, images, Transfer report sent. Wait listed. [facility] - spoke with Seipdeh @ [phone]. Face sheet,images sent, transfer report sent. Wait listed [place] - Spoke with Lien @ [phone]. Face sheet, Images, Transfer report sent. Wait listed.
--- NOTE | 2024-05-14 18:18 | PC.NURSE ---
Pt reports taking 6 units of insulin at each meal. Pt takes novolog with meals. Also takes 10units glargine at night time. Pt's BG 246 after eating dinner. Provider okayed pt taking 6 units of novolog and to take her bicarb medications. Pt took 800mg tab Sevelamer Carbonate and 650mg sodium bicarb. Pt reported I always take 6 units of fast acting at each meal, even if my blood sugar reads low. Last week my blood sugar was 50 and I still took my insulin. I provided patient with education including never taking a dose of insulin if her blood sugar is low as this could kill her. Pt states I've never heard that before. I wont take insulin with low blood sugar. Pt's significant other Art at bedside during education.
--- NOTE | 2024-05-14 21:18 | PC.NURSE ---
[facility] @ [phone] ext.[phone]
--- NOTE | 2024-05-14 21:57 | PC.NURSE ---
2 calls attempted to pts SO. Message left on Voicemail asking him to call the ER back.
--- NOTE | 2024-05-14 23:30 | PC.NURSE ---
Pt noted to have a drop in SpO2 into the mid 80s while asleep. Pt would recover on her own w/o intervention. Pt was placed on 1 L O2 as a precaution. ERICK Joe advised.
[2024-05-16 11:14] LABS: Osmolality, Serum 335 mOsmol/kg (280-301)
== END 2024-05-14 21:35 | disposition short-term general hospital (02) ==
PROVIDERS: Emergency Provider Emergency Medicine; PCP Internal Medicine
DX: J18.9 Pneumonia, unspecified organism (principal); J96.01 Acute respiratory failure with hypoxia; N17.9 Acute kidney failure, unspecified; Z11.52 Encounter for screening for COVID-19; N18.5 Chronic kidney disease, stage 5
CPT/HCPCS: 36415; 36600; 51798; 70450; 71045; 80053; 80305; 80320; 80329; 81001; 82140; 82550; 82962; 83605; 83880; 83930; 84145; 84146; 84443; 84484; 85025; 85379; 85610; 85730; 87040; 87633; 93005; 93971; 96361; 96365; 96367; 99285; G0480; J0136; J2543